=== PATIENT | female | born 1945 | race Caucasian/White ===

== ENCOUNTER → 2017-09-05 10:52 | Outpatient (CLI) | payer MEDICARE, SELFPAY | PROVIDERS: Family Provider Family Medicine Geriatric Medicine; PCP Family Medicine Geriatric Medicine; Visit Provider Family Medicine Geriatric Medicine | DX: R68.83 Chills (without fever) (principal) | CPT/HCPCS: 87633 ==

== ENCOUNTER → 2017-12-01 16:05 | Outpatient (CLI) | payer MEDICARE, SELFPAY ==
--- NOTE | 2017-12-01 16:05 | DT_ITS ---
This patient was seen during an EMR downtime November 28, 2017 - December 05, 2017. This patient may have a combination of paper and electronic documentation or all paper documentation. All documentation is viewable within the e-chart portion of [facility] for each patient visit.
[2017-12-06 05:18] LABS: ALB/GLOB Ratio 1.1 RATIO (0.9-2.4); AST(SGOT) 74 U/L (15-37); Alanine Aminotransfer ALT/SGPT 95 U/L (13-56); Albumin, Serum 4.1 g/dL (3.2-5.0); Alkaline Phosphatase 88 U/L (45-117); Anion Gap 9 (5-15); BUN 15 mg/dL (7-18); BUN/Creat Ratio 14.9 RATIO (10-20); Calcium,Total 9.6 mg/dL (8.5-10.1); Chloride 107 mmol/L (98-107); Creatinine, Serum 1.01 mg/dL (0.55-1.02); EST Glomerular Filtration Rate 57 mL/min (>60); Est Glom Filt Rate - Afr Amer 69 mL/min (>60); Globulin 3.7 g/dL (2.2-4.2); Glucose 122 mg/dL (74-106); Potassium 3.8 mmol/L (3.5-5.1); Protein, Total 7.8 g/dL (6.4-8.2); Sodium Level 141 mmol/L (136-145); Thyroid Stim Hormone (TSH) 1.46 uIU/mL (0.358-3.74)
[2017-12-06 06:02] LABS: Hematocrit 39.7 % (37-47); Hemoglobin 13.3 g/dl (12.0-15.0); Red Blood Count 3.93 M/mm3 (4.2-5.4); White Blood Count 6.4 K/mm3 (4.4-11.0)
[2017-12-06 06:03] LABS: Absolute Neutrophil Count 4.4 X10^3/uL (2.0-7.7); Basophil# 0.02 X10^3/uL; Basophil% 0.3 % (0-1); Eosinophil# 0.07 X10^3/uL; Eosinophils% 1.1 % (0-5); Lymphocyte % 23.3 % (19-41); Mean Corp Hgb Conc 33.5 g/gl (32-36); Mean Corpuscular Hgb 33.8 pg (27.0-32.0); Mean Platelet Vol. 10.5 fl (6.2-12.0); Monocyte# 0.39 X10^3/uL; Monocyte% 6.1 % (0-10); Neutrophil # 4.44 X10^3/uL (2.7-7.7); POSITIVE COUNT NO; POSITIVE DIFFERENTIAL NO; POSITIVE MORPHOLOGY NO; Platelet Count 194 K/mm3 (150-450); RBC Distribution Width CV 13.3 % (11.6-14.6); RBC Distribution Width SD 49.6 fl (35.1-43.9)
[2017-12-06 09:44] LABS: Vitamin D,25 Hydroxy 30.9 ng/mL (29.95-100.01)
== END ==
PROVIDERS: Family Provider Family Medicine Geriatric Medicine; PCP Family Medicine Geriatric Medicine; Visit Provider Family Medicine Geriatric Medicine
DX: E55.9 Vitamin D deficiency, unspecified (principal); I10 Essential (primary) hypertension
CPT/HCPCS: 36415; 80053; 82306; 84443; 85025

== ENCOUNTER → 2018-01-31 14:08 | Outpatient (CLI) | payer MEDICARE, SELFPAY ==
[2018-01-31 14:13] LABS: Mucous, Urine 0 SEEN /hpf (<or=2+); Red Blood Cells-Urine 0 SEEN /hpf (0-5)
[2018-01-31 14:49] LABS: Color, Urine Yellow (Yellow); Glucose, Dipstick Normal (Normal); Ketone-Dipstick Negative (Negative); Leukocyte Esterase-Dipstick 100 /ul (Negative); Nitrite-Dipstick Negative (Negative); Occult Blood-Urine Negative /ul (Negative); Protein-Dipstick 30 mg/dl (Negative); Specific Gravity, Urine 1.015 (1.002-1.030); Urine Bilirubin Dipstick Negative (Negative); Urine Clarity Sl. Cloudy (Clear); Urine Urobilinogen Normal (Normal)
[2018-01-31 14:57] LABS: Bacteria 1+ /hpf (None Seen); Squamous Epithelial Cells - UA 5-10 SEEN /hpf (5-10); White Blood Cells 10-25 SEEN /hpf (0-5)
== END ==
PROVIDERS: Family Provider Family Medicine Geriatric Medicine; PCP Family Medicine Geriatric Medicine; Visit Provider Surgery
DX: R10.32 Left lower quadrant pain (principal)
CPT/HCPCS: 81001; 87086; 87088

== ENCOUNTER 2018-02-07 08:16 | Day surgery (SDC) | payer MEDICARE, SELFPAY ==
[2018-02-07] VITALS (9 sets, daily range): BP systolic 108–143; BP diastolic 73–82; PULSE 72–87; RESP 16; TEMP 36–36.6; O2SAT 95–99; BMI 33.0
--- NOTE | 2018-02-07 09:30 | EGD_PTH ---
PATIENT: KATIE OZUNA LOC: EN U#:[id number] AGE/SX: 72/F ROOM: RE02/07/[address]: Dr. Randal Jefrfies MD : 1945 BED: DIS: 02/07/2018 SPEC #: [id number] RECD: 02/07/18 12:49 STATUS: CYNTHIA JOSUÉ #: [id number] JASON: 02/07/18 09:[address]: Randal Jeffries DEPT: SURGICAL PATHOLOGY RECD BY: Ethan Mcclure ENTERED: 02/07/18 13:59 SP TYPE: EGD BIOPSY OT DR: Dr. Alessio Chang MD Tissues: A - Duodenum, NOS B - Esophageal mucous membrane C - Cecum, NOS Procedures: Surgery Specimen Level IV HEADER OPERATION: Colonoscopy, EGD PRE-OP DIAGNOSIS: RLQ pain TISSUE SUBMITTED: A ? Duodenal polyp, B ? Distal esophagus biopsy, C ? Cecal biopsy MICROSCOPIC DIAGNOSIS A. Duodenal polyp, biopsy: Focal gastric metaplasia. B. Distal esophagus, biopsy: Fragments of benign squamous mucosa. C. Cecum, biopsy: Colonic mucosa with no significant pathologic change. See comment. AM:chris 02/08/18 COMMENT C. Several benign appearing lymphoid aggregates are present. MICROSCOPIC DESCRIPTION Slides are reviewed. GROSS DESCRIPTION A - Received in fixative is one container labeled with the patient's name and designated duodenal polyp. The specimen consists of two irregular fragments of light cuellar soft tissue that in aggregate measure 0.5 x 0.4 x 0.2 cm. The specimen is totally submitted in one cassette. B - Received in fixative is one container labeled with the patient's name and designated distal esophagus biopsy. The specimen consists of two irregular fragments of light cuellar soft tissue that in aggregate measure 0.8 x 0.4 x 0.1 cm. The specimen is totally submitted in one cassette. C - Received in fixative is one container labeled with the patient's name and designated cecal biopsy. The specimen consists of one irregular fragment of light cuellar soft tissue that measures 0.3 x 0.3 x 0.1 cm. The specimen is totally submitted in one cassette. / ALEJANDRO:chris 02/07/18 TC:5 CPT: 24113 x3
--- NOTE | 2018-02-07 10:38 | PCM.OPRPT ---
Problem List (1) Abdominal pain Status: Acute Qualifiers: Abdominal location: right lower quadrant (2) Adenomatous duodenal polyp Status: Resolved Report of Operation Date of Procedure: 02/07/18 Pre-Operative Diagnosis: Right lower quadrant abdominal pain. History of duodenal polyp Post-Operative Diagnosis: Recurrent duodenal polyp within the duodenal bulb. Angiodysplasia of the cecum and ascending colon. Sigmoid diverticulosis Surgery/Procedure Performed:: Esophagogastroduodenoscopy with saline lift and hot snare duodenal polypectomy with hemostatic clip placement. Colonoscopy with cecal cold forcep biopsy Description of Surgical Findings:: Timeout informed consent was obtained. 72-year-old female was taken to the endoscopy suite. Her oropharynx anesthetized with Topex. Because of her comorbidities she underwent monitored anesthesia care. She was placed in left lateral decubitus position. Flexible gastroscope was inserted into the esophageal inlet. Proximal mid distal esophagus not remarkable she does have a small hiatal hernia there were no gross findings of esophagitis. The scope was advanced in the stomach advanced through to the antrum minimal antral erythema noted. Upon entering the duodenum right within the developed one polyp at the curvature of the first and second portions on the inner curvature there was a 1.5 cm diameter sessile polypoid mass. This would be consistent with the patient's previous history of duodenal adenomatous polyps. Scope was advanced into the second and into the third portions of the duodenum this did not appear to be remarkable the ampulla Vater was identified this was not remarkable. The scope was withdrawn back to the duodenal bulb 7 cc of saline was used as saline to elevate that part of the duodenum at the adenomatous change. A hot snare was used to resect the very superficial portion. I then placed a solid hemostatic clip underneath the area. I did attempt to place 2 additional hemostatic clips but they did not appear to be as effective as the initial one. The area was irrigated hemostasis was intact. The tissue appeared to be friable possibly in part from the saline lift. Excess fluid and air was aspirated free the scope was drawn the stomach scope was retroflexed the EG junction the hiatal hernia noted the cardia was unremarkable greater and lesser curvatures were inspected this was not remarkable. Antral biopsy was obtained. The scope was drawn to the distal esophagus and distal esophageal biopsy was obtained. This was all done with cold forceps. She tolerated that procedure well. She was kept in left loud skin position. Digital rectal exam performed lax anal tone. Moderate hemorrhoidal changes. No mass lesions. LeSky [employer]ell colonoscope was inserted in the rectum advanced to a slightly tortuous sigmoid colon. Scope was then advanced through the descending colon transverse colon and by placing the patient supine with some transabdominal pressure the scope was advanced to the cecum. Bowel prep was good. There were some bubbles that that was treated with surfactant. Within the cecum and the proximal ascending colon there were 2 numerous to count vascular angiodysplasia. Photographs were obtained. I did not feel that this area could be treated effectively intraluminally. I did take a biopsy of the area. Appeared benign. There did not appear to be active bleeding although certainly it appeared as if it could bleed. Because of the extent of the cecum ascending colon involved did not feel that endoluminal treatment would be effective. The scope was carefully withdrawn through remainder of the colon. Sigmoid diverticulosis identified no evidence of acute inflammation. Excess fluid and air was aspirated free the procedure was completed she seemed to tolerate well. She was taken to recovery area for an extended period of observation. CBC will be checked. Impression Suspected recurrent duodenal polyp with pathology pending. Treated with saline lift hot snare and hemostatic clip. Minimal findings to suggest gastritis. No gross findings of esophagitis. Hiatal hernia noted. Biopsy results pending Angiodysplasia of the cecum and ascending colon. No profuse active bleeding at this time. Biopsy results pending Sigmoid diverticulosis. No findings seem to correlate with the patient's 2-3 history of chronic right lower quadrant abdominal pain. The patient will be observed in the recovery area. She will be notified of pathology results as they become available. The patient has had a previous ventral hernia repair remotely with mesh in place. On CT scan this does not appear to be etiologic to her pain either. If she is not demonstrating anemia that I am not likely to propose surgical treatment of her ascending colon at this time. Cc: Dr. Chang Upper scope was started at 0956 it was completed at 1020. The lower scope was started at 1023. Cecum was reached at 1027. The procedure was completed at 1033. Randal Jeffries M.D., F.A.C.S. Type of Anesthesia:: MAC Anesthesiologist: Segundo Velez
[2018-02-07 11:37] LABS: Absolute Lymphocyte Count 0.88 X10^3/ul (0.83-4.51); Absolute Neutrophil Count 3.5 X10^3/uL (2.0-7.7); Basophil# 0.01 X10^3/uL; Basophil% 0.2 % (0-1); Eosinophil# 0.06 X10^3/uL; Eosinophils% 1.3 % (0-5); Hematocrit 37.3 % (37-47); Hemoglobin 12.2 g/dl (12.0-15.0); Lymphocyte # 0.88 X10^3/ul (4.0); Lymphocyte % 18.7 % (19-41); Mean Corp Hgb Conc 32.7 g/gl (32-36); Mean Corpuscular Hgb 32.9 pg (27.0-32.0); Mean Corpuscular Volume 100.5 fL (81-99); Mean Platelet Vol. 10.1 fl (6.2-12.0); Monocyte# 0.27 X10^3/uL; Monocyte% 5.7 % (0-10); Neutrophil # 3.48 X10^3/uL (2.7-7.7); Neutrophil % 74.1 % (47-70); Platelet Count 139 K/mm3 (150-450); RBC Distribution Width SD 47.4 fl (35.1-43.9); Red Blood Count 3.71 M/mm3 (4.2-5.4); White Blood Count 4.7 K/mm3 (4.4-11.0)
[2018-02-07 11:38] LABS: POSITIVE COUNT NO; POSITIVE DIFFERENTIAL NO; POSITIVE MORPHOLOGY NO
== END 2018-02-07 18:12 | disposition home or self-care (01) ==
LOC: EN 08:18 → AC 08:18
PROVIDERS: Family Provider Family Medicine Geriatric Medicine; PCP Family Medicine Geriatric Medicine; Visit Provider Surgery
PROC: 0DJD8ZZ Inspection of Lower Intestinal Tract, Via Natural or Artificial Opening Endoscopic (ICD-10-PCS; CPT 45378; principal; 2018-02-07 09:25)
DX: D13.2 Benign neoplasm of duodenum (principal); K55.20 Angiodysplasia of colon without hemorrhage; K57.30 Diverticulosis of large intestine without perforation or abscess without bleeding; K44.9 Diaphragmatic hernia without obstruction or gangrene; K58.0 Irritable bowel syndrome with diarrhea; I10 Essential (primary) hypertension; E78.00 Pure hypercholesterolemia, unspecified; M54.9 Dorsalgia, unspecified; G89.29 Other chronic pain; K21.9 Gastro-esophageal reflux disease without esophagitis; F32.9 Major depressive disorder, single episode, unspecified; F41.9 Anxiety disorder, unspecified; Z78.0 Asymptomatic menopausal state; Z79.82 Long term (current) use of aspirin; Z79.899 Other long term (current) drug therapy; Z85.828 Personal history of other malignant neoplasm of skin; Z87.19 Personal history of other diseases of the digestive system; Z90.49 Acquired absence of other specified parts of digestive tract
CPT/HCPCS: 43251; 45380; 85025; 88305; J7120; A4216; J2405

== ENCOUNTER → 2018-05-26 10:30 | Outpatient (CLI) | payer MEDICARE, SELFPAY ==
[2018-05-26 12:23] LABS: Absolute Lymphocyte Count 1.36 X10^3/ul (0.83-4.51); Absolute Neutrophil Count 3.6 X10^3/uL (2.0-7.7); Basophil# 0.02 X10^3/uL; Basophil% 0.4 % (0-1); Eosinophils% 1.8 % (0-5); Hematocrit 38.1 % (37-47); Hemoglobin 12.6 g/dl (12.0-15.0); Lymphocyte # 1.36 X10^3/ul (4.0); Lymphocyte % 25.1 % (19-41); Mean Corp Hgb Conc 33.1 g/gl (32-36); Mean Corpuscular Hgb 33.7 pg (27.0-32.0); Mean Corpuscular Volume 101.9 fL (81-99); Mean Platelet Vol. 11.2 fl (6.2-12.0); Monocyte# 0.29 X10^3/uL; Monocyte% 5.4 % (0-10); Neutrophil # 3.63 X10^3/uL (2.7-7.7); Neutrophil % 67.1 % (47-70); Platelet Count 158 K/mm3 (150-450); RBC Distribution Width CV 12.5 % (11.6-14.6); RBC Distribution Width SD 45.5 fl (35.1-43.9); Red Blood Count 3.74 M/mm3 (4.2-5.4); White Blood Count 5.4 K/mm3 (4.4-11.0)
[2018-05-26 12:28] LABS: POSITIVE COUNT NO; POSITIVE DIFFERENTIAL NO; POSITIVE MORPHOLOGY NO
[2018-05-26 12:30] LABS: ALB/GLOB Ratio 1.1 RATIO (0.9-2.4); AST(SGOT) 129 U/L (15-37); Alanine Aminotransfer ALT/SGPT 164 U/L (13-56); Albumin, Serum 4.1 g/dL (3.2-5.0); Alkaline Phosphatase 97 U/L (45-117); Anion Gap 11 (5-15); BUN 16 mg/dL (7-18); BUN/Creat Ratio 13.3 RATIO (10-20); Calcium,Total 9.5 mg/dL (8.5-10.1); Chloride 108 mmol/L (98-107); EST Glomerular Filtration Rate 47 mL/min (>60); Est Glom Filt Rate - Afr Amer 57 mL/min (>60); Globulin 3.6 g/dL (2.2-4.2); Glucose 202 mg/dL (74-106); Potassium 3.6 mmol/L (3.5-5.1); Protein, Total 7.7 g/dL (6.4-8.2); Sodium Level 142 mmol/L (136-145); Thyroid Stim Hormone (TSH) 1.58 uIU/mL (0.358-3.74); Vitamin D,25 Hydroxy 50.7 ng/mL (29.95-100.01)
--- OUTSIDE RECORDS SUMMARY | 2018-07-21 06:37 | XMS RPT_ITS ---
:1945 Author Organization [facility] Care Team Providers Name Role Phone Bernardo, Alessio Chi Attending Unavailable Bernardo, Alessio Chi Primary Care Unavailable Bernardo, Alessio Chi Attending Unavailable Bernardo, Alessio Chi Primary Care Unavailable CebulYessenia Attending Unavailable Bernardo, Alessio Chi Referring Unavailable Bernardo, Alessio Chi Primary Care Unavailable Cebul Yessenia Attending Unavailable Bernardo, Alessio Chi Primary Care Unavailable Cebul Yessenia Attending Unavailable Cebul, Yessenia Referring Unavailable Bernardo, Alessio Chi Primary Care Unavailable Cebul Yessenia Attending Unavailable Cebul, Yessenia Referring Unavailable Bernardo, Alessio Chi Primary Care Unavailable Giannabul Yessenia Consulting Unavailable Bernardo, Alessio Chi Attending Unavailable Bernardo, Alessio Chi Primary Care Unavailable PROBLEMS PROBLEMS DATE TYPE CONDITION / CODE ATTENDING STATUS SOURCE 01/31/2018 Unknown R10.32 - Left Yessenia Jeffries Active [place] lower [facility] Community pain / Hospital R10.32(ICD-10) Repository 12/22/2017 Unknown E55.9 - Vitamin D Bernardo, Alessio Chi Active [place] deficiency, Community unspecified / Hospital E55.9(ICD-10) Repository PROCEDURES PROCEDURES No Procedure Records FoundRESULTS RESULTS CBC W/DIFF, AUTOMATED Collected: 05/26/2018 Status: F Source: YOUNG 10:32 AM [facility] REPOSITORY TYPE CODE TESTS RESULT OUT OF RANGE REFERENCE UNITS LAB L100.1000 4.4-11.0 K/mm3 Normal WBC 5.4 LAB L100.1200 4.2-5.4 M/mm3 Low RBC 3.74 LAB L100.1300 12.0-15.0 g/dl Normal HGB 12.6 LAB L100.1400 37-47 % Normal HCT 38.1 LAB L100.1500 81-99 fL High MCV 101.9 LAB L100.1600 27.0-32.0 pg High MCH 33.7 LAB L100.1700 32-36 g/gl Normal MCHC 33.1 LAB L100.1810 11.6-14.6 % Normal RDW CV 12.5 LAB L100.1820 35.1-43.9 fl High RDW SD 45.5 LAB L100.1900 150-450 K/mm3 Normal PLT 158 LAB L100.2000 6.2-12.0 fl Normal MPV 11.2 LAB L100.2100 47-70 % Normal NEUT% 67.1 LAB L100.2200 19-41 % Normal LY% 25.1 LAB L100.2300 0-10 % Normal MONO% 5.4 LAB L100.2400 0-5 % Normal EO% 1.8 LAB L100.2500 0-1 % Normal BASO% 0.4 LAB L100.2550 0.0-0.9 % Normal IM GRAN % 0.200 Result Comment: IG% - Immature Granulocytes (promyelocytes, myelocytes and metamyelocytes) > 1% indicates that a LEFT SHIFT is Present. LAB L100.2620 2.0-7.7 X10 3/uL Normal Absolute Neut 3.6 LAB L100.2720 0.83-4.51 X10 3/ul Normal Absolute Lymph 1.36 Performed By: #### L100.0100 #### [facility] [address], [address] COMPREHENSIVE METABOLIC Collected: 05/26/2018 Status: F Source: [place] 10:32 AM [facility] REPOSITORY TYPE CODE TESTS RESULT OUT OF RANGE REFERENCE UNITS LAB L501.0100 74-106 mg/dL High GLU 202 Result Comment: Glucose result greater than or equal to 200 mg/dL suggests DIABETES MELLITUS per A.D.A. criteria. Please note revised GLUCOSE reference range effective 2017. LAB L501.1000 7-18 mg/dL Normal BUN 16 LAB L501.1100 0.55-1.02 mg/dL High CREAT,SERUM 1.20 Result Comment: The validity of the calculated GFR AND GFRAA in patients over 70 years has not been determined. Clinical correlation is essential. LAB L501.1110 >60 mL/min Low EST GFR 47 Result Comment: Non- GFR Calc LAB L501.1115 >60 mL/min Low EST GFR - AA 57 Result Comment: GFR Calc LAB L501.1300 10-20 RATIO Normal BUN/CRE 13.3 LAB L501.1500 6.4-8.2 g/dL T Normal PROT 7.7 LAB L501.1800 3.2-5.0 g/dL Normal ALB 4.1 LAB L501.1950 2.2-4.2 g/dL Normal GLOB 3.6 LAB L501.2000 0.9-2.4 RATIO Normal A/G 1.1 LAB L501.2200 8.5-10.1 mg/dL CA Normal 9.5 LAB L501.4100 15-37 U/L High AST 129 LAB L501.4305 45-117 U/L Normal ALK P 97 LAB L501.4405 13-56 U/L High ALT 164 LAB L501.4600 0.20-1.00 mg/dL High T BILI 1.20 LAB L501.5300 136-145 mmol/L NA Normal 142 LAB L501.5600 3.5-5.1 mmol/L K Normal 3.6 LAB L501.5900 98-107 mmol/L High CL 108 LAB L501.6100 21.0-32.0 mmol/L Normal CO2 23.0 LAB L501.6200 5-15 Normal GAP 11 Performed By: #### L500.4050, L501.9520 #### [facility] [address] [place], [address] THYROID STIM HORMONE Collected: 05/26/2018 Status: F Source: YOUNG (TSH) 10:32 AM [facility] REPOSITORY TYPE CODE TESTS RESULT OUT OF RANGE REFERENCE UNITS LAB L501.9520 0.358-3.74 uIU/mL Normal TSH 1.58 Performed By: #### L500.4050, L501.9520 #### [facility] [address] [place], [address] VITAMIN D,25 HYDROXY Collected: 05/26/2018 Status: F Source: YOUNG 10:32 AM [facility] REPOSITORY TYPE CODE TESTS RESULT OUT OF RANGE REFERENCE UNITS LAB L506.1000 29.95-100.01 ng/mL Normal Vitamin D 50.7 25-OH Result Comment: Vitamin D 25(OH) Status Range Deficiency <20 ng/mL (50nmol/L) Insuffciency 20 - 30 ng/mL (50 - 75 nmol/L) Sufficiency 30 - 100 ng/mL (75 - 250 nmol/L) Toxicity >100 ng/mL (>250 nmol/L) Performed By: #### L506.1000 #### [facility] [address] [place], [address] CBC W/DIFF, AUTOMATED Collected: 02/07/2018 Status: F Source: YOUNG 11:12 AM [facility] REPOSITORY TYPE CODE TESTS RESULT OUT OF RANGE REFERENCE UNITS LAB L100.1000 4.4-11.0 K/mm3 Normal WBC 4.7 LAB L100.1200 4.2-5.4 M/mm3 Low RBC 3.71 LAB L100.1300 12.0-15.0 g/dl Normal HGB 12.2 LAB L100.1400 37-47 % Normal HCT 37.3 LAB L100.1500 81-99 fL High MCV 100.5 LAB L100.1600 27.0-32.0 pg High MCH 32.9 LAB L100.1700 32-36 g/gl Normal MCHC 32.7 LAB L100.1810 11.6-14.6 % Normal RDW CV 13.0 LAB L100.1820 35.1-43.9 fl High RDW SD 47.4 LAB L100.1900 150-450 K/mm3 Low PLT 139 LAB L100.2000 6.2-12.0 fl Normal MPV 10.1 LAB L100.2100 47-70 % High NEUT% 74.1 LAB L100.2200 19-41 % Low LY% 18.7 LAB L100.2300 0-10 % Normal MONO% 5.7 LAB L100.2400 0-5 % Normal EO% 1.3 LAB L100.2500 0-1 % Normal BASO% 0.2 LAB L100.2550 0.0-0.9 % Normal IM GRAN % 0.000 Result Comment: IG% - Immature Granulocytes (promyelocytes, myelocytes and metamyelocytes) > 1% indicates that a LEFT SHIFT is Present. LAB L100.2620 2.0-7.7 X10 3/uL Normal Absolute Neut 3.5 LAB L100.2720 0.83-4.51 X10 3/ul Normal Absolute Lymph 0.88 Performed By: #### L100.0100 #### [facility] [address] [facility] [place], [address] OPERATIVE REPORT Observed: 02/07/2018 Status: F Source: [place] 10:47 AM [facility] REPOSITORY [facility] Medical Records Department [address] [place] [address] Operative Report 02/07/18 1038 MR#: [id number] Acct: [id number] Name: KATIE OZUNA Rep #: [id number] : 1945 72 From: Yessenia Jeffries MD PCP: Bernardo ROBERSON,Alessio Lantigua [place] [facility] Location[facility] Problem List (1) Abdominal pain Status: Acute Qualifiers: Abdominal location: right lower quadrant (2) Adenomatous duodenal polyp Status: Resolved Report of Operation Date of Procedure: 02/07/18 Pre-Operative Diagnosis: Right lower quadrant abdominal pain. History of duodenal polyp Post-Operative Diagnosis: Recurrent duodenal polyp within the duodenal bulb. Angiodysplasia of the cecum and ascending colon. Sigmoid diverticulosis Surgery/Procedure Performed:: Esophagogastroduodenoscopy with saline lift and hot snare duodenal polypectomy with hemostatic clip placement. Colonoscopy with cecal cold forcep biopsy Description of Surgical Findings:: Timeout informed consent was obtained. 72-year-old female was taken to the endoscopy suite. Her oropharynx anesthetized with Topex. Because of her comorbidities she underwent monitored anesthesia care. She was placed in left lateral decubitus position. Flexible gastroscope was inserted into the esophageal inlet. Proximal mid distal esophagus not remarkable she does have a small hiatal hernia there were no gross findings of esophagitis. The scope was advanced in the stomach advanced through to the antrum minimal antral erythema noted. Upon entering the duodenum right within the developed one polyp at the curvature of the first and second portions on the inner curvature there was a 1.5 cm diameter sessile polypoid mass. This would be consistent with the patient's previous history of duodenal adenomatous polyps. Scope was advanced into the second and into the third portions of the duodenum this did not appear to be remarkable the ampulla Vater was identified this was not remarkable. The scope was withdrawn back to the duodenal bulb 7 cc of saline was used as saline to elevate that part of the duodenum at the adenomatous change. A hot snare was used to resect the very superficial portion. I then placed a solid hemostatic clip underneath the area. I did attempt to place 2 additional hemostatic clips but they did not appear to be as effective as the initial one. The area was irrigated hemostasis was intact. The tissue appeared to be friable possibly in part from the saline lift. Excess fluid and air was aspirated free the scope was drawn the stomach scope was retroflexed the EG junction the hiatal hernia noted the cardia was unremarkable greater and lesser curvatures were inspected this was not remarkable. Antral biopsy was obtained. The scope was drawn to the distal esophagus and distal esophageal biopsy was obtained. This was all done with cold forceps. She tolerated that procedure well. She was kept in left loud skin position. Digital rectal exam performed lax anal tone. Moderate hemorrhoidal changes. No mass lesions. uBankell colonoscope was inserted in the rectum advanced to a slightly tortuous sigmoid colon. Scope was then advanced through the descending colon transverse colon and by placing the patient supine with some transabdominal pressure the scope was advanced to the cecum. Bowel prep was good. There were some bubbles that that was treated with surfactant. Within the cecum and the proximal ascending colon there were 2 numerous to count vascular angiodysplasia. Photographs were obtained. I did not feel that this area could be treated effectively intraluminally. I did take a biopsy of the area. Appeared benign. There did not appear to be active bleeding although certainly it appeared as if it could bleed. Because of the extent of the cecum ascending colon involved did not feel that endoluminal treatment would be effective. The scope was carefully withdrawn through remainder of the colon. Sigmoid diverticulosis identified no evidence of acute inflammation. Excess fluid and air was aspirated free the procedure was completed she seemed to tolerate well. She was taken to recovery area for an extended period of observation. CBC will be checked. Impression Suspected recurrent duodenal polyp with pathology pending. Treated with saline lift hot snare and hemostatic clip. Minimal findings to suggest gastritis. No gross findings of esophagitis. Hiatal hernia noted. Biopsy results pending Angiodysplasia of the cecum and ascending colon. No profuse active bleeding at this time. Biopsy results pending Sigmoid diverticulosis. No findings seem to correlate with the patient's 2-3 history of chronic right lower quadrant abdominal pain. The patient will be observed in the recovery area. She will be notified of pathology results as they become available. The patient has had a previous ventral hernia repair remotely with mesh in place. On CT scan this does not appear to be etiologic to her pain either. If she is not demonstrating anemia that I am not likely to propose surgical treatment of her ascending colon at this time. Cc: Dr. Chang Upper scope was started at 0956 it was completed at 1020. The lower scope was started at 1023. Cecum was reached at 1027. The procedure was completed at 1033. Yessenia Jeffries M.D., F.A.C.S. Type of Anesthesia:: MAC Anesthesiologist: Segundo Velez 02/07/18 1047 <Electronically signed by Yessenia Jeffries MD> Date Yessenia Jeffries MD CC: Yessenia Jeffries MD; Alessio Chang MD Signed EGD ([facility]) Observed: 02/07/2018 Status: F Source: YOUNG 9:30 AM [facility] REPOSITORY Patient: KATIE OZUNA : 1945 (72/F) Acct Num: [id number] Phys: Mervin ROBERSON,Yessenia Unit Num: [id number] Loc: EN Specimen: [id number] Received: 02/07/18 - 1249 Spec Type: EGD BIOPSY TISSUES TISSUES: A. Duodenum, NOS B. Esophageal mucous membrane C. Cecum, NOS COMMENT C. Several benign appearing lymphoid aggregates are present. GROSS DESCRIPTION A - Received in fixative is one container labeled with the patient's name and designated duodenal polyp. The specimen consists of two irregular fragments of light cuellar soft tissue that in aggregate measure 0.5 x 0.4 x 0.2 cm. The specimen is totally submitted in one cassette. B - Received in fixative is one container labeled with the patient's name and designated distal esophagus biopsy. The specimen consists of two irregular fragments of light cuellar soft tissue that in aggregate measure 0.8 x 0.4 x 0.1 cm. The specimen is totally submitted in one cassette. C - Received in fixative is one container labeled with the patient's name and designated cecal biopsy. The specimen consists of one irregular fragment of light cuellar soft tissue that measures 0.3 x 0.3 x 0.1 cm. The specimen is totally submitted in one cassette. / SJ:chris 02/07/18 TC:5 CPT: 17306 x3 HEADER OPERATION: Colonoscopy, EGD PRE-OP DIAGNOSIS: RLQ pain TISSUE SUBMITTED: A Duodenal polyp, B Distal esophagus biopsy, C Cecal biopsy MICROSCOPIC DESCRIPTION Slides are reviewed. MICROSCOPIC DIAGNOSIS A. Duodenal polyp, biopsy: Focal gastric metaplasia. B. Distal esophagus, biopsy: Fragments of benign squamous mucosa. C. Cecum, biopsy: Colonic mucosa with no significant pathologic change. See comment. AM:chris 02/08/[address] [facility] 02/08/18 <signature on file> Performed By: #### PEGD #### [facility] [address] [place], [place], [address] SURGERY VISIT REPORT Observed: 02/01/2018 Status: F Source: YOUNG 7:10 AM [facility] REPOSITORY [facility] [address] [place] [address] OFFICE VISIT Date of Service: 01/31/18 MR#: [id number] Acct: [id number] Name: KATIE OZUNA Rep #: [id number] : 1945 Provider: Yessenia Jeffries MD Age/Sex: 72/F Location: [facility] Status: Signed Intake Vital Signs01/31/18 Height 5 ft 2 in 01/31/18 Weight: 185 lb 7 oz 01/31/18 Body Mass Index (BMI) 33.9 01/31/18 Blood Pressure 122/77 Intake Visit Reasons: R Upper Quad Pain HX of Hernia w/Mesh in that area Chief Complaint: RUQ pain 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 Hopper 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 Required: No Is patient in pain?: Yes Pain scale (1-10): 5 Allergies acetaminophen [From Vicodin] Allergy (Verified 01/31/18 13:19) Hives hydrocodone [From Vicodin] Allergy (Verified 01/31/18 13:19) Hives Sulfa (Sulfonamide Antibiotics) Allergy (Verified 01/31/18 13:19) Hives Medications Aspirin [Aspirin, Baby] 81 mg PO DAILY@0800 02/08/16 [History Confirmed 01/31/18] Biotin [Hernandez Biotin] 5,000 mcg PO DAILY 02/08/16 [History Confirmed 01/31/18] Citalopram [Celexa] 20 mg PO DAILY 02/08/16 [History Confirmed 01/31/18] Eluxadoline [Viberzi] 100 mg PO QHS 02/08/16 [History Confirmed 01/31/18] Lorazepam [Ativan] 1 mg PO QHS 02/08/16 [History Confirmed 01/31/18] Losartan/Hydrochlorothiazide [Losartan-Hctz 50-12.5 mg Tab] 1 ea PO DAILY 02/08/16 [History Confirmed 01/31/18] Methylcellulose [Fiber Therapy] 2 tab PO DAILY 02/08/16 [History Confirmed 01/31/18] Pravastatin [Pravachol] 40 mg PO DAILY 02/08/16 [History Confirmed 01/31/18] Vitamin E 200 unit PO DAILY 02/08/16 [History Confirmed 01/31/18] potassium chloride 20 mEq oral packet 20 meq PO QDAY 01/31/18 [History Confirmed 01/31/18] trazodone 100 mg tablet 100 mg PO QDAY 01/31/18 [History Confirmed 01/31/18] Is last menstrual period known: No Post menopausal: Yes Patient : No PFSH Medical History Abdominal pain (Acute) Anxiety (Acute) Chronic back pain (Acute) Depression (Acute) Diverticulitis (Acute) History of incisional hernia repair (Acute) Skin cancer (Acute) HTN (hypertension) (Chronic) Surgical History History of cholecystectomy (Acute) History of colectomy (Acute) History of colonoscopy (Acute) History of removal of ovarian cyst (Acute) Status post surgical removal of malignant neoplasm of skin (Acute) Family History Father Heart disease Mother Colon cancer Sister Breast cancer Social History Smoking Status: Never smoker HPI HPI HPI: KATIE OZUNA, is a 72 F who presents to the office today for surgical consultation regarding right lower quadrant pain. The patient is referred by Dr. Chang for assistance in evaluation of right lower quadrant abdominal pain and a written copy of my surgical consult and recommendations will be returned to him. It is of note that the patient had ruptured sigmoid diverticulitis in the year 1999. Dr. Tha Barrow performed a resection and primary anastomosis.. It appears that 2000 she had a laparoscopic ventral incisional herniorrhaphy as well. She has had no difficulties with that hernia repair ever since. Over the past 1-2 years she has developed this constant chronic right lower quadrant abdominal pain. No fever or chills or sweats or nausea or vomiting or bright red blood per rectum or melena. She is already had a previous remote appendectomy in childhood and she has had a previous cholecystectomy. As of December 11, 2017 her white blood cell count was 6.4 and hemoglobin 13.3 hematocrit 39.7 and platelet count 194,000 with a normal differential. Her AST is 74 and a.l. T is 95 alkaline phosphatase is 88 and total bilirubin is 1.3. BUN and creatinine are normal. A previous CT scan performed September 28, 2016 demonstrates no acute abdominal pathology. Postsurgical changes with the mesh supporting the abdominal wall. Hepatomegaly and splenomegaly seemingly stable to previous studies. September 09, 2015 a abdominal ultrasound demonstrated a common bile duct measuring 2.7 mm and evidence of post cholecystectomy. The right kidney had a peripelvic mass measuring 2 x 2.1 x 1.8 cm which then was not seen on CT. It is of note that a previous ultrasound performed June 19, 2013 demonstrated fatty infiltration of the liver at that time performed an upper endoscopy February 26, 2014. That exam was normal at that time. That exam was performed because of a previous history of a adenomatous polyp of the duodenum. August 16, 2013 an upper endoscopy had demonstrated a single 4 mm sessile polyp in the distal second part of the duodenum and it was resected with cold forceps. There is a 15 mm sessile polyp in the second portion of the duodenum opposite the main papilla and it was resected with saline lift and hot snare technique. 2 hemostatic clips were placed at that time. That polyp was tubular adenoma with low-grade dysplasia. The same for the other polyp as well. The patient does not recall having had any additional follow-up upper endoscopy since 2013. It is of note that the patient has a chronic anxiety problem. 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 She has already been sent to see a chiropractor and thoughts that she might have radiating back pain. She herself has not detected recurrence of her incisional hernia. She does not really state that she has groin pain or groin hernia. She does claim that just the other day she had horrific pain when she was attempting to defecate. That pain lingered even after moving her bowels. She did not notice bright red blood per rectum or melena ROS General General: Yes weight change and fatigue; no appetite, colon cancer, breast cancer or weakness HEENT HEENT: No difficulty swallowing, eye injury, eye surgery, swollen glands or hoarseness Endo Endocrine: No thyroid disease, diabetes mellitus, thyroid cancer, Hair loss, heat intolerance or cold intolerance Musc Musculoskeletal: Yes back problems; no arthritis, rheumatoid arthritis, gout or joint pain Cardio Cardiovascular: Yes high blood pressure; no murmur, pacemaker, heart disease, atrial fibrillation, heart attack, heart stent, palpitations, shortness of breat with exertion or chest pain Psych Psychiatric: Yes depression and anxiety; no hearing voices Resp Respiratory: No shortness of breath, No sleep apnea, No cough, No COPD, No asthma, No emphysema, No wheezing Gastro Gastrointestinal: Yes abdominal pain, No nausea or vomiting, Yes diarrhea, No constipation, No blood in stool, No acid reflux, No hemorrhoids, No ulcers, No gallbladder problem, No black,tarry stools Additional Details: IBSD Pablo Hematologic: No blood thinners, No blood disorders, No bleeding, No anemia, No blood clots Neuro Neurologic: No weakness Exam Const General: cooperative, healthy appearing, no acute distress Nutritional Appearance: obese Orientation: alert, awake, oriented x3 HENMT Head: normal to inspection Eyes General: appearance normal, both eyes and all related structures Neck Neck: normal visual inspection Chest Chest palpation AND inspection: normal inspection of the chest Resp Effort AND Inspection: normal respiratory effort Auscultation: clear to auscultation bilaterally Cardio Rate: regular rate Rhythm: regular rhythm Heart Sounds: no murmurs GI Palpation: soft, no hepatosplenomegaly Auscultation: normal bowel sounds Other: Difficult to examine as the patient demonstrates tenderness actually throughout her entire abdomen Superficially tender to palpation in the left mid abdomen and lower quadrant. Tender to even light palpation in the right lower quadrant. The patient was examined supine and upright. No clinical findings to correlate with groin hernia femoral hernia or incisional hernia Not pulsatile Musc Cervical Spine: normal cervical lordosis Skin General: no rashes or lesions noted Neuro Cranial Nerves: CN's II-XI intact bilaterally Extrem General: no clubbing, cyanosis or edema Psych Mood: anxious mood Assessment AND Plan Problems 1. Right lower quadrant abdominal pain R10.31 Plan For 1-2 years the patient has had this persistent right lower quadrant abdominal pain. Recently it was made worse with movement of her bowels. She has had a personal history of a adenoma of the duodenum. She does have a chronic anxiety issue. She claims that she has had a long-term history of IBS with diarrhea I have personally reviewed her most recent CT scan of 2017. The abdominal wall mesh repair appears to be nicely in place. I do not detect any bowel involvement without mass. There is no findings that would suggest small bowel obstruction. After such a prolonged period of time I would have a low suspicion that the mesh is etiologic to her discomfort. Clinically and on CT have not demonstrating recurrent ventral hernia or evidence of groin or inguinal hernia. I am offering her a esophagogastroduodenoscopy with possible biopsy with anticipated very careful inspection of the duodenum for potential for recurrent polyps. Because of the pain with defecation I am recommending a colonoscopy with possible biopsy or polypectomy is indicated. She has had an opportunity to ask and have questions answered. I am recommending that this be performed with monitored anesthesia care to facilitate this patient's comfort. If an etiology to the patient's abdominal pain is determined that we will be able to assist. If there are no immediate findings upon endoscopy and I am not likely to detect a surgical etiology to her pain. I very much appreciate the kind opportunity of assisting with her surgical care Cc: Dr. Bernardo Jeffries M.D., F.A.C.S. Orders Orders: Medications Discontinued: Coding Level of Care Code Comprehensive,moderate Diagnoses Right lower quadrant abdominal pain R10.31 Abdominal location: right lower quadrant Time Spent (min) 55 02/01/18 0710 <Electronically signed by Yessenia Jeffries MD> Date Yessenia Jeffries MD Cosigner Signature: Date (if applicable) CC: Alessio Chang MD URINALYSIS, COMPLETE Collected: 01/31/2018 Status: F Source: [place]NG 2:12 PM [facility] REPOSITORY Order Comment: How was Urine Obtained? ELECTRONEURODIAGNOSTIC TECHNOLOGIST TO SPECIFY TYPE CODE TESTS RESULT OUT OF RANGE REFERENCE UNITS LAB L400.3000 Yellow COLOR Normal Yellow LAB L400.3050 Clear Normal CLARITY Sl. Cloudy LAB L400.3200 Normal mg/dl Normal GLUCOSE, UR Normal LAB L400.3300 Negative mg/dL Normal BILIRUBIN URINE Negative LAB L400.3400 Negative mg/dl Normal KETONE UR Negative LAB L400.3465 1.002-1.030 Normal SP.GR. DIPSTX 1.015 LAB L400.3550 5.0 - 8.0 pH UR Normal 6.0 LAB L400.3600 Negative mg/dl High PROT 30 DIPSTX LAB L400.3700 Normal mg/dl Normal UROBILI Normal LAB L400.3750 Negative Normal NITRITE UR Negative LAB L400.3780 Negative /ul Normal OCCULT BLOOD-UR Negative LAB L400.3800 Negative /ul High LEUK ESTERASE 100 LAB L400.4050 0-5 /hpf WBC Normal 10-25 SEEN LAB L400.4100 0-5 /hpf 0 Normal RBC-UA SEEN LAB L400.4150 5-10 /hpf SQUAM Normal EPI 5-10 SEEN LAB L400.4300 None Seen /hpf 1+ Normal BACTERIA LAB L400.4350 <or=2+ /hpf 0 Normal MUCUS, URINE SEEN Performed By: #### L400.0001 #### [facility] [address] [facility] [place], [address] Observed: 01/31/2018 Status: F Source: ROCKMART CULTURE, URINE 2:12 PM [facility] REPOSITORY Urine Culture ORGANISM 1: Mixed Gram Positive Organisms [place] Count 11,000-25,000 MIX CULTURE Mixed contaminants. Submit a new specimen if indicated. Performed By: #### M100.0650 #### [facility] [address] [place], [address] DOWNTIME REPORT Observed: 12/15/2017 Status: F Source: ROCKMART 1:28 PM [facility] REPOSITORY [facility] Medical Records Department [address] [place] [address] Downtime Report MR#: [id number] Acct: [id number] Name: KATIE OZUNA Rep #: [id number] : 1945 72 From: Lencho Lundy PCP: Bernardo ROBERSON,A[facility] Status: REG CLI This patient was seen during an EMR downtime November 28, 2017 - December 05, 2017. This patient may have a combination of paper and electronic documentation or all paper documentation. All documentation is viewable within the e-chart portion of [facility] for each patient visit. COMPREHENSIVE METABOLIC Collected: 12/01/2017 Status: F Source: YOUNG PROFIL 4:05 PM [facility] REPOSITORY Order Comment: RESULT(S) PREVIOUSLY REPORTED ON MANUAL REQUISITION DURING DOWNTIME. TYPE CODE TESTS RESULT OUT OF RANGE REFERENCE UNITS LAB L501.0100 74-106 mg/dL High GLU 122 Result Comment: Fasting Glucose result from 100 to 125 mg/dL suggests IMPAIRED HOMEOSTASIS per A.D.A. criteria. Please note revised GLUCOSE reference range effective 2017. LAB L501.1000 7-18 mg/dL Normal BUN 15 LAB L501.1100 0.55-1.02 mg/dL Normal CREAT,SERUM 1.01 Result Comment: The validity of the calculated GFR AND GFRAA in patients over 70 years has not been determined. Clinical correlation is essential. LAB L501.1110 >60 mL/min Low EST GFR 57 LAB L501.1115 >60 mL/min Normal EST GFR - AA 69 LAB L501.1300 10-20 RATIO Normal BUN/CRE 14.9 LAB L501.1500 6.4-8.2 g/dL Normal T PROT 7.8 LAB L501.1800 3.2-5.0 g/dL Normal ALB 4.1 LAB L501.1950 2.2-4.2 g/dL Normal GLOB 3.7 LAB L501.2000 0.9-2.4 RATIO Normal A/G 1.1 LAB L501.2200 8.5-10.1 mg/dL Normal CA 9.6 LAB L501.4100 15-37 U/L High AST 74 LAB L501.4305 45-117 U/L Normal ALK P 88 LAB L501.4405 13-56 U/L High ALT 95 LAB L501.4600 0.20-1.00 mg/dL High T BILI 1.30 LAB L501.5300 136-145 mmol/L Normal NA 141 LAB L501.5600 3.5-5.1 mmol/L Normal K 3.8 LAB L501.5900 98-107 mmol/L Normal CL 107 LAB L501.6100 21.0-32.0 mmol/L Normal CO2 25.0 LAB L501.6200 5-15 Normal GAP 9 Performed By: #### L500.4050, L501.9520 #### [facility] [address] [facility] [place], [place], [address] THYROID STIM HORMONE Collected: 12/01/2017 Status: F Source: YOUNG (TSH) 4:05 PM [facility] REPOSITORY Order Comment: RESULT(S) PREVIOUSLY REPORTED ON MANUAL REQUISITION DURING DOWNTIME. TYPE CODE TESTS RESULT OUT OF RANGE REFERENCE UNITS LAB L501.9520 0.358-3.74 uIU/mL Normal TSH 1.46 Performed By: #### L500.4050, L501.9520 #### [facility] [address] [place], [place], [address] CBC W/DIFF, AUTOMATED Collected: 12/01/2017 Status: F Source: YOUNG 4:05 PM [facility] REPOSITORY Order Comment: RESULT(S) PREVIOUSLY REPORTED ON MANUAL REQUISITION DURING DOWNTIME. TYPE CODE TESTS RESULT OUT OF RANGE REFERENCE UNITS LAB L100.1000 4.4-11.0 K/mm3 Normal WBC 6.4 LAB L100.1200 4.2-5.4 M/mm3 Low RBC 3.93 LAB L100.1300 12.0-15.0 g/dl Normal HGB 13.3 LAB L100.1400 37-47 % Normal HCT 39.7 LAB L100.1500 81-99 fL High MCV 101.0 LAB L100.1600 27.0-32.0 pg High MCH 33.8 LAB L100.1700 32-36 g/gl Normal MCHC 33.5 LAB L100.1810 11.6-14.6 % Normal RDW CV 13.3 LAB L100.1820 35.1-43.9 fl High RDW SD 49.6 LAB L100.1900 150-450 K/mm3 Normal PLT 194 LAB L100.2000 6.2-12.0 fl Normal MPV 10.5 LAB L100.2100 47-70 % Normal NEUT% 69.0 LAB L100.2200 19-41 % Normal LY% 23.3 LAB L100.2300 0-10 % Normal MONO% 6.1 LAB L100.2400 0-5 % Normal EO% 1.1 LAB L100.2500 0-1 % Normal BASO% 0.3 LAB L100.2550 0.0-0.9 % Normal IM GRAN % 0.200 Result Comment: IG% - Immature Granulocytes (promyelocytes, myelocytes and metamyelocytes) > 1% indicates that a LEFT SHIFT is Present. LAB L100.2620 2.0-7.7 X10 3/uL Normal Absolute Neut 4.4 LAB L100.2720 0.83-4.51 X10 3/ul Normal Absolute Lymph 1.50 Performed By: #### L100.0100 #### [facility] [address] [place], [place], [address] VITAMIN D,25 HYDROXY Collected: 12/01/2017 Status: F Source: YOUNG 4:05 PM [facility] REPOSITORY Order Comment: RESULT(S) PREVIOUSLY REPORTED ON MANUAL REQUISITION DURING DOWNTIME. TYPE CODE TESTS RESULT OUT OF RANGE REFERENCE UNITS LAB L506.1000 29.95-100.01 ng/mL Normal Vitamin D 30.9 25-OH Result Comment: Vitamin D 25(OH) Status Range Deficiency <20 ng/mL (50nmol/L) Insuffciency 20 - 30 ng/mL (50 - 75 nmol/L) Sufficiency 30 - 100 ng/mL (75 - 250 nmol/L) Toxicity >100 ng/mL (>250 nmol/L) Performed By: #### L506.1000 #### [facility] [address] [facility] [place], [address] Observed: 09/05/2017 Status: F Source: ROCKMART RESPIRATORY PANEL 11:04 AM [facility] MOLECULAR REPOSITORY RP PANEL ADENOVIRUS Not Detected HUMAN METAPHNEUMO Not Detected INFLUENZA A Not Detected INFLUENZA A (SUBTYPE H1) Not Detected INFLUENZA A (SUBTYPE H3) Not Detected INFLUENZA B Not Detected PARAINFLUENZA 1 Not Detected PARAINFLUENZA 2 Not Detected PARAINFLUENZA 3 Not Detected PARAINFLUENZA 4 Not Detected RHINOVIRUS Not Detected RSV A Not Detected RSV B Not Detected NAAT METHOD Testing was performed using nucleic acid amplification Performed By: #### M100.638 #### [facility] [address] [facility] [place], [place], [address] ALLERGIES ALLERGIES DATE TYPE / CODE NAME / CODE REACTION SEVERITY SOURCE 02/07/2018 Drug Sulfa Hives Unknown [facility] Allergy/4160 (Sulfonamide Hospital 66756(SNOMED Antibiotics)/ Repository CT) [id number](RX NORM) 02/07/2018 Drug hydrocodone/F Hives Unknown [facility] Allergy/4160 [id number](RXN Hospital 89647(SNOMED ORM) Repository CT) 02/07/2018 Drug acetaminophen Hives Unknown [facility] Allergy/4160 /[id number](R Hospital 44093(SNOMED XNORM) Repository CT) ENCOUNTERS ENCOUNTERS ADMIT/DISCHARGE ACCOUNT ADMITTING ENCOUNTER LOCATION SOURCE NUMBER CLASS 05/26/2018 [id number] Ambulatory [address] ing:POLAB3 Repository 02/07/2018/ [id number] Ambulatory [place] [address] [facility] ing:ENRoom: Repository AC16 02/07/2018 [id number] Ambulatory BMSBuilding:B [place] 8 [place].[facility] Repository 01/31/2018 [id number] Ambulatory [place] 4 [facility] ing:PAVLAB Repository 01/31/2018/ [id number] Ambulatory BMSBuilding:B [place] 8 5 [place].[facility] Repository 12/01/2017 [id number] Ambulatory [place] 4 [facility] ing:POLAB3 Repository 09/05/2017 [id number] Ambulatory [place] 1 [facility] ing:LAB Repository PAYERS PAYERS ENCOUNTER GUARANTOR PAYER SUBSCRIBER SOURCE 05/26/2018 KATIE L Primary KATIE L [place] [id number] CR Insurance:[facility]: [place] [id number] [address]Tel: [facility] Number: () [id number] Date: [place], [place] [address]LZ: 05/26/2018 Secondary NOT GIVENUNK [place] Insurance:SELF PAY [facility] Number: Effective Repository Date:2018-05-26 02/07/2018 KATIE L Primary KATIE L [place] [id number] CR Insurance:[facility]: [place] [id number], [place] [address]Tro: MEDICAREPolicy Repository Number: () [id number] Date: [place], [place] [address]QA: 02/07/2018 Secondary NOT GIVENUNK [place] Insurance:SELF PAY [facility] Number: Effective Repository Date:2018-02-01 02/07/2018 KATIE L Primary KATIE L [place] [id number] CR Insurance:[facility]: Community [id number] [address]Vwr: MEDICAREPolicy Repository Number: () [id number] Date: [facility], [place] [address]QW: 02/07/2018 Secondary NOT GIVENUNK [place] Insurance:SELF PAY [facility] Number: Effective Repository Date:2018-02-07 01/31/2018 KATIE L Primary KATIE L [place] [id number] CR Insurance:[place] [facility]: Community [address] [place] [address]: MEDICAREPolicy Repository Number: () [id number] Date: [place], [place] [address]OL: 01/31/2018 Secondary NOT GIVENUNK [place] Insurance:SELF PAY [facility] Number: Effective Repository Date:2018-01-31 01/31/2018 YESSENIA E Primary KATIE L [place] [id number] CR Insurance:[place] SHICKSHINNYDOB: [address] [address]Udx: MEDICAREPolicy Repository Number: () [id number] Date: [place], [place] [address]EL: 01/31/2018 Secondary NOT GIVENUNK [place] Insurance:SELF PAY [facility] Number: Effective Repository Date:2018-01-31 12/01/2017 YESSENIA E Primary KATIE L [place] [id number] CR Insurance:[facility]: [place] [id number]: MEDICAREPolicy Repository Number: () [id number] Date: [facility], [place] [address]ZF: 12/01/2017 Secondary NOT GIVENUNK [place] Insurance:SELF PAY [facility]: Effective Repository Date:2017-12-01 09/05/2017 YESSENIA HERRERACY [id number] [id number] Insurance:[place]OMETOWAlonso NOLANB: Community [address] [id number], [place] [address]Zaz: MEDICAREPolicy Repository Number: (PU) [id number] [facility] [place] [address]IG: 09/05/2017 Secondary NOT GIVENUNK [place] Insurance:SELF PAY [facility] Number: Effective Repository Date:2017-09-05
== END ==
PROVIDERS: Family Provider Family Medicine Geriatric Medicine; PCP Family Medicine Geriatric Medicine; Visit Provider Family Medicine Geriatric Medicine
DX: I10 Essential (primary) hypertension (principal); E55.9 Vitamin D deficiency, unspecified
CPT/HCPCS: 36415; 80053; 82306; 84443; 85025

== ENCOUNTER → 2018-07-05 15:39 | Outpatient (CLI) | payer MEDICARE, SELFPAY ==
[2018-07-05 17:56] LABS: AST(SGOT) 96 U/L (15-37); Alanine Aminotransfer ALT/SGPT 120 U/L (13-56); Albumin, Serum 4.4 g/dL (3.2-5.0); Alkaline Phosphatase 99 U/L (45-117); GGTP 203 U/L (5-55); Globulin 3.5 g/dL (2.2-4.2); Protein, Total 7.9 g/dL (6.4-8.2)
[2018-07-05 18:07] LABS: Hemoglobin A1c 6.3 % (4.2-6.3)
[2018-07-05 20:08] LABS: Erythrocyte Sedimentation Rate 25 mm/hr (0-30)
[2018-07-08 19:51] LABS: ANTINUCLEAR ANTIBODIES DIRECT Positive (Negative); Anti-Mitochondrial AB <20.0 Units (0.0-20.0); Anti-Smooth Muscle ABS 23 Units (0-19)
== END ==
PROVIDERS: Family Provider Family Medicine Geriatric Medicine; PCP Family Medicine Geriatric Medicine; Referring Provider Internal Medicine Gastroenterology; Visit Provider Internal Medicine Gastroenterology
DX: K75.9 Inflammatory liver disease, unspecified (principal); K76.0 Fatty (change of) liver, not elsewhere classified
CPT/HCPCS: 36415; 80076; 82977; 83036; 83516; 85652; 86038

== ENCOUNTER → 2018-07-10 07:39 | Outpatient (CLI) | payer MEDICARE, SELFPAY ==
[2018-02-07 08:37] VITALS: BMI 33.0
--- NOTE | 2018-07-10 07:42 | US_ITS ---
HISTORY: HEPATITISHX OF CHOLECYSTECTOMY EXAM/TECHNIQUE: US Abdomen Limited (quadrant): Right upper quadrant. COMPARISON: CT abdomen pelvis 09/28/16. FINDINGS: # of images incl. paperwork: 89 Increased hepatic echotexture compatible with steatosis. Normal hepatic size. Portal vein patent with hepatopedal flow. No focal hepatic lesions are evident. Status post cholecystectomy. Common bile duct 8 mm diameter. Pancreas unremarkable. Right kidney 10.2 x 5.0 x 5.3 cm with normal cortical thickness. 3 right renal cysts are noted, largest 2.4 cm in diameter. 8 mm shadowing calcification appears to layer within 1 of the renal cysts, less likely within a calyx. US/Abdomen Limited IMPRESSION: No acute findings. Status post cholecystectomy. 8 mm right renal calcification most likely an incidental calcification within a cyst. Less likely a nonobstructing stone. Hepatic steatosis. at 2337 Reported and signed by: Umang Valenzuela MD Electronically Signed: Umang Valenzuela, at 23:36 EST Tel , Service support ,
== END ==
PROVIDERS: Family Provider Family Medicine Geriatric Medicine; PCP Family Medicine Geriatric Medicine; Referring Provider Internal Medicine Gastroenterology; Visit Provider Internal Medicine Gastroenterology
DX: K75.9 Inflammatory liver disease, unspecified (principal)
CPT/HCPCS: 76705

== ENCOUNTER → 2018-07-12 09:46 | Outpatient (CLI) | payer MEDICARE, SELFPAY ==
[2018-07-13 15:15] LABS: Alpha-1-Globulins 0.3 g/dL (0.0-0.4); Alpha-2-Globulins 0.7 g/dL (0.4-1.0); Gamma Globulin 0.9 g/dL (0.4-1.8); Immunoglobulin A 150 mg/dL (64-422); Immunoglobulin G 814 mg/dL (700-1600); Immunoglobulin M 80 mg/dL (26-217); PROEL- TOTAL PROTEIN 7.1 g/dL (6.0-8.5)
--- OUTSIDE RECORDS SUMMARY | 2018-09-16 01:59 | XMS RPT_ITS ---
:1945 Author Organization OHIP Support Name Relationship Address Phone R Unavailable Unavailable Unavailable OZUNA, DON Unavailable [address] + [place] [address] R Unavailable Unavailable Unavailable OZUNA, LORETO Unavailable [address] + [place] [address] R Unavailable Unavailable Unavailable OZUNA, LORETO Unavailable [address] + [place] [address] R Unavailable Unavailable Unavailable OZUNA, DON Unavailable [address] + [place] [address] R Unavailable Unavailable Unavailable OZUNA, DON Unavailable [address] + [place] [address] R Unavailable Unavailable Unavailable OZUNA, DON Unavailable [address] + [place] [address] R Unavailable Unavailable Unavailable OZUNA, DON Unavailable [address] + [place] [address] R Unavailable Unavailable Unavailable OZUNA, DON Unavailable [address] + [place] [address] R Unavailable Unavailable Unavailable OZUNA, DON Unavailable [address] + [place] [address] R Unavailable Unavailable Unavailable OZUNA, DON Unavailable [address] + [place] [address] R Unavailable Unavailable Unavailable OZUNA, DON Unavailable [address] + [place] [address] Care Team Providers Name Role Phone Adams Trent Attending Unavailable Adams Trent Referring Unavailable Bernardo, Alessio Chi Primary Care Unavailable Adams Trent Attending Unavailable Adams Trent Referring Unavailable Bernardo, Alessio Chi Primary Care Unavailable Adams Trent Attending Unavailable Adams Trent Referring Unavailable Bernardo, Alessio Chi Primary Care Unavailable Bernardo, Alessio Chi Attending Unavailable Bernardo, Alessio Chi Primary Care Unavailable Cebul, Yessenia Attending Unavailable Cebul, Yessenia Referring Unavailable Bernardo, Alessio Chi Primary Care Unavailable Cebul, Yessenia Attending Unavailable Bernardo, Alessio Chi Primary Care Unavailable Cebul, Yessenia Attending Unavailable Bernardo, Alessio Chi Referring Unavailable Bernardo, Alessio Chi Primary Care Unavailable Bernardo, Alessio Chi Attending Unavailable Bernardo, Alessio Chi Referring Unavailable Bernardo, Alessio Chi Primary Care Unavailable Bernardo, Alessio Chi Attending Unavailable Bernardo, Alessio Chi Primary Care Unavailable Bernardo, Alessio Chi Attending Unavailable Bernardo, Alessio Chi Primary Care Unavailable Cebul, Yessenia Attending Unavailable Cebul, Yessenia Referring Unavailable Bernardo, Alessio Chi Primary Care Unavailable Cebul, Yessenia Consulting Unavailable PROBLEMS PROBLEMS DATE TYPE CONDITION / CODE ATTENDING STATUS SOURCE 07/14/2018 Unknown 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 - Adams Trent Active [place] 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, Hospital unspecified / Repository K75.9(ICD-10) 01/31/2018 Unknown R10.32 - Left Cebul, Yessenia Active [place] lower quadrant Community pain / Hospital R10.32(ICD-10) Repository 12/22/2017 Unknown E55.9 - Vitamin D Bernardo, Alessio Chi Active [place] deficiency, Community unspecified / Hospital E55.9(ICD-10) Repository PROCEDURES PROCEDURES No Procedure Records FoundRESULTS RESULTS SCREENING MAMM (CAD), Observed: 07/20/2018 Status: F Source: BRADSHAW BIL 1:21 PM [facility] REPOSITORY [facility] Imaging Services [address] [place] [address] SCREENING MAMM (CAD), BILAT MR#: [id number] Acct: [id number] Name: KATIE OZUNA Rep #: [id number] : 1945 F 73 From: Júnior Parker MD PCP: Alessio Chang MD, Chi Status: REG [facility] Study: SCREENING MAMM (CAD), BILAT Date of Exam: 07/20/18 Exam# [id number] Ordering Dr: Alessio Chang MD MAMMOGRAPHY - BILATERAL SCREENING REASON FOR EXAM: Female, 73 years old. Routine annual screening examination. PERTINENT HISTORY: Sister with breast cancer. TECHNIQUE: Digital bilateral breast aleksandra (3D mammographic acquisition) in the CC and MLO projections. 2-D mediolateral oblique (MLO) and craniocaudad (CC) views of both breasts were obtained. CAD: Full Field Digital Mammography with Computer Added Detection was performed. COMPARISON: Comparison is made with prior study dated June 15, 2016 and June 13, 2015. FINDINGS: Breast Composition: There are scattered areas of fibroglandular density. There are no dominant masses or suspicious calcifications. There is a 6 mm x 6 mm well-defined nodular density in the inferior central portion of the left breast. This most likely represents a small cyst. Correlation with ultrasound is recommended. No other significant abnormalities are identified. BI/SCREENING MAMM (CAD), BILAT IMPRESSION: New 6 mm x 6 mm well-defined nodule in the inferior central aspect of the left breast as described. Correlation with ultrasound is recommended. ASSESSMENT CATEGORY: BIRADS Category 0: Incomplete. Need additional imaging evaluation. A letter regarding these results will be sent to the patient by the facility within 30 days. Approximately 10% of breast cancers are not detected by mammography. A normal mammogram should not delay biopsy of a clinically suspicious abnormality. [id number] Electronically Signed: Júnior Parker MD at 15:56 EST , Service support , CC: Alessio Chang MD Urban Planning Teacher: Signed INO + PROTEIN ELECT, Collected: 07/12/2018 Status: F Source: YOUNG SERUM 9:53 AM [facility] REPOSITORY Order Comment: Is Patient Fasting? N Comments: SAHIL ANALYZER PANEL [id number] AND [id number] TYPE CODE TESTS RESULT OUT OF RANGE REFERENCE UNITS LAB L3100.3500 6.0-8.5 g/dL Normal PROTEIN,TOTAL 7.1 LAB L3200.5557 838-8972 mg/dL Normal IMMUNO G 814 LAB L3200.1400 64-422 mg/dL Normal IMMUNO A 150 LAB L3200.1500 26-217 mg/dL Normal IMMUNOGL M 80 LAB L3200.1510 2.9-4.4 g/dL Normal ALBUMIN 4.0 LAB L3200.1520 0.0-0.4 g/dL Normal NTYGG-0-TNQK 0.3 LAB L3200.1530 0.4-1.0 g/dL Normal GXBTH-5-YPGV 0.7 LAB L3200.1540 0.7-1.3 g/dL Normal BETA GLOBULIN 1.2 LAB L3200.1550 0.4-1.8 g/dL Normal GAMMA GLOBULIN 0.9 LAB L3200.1560 Normal M-SPIKE Result Comment: Not Observed LAB L3200.1570 2.2-3.9 g/dL Normal GLOBULIN, TOTAL 3.1 LAB L3200.1580 0.7-1.7 A/G Normal RATIO 1.3 LAB L3200.1590 . INO Normal RESULT,S Comment Result Comment: No monoclonality detected. LAB L3200.1594 . Normal NOTE: Comment Result Comment: Protein electrophoresis scan will follow via computer, mail, or advice clerk delivery. Performed at: [id number] [id number] Hospital Receptionist: Adams Ram PhD, Phone: [phone] Performed By: #### L3100.3425 #### [facility] (refer to report for specific site) refer to report for address and phone number MISCELLANEOUS LAB Collected: 07/12/2018 Status: F Source: YOUNG PROCEDURE 9:53 AM [facility] REPOSITORY Order Comment: Comments: SAHIL ANALYZER PANEL [id number] AND [id number] Test(s) Ordered: SAHIL ANALYZER PANEL [id number] AND [id number] TYPE CODE TESTS RESULT OUT OF RANGE REFERENCE UNITS LAB L801.1541 Normal [facility] [place] LAB TEST Result Comment: TEST RESULT UNITS REF INTERVAL SAHIL+SAMMY+C3+C4+RA Qn+DNA/DS+... Complement C3, Serum 196 High mg/dL 82 - 167 Complement C4, Serum 33 mg/dL 14 - 44 Serology/Immunology Antinuclear Antibodies, IFA Positive Abnormal Negative <1:80 Borderline 1:80 Positive >1:80 Speckled Pattern 1:320 High Dense Fine Speckled pattern is noted. This pattern suggests the presence of DFS70 antibody which has a low prevalence in systemic autoimmune rheumatic diseases. Note A positive SAHIL result may occur in healthy individuals (low titer) or be associated with a variety of diseases. See interpretation chart which is not all inclusive: Pattern Antigen Detected Suggested Disease Association Homogeneous DNA(ds,ss), SLE - High titers Nucleosomes, Histones Drug-induced SLE Speckled Sm, COMIC BOOK ARTIST, SCL-70, SLE,MCTD,PSS (diffuse form), SS-A/SS-B Sjogrens Nucleolar SCL-70, PM-1/SCL High titers Scleroderma, PM/DM Centromere Centromere PSS (limited form) w/Crest syndrome variable Nuclear Dot Sp100,[id number] Primary Biliary Cirrhosis Nuclear GP210, Primary Biliary Cirrhosis Membrane karlie A,B,C RA Latex Turbid. <10.0 IU/mL 0.0 - 13.9 Thyroid Peroxidase (TPO) Ab 24 IU/mL 0 - 34 Actin (Smooth Muscle) Antibody 19 Units 0 - 19 Negative 0 - 19 Weak positive 20 - 30 Moderate to strong positive >30 Actin Antibodies are found in 52-85% of patients with autoimmune hepatitis or chronic active hepatitis and in 22% of patients with primary biliary cirrhosis. Mitochondrial (M2) Antibody <20.0 Units 0.0 - 20.0 Negative 0.0 - 20.0 Equivocal 20.1 - 24.9 Positive >24.9 Mitochondrial (M2) Antibodies are found in 90-96% of patients with primary biliary cirrhosis. Anti-striation Abs Negative Neg:<1:40 Anti-sarcolemma Negative Neg:<1:20 Anti-intermyofibrillar Negative Neg:<1:20 Antiparietal Cell Antibody 2.9 Units 0.0 - 20.0 Negative 0.0 - 20.0 Equivocal 20.1 - 24.9 Positive >24.9 Parietal Cell Antibodies are found in 90% of patients with pernicious anemia and 30% of first degree relatives with pernicious anemia. Anti-DNA (DS) Ab Qn 7 IU/mL 0 - 9 Negative <5 Equivocal 5 - 9 Positive >9 COMIC BOOK ARTIST Antibodies 1.2 High AI 0.0 - 0.9 Estrella Antibodies <0.2 AI 0.0 - 0.9 Sjogren's Anti-SS-A <0.2 AI 0.0 - 0.9 Sjogren's Anti-SS-B <0.2 AI 0.0 - 0.9 Antiscleroderma-70 Antibodies <0.2 AI 0.0 - 0.9 Reticulin IgA Antibodies Reticulin IgA Ab Negative titer Neg:<1:2.5 IgA class reticulin antibodies are specific for celiac disease and occur in 60% of patients with active disease. Results for this test are for research purposes only by the assay's supervisor electron tube processing. The performance characteristics of this product have not been established. Results should not be used as a diagnostic procedure without confirmation of the diagnosis by another medically established diagnostic product or procedure. TESTING PERFORMED AT [facility]. ORIGINAL REPORT ON FILE IN LAB CONTAINS ADDITIONAL TEST SITE INFORMATION. Performed By: #### L801.1541 #### [facility] [address] [place], [address] ABDOMEN LIMITED Observed: 07/10/2018 Status: F Source: BRADSHAW 7:42 AM [facility] REPOSITORY [facility] Imaging Services [address] [place] [address] Abdomen Limited MR#: [id number] Acct: [id number] Name: KATIE OZUNA Rep #: [id number] : 1945 F 73 From: Umang Valenzuela MD PCP: Bernardo ROBERSON,Alessio Chi Status: REG CLI Study: Abdomen Limited Date of Exam: 07/10/18 Exam# [id number] Ordering Dr: Adams Trent MD HISTORY: HEPATITISHX OF CHOLECYSTECTOMY EXAM/TECHNIQUE: US Abdomen Limited (quadrant): Right upper quadrant. COMPARISON: CT abdomen pelvis 09/28/16. FINDINGS: # of images incl. paperwork: 89 Increased hepatic echotexture compatible with steatosis. Normal hepatic size. Portal vein patent with hepatopedal flow. No focal hepatic lesions are evident. Status post cholecystectomy. Common bile duct 8 mm diameter. Pancreas unremarkable. Right kidney 10.2 x 5.0 x 5.3 cm with normal cortical thickness. 3 right renal cysts are noted, largest 2.4 cm in diameter. 8 mm shadowing calcification appears to layer within 1 of the renal cysts, less likely within a calyx. US/Abdomen Limited IMPRESSION: No acute findings. Status post cholecystectomy. 8 mm right renal calcification most likely an incidental calcification within a cyst. Less likely a nonobstructing stone. Hepatic steatosis. at 2337 Reported and signed by: Umang Valenzuela MD Electronically Signed: Umang Valenzuela, at 23:36 EST Tel , Service support , CC: Alessio Chang MD; Adams Trent Urban Planning Teacher: Signed LIVER PROFILE Collected: 07/05/2018 Status: F Source: YOUNG 3:53 PM [facility] REPOSITORY TYPE CODE TESTS RESULT OUT OF RANGE REFERENCE UNITS LAB L501.1500 6.4-8.2 g/dL Normal T PROT 7.9 LAB L501.1800 3.2-5.0 g/dL Normal ALB 4.4 LAB L501.1950 2.2-4.2 g/dL Normal GLOB 3.5 LAB L501.4100 15-37 U/L High AST 96 LAB L501.4305 45-117 U/L Normal ALK P 99 LAB L501.4405 13-56 U/L High ALT 120 LAB L501.4600 0.20-1.00 mg/dL High T BILI 1.20 LAB L501.4700 0.00-0.30 mg/dL Normal D BILI 0.30 Performed By: #### L500.3400, L501.5100 #### [facility] [address] [facility] [place], [place], [address] GGTP Collected: 07/05/2018 Status: F Source: YOUNG 3:53 PM [facility] REPOSITORY TYPE CODE TESTS RESULT OUT OF RANGE REFERENCE UNITS LAB L501.5100 5-55 U/L High GGTP 203 Performed By: #### L500.3400, L501.5100 #### [facility] [address] [place], [address] HEMOGLOBIN A1C Collected: 07/05/2018 Status: F Source: YOUNG 3:53 PM [facility] REPOSITORY TYPE CODE TESTS RESULT OUT OF RANGE REFERENCE UNITS LAB L501.9985 4.2-6.3 % Normal HGB A1C 6.3 Performed By: #### L501.9985 #### [facility] [address] [place], [address] ERYTHROCYTE SED RATE Collected: 07/05/2018 Status: F Source: YOUNG 3:53 PM [facility] REPOSITORY TYPE CODE TESTS RESULT OUT OF RANGE REFERENCE UNITS LAB L102.0000 0-30 mm/hr Normal SED RATE 25 Performed By: #### L101.9900 #### [facility] [address] [place], [address] ANTI-SMOOTH MUSCLE ABS Collected: 07/05/2018 Status: F Source: YOUNG 3:53 PM [facility] REPOSITORY TYPE CODE TESTS RESULT OUT OF REFERENCE UNITS RANGE LAB L803.2200 0-19 Units High ANTISMOOTH 6643 23 Result Comment: Negative 0 - 19 Weak positive 20 - 30 Moderate to strong positive >30 Actin Antibodies are found in 52-85% of patients with autoimmune hepatitis or chronic active hepatitis and in 22% of patients with primary biliary cirrhosis. Performed at: [facility] [address] [id number] Hospital Receptionist: Adams Ram PhD, Phone: [phone] Performed By: #### L803.2200 #### [facility] (refer to report for specific site) refer to report for address and phone number ANTI-MITOCHONDRIAL AB Collected: Status: F Source: YOUNG 07/05/2018 3:53 PM [facility] REPOSITORY TYPE CODE TESTS RESULT OUT OF RANGE REFERENCE UNITS LAB L800.1280 0.0-20.0 Units Normal MITOCHN AB <20.0 Result Comment: Negative 0.0 - 20.0 Equivocal 20.1 - 24.9 Positive >24.9 Mitochondrial (M2) Antibodies are found in 90-96% of patients with primary biliary cirrhosis. Performed By: #### L800.1280, L3100.5475 #### [facility] (refer to report for specific site) refer to report for address and phone number ANTINUCLEAR ANTIBODIES Collected: 07/05/2018 Status: F Source: YOUNG DIRECT 3:53 PM [facility] REPOSITORY TYPE CODE TESTS RESULT OUT OF REFERENCE UNITS RANGE LAB L3100.5475 Negative High Positive SAHIL-DIRECT Result Comment: Performed at: [facility] [address] [id number] Hospital Receptionist: Adams Ram PhD, Phone: [phone] Performed By: #### L528.5026, X3289.1242 #### [facility] (refer to report for specific site) refer to report for address and phone number CBC W/DIFF, AUTOMATED Collected: 05/26/2018 Status: F Source: YOUNG 10:32 AM [facility] REPOSITORY TYPE CODE TESTS RESULT OUT OF [...] Lymph 1.36 Performed By: #### L100.0100 #### [place] [facility] [place], [address] COMPREHENSIVE METABOLIC Collected: 05/26/2018 Status: F Source: YOUNG BLOUNT 10:32 AM [facility] REPOSITORY TYPE CODE TESTS RESULT OUT OF [...] 11 Performed By: #### L500.4050, L501.9520 #### [facility] [address] [place], [address] THYROID STIM HORMONE Collected: 05/26/2018 Status: F Source: YOUNG (TSH) 10:32 AM [facility] REPOSITORY TYPE CODE TESTS RESULT OUT OF RANGE REFERENCE UNITS LAB L501.9520 0.358-3.74 uIU/mL Normal TSH 1.58 Performed By: #### L500.4050, L501.9520 #### [facility] [address] [place], [address] VITAMIN D,25 HYDROXY Collected: 05/26/2018 Status: F Source: YOUNG 10:32 AM [facility] REPOSITORY TYPE CODE TESTS RESULT OUT OF RANGE REFERENCE UNITS LAB L506.1000 29.95-100.01 ng/mL Normal Vitamin D 50.7 25-OH Result Comment: Vitamin D 25(OH) Status Range Deficiency <20 ng/mL (50nmol/L) Insuffciency 20 - 30 ng/mL (50 - 75 nmol/L) Sufficiency 30 - 100 ng/mL (75 - 250 nmol/L) Toxicity >100 ng/mL (>250 nmol/L) Performed By: #### L506.1000 #### [facility] [address] [facility] [place], [address] CBC W/DIFF, AUTOMATED Collected: 02/07/2018 Status: F Source: YOUNG 11:12 AM [facility] REPOSITORY TYPE CODE TESTS RESULT OUT OF [...] Lymph 0.88 Performed By: #### L100.0100 #### [facility] [address] [place], [address] OPERATIVE REPORT Observed: 02/07/2018 Status: F Source: BRADSHAW 10:47 AM [facility] REPOSITORY [facility] Medical Records Department [address] [place] [address] Operative Report 02/07/18 1038 MR#: [id number] Acct: [id number] Name: KATIE OZUNA Rep #: [id number] : 1945 72 From: Yessenia Jeffries MD PCP: Bernardo ROBERSON,Alessio Chi Status: REG SD Y Location: [place] [address]- Problem List (1) Abdominal pain Status: Acute [...] tone. Moderate hemorrhoidal changes. No mass lesions. [employer] colonoscope was inserted in the rectum advanced [...] Jeffries MD; Alessio Chang MD Signed EGD ([facility]) Observed: 02/07/2018 Status: F Source: YOUNG 9:30 AM [facility] REPOSITORY Patient: KATIE OZUNA : 1945 (72/F) Acct Num: [id number] Phys: Mervin ROBERSON,Yessenia Unit Num: [id number] Loc: EN Specimen: [id number] Received: 02/07/18 - 1249 Spec Type: EGD [...] one cassette. / SJ:chris 02/07/18 TC:5 CPT: 28543 x3 HEADER OPERATION: Colonoscopy, EGD PRE-OP DIAGNOSIS: RLQ pain TISSUE SUBMITTED: A Duodenal polyp, B Distal esophagus biopsy, C Cecal biopsy MICROSCOPIC DESCRIPTION Slides are reviewed. MICROSCOPIC DIAGNOSIS A. Duodenal polyp, biopsy: Focal gastric metaplasia. B. Distal esophagus, biopsy: Fragments of benign squamous mucosa. C. Cecum, biopsy: Colonic mucosa with no significant pathologic change. See comment. AM:chris 02/08/18 Signed Manuel Ho 02/08/18 <signature on file> Performed By: #### PEGD #### [facility] [address] [place], [address] SURGERY VISIT REPORT Observed: 02/01/2018 Status: F Source: YOUNG 7:10 AM [facility] [address] [place] [address] OFFICE VISIT Date of Service: 01/31/18 MR#: [id number] Acct: [id number] Name: KATIE OZUNA Rep #: [id number] : 1945 Provider: Yessenia Jeffries MD Age/Sex: 72/F Location: [facility] Status: Signed Intake Vital Signs01/31/18 Height 5 ft 2 in 01/31/18 Weight: 185 lb 7 oz 01/31/18 Body Mass Index (BMI) 33.9 01/31/18 Blood Pressure 122/77 Intake Visit Reasons: R Upper Quad Pain HX of Hernia w/Mesh in that area Chief Complaint: RUQ pain Instrumentation Instructor Required: No Is patient in pain?: Yes [...] 200 unit PO DAILY 02/08/16 [History Confirmed 08/07/18] potassium chloride 20 mEq oral packet 20 [...] 01/31/2018 Status: F Source: YOUNG 2:12 PM [facility] REPOSITORY Order Comment: How was Urine Obtained? CRIMINAL ATTORNEY TO SPECIFY TYPE CODE TESTS RESULT OUT [...] URINE SEEN Performed By: #### L400.0001 #### [facility] [address] [place], [address] Observed: 01/31/2018 Status: F Source: BRADSHAW CULTURE, URINE 2:12 PM [facility] REPOSITORY Urine Culture ORGANISM 1: Mixed Gram Positive Organisms Claude Count 11,000-25,000 MIX CULTURE Mixed contaminants. Submit a new specimen if indicated. Performed By: #### M100.0650 #### [facility] [address] [place], [address] DOWNTIME REPORT Observed: 12/15/2017 Status: F Source: BRADSHAW 1:28 PM [facility] REPOSITORY [facility] Medical Records Department [address] [place] [address] Downtime Report MR#: [id number] Acct: [id number] Name: KATIE OZUNA Rep #: [id number] : 1945 72 From: Lencho Lundy PCP: Bernardo ROEBRSON,[facility] Status: REG CLI This patient was seen during an EMR downtime November 28, 2017 - December 05, 2017. This patient may have a combination of paper and electronic documentation or all paper documentation. All documentation is viewable within the e-chart portion of [facility] for each patient visit. COMPREHENSIVE METABOLIC Collected: 12/01/2017 Status: F Source: BRAD[place]W PROFIL 4:05 PM [facility] REPOSITORY Order Comment: RESULT(S) PREVIOUSLY REPORTED ON [...] 9 Performed By: #### L500.4050, L501.9520 #### [facility] [address] [place], [address] THYROID STIM HORMONE Collected: 12/01/2017 Status: F Source: YOUNG (TSH) 4:05 PM [facility] REPOSITORY Order Comment: RESULT(S) PREVIOUSLY REPORTED ON MANUAL REQUISITION DURING DOWNTIME. TYPE CODE TESTS RESULT OUT OF RANGE REFERENCE UNITS LAB L501.9520 0.358-3.74 uIU/mL Normal TSH 1.46 Performed By: #### L500.4050, L501.9520 #### [facility] [address] [place], [address] CBC W/DIFF, AUTOMATED Collected: 12/01/2017 Status: F Source: YOUNG 4:05 PM [facility] REPOSITORY Order Comment: RESULT(S) PREVIOUSLY REPORTED ON [...] Lymph 1.50 Performed By: #### L100.0100 #### [facility] [address] [place], [address] VITAMIN D,25 HYDROXY Collected: 12/01/2017 Status: F Source: YOUNG 4:05 PM [facility] REPOSITORY Order Comment: RESULT(S) PREVIOUSLY REPORTED ON [...] (>250 nmol/L) Performed By: #### L506.1000 #### [facility] [address] [place], [address] Observed: 09/05/2017 Status: F Source: YOUNG RESPIRATORY PANEL 11:04 AM [facility] MOLECULAR REPOSITORY RP PANEL ADENOVIRUS Not Detected [...] acid amplification Performed By: #### M100.638 #### [facility] [address] [place], [address] ALLERGIES ALLERGIES DATE TYPE / CODE NAME / CODE REACTION SEVERITY SOURCE 02/07/2018 Drug Sulfa Hives Unknown [facility] Allergy/4160 (Sulfonamide Hospital 21142(SNOMED Antibiotics)/ Repository CT) [id number](RX NORM) 02/07/2018 Drug hydrocodone/F Hives Unknown [facility] Allergy/4160 [id number](RXN Hospital 88606(SNOMED ORM) Repository CT) 02/07/2018 Drug acetaminophen Hives Unknown [facility] Allergy/4160 /[id number](R Hospital 66544(SNOMED XNORM) Repository CT) ENCOUNTERS ENCOUNTERS ADMIT/DISCHARGE ACCOUNT ADMITTING ENCOUNTER LOCATION SOURCE NUMBER CLASS 07/20/2018 [id number] [place] [facility] ing:OPBI Repository 07/12/2018 [id number] [place] 4 [facility] ing:MTLAB Repository 07/10/2018 [id number] [place] 3 [facility] ing:US Repository 07/05/2018 [id number] [place] 0 [facility] ing:MTLAB Repository 05/26/2018 [id number] [place] 4 [facility] ing:POLAB3 Repository 02/07/2018/ [id number] [place] 8 8 [facility] ing:ENRoom: Repository AC16 02/07/2018 [id number] Ambulatory BMSBuilding:B [place] 8 [facility] Repository 01/31/2018 [id number] Amb[place] 4 [facility] ing:PAVLAB Repository 01/31/2018/ [id number] Ambulatory BMSBuilding:B [place] 8 5 [facility] Repository 12/01/2017 [id number] Amb[place] 4 [facility] ing:POLAB3 Repository 09/05/2017 [id number] Amb[place] 1 [facility] ing:LAB Repository PAYERS PAYERS ENCOUNTER GUARANTOR PAYER SUBSCRIBER SOURCE 07/20/2018 KATIE L Primary KATIE L [place] [id number] CR Insurance:FORMERLY [facility]: [address] [id number], [place] [address]Klh: MEDICAREPolicy Repository Number: (DS) [id number] Date: [facility] YAMILA BRIONES [id number]: 07/20/2018 Secondary NOT GIVENUNK [place] Insurance:SELF PAY [facility] Number: Effective Repository Date:2018-05-26 07/12/2018 KATIE L Primary KATIE L [place] [id number] CR [facility] [address] , [place] [address]Hiz: MEDICAREPolicy Repository Number: () [id number] Date: [place], [place] [id number]: 07/12/2018 Secondary NOT GIVENUNK [place] Insurance:SELF PAY [facility] Number: Effective Repository Date:2018-07-12 07/10/2018 KATIE L Primary KATIE L [place] [id number] CR Insurance:[facility]: [address] [address]Scm: MEDICAREPolicy Repository Number: () [id number] Date: [place], [place] [id number]: 07/10/2018 Secondary NOT GIVENUNK [place] Insurance:SELF PAY [facility] Number: Effective Repository Date:2018-07-05 07/05/2018 KATIE L Primary KATIE L [place] [id number] CR Insurance:[place] ROWLANDDOB: [address] [address]Ela: MEDICAREPolicy Repository Number: () [id number] Date: [place], [place] [id number]: 07/05/2018 Secondary NOT GIVENUNK [place] Insurance:SELF PAY [facility] Number: Effective Repository Date:2018-07-05 05/26/2018 KATIE L Primary KATIE L [place] [id number] CR Insurance:[facility]: [address] [address]Uru: MEDICAREPolicy Repository Number: () [id number] Date: [place], [place] [address]CF: 05/26/2018 Secondary NOT GIVENUNK [place] Insurance:SELF PAY [facility] Number: Effective Repository Date:2018-05-26 02/07/2018 KATIE L Primary KATIE L [place] [id number] CR Insurance:[place] [facility]: Community [address] [place], [place] [id number], [place] [address]Csc: MEDICAREPolicy Repository Number: () [id number] Date: [place], [place] [address]RI: 02/07/2018 Secondary NOT GIVENUNK [place] Insurance:SELF PAY [facility] Number: Effective Repository Date:2018-02-01 02/07/2018 KATIE L Primary KATIE L [place] [id number] CR [facility]: [place] [id number], [place] [address]Reb: MEDICAREPolicy Repository Number: () [id number] Date: [place], [place] [address]LU: 02/07/2018 Secondary NOT GIVENUNK [place] Insurance:SELF PAY [facility] Number: Effective Repository Date:2018-02-07 01/31/2018 KATIE L Primary KATIE L [place] [id number] CR Insurance:[facility]: [address] , [place] [address]Nim: MEDICAREPolicy Repository Number: () [id number] Date: [place], [place] [address]XX: 01/31/2018 Secondary NOT GIVENUNK [place] Insurance:SELF PAY [facility] Number: Effective Repository Date:2018-01-31 01/31/2018 YESSENIA E Primary KATIE L [place] [id number] CR Insurance:[facility]ITAL[facility]: [address], [place] [address]Fgq: MEDICAREPolicy Repository Number: () [id number] Date[facility] [place] [address]SN: 01/31/2018 Secondary NOT GIVENUNK [place] Insurance:SELF PAY [facility] Number: Effective Repository Date:2018-01-31 12/01/2017 YESSENIA E Primary KATIE [id number] CR Insurance:[place] ROXBORODOB: Community [address] [place], [place] [address], [place] [address]Rqm: MEDICAREPolicy Repository Number: () [id number] Date: [facility], [place] [address]IO: 12/01/2017 Secondary NOT GIVENUNK [place] Insurance:SELF PAY [facility] Number: Effective Repository Date:2017-12-01 09/05/2017 YESSENIA E Primary KATIE [place] [id number] CR Insurance[facility]: [address], [place] [address]Wrc: MEDICAREPolicy Repository Number: () [id number] Date: [facility], [place] [address]ZN: 09/05/2017 Secondary NOT GIVENUNK [place] Insurance:SELF PAY [facility] Number: Effective Repository Date:2017-09-05
== END ==
PROVIDERS: Family Provider Family Medicine Geriatric Medicine; PCP Family Medicine Geriatric Medicine; Referring Provider Internal Medicine Gastroenterology; Visit Provider Internal Medicine Gastroenterology
DX: K75.9 Inflammatory liver disease, unspecified (principal); R76.0 Raised antibody titer
CPT/HCPCS: 36415; 82784; 84165; 86334

== ENCOUNTER → 2018-07-20 13:18 | Outpatient (CLI) | payer MEDICARE, SELFPAY ==
[2018-02-07 08:37] VITALS: BMI 33.0
--- NOTE | 2018-07-20 13:20 | BI_ITS ---
MAMMOGRAPHY - BILATERAL SCREENING REASON FOR EXAM: Female, 73 years old. Routine annual screening examination. PERTINENT HISTORY: Sister with breast cancer. TECHNIQUE: Digital bilateral breast aleksandra (3D mammographic acquisition) in the CC and MLO projections. 2-D mediolateral oblique (MLO) and craniocaudad (CC) views of both breasts were obtained. CAD: Full Field Digital Mammography with Computer Added Detection was performed. COMPARISON: Comparison is made with prior study dated June 15, 2016 and June 13, 2015. FINDINGS: Breast Composition: There are scattered areas of fibroglandular density. There are no dominant masses or suspicious calcifications. There is a 6 mm x 6 mm well-defined nodular density in the inferior central portion of the left breast. This most likely represents a small cyst. Correlation with ultrasound is recommended. No other significant abnormalities are identified. BI/SCREENING MAMM (CAD), BILAT IMPRESSION: New 6 mm x 6 mm well-defined nodule in the inferior central aspect of the left breast as described. Correlation with ultrasound is recommended. ASSESSMENT CATEGORY: BIRADS Category 0: Incomplete. Need additional imaging evaluation. A letter regarding these results will be sent to the patient by the facility within 30 days. Approximately 10% of breast cancers are not detected by mammography. A normal mammogram should not delay biopsy of a clinically suspicious abnormality. [id number] Electronically Signed: Júnior Parker MD at 15:56 EST , Service support ,
== END ==
PROVIDERS: Family Provider Family Medicine Geriatric Medicine; PCP Family Medicine Geriatric Medicine; Referring Provider Family Medicine Geriatric Medicine; Visit Provider Family Medicine Geriatric Medicine
DX: Z12.31 Encounter for screening mammogram for malignant neoplasm of breast (principal)
CPT/HCPCS: 77063; 77067

== ENCOUNTER → 2018-07-25 09:29 | Outpatient (CLI) | payer MEDICARE, SELFPAY ==
--- NOTE | 2018-07-25 09:31 | US_ITS ---
STUDY: ULTRASOUND BREAST - LEFT REASON FOR EXAM: Female, 73 years old. Abnormal screening mammogram. TECHNIQUE: Axial and longitudinal images of the LEFT breast were performed with a high resolution ultrasound transducer. COMPARISON: Comparison is made with prior mammogram dated July 20, 2018. FINDINGS: LEFT Breast: The mammographic abnormality corresponds to a 6 mm x 5 mm x 5 mm cyst at the 6:00 position of the breast at 3 cm from the nipple. US/Breast Limited Unilateral IMPRESSION: The mammographic abnormality corresponds to a 6 mm x 5 mm x 5 mm cyst at the 6:00 position of the breast at 3 cm from nipple. ASSESSMENT CATEGORY: BIRADS Category 2: Benign. A letter regarding these results will be sent to the patient by the facility within 30 days. Electronically Signed: Júnior Parker MD at 9:30 EST , Service support ,
== END ==
PROVIDERS: Family Provider Family Medicine Geriatric Medicine; PCP Family Medicine Geriatric Medicine; Referring Provider Family Medicine Geriatric Medicine; Visit Provider Family Medicine Geriatric Medicine
DX: R92.8 Other abnormal and inconclusive findings on diagnostic imaging of breast (principal)
CPT/HCPCS: 76642

== ENCOUNTER → 2018-09-22 14:01 | Outpatient (CLI) | payer MEDICARE, SELFPAY ==
[2018-02-07 08:37] VITALS: BMI 33.0
[2018-09-22 15:09] LABS: EXAGEN MAILED SPECIMEN
[2018-09-22 15:31] LABS: Color, Urine Yellow (Yellow); Glucose, Dipstick Normal (Normal); Ketone-Dipstick Negative (Negative); Leukocyte Esterase-Dipstick 25 /ul (Negative); Nitrite-Dipstick Negative (Negative); Occult Blood-Urine Negative /ul (Negative); Protein-Dipstick Negative (Negative); Specific Gravity, Urine 1.005 (1.002-1.030); Urine Bilirubin Dipstick Negative (Negative); Urine Clarity Clear (Clear); Urine Urobilinogen Normal (Normal)
[2018-09-22 15:42] LABS: Protein:Creat Ratio 145 mg/g CRE (0-200)
[2018-09-22 15:48] LABS: Absolute Lymphocyte Count 1.62 X10^3/ul (0.83-4.51); Absolute Neutrophil Count 3.9 X10^3/uL (2.0-7.7); Basophil# 0.02 X10^3/uL; Basophil% 0.3 % (0-1); Eosinophil# 0.15 X10^3/uL; Eosinophils% 2.5 % (0-5); Hematocrit 39.9 % (37-47); Hemoglobin 13.2 g/dl (12.0-15.0); Lymphocyte # 1.62 X10^3/ul (4.0); Lymphocyte % 27.2 % (19-41); Mean Corp Hgb Conc 33.1 g/gl (32-36); Mean Corpuscular Hgb 33.2 pg (27.0-32.0); Mean Corpuscular Volume 100.5 fL (81-99); Mean Platelet Vol. 10.5 fl (6.2-12.0); Monocyte# 0.27 X10^3/uL; Monocyte% 4.5 % (0-10); Neutrophil # 3.88 X10^3/uL (2.7-7.7); Neutrophil % 65.3 % (47-70); POSITIVE COUNT NO; POSITIVE DIFFERENTIAL NO; POSITIVE MORPHOLOGY NO; Platelet Count 154 K/mm3 (150-450); RBC Distribution Width CV 12.5 % (11.6-14.6); Red Blood Count 3.97 M/mm3 (4.2-5.4)
[2018-09-22 16:08] LABS: ALB/GLOB Ratio 1.3 RATIO (0.9-2.4); AST(SGOT) 104 U/L (15-37); Alanine Aminotransfer ALT/SGPT 136 U/L (13-56); Albumin, Serum 4.5 g/dL (3.2-5.0); Alkaline Phosphatase 89 U/L (45-117); Anion Gap 4 (5-15); BUN 15 mg/dL (7-18); BUN/Creat Ratio 14.9 RATIO (10-20); Chloride 106 mmol/L (98-107); Creatinine, Serum 1.01 mg/dL (0.55-1.02); EST Glomerular Filtration Rate 57 mL/min (>60); Est Glom Filt Rate - Afr Amer 69 mL/min (>60); Globulin 3.4 g/dL (2.2-4.2); Glucose 94 mg/dL (74-106); Potassium 3.8 mmol/L (3.5-5.1); Protein, Total 7.9 g/dL (6.4-8.2); Sodium Level 139 mmol/L (136-145)
== END ==
PROVIDERS: Family Provider Family Medicine Geriatric Medicine; PCP Family Medicine Geriatric Medicine; Referring Provider Internal Medicine Rheumatology; Visit Provider Internal Medicine Rheumatology
DX: M06.4 Inflammatory polyarthropathy (principal); K21.9 Gastro-esophageal reflux disease without esophagitis; K76.0 Fatty (change of) liver, not elsewhere classified; M15.9 Polyosteoarthritis, unspecified; F41.1 Generalized anxiety disorder
CPT/HCPCS: 36415; 80053; 81002; 82570; 84156; 85025

== ENCOUNTER → 2018-10-23 10:19 | Outpatient (CLI) | payer MEDICARE, SELFPAY ==
[2018-02-07 08:37] VITALS: BMI 33.0
[2018-10-23 12:31] LABS: International Normalized Ratio 1.1; Prothrombin Time (Protime)PT. 14.3 SECONDS (11.7-14.9)
[2018-10-25 09:07] LABS: Thrombin Time 19.6 sec (0.0-23.0)
== END ==
PROVIDERS: Family Provider Family Medicine Geriatric Medicine; PCP Family Medicine Geriatric Medicine; Referring Provider Internal Medicine Rheumatology; Visit Provider Internal Medicine Rheumatology
DX: M06.4 Inflammatory polyarthropathy (principal); M15.9 Polyosteoarthritis, unspecified; K76.0 Fatty (change of) liver, not elsewhere classified; Q66.7 Congenital pes cavus; I10 Essential (primary) hypertension; E78.5 Hyperlipidemia, unspecified; K58.0 Irritable bowel syndrome with diarrhea; K57.90 Diverticulosis of intestine, part unspecified, without perforation or abscess without bleeding; K21.9 Gastro-esophageal reflux disease without esophagitis
CPT/HCPCS: 36415; 85598; 85610; 85670; 85730

== ENCOUNTER → 2018-11-24 10:05 | Outpatient (CLI) | payer MEDICARE, SELFPAY ==
[2018-11-24 13:20] LABS: Absolute Lymphocyte Count 1.38 X10^3/ul (0.83-4.51); Absolute Neutrophil Count 2.6 X10^3/uL (2.0-7.7); Basophil# 0.02 X10^3/uL; Basophil% 0.5 % (0-1); Eosinophil# 0.12 X10^3/uL; Eosinophils% 2.8 % (0-5); Hematocrit 36.9 % (37-47); Hemoglobin 12.4 g/dl (12.0-15.0); Lymphocyte # 1.38 X10^3/ul (4.0); Lymphocyte % 31.8 % (19-41); Mean Corp Hgb Conc 33.6 g/gl (32-36); Mean Corpuscular Hgb 33.2 pg (27.0-32.0); Mean Corpuscular Volume 98.7 fL (81-99); Monocyte# 0.23 X10^3/uL; Monocyte% 5.3 % (0-10); Neutrophil # 2.58 X10^3/uL (2.7-7.7); Neutrophil % 59.4 % (47-70); Platelet Count 135 K/mm3 (150-450); RBC Distribution Width CV 12.5 % (11.6-14.6); RBC Distribution Width SD 45.2 fl (35.1-43.9); Red Blood Count 3.74 M/mm3 (4.2-5.4); White Blood Count 4.3 K/mm3 (4.4-11.0)
[2018-11-24 13:26] LABS: POSITIVE COUNT NO; POSITIVE DIFFERENTIAL NO; POSITIVE MORPHOLOGY NO
[2018-11-24 14:01] LABS: ALB/GLOB Ratio 1.1 RATIO (0.9-2.4); AST(SGOT) 52 U/L (15-37); Alanine Aminotransfer ALT/SGPT 84 U/L (13-56); Albumin, Serum 3.9 g/dL (3.2-5.0); Alkaline Phosphatase 91 U/L (45-117); Anion Gap 11 (5-15); BUN 17 mg/dL (7-18); BUN/Creat Ratio 14.9 RATIO (10-20); Calcium,Total 9.4 mg/dL (8.5-10.1); Chloride 106 mmol/L (98-107); Creatinine, Serum 1.14 mg/dL (0.55-1.02); EST Glomerular Filtration Rate 50 mL/min (>60); Est Glom Filt Rate - Afr Amer 60 mL/min (>60); Globulin 3.5 g/dL (2.2-4.2); Glucose 210 mg/dL (74-106); Potassium 3.9 mmol/L (3.5-5.1); Protein, Total 7.4 g/dL (6.4-8.2); Sodium Level 140 mmol/L (136-145); Thyroid Stim Hormone (TSH) 1.76 uIU/mL (0.358-3.74)
[2018-11-24 14:17] LABS: Vitamin D,25 Hydroxy 32.3 ng/mL (29.95-100.01)
== END ==
PROVIDERS: Family Provider Family Medicine Geriatric Medicine; PCP Family Medicine Geriatric Medicine; Visit Provider Family Medicine Geriatric Medicine
DX: I10 Essential (primary) hypertension (principal); E55.9 Vitamin D deficiency, unspecified
CPT/HCPCS: 36415; 80053; 82306; 84443; 85025

== ENCOUNTER → 2019-02-06 16:35 | Outpatient (CLI) | payer MEDICARE, SELFPAY ==
[2018-02-07 08:37] VITALS: BMI 33.0
[2019-02-06 17:15] LABS: Absolute Lymphocyte Count 1.52 X10^3/uL (0.83-4.51); Absolute Neutrophil Count 3.2 X10^3/uL (2.0-7.7); Basophil# 0.02 X10^3/uL; Basophil% 0.4 % (0-1); Eosinophil# 0.12 X10^3/uL; Eosinophils% 2.3 % (0-5); Hematocrit 37.8 % (37-47); Hemoglobin 13.3 g/dL (12.0-15.0); Lymphocyte # 1.52 X10^3/ul (4.0); Lymphocyte % 29.2 % (19-41); Mean Corp Hgb Conc 35.2 g/dL (32-36); Mean Corpuscular Hgb 35.3 pg (27.0-32.0); Mean Corpuscular Volume 100.3 fL (81-99); Mean Platelet Vol. 10.4 fl (6.2-12.0); Monocyte# 0.37 X10^3/uL; Monocyte% 7.1 % (0-10); NRBC Flagged by Analyzer 0 % (0-5); Neutrophil # 3.17 X10^3/uL (2.7-7.7); Neutrophil % 60.8 % (47-70); Platelet Count 150 K/mm3 (150-450); RBC Distribution Width CV 11.8 % (11.6-14.6); RBC Distribution Width SD 43.4 fl (35.1-43.9); Red Blood Count 3.77 M/mm3 (4.2-5.4); White Blood Count 5.2 K/mm3 (4.4-11.0)
[2019-02-06 17:28] LABS: ALB/GLOB Ratio 1.3 RATIO (0.9-2.4); AST(SGOT) 84 U/L (15-37); Alanine Aminotransfer ALT/SGPT 125 U/L (13-56); Albumin, Serum 4.4 g/dL (3.2-5.0); Alkaline Phosphatase 97 U/L (45-117); Anion Gap 6 (5-15); BUN 16 mg/dL (7-18); BUN/Creat Ratio 14.7 RATIO (10-20); Calcium,Total 10.4 mg/dL (8.5-10.1); Chloride 106 mmol/L (98-107); Creatinine, Serum 1.09 mg/dL (0.55-1.02); EST Glomerular Filtration Rate 52 mL/min (>60); Est Glom Filt Rate - Afr Amer 63 mL/min (>60); Globulin 3.4 g/dL (2.2-4.2); Glucose 89 mg/dL (74-106); Potassium 3.9 mmol/L (3.5-5.1); Protein, Total 7.8 g/dL (6.4-8.2); Sodium Level 139 mmol/L (136-145)
== END ==
PROVIDERS: Family Provider Family Medicine Geriatric Medicine; PCP Family Medicine Geriatric Medicine; Visit Provider Family Medicine Geriatric Medicine
DX: R10.9 Unspecified abdominal pain (principal)
CPT/HCPCS: 36415; 80053; 85025

== ENCOUNTER → 2019-02-06 16:55 | Outpatient (CLI) | payer MEDICARE, SELFPAY ==
--- NOTE | 2019-02-06 17:04 | CT_ITS ---
STUDY: CT ABDOMEN AND PELVIS WITH CONTRAST REASON FOR EXAM: Female, 73 years old. Right lower quadrant pain RADIATION DOSAGE (If Supplied By Facility): DLP = ( 917.54 ) mGycm TECHNIQUE: Transaxial images were obtained from the dome of the diaphragm to the symphysis pubis without oral contrast. 100ML ml of Isovue 300 contrast was administered. Sagittal and coronal images were reconstructed. Individualized dose optimization techniques were used for this CT. COMPARISON: CT abdomen and pelvis September 28, 2016 FINDINGS: The visualized lung bases are clear. The visualized portions of the heart and pericardium are within normal limits. The gallbladder has been removed. The liver is within normal limits. There are no suspicious hepatic lesions. The spleen is normal in size. The pancreas is within normal limits. The adrenal glands are within normal limits. There are no obstructing renal stones. There is no hydronephrosis. Bilateral renal cysts are present, the largest on the right measuring 2.6 cm. Normal visualized stomach. There is no bowel obstruction or inflammation. Colonic diverticulosis is present. The appendix is not visualized, but there are no findings to suggest acute appendicitis. The aorta is normal in caliber. There is no abdominal or pelvic free air, free fluid, fluid collection or lymphadenopathy. There are no destructive osseous lesions. Mesh hernia repair is present. CT/Abdomen/Pelvis WITH Contrast IMPRESSION: No acute abdominal or pelvic pathology. Colonic diverticulosis without evidence of inflammation. Bilateral renal cysts. Status post cholecystectomy. Electronically Signed: Solo Rodriguez, at 20:11 EDT Tel , Service support ,
== END ==
PROVIDERS: Family Provider Family Medicine Geriatric Medicine; PCP Family Medicine Geriatric Medicine; Referring Provider Family Medicine Geriatric Medicine; Visit Provider Family Medicine Geriatric Medicine
DX: R10.9 Unspecified abdominal pain (principal)
CPT/HCPCS: 36415; 74177; 80053; 85025; Q9967

== ENCOUNTER → 2019-03-27 17:14 | Outpatient (CLI) | payer MEDICARE, SELFPAY ==
[2018-02-07 08:37] VITALS: BMI 33.0
--- NOTE | 2019-03-27 17:20 | RAD_ITS ---
STUDY: X-RAY - ABDOMEN/PELVIS REASON FOR EXAM: Female, 73 years old. Fecal impaction, left lower quadrant pain TECHNIQUE: 3 views COMPARISON: None. FINDINGS: Normal visualized lung bases. There is an unremarkable bowel gas pattern. There is no demonstrated free abdominal air. The visualized liver, spleen and kidneys are grossly normal in size and morphology. Prior hernia surgery of the abdominal wall. Degenerative changes and levoscoliosis of the lower vertebral column. RAD/Abd Inc Decub and/or Erect IMPRESSION: No significant fecal retention or sign of bowel obstruction. Electronically Signed: Dean Mccauley DO at 19:36 EDT Tel [phone], Service support ,
--- NOTE | 2019-03-27 17:20 | RAD_ITS ---
STUDY: X-RAY - LUMBAR SPINE REASON FOR EXAM: Female, 73 years old. Radiculopathy TECHNIQUE: 3 view(s) of the lumbar spine were obtained. COMPARISON: None FINDINGS: Straightening of the lumbar lordosis. There is a mild levoscoliosis. There is a normal alignment of the vertebrae. Normal vertebral bodies. Mild spurring at the endplates. Normal disc space heights. The soft tissue structures are unremarkable. RAD/Lumbar Spine 2 or 3 Views IMPRESSION: Mild degenerative changes and scoliosis of the lumbar spine. Electronically Signed: Dean Mccauley DO at 19:38 EDT Tel [phone], Service support ,
== END ==
PROVIDERS: Family Provider Family Medicine Geriatric Medicine; PCP Family Medicine Geriatric Medicine; Referring Provider Family Medicine Geriatric Medicine; Visit Provider Family Medicine Geriatric Medicine
DX: M54.16 Radiculopathy, lumbar region (principal); K56.41 Fecal impaction
CPT/HCPCS: 72100; 74019

== ENCOUNTER → 2019-04-27 12:06 | Outpatient (CLI) | payer MEDICARE, SELFPAY ==
[2018-02-07 08:37] VITALS: BMI 33.0
[2019-04-27 14:12] LABS: International Normalized Ratio 1.1; Prothrombin Time (Protime)PT. 14.3 SECONDS (11.7-14.9)
[2019-04-29 20:07] LABS: Dilute Russell Viper Venom 35.6 sec (0.0-47.0); Hexagonal Phase Phospholipid 0 sec (0-11); PTT-LA 48.2 sec (0.0-51.9); Thrombin Time 16.1 sec (0.0-23.0); dPT Confirm Ratio 0.87 Ratio (0.00-1.40)
[2019-04-30 12:47] LABS: Interpretation Comment: (.)
[2019-04-30 12:48] LABS: Thrombin Time 16.9 sec (0.0-23.0)
== END ==
PROVIDERS: Family Provider Family Medicine Geriatric Medicine; PCP Family Medicine Geriatric Medicine; Referring Provider Internal Medicine Rheumatology; Visit Provider Internal Medicine Rheumatology
DX: M06.4 Inflammatory polyarthropathy (principal); M15.9 Polyosteoarthritis, unspecified; K21.9 Gastro-esophageal reflux disease without esophagitis; F41.1 Generalized anxiety disorder; F32.89 Other specified depressive episodes; K58.0 Irritable bowel syndrome with diarrhea; I10 Essential (primary) hypertension; E78.5 Hyperlipidemia, unspecified; K57.90 Diverticulosis of intestine, part unspecified, without perforation or abscess without bleeding; K76.0 Fatty (change of) liver, not elsewhere classified; Q66.70 Congenital pes cavus, unspecified foot
CPT/HCPCS: 36415; 85598; 85610; 85670; 85730

== ENCOUNTER → 2019-05-30 11:15 | Outpatient (CLI) | payer MEDICARE, SELFPAY ==
[2019-05-15 11:22] VITALS: BMI 32.0
[2019-05-30 12:30] LABS: Absolute Lymphocyte Count 1.54 X10^3/uL (0.83-4.51); Absolute Neutrophil Count 2.7 X10^3/uL (2.0-7.7); Basophil# 0.03 X10^3/uL; Basophil% 0.6 % (0-1); Eosinophil# 0.08 X10^3/uL; Eosinophils% 1.7 % (0-5); Hematocrit 37.6 % (37-47); Hemoglobin 12.7 g/dL (12.0-15.0); Lymphocyte # 1.54 X10^3/ul (4.0); Lymphocyte % 33.3 % (19-41); Mean Corp Hgb Conc 33.8 g/dL (32-36); Mean Corpuscular Hgb 34.3 pg (27.0-32.0); Mean Corpuscular Volume 101.6 fL (81-99); Mean Platelet Vol. 10.9 fl (6.2-12.0); Monocyte# 0.29 X10^3/uL; Monocyte% 6.3 % (0-10); NRBC Flagged by Analyzer 0 % (0-5); Neutrophil # 2.67 X10^3/uL (2.7-7.7); Neutrophil % 57.9 % (47-70); Platelet Count 126 K/mm3 (150-450); RBC Distribution Width CV 12.4 % (11.6-14.6); RBC Distribution Width SD 46.6 fl (35.1-43.9); White Blood Count 4.6 K/mm3 (4.4-11.0)
[2019-05-30 12:57] LABS: ALB/GLOB Ratio 1.6 RATIO (0.9-2.4); AST(SGOT) 31 U/L (15-37); Alanine Aminotransfer ALT/SGPT 45 U/L (13-56); Albumin, Serum 4.4 g/dL (3.2-5.0); Alkaline Phosphatase 83 U/L (45-117); Anion Gap 7 (5-15); BUN 20 mg/dL (7-18); BUN/Creat Ratio 17.5 RATIO (10-20); Calcium,Total 9.6 mg/dL (8.5-10.1); Chloride 110 mmol/L (98-107); Creatinine, Serum 1.14 mg/dL (0.55-1.02); EST Glomerular Filtration Rate 50 mL/min (>60); Est Glom Filt Rate - Afr Amer 60 mL/min (>60); Globulin 2.7 g/dL (2.2-4.2); Glucose 123 mg/dL (74-106); Potassium 3.9 mmol/L (3.5-5.1); Protein, Total 7.1 g/dL (6.4-8.2); Sodium Level 142 mmol/L (136-145); Thyroid Stim Hormone (TSH) 1.56 uIU/mL (0.358-3.74)
[2019-05-30 13:08] LABS: Vitamin D,25 Hydroxy 43.8 ng/mL (29.95-100.01)
== END ==
PROVIDERS: Family Provider Family Medicine Geriatric Medicine; PCP Family Medicine Geriatric Medicine; Visit Provider Family Medicine Geriatric Medicine
DX: I10 Essential (primary) hypertension (principal); E55.9 Vitamin D deficiency, unspecified
CPT/HCPCS: 36415; 80053; 82306; 84443; 85025

== ENCOUNTER → 2019-11-28 10:39 | Outpatient (CLI) | payer BC, SELFPAY ==
[2019-11-26 11:21] VITALS: BMI 32.0
[2019-11-28 11:42] LABS: Absolute Lymphocyte Count 1.42 X10^3/uL (0.83-4.51); Absolute Neutrophil Count 2.5 X10^3/uL (2.0-7.7); Basophil# 0.02 X10^3/uL; Basophil% 0.5 % (0-1); Eosinophil# 0.12 X10^3/uL; Eosinophils% 2.8 % (0-5); Hematocrit 36.5 % (37-47); Hemoglobin 12.7 g/dL (12.0-15.0); Lymphocyte # 1.42 X10^3/ul (4.0); Lymphocyte % 33.6 % (19-41); Mean Corp Hgb Conc 34.8 g/dL (32-36); Mean Corpuscular Hgb 35.6 pg (27.0-32.0); Mean Corpuscular Volume 102.2 fL (81-99); Mean Platelet Vol. 10.6 fl (6.2-12.0); Monocyte% 4.7 % (0-10); NRBC Flagged by Analyzer 0 % (0-5); Neutrophil # 2.45 X10^3/uL (2.7-7.7); Neutrophil % 58.2 % (47-70); Platelet Count 144 K/mm3 (150-450); RBC Distribution Width CV 12.2 % (11.6-14.6); RBC Distribution Width SD 45.4 fl (35.1-43.9); Red Blood Count 3.57 M/mm3 (4.2-5.4); White Blood Count 4.2 K/mm3 (4.4-11.0)
[2019-11-28 12:06] LABS: ALB/GLOB Ratio 1.1 RATIO (0.9-2.4); AST(SGOT) 70 U/L (15-37); Alanine Aminotransfer ALT/SGPT 112 U/L (13-56); Albumin, Serum 4.1 g/dL (3.2-5.0); Alkaline Phosphatase 84 U/L (45-117); Anion Gap 12 (5-15); BUN 16 mg/dL (7-18); BUN/Creat Ratio 13.2 RATIO (10-20); Calcium,Total 9.6 mg/dL (8.5-10.1); Chloride 104 mmol/L (98-107); Creatinine, Serum 1.21 mg/dL (0.55-1.02); EST Glomerular Filtration Rate 46 mL/min (>60); Est Glom Filt Rate - Afr Amer 56 mL/min (>60); Globulin 3.6 g/dL (2.2-4.2); Glucose 181 mg/dL (74-106); Protein, Total 7.7 g/dL (6.4-8.2); Sodium Level 140 mmol/L (136-145); Thyroid Stim Hormone (TSH) 1.53 uIU/mL (0.358-3.74)
[2019-11-28 12:46] LABS: Vitamin D,25 Hydroxy 37.8 ng/mL
== END ==
PROVIDERS: PCP Family Medicine Geriatric Medicine; Visit Provider Family Medicine Geriatric Medicine
DX: I10 Essential (primary) hypertension (principal); E55.9 Vitamin D deficiency, unspecified
CPT/HCPCS: 36415; 80053; 82306; 84443; 85025

== ENCOUNTER → 2019-12-12 08:15 | Outpatient (CLI) | payer MEDICARE, SELFPAY ==
[2019-11-26 11:21] VITALS: BMI 32.0
[2019-12-10 09:46] VITALS: BMI 32.0
--- NOTE | 2019-12-12 08:31 | CT_ITS ---
STUDY: CT BRAIN WITHOUT CONTRAST REASON FOR EXAM: Female, 74 years old. HEADACHE IN BACK OF HEAD RADIATION DOSAGE (If Supplied By Facility): CTDIvol = ( 60.81 ) mGy, DLP = ( 1067.08 ) mGycm TECHNIQUE: Transaxial CT imaging of the brain was performed without administration of intravenous contrast material. Individualized dose optimization techniques were used for this CT. COMPARISON: Comparison is made with prior examination dated August 03, 2016. FINDINGS: Normal soft tissue structures. Normal calvarium. There is mild cerebral atrophy with widening of the extra-axial spaces and ventricular dilatation. There are areas of decreased attenuation within the white matter tracts of the supratentorial brain, consistent with microvascular disease changes. There are small punctate calcifications of the basal ganglia which are seen in the aging brain as a normal variant. Normal brainstem. Normal cerebellum. There is no intracranial hemorrhage. There are no findings of an acute ischemic infarction. Normal visualized paranasal sinuses. CT/Brain/Head without Contrast IMPRESSION: Chronic involutional changes of the brain. Electronically Signed: Júnior Parker, at 9:13 EDT , Service support ,
== END ==
PROVIDERS: PCP Family Medicine Geriatric Medicine; Referring Provider Family Medicine Geriatric Medicine; Visit Provider Family Medicine Geriatric Medicine
DX: R51 Headache (principal); K76.0 Fatty (change of) liver, not elsewhere classified
CPT/HCPCS: 70450

== ENCOUNTER → 2019-12-13 12:52 | Outpatient (CLI) | payer MEDICARE, SELFPAY ==
[2019-12-10 09:46] VITALS: BMI 32.0
== END ==
PROVIDERS: PCP Family Medicine Geriatric Medicine; Visit Provider Family Medicine Geriatric Medicine
DX: N39.0 Urinary tract infection, site not specified (principal)
CPT/HCPCS: 87086; 87088

== ENCOUNTER → 2019-12-24 10:17 | Outpatient (CLI) | payer BC, SELFPAY ==
[2019-12-24 09:53] VITALS: BMI 32.0
[2019-12-24 12:06] LABS: Absolute Lymphocyte Count 1.48 X10^3/uL (0.83-4.51); Basophil# 0.03 X10^3/uL; Basophil% 0.6 % (0-1); Eosinophil# 0.12 X10^3/uL; Eosinophils% 2.4 % (0-5); Hematocrit 38.4 % (37-47); Hemoglobin 12.7 g/dL (12.0-15.0); Lymphocyte # 1.48 X10^3/ul (4.0); Lymphocyte % 29.5 % (19-41); Mean Corp Hgb Conc 33.1 g/dL (32-36); Mean Corpuscular Hgb 34.1 pg (27.0-32.0); Mean Corpuscular Volume 103.2 fL (81-99); Mean Platelet Vol. 11.1 fl (6.2-12.0); Monocyte# 0.35 X10^3/uL; NRBC Flagged by Analyzer 0 % (0-5); Neutrophil # 3.01 X10^3/uL (2.7-7.7); Neutrophil % 60.1 % (47-70); Platelet Count 149 K/mm3 (150-450); RBC Distribution Width CV 11.9 % (11.6-14.6); RBC Distribution Width SD 45.4 fl (35.1-43.9); Red Blood Count 3.72 M/mm3 (4.2-5.4)
[2019-12-24 12:08] LABS: Color, Urine Yellow (Yellow); Glucose, Dipstick Normal (Normal); Ketone-Dipstick Negative (Negative); Leukocyte Esterase-Dipstick 100 /ul (Negative); Nitrite-Dipstick Negative (Negative); Occult Blood-Urine Negative /ul (Negative); Protein-Dipstick 15 mg/dl (Negative); Urine Bilirubin Dipstick Negative (Negative); Urine Clarity Sl. Cloudy (Clear); Urine Urobilinogen Normal (Normal); Urine pH 6.5 (5.0 - 8.0)
[2019-12-24 12:15] LABS: International Normalized Ratio 1.1; Prothrombin Time (Protime)PT. 13.8 SECONDS (11.7-14.9)
[2019-12-24 12:16] LABS: Partial Thromboplast Time 36.9 Seconds (24.1-36.2)
[2019-12-24 12:25] LABS: ALB/GLOB Ratio 1.2 RATIO (0.9-2.4); AST(SGOT) 70 U/L (15-37); Alanine Aminotransfer ALT/SGPT 104 U/L (13-56); Albumin, Serum 4.1 g/dL (3.2-5.0); Alkaline Phosphatase 82 U/L (45-117); Anion Gap 6 (5-15); BUN 14 mg/dL (7-18); BUN/Creat Ratio 13.7 RATIO (10-20); Chloride 105 mmol/L (98-107); Creatinine, Serum 1.02 mg/dL (0.55-1.02); EST Glomerular Filtration Rate 56 mL/min (>60); Est Glom Filt Rate - Afr Amer 68 mL/min (>60); Globulin 3.5 g/dL (2.2-4.2); Glucose 125 mg/dL (74-106); Potassium 3.9 mmol/L (3.5-5.1); Protein, Total 7.6 g/dL (6.4-8.2); Sodium Level 138 mmol/L (136-145)
[2019-12-24 12:26] LABS: Protein, Urine (Random) 19.9 mg/dL (<11.9); Protein:Creat Ratio 166 mg/g CRE (0-200)
[2019-12-26 16:08] LABS: Dilute Prothrombin Time (dPT) 39.3 sec (0.0-55.0); Dilute Russell Viper Venom 45.4 sec (0.0-47.0); Hexagonal Phase Phospholipid 0 sec (0-11); PTT-LA 51.2 sec (0.0-51.9); Thrombin Time 17.9 sec (0.0-23.0); dPT Confirm Ratio 1.01 Ratio (0.00-1.40)
[2019-12-29 17:47] LABS: Interpretation Comment: (.)
== END ==
PROVIDERS: PCP Family Medicine Geriatric Medicine; Referring Provider Internal Medicine Rheumatology; Visit Provider Internal Medicine Rheumatology
DX: M06.4 Inflammatory polyarthropathy (principal); M15.9 Polyosteoarthritis, unspecified
CPT/HCPCS: 36415; 80053; 81002; 82570; 84156; 85025; 85598; 85610; 85730

== ENCOUNTER → 2020-06-02 10:36 | Outpatient (CLI) | payer MEDICARE, SELFPAY ==
[2020-06-02 11:32] LABS: Absolute Lymphocyte Count 1.73 X10^3/uL (0.83-4.51); Basophil# 0.03 X10^3/uL; Basophil% 0.6 % (0-1); Eosinophil# 0.14 X10^3/uL; Eosinophils% 2.7 % (0-5); Hematocrit 38.2 % (37-47); Lymphocyte # 1.73 X10^3/ul (4.0); Lymphocyte % 33.3 % (19-41); Mean Corpuscular Hgb 34.2 pg (27.0-32.0); Mean Corpuscular Volume 100.5 fL (81-99); Mean Platelet Vol. 10.8 fl (6.2-12.0); Monocyte% 5.8 % (0-10); NRBC Flagged by Analyzer 0 % (0-5); Neutrophil # 2.98 X10^3/uL (2.7-7.7); Neutrophil % 57.2 % (47-70); Platelet Count 164 K/mm3 (150-450); RBC Distribution Width SD 43.8 fl (35.1-43.9); White Blood Count 5.2 K/mm3 (4.4-11.0)
[2020-06-02 11:53] LABS: ALB/GLOB Ratio 1.2 RATIO (0.9-2.4); AST(SGOT) 54 U/L (15-37); Alanine Aminotransfer ALT/SGPT 88 U/L (13-56); Albumin, Serum 4.1 g/dL (3.2-5.0); Alkaline Phosphatase 91 U/L (45-117); Anion Gap 8 (5-15); BUN 17 mg/dL (7-18); BUN/Creat Ratio 15.2 RATIO (10-20); Calcium,Total 10.1 mg/dL (8.5-10.1); Chloride 107 mmol/L (98-107); Creatinine, Serum 1.12 mg/dL (0.55-1.02); EST Glomerular Filtration Rate 50 mL/min (>60); Est Glom Filt Rate - Afr Amer 61 mL/min (>60); Globulin 3.4 g/dL (2.2-4.2); Glucose 159 mg/dL (74-106); Potassium 3.6 mmol/L (3.5-5.1); Protein, Total 7.5 g/dL (6.4-8.2); Sodium Level 141 mmol/L (136-145); Thyroid Stim Hormone (TSH) 2.34 uIU/mL (0.358-3.74)
[2020-06-02 12:00] LABS: Vitamin D,25 Hydroxy 42.6 ng/mL
== END ==
PROVIDERS: PCP Family Medicine Geriatric Medicine; Visit Provider Family Medicine Geriatric Medicine
DX: I10 Essential (primary) hypertension (principal); E55.9 Vitamin D deficiency, unspecified
CPT/HCPCS: 36415; 80053; 82306; 84443; 85025

== ENCOUNTER → 2020-08-25 09:41 | Outpatient (CLI) | payer MEDICARE, SELFPAY ==
[2020-08-25 12:15] LABS: Color, Urine Yellow (Yellow); Glucose, Dipstick Normal (Normal); Ketone-Dipstick Negative (Negative); Leukocyte Esterase-Dipstick 500 /ul (Negative); Nitrite-Dipstick Negative (Negative); Occult Blood-Urine 10 /ul (Negative); Protein-Dipstick 30 mg/dl (Negative); Urine Bilirubin Dipstick Negative (Negative); Urine Clarity Cloudy (Clear); Urine Urobilinogen Normal (Normal)
[2020-08-25 12:19] LABS: Absolute Lymphocyte Count 1.61 X10^3/uL (0.83-4.51); Absolute Neutrophil Count 2.8 X10^3/uL (2.0-7.7); Basophil# 0.02 X10^3/uL; Basophil% 0.4 % (0-1); Eosinophil# 0.16 X10^3/uL; Eosinophils% 3.3 % (0-5); Hematocrit 38.5 % (37-47); Lymphocyte # 1.61 X10^3/ul (4.0); Lymphocyte % 33.3 % (19-41); Mean Corp Hgb Conc 33.8 g/dL (32-36); Mean Corpuscular Volume 100.8 fL (81-99); Mean Platelet Vol. 10.6 fl (6.2-12.0); Monocyte# 0.27 X10^3/uL; Monocyte% 5.6 % (0-10); NRBC Flagged by Analyzer 0 % (0-5); Neutrophil # 2.77 X10^3/uL (2.7-7.7); Neutrophil % 57.2 % (47-70); Platelet Count 147 K/mm3 (150-450); RBC Distribution Width SD 44.3 fl (35.1-43.9); Red Blood Count 3.82 M/mm3 (4.2-5.4); White Blood Count 4.8 K/mm3 (4.4-11.0)
[2020-08-25 12:31] LABS: Protein, Urine (Random) 28.3 mg/dL (<11.9); Protein:Creat Ratio 160 mg/g CRE (0-200)
[2020-08-25 12:42] LABS: ALB/GLOB Ratio 1.2 RATIO (0.9-2.4); AST(SGOT) 71 U/L (15-37); Alanine Aminotransfer ALT/SGPT 103 U/L (13-56); Albumin, Serum 4.1 g/dL (3.2-5.0); Alkaline Phosphatase 89 U/L (45-117); Anion Gap 11 (5-15); BUN 13 mg/dL (7-18); BUN/Creat Ratio 11.3 RATIO (10-20); Calcium,Total 9.6 mg/dL (8.5-10.1); Chloride 103 mmol/L (98-107); Creatinine, Serum 1.15 mg/dL (0.55-1.02); EST Glomerular Filtration Rate 49 mL/min (>60); Est Glom Filt Rate - Afr Amer 59 mL/min (>60); Globulin 3.3 g/dL (2.2-4.2); Glucose 196 mg/dL (74-106); Potassium 3.6 mmol/L (3.5-5.1); Protein, Total 7.4 g/dL (6.4-8.2); Sodium Level 139 mmol/L (136-145)
== END ==
PROVIDERS: PCP Family Medicine Geriatric Medicine; Referring Provider Internal Medicine Rheumatology; Visit Provider Internal Medicine Rheumatology
DX: M06.4 Inflammatory polyarthropathy (principal); M15.9 Polyosteoarthritis, unspecified; K76.0 Fatty (change of) liver, not elsewhere classified; Q66.70 Congenital pes cavus, unspecified foot; K21.9 Gastro-esophageal reflux disease without esophagitis; F41.1 Generalized anxiety disorder
CPT/HCPCS: 36415; 80053; 81002; 82570; 84156; 85025

== ENCOUNTER → 2020-10-14 10:34 | Outpatient (CLI) | payer MEDICARE, SELFPAY ==
[2020-10-14 10:45] LABS: Absolute Lymphocyte Count 1.72 X10^3/uL (0.83-4.51); Absolute Neutrophil Count 6.5 X10^3/uL (2.0-7.7); Basophil# 0.03 X10^3/uL; Basophil% 0.3 % (0-1); Eosinophil# 0.12 X10^3/uL; Eosinophils% 1.3 % (0-5); Hematocrit 38.6 % (37-47); Hemoglobin 13.1 g/dL (12.0-15.0); Lymphocyte # 1.72 X10^3/ul (0.83-4.51); Lymphocyte % 19.2 % (19-41); Mean Corp Hgb Conc 33.9 g/dL (32-36); Mean Corpuscular Hgb 33.3 pg (27.0-32.0); Mean Corpuscular Volume 98.2 fL (81-99); Mean Platelet Vol. 10.3 fl (6.2-12.0); Monocyte# 0.58 X10^3/uL; Monocyte% 6.5 % (0-10); NRBC Flagged by Analyzer 0 % (0-5); Neutrophil # 6.49 X10^3/uL (2.7-7.7); Neutrophil % 72.5 % (47-70); Platelet Count 162 K/mm3 (150-450); RBC Distribution Width CV 11.9 % (11.6-14.6); RBC Distribution Width SD 43.3 fl (35.1-43.9); Red Blood Count 3.93 M/mm3 (4.2-5.4)
[2020-10-14 11:07] LABS: ALB/GLOB Ratio 1.2 RATIO (0.9-2.4); AST(SGOT) 20 U/L (15-37); Alanine Aminotransfer ALT/SGPT 38 U/L (13-56); Albumin, Serum 4.1 g/dL (3.2-5.0); Alkaline Phosphatase 86 U/L (45-117); Anion Gap 7 (5-15); BUN 16 mg/dL (7-18); Calcium,Total 9.8 mg/dL (8.5-10.1); Chloride 105 mmol/L (98-107); Creatinine, Serum 1.07 mg/dL (0.55-1.02); EST Glomerular Filtration Rate 53 mL/min (>60); Est Glom Filt Rate - Afr Amer 64 mL/min (>60); Globulin 3.5 g/dL (2.2-4.2); Glucose 129 mg/dL (74-106); Potassium 3.6 mmol/L (3.5-5.1); Protein, Total 7.6 g/dL (6.4-8.2); Sodium Level 140 mmol/L (136-145)
== END ==
PROVIDERS: PCP Family Medicine Geriatric Medicine; Visit Provider Family Medicine Geriatric Medicine
DX: R10.9 Unspecified abdominal pain (principal)
CPT/HCPCS: 36415; 80053; 85025

== ENCOUNTER → 2020-10-14 12:05 | Outpatient (CLI) | payer MEDICARE, SELFPAY ==
--- NOTE | 2020-10-14 12:07 | CT_ITS ---
STUDY: CT ABDOMEN AND PELVIS WITH CONTRAST REASON FOR EXAM: Female, 75 years old. ABD PAIN RADIATION DOSAGE (If Supplied By Facility): CTDIvol = ( 15.98 ) mGy, DLP = ( 681.09 ) mGycm TECHNIQUE: Transaxial images were obtained from the dome of the diaphragm to the symphysis pubis without oral contrast. Oral and amp; IV GASTROGRAFIN and amp; 100ML ISOVUE 300 was administered. Sagittal and coronal images were reconstructed. Individualized dose optimization techniques were used for this CT. COMPARISON: None. FINDINGS: Lung bases clear. Unremarkable liver, pancreas, and adrenals. The spleen top normal in size, measuring 13.6 cm in the greatest dimension. Bilateral renal cysts noted measuring up to 2.4 cm. Gallbladder not seen and likely removed. No CT evidence of acute appendicitis. Bowel loops nonobstructed. Distal colonic diverticulosis noted. There is circumferential wall thickening of proximal sigmoid colon with surrounding fat stranding, compatible with acute diverticulitis. No free air or peridiverticular abscess. No free fluid. Vascular calcification with no abdominal aortic aneurysm. Status post ventral abdominal wall hernia repair. Urinary bladder incompletely distended. No adnexal mass. No adenopathy. Multilevel thoracolumbar spondylosis. Mild levoscoliosis of the lumbar spine. 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 CT/Abdomen/Pelvis WITH Contrast IMPRESSION: Acute diverticulitis involving proximal sigmoid colon. No free air or peridiverticular abscess. Electronically Signed: Pravin Good MD at 17:31 EDT Tel , Service support ,
== END ==
PROVIDERS: PCP Family Medicine Geriatric Medicine; Visit Provider Family Medicine Geriatric Medicine
DX: R10.9 Unspecified abdominal pain (principal)
CPT/HCPCS: 36415; 74177; 80053; 85025; Q9967

== ENCOUNTER → 2020-11-13 10:24 | Outpatient (CLI) | payer MEDICARE, SELFPAY ==
[2020-10-30 11:06] VITALS: BMI 32.0
[2020-11-13 12:12] LABS: Absolute Neutrophil Count 2.4 X10^3/uL (2.0-7.7); Basophil# 0.03 X10^3/uL; Basophil% 0.7 % (0-1); Eosinophil# 0.13 X10^3/uL; Eosinophils% 2.8 % (0-5); Hematocrit 39.6 % (37-47); Hemoglobin 13.2 g/dL (12.0-15.0); Lymphocyte % 37.1 % (19-41); Mean Corp Hgb Conc 33.3 g/dL (32-36); Mean Corpuscular Hgb 33.6 pg (27.0-32.0); Mean Corpuscular Volume 100.8 fL (81-99); Mean Platelet Vol. 10.5 fl (6.2-12.0); Monocyte% 6.6 % (0-10); NRBC Flagged by Analyzer 0 % (0-5); Neutrophil # 2.41 X10^3/uL (2.7-7.7); Neutrophil % 52.6 % (47-70); Platelet Count 157 K/mm3 (150-450); Red Blood Count 3.93 M/mm3 (4.2-5.4); White Blood Count 4.6 K/mm3 (4.4-11.0)
[2020-11-13 12:27] LABS: ALB/GLOB Ratio 1.3 RATIO (0.9-2.4); AST(SGOT) 25 U/L (15-37); Alanine Aminotransfer ALT/SGPT 36 U/L (13-56); Albumin, Serum 4.2 g/dL (3.2-5.0); Alkaline Phosphatase 83 U/L (45-117); Anion Gap 8 (5-15); BUN 15 mg/dL (7-18); BUN/Creat Ratio 12.8 RATIO (10-20); Calcium,Total 9.9 mg/dL (8.5-10.1); Chloride 107 mmol/L (98-107); Creatinine, Serum 1.17 mg/dL (0.55-1.02); EST Glomerular Filtration Rate 48 mL/min (>60); Est Glom Filt Rate - Afr Amer 58 mL/min (>60); Globulin 3.3 g/dL (2.2-4.2); Glucose 141 mg/dL (74-106); Potassium 3.9 mmol/L (3.5-5.1); Protein, Total 7.5 g/dL (6.4-8.2); Sodium Level 142 mmol/L (136-145)
== END ==
PROVIDERS: PCP Family Medicine Geriatric Medicine; Referring Provider Internal Medicine Rheumatology; Visit Provider Internal Medicine Rheumatology
DX: M06.4 Inflammatory polyarthropathy (principal); M15.9 Polyosteoarthritis, unspecified; K76.0 Fatty (change of) liver, not elsewhere classified; Q66.70 Congenital pes cavus, unspecified foot; K58.0 Irritable bowel syndrome with diarrhea; K57.90 Diverticulosis of intestine, part unspecified, without perforation or abscess without bleeding; I10 Essential (primary) hypertension; E78.5 Hyperlipidemia, unspecified; K21.9 Gastro-esophageal reflux disease without esophagitis; F41.1 Generalized anxiety disorder; F32.89 Other specified depressive episodes
CPT/HCPCS: 36415; 80053; 85025

== ENCOUNTER → 2020-11-25 11:28 | Outpatient (CLI) | payer MEDICARE, SELFPAY ==
[2020-11-13 11:30] VITALS: BMI 32.0
--- NOTE | 2020-11-25 12:04 | RAD_ITS ---
STUDY: X-RAY - ABDOMEN/PELVIS REASON FOR EXAM: Female, 75 years old. Diarrheaa TECHNIQUE: Two AP supine views of the abdomen and pelvis. COMPARISON: 10/14/20. FINDINGS: Normal visualized lung bases. Hernia repair hardware is noted. There is an unremarkable bowel gas pattern. There is no demonstrated free abdominal air. The visualized liver, spleen and kidneys are grossly normal in size and morphology. Normal soft tissue structures. There are diffuse degenerative changes of the visualized lumbar spine. RAD/Abdomen Single View IMPRESSION: Normal x-ray examination of the abdomen and pelvis. Electronically Signed: Jason Potts MD at 21:53 EDT Tel , Service support ,
== END ==
PROVIDERS: PCP Family Medicine Geriatric Medicine; Referring Provider Family Medicine Geriatric Medicine; Visit Provider Family Medicine Geriatric Medicine
DX: R19.7 Diarrhea, unspecified (principal); N39.0 Urinary tract infection, site not specified
CPT/HCPCS: 74018; 87077; 87086; 87088; 87186

== ENCOUNTER → 2020-12-10 10:39 | Outpatient (CLI) | payer MEDICARE, SELFPAY ==
[2020-11-13 11:30] VITALS: BMI 32.0
[2020-12-10 12:08] LABS: Absolute Lymphocyte Count 1.45 X10^3/uL (0.83-4.51); Absolute Neutrophil Count 2.4 X10^3/uL (2.0-7.7); Basophil# 0.02 X10^3/uL; Basophil% 0.5 % (0-1); Eosinophil# 0.12 X10^3/uL; Eosinophils% 2.8 % (0-5); Hemoglobin 12.4 g/dL (12.0-15.0); Lymphocyte # 1.45 X10^3/ul (0.83-4.51); Lymphocyte % 33.3 % (19-41); Mean Corp Hgb Conc 33.5 g/dL (32-36); Mean Corpuscular Hgb 33.2 pg (27.0-32.0); Mean Corpuscular Volume 99.2 fL (81-99); Mean Platelet Vol. 10.6 fl (6.2-12.0); Monocyte# 0.34 X10^3/uL; Monocyte% 7.8 % (0-10); NRBC Flagged by Analyzer 0 % (0-5); Neutrophil # 2.43 X10^3/uL (2.7-7.7); Neutrophil % 55.6 % (47-70); Platelet Count 145 K/mm3 (150-450); RBC Distribution Width CV 11.9 % (11.6-14.6); RBC Distribution Width SD 43.4 fl (35.1-43.9); Red Blood Count 3.73 M/mm3 (4.2-5.4); White Blood Count 4.4 K/mm3 (4.4-11.0)
[2020-12-10 12:31] LABS: Vitamin D,25 Hydroxy 45.7 ng/mL
[2020-12-10 12:35] LABS: ALB/GLOB Ratio 1.3 RATIO (0.9-2.4); AST(SGOT) 24 U/L (15-37); Alanine Aminotransfer ALT/SGPT 33 U/L (13-56); Albumin, Serum 4.1 g/dL (3.2-5.0); Alkaline Phosphatase 78 U/L (45-117); Anion Gap 6 (5-15); BUN 20 mg/dL (7-18); BUN/Creat Ratio 17.7 RATIO (10-20); Calcium,Total 9.5 mg/dL (8.5-10.1); Chloride 108 mmol/L (98-107); Creatinine, Serum 1.13 mg/dL (0.55-1.02); EST Glomerular Filtration Rate 50 mL/min (>60); Est Glom Filt Rate - Afr Amer 60 mL/min (>60); Globulin 3.2 g/dL (2.2-4.2); Glucose 98 mg/dL (74-106); Potassium 3.9 mmol/L (3.5-5.1); Protein, Total 7.3 g/dL (6.4-8.2); Sodium Level 141 mmol/L (136-145); Thyroid Stim Hormone (TSH) 1.24 uIU/mL (0.358-3.74)
== END ==
PROVIDERS: PCP Family Medicine Geriatric Medicine; Visit Provider Family Medicine Geriatric Medicine
DX: I10 Essential (primary) hypertension (principal); E55.9 Vitamin D deficiency, unspecified
CPT/HCPCS: 36415; 80053; 82306; 84443; 85025

== ENCOUNTER 2021-01-20 18:11 | Emergency (ER) | payer MEDICARE, SELFPAY ==
[2020-11-13 11:30] VITALS: BMI 32.0
[2021-01-20 18:12] VITALS: BP 125/73; PULSE 70; RESP 20; TEMP 36.4; O2SAT 98; BMI 32.0
[2021-01-20 18:25] VITALS: BP 147/76; PULSE 62; RESP 16; O2SAT 98
--- NOTE | 2021-01-20 18:57 | EX.ED.DYSGE1 ---
HPI History of Present Illness Chief Complaint: Nausea/Vomiting/Diarrhea Informant: patient Narrative Narrative: 75-year-old female presents the emergency room with vomiting and diarrhea. Patient states that she began to vomit yesterday morning and has been vomiting since that time. She also notes diarrhea yesterday and this morning but that has subsequently resolved. She denies any fever. No bloating or abdominal distention. She states that she gets dizzy when she stands up. No new medications. No known bad food or water exposures. She describes the diarrhea as yellow. No blood. Patient also complains that she cannot hear out of her left ear. She denies any barotrauma. She believes it is clogged with cerumen. [facility] Medical History (Updated 01/20/21 @ 18:[address] Phillip Enrique, ) Anxiety Chronic back pain Depression Diverticulitis HTN (hypertension) IBS (irritable bowel syndrome) Skin cancer Home Medications biotin 5,000 mcg PO DAILY 02/08/16 [History Last Taken Unknown] vitamin E 200 unit PO DAILY 02/08/16 [History Last Taken Unknown] trazodone 100 mg tablet 100 mg PO QHS 01/31/18 [History Last Taken Unknown] cholecalciferol (vitamin D3) 2,000 unit PO DAILY 02/06/18 [History Last Taken Unknown] vwtsxfcekhnh-Ww-rtvn-minerals 1 ea PO DAILY 02/06/18 [History Last Taken Unknown] baclofen 10 mg tablet 10 mg PO QHS 05/15/19 [History Last Taken Unknown] potassium chloride 20 mEq tablet,extended release(part/cryst) 20 meq PO DAILY 05/15/19 [History Last Taken Unknown] Handicap Placard #1 ea 09/17/20 [Rx Last Taken Unknown] aspirin 325 mg tablet 325 mg PO DAILY 09/17/20 [History Last Taken Unknown] citalopram 20 mg tablet 20 mg PO DAILY 09/17/20 [History Last Taken Unknown] hydroxychloroquine 200 mg tablet 200 mg PO BID tablet 09/17/20 [History Last Taken Unknown] lorazepam 0.5 mg tablet 0.5 mg PO DAILY tablet 09/17/20 [History Last Taken Unknown] losartan 100 mg-hydrochlorothiazide 12.5 mg tablet 1 tablet PO DAILY 09/17/20 [History Last Taken Unknown] ondansetron 4 mg PO Q6H PRN PRN #15 tab 01/20/21 [Rx Last Taken Unknown] Allergy/AdvReac Type Severity Reaction Status Date / Time acetaminophen [From Vicodin] Allergy Hives Verified 01/20/21 18:11 hydrocodone [From Vicodin] Allergy Hives Verified 01/20/21 18:11 Sulfa (Sulfonamide Allergy Hives Verified 01/20/21 18:11 Antibiotics) Family History Father Heart disease Mother Colon cancer Sister Breast cancer Surgical History History of cholecystectomy History of colectomy History of colonoscopy History of incisional hernia repair History of removal of ovarian cyst Status post surgical removal of malignant neoplasm of skin Social History Smoking Status: Never smoker alcohol intake: never substance use type: does not use what type of physical activity do you participate in: none ROS ROS ED Constitutional Constitutional ED: Denies chills or weight loss Eyes Eyes: Denies change in vision or diplopia ENT ENT ED: Denies ear pain, rhinorrhea or sore throat Cardiovascular Cardiovascular: Denies chest pain, orthopnea, palpitations or racing heartbeat Respiratory/Chest Respiratory/Chest: Denies cough, dyspnea or orthopnea Gastrointestinal Gastrointestinal: Reports diarrhea, nausea and vomiting; Denies abdominal pain Genitourinary Genitourinary ED: Denies dysuria, hematuria or urinary frequency Musculoskeletal Musculoskeletal: Denies arthralgias or myalgias Integumentary Denies abscess or rash Neurologic Neurologic: Denies headache(s) or weakness Psychiatric Psychiatric: Denies anxiety, depression, suicidal ideation or suicidal thoughts Endocrine Endocrinology: Denies polydipsia, polyphagia or polyuria Allergic/Immunologic Allergic/Immunologic ED: Denies mouth swelling, tongue swelling or urticaria EXAM Physical Exam Const Vital Signs: 01/20/21 18:12 01/20/21 18:25 01/20/21 19:56 Temperature 97.6 F L 98.3 F Temperature Source Temporal Temporal Pulse Rate 70 62 71 Respiratory Rate 20 H 16 18 Blood Pressure 125/73 H 147/76 H 129/68 H Blood Pressure Mean 90 99 88 Pulse Ox 98 98 92 Oxygen Delivery Method Room Air Room Air Room Air 01/20/21 20:16 Temperature 97.7 F L Temperature Source Temporal Pulse Rate 59 L Respiratory Rate 16 Blood Pressure 138/61 H Blood Pressure Mean 86 Pulse Ox 97 Oxygen Delivery Method Room Air Positive well nourished and well developed General Appearance ED: well developed HEENT Reports normocephalic, head/scalp atraumatic and moist mucous membranes Eyes PERRL and EOMs intact bilaterally Eyes Narrative: Tympanic membranes appear intact. There is no erythema. There is no loss of landmarks. Neck no lymphadenopathy, supple and no JVD Resp normal respiratory effort and clear to auscultation bilaterally Cardio regular rate, regular rhythm and no murmurs GI normal to inspection, nondistended, normoactive bowel sounds and non-tender Palpation: soft Back/Spine no CVA tenderness and normal ROM Extremity normal to inspection General Extremety ED: Negative for edema General Extremity: Negative for edema Neuro oriented x3 and CN's II-XII intact bilaterally Sensorium / Orientation: alert Motor Exam: strength 5/5 throughout Psych mental status grossly normal Mood & Affect: anxious and tearful; Negative for depressed Skin no rashes or lesions noted and no wounds MDM MDM MDM Narrative Medical decision making narrative: Patient received Zofran and IV fluids. Basic labs were checked. These were essentially negative. Creatinine 1.23 with a BUN of 16. Repeat examination the patient has not thrown up anymore. No diarrhea. Her vital signs are stable. Patient received a second liter of IV fluids. After which she tells me she feels worse. She states that she has a headache her nausea has back and she cannot take not being able to hear out of her left ear. She states that she feels water dripping in her ear. Do not see any tympanic membrane rupture. The eardrum does not have a loss of landmarks. There is no erythema. I recommend ENT follow-up for her ear symptoms. Lab Data Attestation: I reviewed the patient's lab results. Labs: Laboratory Results - last 24 hr 01/20/21 01/20/21 18:29 18:29 WBC 5.2 RBC 4.20 Hgb 13.9 Hct 41.0 MCV 97.6 MCH 33.1 H MCHC 33.9 RDW Std Deviation 41.6 RDW Coeff of Purvi 11.7 Plt Count 155 MPV 10.4 Immature Gran % (Auto) 0.600 Neut % (Auto) 68.4 Lymph % (Auto) 24.9 [place] % (Auto) 4.6 Eos % (Auto) 1.1 Baso % (Auto) 0.4 Absolute Neuts (auto) 3.6 Absolute Lymphs (auto) 1.30 Nucleated RBC % 0 Sodium 139 Potassium 4.1 Chloride 105 Carbon Dioxide 23.0 Anion Gap 11 BUN 16 Creatinine 1.23 H Estim Creat Clear Calc 31.26 Est GFR (MDRD) Af Amer 55 L Est GFR (MDRD) Non-Af 45 L BUN/Creatinine Ratio 13.0 Glucose 119 H Calcium 10.3 H Total Bilirubin 1.80 H AST 34 ALT 35 Alkaline Phosphatase 80 Total Protein 8.2 Albumin 4.5 Globulin 3.7 Albumin/Globulin Ratio 1.2 Lipase 118 Discharge Plan Triage Chief Complaint: Nausea/Vomiting/Diarrhea ED Provider: Phillip Enrique Dx/Rx/DC Orders Clinical Impression: Gastroenteritis Instructions: ED Gastroenteritis, Viral (Adult) Prescriptions: New ondansetron [ondansetron] 4 MG tablet 4 mg PO Q6H PRN PRN (Reason: Nausea) Qty: 15 RF: 0 No Action trazodone 100 mg tablet 100 mg PO QHS RF: 0 baclofen 10 mg tablet 10 mg PO QHS RF: 0 potassium chloride [Klor-Con M20] 20 mEq tablet,ER particles/crystals 20 meq PO DAILY RF: 0 lorazepam 0.5 mg tablet 0.5 mg PO DAILY RF: 0 losartan-hydrochlorothiazide 100-12.5 mg tablet 1 tablet PO DAILY RF: 0 aspirin 325 mg tablet 325 mg PO DAILY RF: 0 hydroxychloroquine 200 mg tablet 200 mg PO BID RF: 0 (DME) Handicap Placard See Rx Instructions .Route .MEDSUPPLY Qty: 1 RF: 0 vitamin E 200 UNIT capsule 200 unit PO DAILY RF: 0 biotin 10,000 MCG capsule 5,000 mcg PO DAILY RF: 0 citalopram 20 mg tablet 20 mg PO DAILY RF: 0 lsvtpeufnlaz-Ii-ngpt-minerals 1 EACH tablet 1 ea PO DAILY RF: 0 cholecalciferol (vitamin D3) 2,000 UNIT capsule 2,000 unit PO DAILY RF: 0 Primary Care Provider: Alessio Chang Chi Referrals: Alessio Chang Chi, MD [Primary Care Provider] - 3-5 Days if not improving Disposition Disposition: Home, Self Care
[2021-01-20 19:04] LABS: Absolute Neutrophil Count 3.6 X10^3/uL (2.0-7.7); Basophil# 0.02 X10^3/uL; Basophil% 0.4 % (0-1); Eosinophil# 0.06 X10^3/uL; Eosinophils% 1.1 % (0-5); Hemoglobin 13.9 g/dL (12.0-15.0); Lymphocyte % 24.9 % (19-41); Mean Corp Hgb Conc 33.9 g/dL (32-36); Mean Corpuscular Hgb 33.1 pg (27.0-32.0); Mean Corpuscular Volume 97.6 fL (81-99); Mean Platelet Vol. 10.4 fl (6.2-12.0); Monocyte# 0.24 X10^3/uL; Monocyte% 4.6 % (0-10); NRBC Flagged by Analyzer 0 % (0-5); Neutrophil # 3.57 X10^3/uL (2.7-7.7); Neutrophil % 68.4 % (47-70); Platelet Count 155 K/mm3 (150-450); RBC Distribution Width CV 11.7 % (11.6-14.6); RBC Distribution Width SD 41.6 fl (35.1-43.9); White Blood Count 5.2 K/mm3 (4.4-11.0)
[2021-01-20] MEDS: 0.9% Normal Saline 1,000 ML 1000 ML IV (19:11)
[2021-01-20] MEDS: Ondansetron 4 MG/2 ML Vial IV ×2 (19:11→22:33)
[2021-01-20 19:15] LABS: ALB/GLOB Ratio 1.2 RATIO (0.9-2.4); AST(SGOT) 34 U/L (15-37); Alanine Aminotransfer ALT/SGPT 35 U/L (13-56); Albumin, Serum 4.5 g/dL (3.2-5.0); Alkaline Phosphatase 80 U/L (45-117); Anion Gap 11 (5-15); BUN 16 mg/dL (7-18); Calcium,Total 10.3 mg/dL (8.5-10.1); Chloride 105 mmol/L (98-107); Creatinine, Serum 1.23 mg/dL (0.55-1.02); EST Glomerular Filtration Rate 45 mL/min (>60); Est Glom Filt Rate - Afr Amer 55 mL/min (>60); Estimated Creatinine Clearance 31.26 ml/min; Globulin 3.7 g/dL (2.2-4.2); Glucose 119 mg/dL (74-106); Lipase 118 U/L (73-393); Potassium 4.1 mmol/L (3.5-5.1); Protein, Total 8.2 g/dL (6.4-8.2); Sodium Level 139 mmol/L (136-145)
[2021-01-20 19:56] VITALS: BP 129/68; PULSE 71; RESP 18; TEMP 36.8; O2SAT 92
[2021-01-20 20:16] VITALS: BP 138/61; PULSE 59; RESP 16; TEMP 36.5; O2SAT 97
[2021-01-20] MEDS: 0.9% Normal Saline 1,000 ML 999 ML IV (20:23)
[2021-01-20] MEDS: Ketorolac 30 MG/ML Syringe IV (22:34)
[2021-01-20 23:44] VITALS: RESP 18
== END 2021-01-20 23:44 | disposition home or self-care (01) ==
PROVIDERS: Emergency Provider Emergency Medicine; PCP Family Medicine Geriatric Medicine
DX: K52.9 Noninfective gastroenteritis and colitis, unspecified (principal); H91.92 Unspecified hearing loss, left ear; I10 Essential (primary) hypertension; M54.9 Dorsalgia, unspecified; G89.29 Other chronic pain; F32.9 Major depressive disorder, single episode, unspecified; F41.9 Anxiety disorder, unspecified; Z79.82 Long term (current) use of aspirin; Z79.899 Other long term (current) drug therapy
CPT/HCPCS: 80053; 83690; 85025; 96361; 96374; 96375; 96376; 99283; J7030; J2405

== ENCOUNTER → 2021-01-23 07:58 | Outpatient (CLI) | payer MEDICARE, SELFPAY ==
[2021-01-20 18:12] VITALS: BMI 32.0
--- NOTE | 2021-01-23 08:09 | MRI_ITS ---
STUDY: MRI BRAIN WITH AND WITHOUT CONTRAST (ATTENTION INTERNAL AUDITORY CANALS - I.A.C.''s) REASON FOR EXAM: Female, 75 years old. DIZZINESS, SUDDEN LT HEARING LOSS TECHNIQUE: Standardized multiplanar fat and water weighted pulse sequences were obtained. IV dotarem 16ml was administered for the contrast portion of the examination. COMPARISON: 01/17/2013 FINDINGS: Normal bilateral temporal bones. Normal bilateral internal auditory canals. There is no demonstrated intracanalicular or cisternal vestibular schwannoma (acoustic neuroma). There is no enhancement of the bilateral VIIth or VIIIth cranial nerves. Normal bilateral cochlea, vestibules and semicircular canals. There is mild cerebral atrophy with widening of the extra-axial spaces and ventricular dilatation. Normal white matter tracts of the supratentorial brain. There is no evidence for recent intracranial ischemia or other cause of cytotoxic edema on diffusion weighted imaging (DWI). Normal bilateral basal ganglia. Normal thalami. Normal flow voids within the major intracranial circulation suggesting patency by spin echo criteria. Normal venous enhancement. There is no enhancing intra-axial or extra-axial abnormality. There is no extra-axial fluid accumulation. Normal sella turcica, pituitary gland, infundibular stalk, optic chiasm and hypothalamus. Normal tectal plate and pineal gland. Normal midbrain, rahat and medulla. Normal cerebellum. Normal basal cisterns. No demonstrated orbital abnormality, within the constraints of a routine brain study. Normal visualized paranasal sinuses. Normal calvarium and skull base. Normal visualized soft tissue structures. Normal visualized upper cervical spine. MRI/Brain W/WO Contrast IMPRESSION: Normal unenhanced and enhanced MRI of the bilateral internal auditory canals (I.A.C''s). Electronically Signed: Julio Koroma MD at 17:37 EDT Tel , Service support ,
== END ==
PROVIDERS: PCP Family Medicine Geriatric Medicine; Visit Provider Otolaryngology Otolaryngology/Facial Plastic Surgery
DX: R42 Dizziness and giddiness (principal); H91.22 Sudden idiopathic hearing loss, left ear
CPT/HCPCS: 70553; A9575

== ENCOUNTER → 2021-02-11 10:23 | Outpatient (CLI) | payer MEDICARE, SELFPAY ==
--- NOTE | 2021-02-11 10:26 | VDLE_ITS ---
Reason For Study: [place]DE[place] RIGHT LEFT CFV is compressible, spontaneous, phasic, GSV is normal. competent and demonstrates normal CFV is compressible, spontaneous, phasic, augmentation. competent, and demonstrates normal Procedure augmentation. This is a venous duplex using B-mode, color FV is compressible, spontaneous, phasic, flow and spectral Doppler. competent and demonstrates normal Exam performed in department. augmentation. The exam was diagnostic. POP V is compressible, spontaneous, phasic, A preliminary report was called and/or faxed competent and demonstrates normal to Dr. Chang's office @ 11 am. augmentation. T/P Trunk is compressible. PTV is compressible. LT PerV is compressible. VL/Venous Duplex US, Unilateral Interpretation Summary Deep veins of the left lower extremity are patent and compressible segmentally. There is no evidence of left lower extremity deep vein thrombosis. Valvular competence appears intac t within the proximal deep venous system on the left . The left great saphenous vein appears patent a nd compressible segmentally. Ordering Physician: Alessio Chang Referring Physician: Alessio Chang Chi Performed By: Nela Altman, LOYDA, RVT
--- NOTE | 2021-02-11 10:55 | RAD_ITS ---
STUDY: X-RAY - RIGHT KNEE REASON FOR EXAM: Right knee pain, swelling, no specific injury. TECHNIQUE: 4 view(s) of the knee. COMPARISON: None. FINDINGS: There is osteopenia. Normal visualized distal femur. Normal visualized proximal tibia and fibula. Normal proximal tibiofibular articulation. There is moderate joint space narrowing of the medial femorotibial compartment. Normal lateral femorotibial compartment. There is mild to moderate joint space narrowing of the patellofemoral articulation. There is very mild vascular calcification. RAD/Knee 4 or More Views IMPRESSION: Arthrosis of the medial femorotibial and patellofemoral compartments. Electronically Signed: Bj Marshall MD at 13:40 EDT Tel , Service support ,
== END ==
PROVIDERS: PCP Family Medicine Geriatric Medicine; Referring Provider Family Medicine Geriatric Medicine; Visit Provider Family Medicine Geriatric Medicine
DX: R60.0 Localized edema (principal); M25.561 Pain in right knee
CPT/HCPCS: 73564; 93971

== ENCOUNTER 2021-03-26 10:30 | Outpatient (RCR) | payer MEDICARE, SELFPAY ==
--- NOTE | 2021-03-12 12:52 | HP.PTEVAL ---
Patient's Visit Information KATIE OZUNA is a 75 year old F referred to Physical Therapy by Dr. Manuel Lewis MD with a diagnosis of dizzyness. Date of Evaluation: 03/12/21 Physical Therapist: Louie Cornejo, AISLINN, OCS, CSCS - Visit Plan Frequency: 1x/Week Duration: 4-6 Weeks Plan: weekly x 4-6 to progress adaptation exercises and monitor need for further vestibular ex/activity. Educated patient on possible benefits of therapy on her LBP and benefits of regular ex program for overall health and management of LBP. She will see Dr. Chang for this and get script if she wishes to work on these. - Subjective Has back pain and will see Bernardo after today. Is here because she lost hearing 01/18/21 without hearing in L ear. Thought it was clogged but she went out and then threw up for two solid days due to dizzyness. Went to ER adn got anti nausea meds and sent to ear doctor who treated with posiitional which helped dizzyness and then sent for MRI, was also put on prednisone. Is not getting hearing back. Has hearing aids now. Still cannot walk a straight line due to back and leg pain. Balance feels worse than before lost her hearing. Has fallen 2x. Uses [facility] now in R UE. Gets dizzy if mves head too quick. has to be careful with driving. Gets weird feelign if moves head too fast. Harder to get around now with balance and has to be careful of head movements with running sweeper and household tasks. Owns 8 acres and walks dog but now has to limit this and be careful. Basic ADLs are getting done I. Lives alone and has steps with railing and gets up and down OK, again has to be careful with back pain. No regular exercises. Hobbies include reading and quilting whcih she can still do. Only gets dizzy if moves head too fast. Fell due to dizzyness. - Pain LBP Pain Intensity (Out of 10): 9 Pain Intensity Range: 0, 9 - Objective Walks with [facility] I back to PT al room Mod I, (i changed the base of the cane for the R handed walk). Trasnfers I bed and chair. Obviously some pain from her back with trasnitions whcih she will see Dr. Chang for this afternonon and see chirpractic regularly. Cervical AROM WFL and painfree today. Balance appears good although her confidence is not great. Romberg eo and ec 30 seconds easily. - B hallpike shun. - roll test. Oculomotor: no nystagmus with gaze or head shake but dizzy with head shake. - skew eye deviation. - ocular tilt. normal convergence. Prusit and sacaades are normal and asymptomatic. VOR horiz is dizzy immediately and wants to stop. 30 seconds 6/10 for 15 seconds horizaontal and 30 seconds vertical 2/10 for 10 seconds. + L head thrust slightly. - Balance/Special Test Scores Functional Gait Assessment Score: 24 % Disability: 20.0000 Dizziness Score: 48 - Goals Goal 1:: Abolish all dizzyness with head movements Goal Time Frame: 4-6 Weeks Goal 2:: Pt feel 95% back to normal mobility and activity Goal Time Frame: 4-6 Weeks Goal 3:: <10 on DHI to limit problems with activity Goal Time Frame: 4-6 Weeks Goal 4:: FGA to limit fall risk Goal Time Frame: 4-6 Weeks - Rehabilitation Potential Physical Therapy Diagnosis: Dizzyness likely vestibular hypofunction Rehabilitation Potential: Good - Anticipated Interventions Patient/Client Instruction: Educate patient on: Condition, Plan of Care, Risk Factors For the Purpose of:: To increase tolerance to activity/condition/position, To improve gait and locomotor functions, To improve safety with gait Therapeutic Exercise to Include: Balance training Comment: adaptation adn habituation ex For the Purpose of:: To improve muscle performance and motor function, To increase tolerance to activity/condition/position, To improve gait and locomotor functions, To improve safety Thank you for the opportunity to evaluate your patient. For Medicare and Medicare HMO plans, please review the plan of care and approve it. It will need to be FAXED BACK to us at [phone] for Medicare purposes. For Medicare only, by signing this I certify the plan of care. Please let me know if there are questions or concerns regarding this plan of care. Physician Signature: Date:
--- NOTE | 2021-03-26 11:03 | HP.PTDCSUM ---
It has been my pleasure to treat KATIE OZUNA referred by Dr. Manuel Lewis MD, with the diagnosis of dizzyness for a total of 3 visit(s). Discharge Date: 03/26/21 Please see the following information for a summary of their discharge status. Subjective: Dizzyness is doing great. Doing HEP and ex not making her dizzy anymore. Not much else is causing dizzyness. One time with quilting felt slight dizzy but it was transient. Balance is better. No falls. Walking dogs. Activities pretty normal as far as dizzyness is concerned. Avoids poor steps to [employer] garden but that is because steps are no good. LBP Pain Intensity (Out of 10): 0 % Improvement: 95 Objective/Function: FGA is +2. Head nods and turns adn VOr without any symptoms. Walking with head movements is easy. Overall doing very well and not having problems with dizzyness anymore. Presents with script for knee pain from Dr. Chang and will have an MRI for back next week but doing well with dizzyness. Goal 1:: Abolish all dizzyness with head movements Goal Progress: Goal Met Goal 2:: Pt feel 95% back to normal mobility and activity Goal Progress: Goal Met Goal 3:: <10 on DHI to limit problems with activity Goal Progress: Goal Met Goal 4:: FGA to limit fall risk Goal Progress: Goal Met Plan: d/c If there are questions or concerns regarding this patient's physical therapy, please feel free to call me at [phone]. Thank you for the referral of this patient. Sincerely, Louie Cornejo, DPT, OCS, CSCS Balance/Gait/Functional tests - Balance/Special Test Scores Functional Gait Assessment Score: 26 % Disability: 13.3400 Dizziness Score: 0
== END 2021-03-26 13:19 | disposition home or self-care (01) ==
LOC: PT 10:30
PROVIDERS: PCP Family Medicine Geriatric Medicine; Referring Provider Otolaryngology Otolaryngology/Facial Plastic Surgery; Visit Provider Otolaryngology Otolaryngology/Facial Plastic Surgery
DX: R42 Dizziness and giddiness (principal)
CPT/HCPCS: 97110; 97161; 97164; 97530

== ENCOUNTER → 2021-04-01 10:10 | Outpatient (CLI) | payer MEDICARE, SELFPAY ==
--- NOTE | 2021-04-01 10:45 | MRI_ITS ---
EXAM: MR Lumbar Spine Without Intravenous Contrast CLINICAL INDICATION: 75 years old, Female; LBP, RT leg TECHNIQUE: Multiplanar and multisequence MR images of the lumbar spine without intravenous contrast. This report was created using [employer] report [employer] technology. COMPARISON: None. FINDINGS: Vertebrae: Degenerative facet arthropathy mid and lower lumbar spine. Vertebral body heights are preserved. Normal alignment. No spondylolisthesis. There is preservation of the normal lumbar lordosis. Spinal cord: Unremarkable. Normal position and signal intensity of the conus medullaris. Soft tissues: Broad-based disc bulge along with ligamentum flavum and facet hypertrophy causes a mild spinal canal stenosis and severe left neural foraminal stenosis. DISCS/SPINAL CANAL/NEURAL FORAMINA: L1-L2: Degenerative disc bulge at L1-L2 causing ventral effacement of the thecal sac but no spinal canal stenosis. L2-L3: Broad-based disc bulge at L2-L3 along with ligamentum flavum and facet hypertrophy results in a moderate spinal canal stenosis. Severe right neural foraminal stenosis at L2-L3 due to disc bulge and bony hypertrophy. L3-L4: Broad-based disc bulge at L3-L4 along with ligamentum flavum and facet hypertrophy results in a moderate spinal canal stenosis. Severe bilateral neural foraminal stenoses at L3-L4 due to disc bulge and bony hypertrophy. L4-L5: Unremarkable. Normal disc height and morphology. Normal spinal canal, lateral recesses and neuroforamina. L5-S1: Unremarkable. Normal disc height and morphology. Normal spinal canal, lateral recesses and neuroforamina. MRI/Spine Lumbar (Routine) IMPRESSION: 1. Broad-based disc bulge at L2-L3 along with ligamentum flavum and facet hypertrophy results in a moderate spinal canal stenosis. 2. Broad-based disc bulge at L3-L4 along with ligamentum flavum and facet hypertrophy results in a moderate spinal canal stenosis. 3. Broad-based disc bulge along with ligamentum flavum and facet hypertrophy causes a mild spinal canal stenosis and severe left neural foraminal stenosis. 4. Severe bilateral neural foraminal stenoses at L3-L4 due to disc bulge and bony hypertrophy. 5. Severe right neural foraminal stenosis at L2-L3 due to disc bulge and bony hypertrophy. ASSESSMENT: ABNORMAL report - There are abnormal findings in this report which may be related or unrelated to the reason for the exam. Electronically Signed: Roshan Rice MD at 5:33 EDT Tel , Service support ,
== END ==
PROVIDERS: PCP Family Medicine Geriatric Medicine; Referring Provider Family Medicine Geriatric Medicine; Visit Provider Family Medicine Geriatric Medicine
DX: M54.50 Low back pain, unspecified (principal)
CPT/HCPCS: 72148

== ENCOUNTER → 2021-04-13 | Outpatient (CLI) | payer MEDICARE, SELFPAY | END | disposition home or self-care (01) | LOC: LABSPEC 16:39 | PROVIDERS: PCP Family Medicine Geriatric Medicine; Visit Provider Family Medicine Geriatric Medicine | DX: N39.0 Urinary tract infection, site not specified (principal) | CPT/HCPCS: 87086; 87088; 87186 ==

== ENCOUNTER 2021-04-30 10:00 | Outpatient (RCR) | payer MEDICARE, SELFPAY ==
--- NOTE | 2021-03-26 11:56 | HP.PTEVAL_ITS ---
Patient's Visit Information KATIE OZUNA is a 75 year old F referred to Physical Therapy by Dr. Alessio Chang MD with a diagnosis of OA R knee pain. Date of Evaluation: 03/26/21 Physical Therapist: HAILEE MacielT, OCS, CSCS - Visit Plan Frequency: 1x/Week Duration: 4-6 Weeks Plan: weekly x 4 for progression of HEP for knee OA management. Given stretches today, next session monitor tolerance and progress to NWB strength then WB strength as tolerated. Consider pool or modalities (STM and TENS) if pain worsens. - Subjective R knee pain started with fall on knee when she was dizzy, That has been treated and is gone but knee pain returns. Is on plaquenil for OA given by Dr. Clark. R knee now hurts anterior. pain is intermittent and constant when weight bearing, not present non weight bearing. Is sleepin gOK as far as knee g oes. R knee hurts more on steps. Had x ray when she feel and has OA. Pain is up to 8/10 with walking alot if on it too much. Cleaning house is worse. Lingers in sitting if she gets it tooo bad. Not employed. Enjoys playing with dogs which makes her worse and has to stop early. Dressing is slow and painful with socks but can do it. Had prednisone initially and was injected by Dr. Chang a month ago which helped but it is worsening. No giving out and no numbness. - Pain R anterior knee Pain Intensity (Out of 10): 9 Pain Intensity Range: 0, 8 - Objective R knee hurts with walking but walks I on firm flat surface with good balance(26 FGA noted today on chart for dizzyness). Trasnfers I with UE. Steps reciprocal with one rail up and down with L only and two rails. AROM B knees 0-130 without pain today. Tightness in B quads and HS and gastroc moderately with -40 90/90 test B. reflexes 2/3 patella and achilles. Sensation WNL to gross light touch. Strength 4-/5 LE ion knees without asymmetries and no pain today. Hips abd and ext 4- and flexion 4, no pain. Ankle strength 4- B without pain. - varus and valgus. - ant drawer. - bounce home. slight + R patellar grind. - Balance/Special Test Scores Lower Extremity Functional Score: 41 - Goals Goal 1:: Pt I in mnagemnt of condition with home stretches and strength Goal Time Frame: 2-4 Weeks Goal 2:: Pt feel R knee pain back to 75% better adn 1/10 at worst. Goal Time Frame: 2-4 Weeks Goal 3:: Don and doff socks and shoes without noticing R knee. Goal Time Frame: 2-4 Weeks Goal 4:: Play with dogs without limitations due to R knee. - Rehabilitation Potential Physical Therapy Diagnosis: OA R knee pain limiting function Rehabilitation Potential: Fair - Anticipated Interventions Patient/Client Instruction: Educate patient on: Condition, Plan of Care For the Purpose of:: To decrease pain, To improve muscle performance and motor function, To increase tolerance to activity/condition/position, To improve ability of physical actions for home/community/work/leisure Therapeutic Exercise to Include: Strength training, Flexibilty training, Active ROM Comment: activity modification For the Purpose of:: To decrease pain, To improve muscle performance and motor function, To increase tolerance to activity/condition/position, To improve ability of physical actions for home/community/work/leisure Thank you for the opportunity to evaluate your patient. For Medicare and Medicare HMO plans, please review the plan of care and approve it. It will need to be FAXED BACK to us at [phone] for Medicare purposes. For Medicare only, by signing this I certify the plan of care. Please let me know if there are questions or concerns regarding this plan of care. Physician Signature: Date:
--- NOTE | 2021-04-30 10:33 | HP.PTREVAL_ITS ---
Dr. Alessio Chang MD, It has been my pleasure to treat KATIE OZUNA over the last 5 visits for OA R knee pain. Please see the progress note below for an update on the physical therapy plan of care! Subjective: Saw doctor and got injection in back. It has helped as sharp pain in leg is gone. Still has a little pain in knee and calf achy 2/10 much of beau e. To doctor in two weeks. Still doing HEP and doing OK. Objective/Function: AROM Lumbar without pain today. Walking very well and moving easily today. Plan Plan: pt to ex at home adn f/u in two weeks for d/c if still doing well(decrease ex frequncy if needed or give squats, TB if desired. Appropriate for 2 week f/u to progress and d/c see new goal. Fair prognosis. Balance/Gait/Functional tests - Balance/Special Test Scores Lower Extremity Functional Score: 59 Goals Goal 1:: Pt I in mnagemnt of condition with home stretches and strength Goal Time Frame: 2-4 Weeks Goal Progress: Goal Met Goal 2:: Pt feel R knee pain back to 75% better adn 1/10 at worst. Goal Time Frame: 2-4 Weeks Goal Progress: Goal Met Goal 3:: Don and doff socks and shoes without noticing R knee. Goal Time Frame: 2-4 Weeks Goal Progress: Goal Met Goal 4:: Play with dogs without limitations due to R knee. Goal Progress: Progressing Goal 5:: Maintain 0-2/10 pain without in clinic PT and just HEP for 2 weeks Goal Time Frame: 2 Weeks Goal Progress: NEW GOAL Anticipated Interventions Patient/Client Instruction: Educate patient on: Condition, Plan of Care For the Purpose of:: To decrease pain, To improve muscle performance and motor function, To increase tolerance to activity/condition/position, To improve ability of physical actions for home/community/work/leisure Therapeutic Exercise to Include: Strength training, Flexibilty training, Active ROM Comment: activity modification For the Purpose of:: To decrease pain, To improve muscle performance and motor function, To increase tolerance to activity/condition/position, To improve ability of physical actions for home/community/work/leisure Please do not hesitate to contact me at [phone] by phone or Fax: if you have questions or concerns regarding this new plan of care! Sincerely, Louie Cornejo, DPT, OCS, CSCS
--- NOTE | 2021-07-10 10:04 | HP.PT.NRP ---
KATIE OZUNA was seen in my office for initial evaluation on 03/26/21. The following Plan of Care was established for this patient: Initial Frequency: 1x/Week Initial Duration: 4-6 Weeks Patient/Client Instruction: Educate patient on: Condition, Plan of Care For the Purpose of:: To decrease pain, To improve muscle performance and motor function, To increase tolerance to activity/condition/position, To improve ability of physical actions for home/community/work/leisure Therapeutic Exercise to Include: Strength training, Flexibilty training, Active ROM For the Purpose of:: To decrease pain, To improve muscle performance and motor function, To increase tolerance to activity/condition/position, To improve ability of physical actions for home/community/work/leisure This patient was last seen in our office 04/30/21. Pertinent comments regarding their Physical therapy will appear below: Pt seen 5 visits of POC and was 90% better(with injection) She was to f/u two weeks after last appointment to ensure progress but did not attend that visit. iw ill disocntinue at this time due to nonattendance. At this point I will be discontinuing this patient from physical therapy. I would be happy to see this patient again in the future if found appropriate by the physician. Thank you! Louie Cornejo, DPT, OCS, CSCS Balance/Gait/Functional tests - Balance/Special Test Scores Lower Extremity Functional Score: 59
== END 2021-04-30 19:00 | disposition home or self-care (01) ==
LOC: PT 10:00
PROVIDERS: PCP Family Medicine Geriatric Medicine; Referring Provider Family Medicine Geriatric Medicine; Visit Provider Family Medicine Geriatric Medicine
DX: M25.561 Pain in right knee (principal)
CPT/HCPCS: 97110; 97161

== ENCOUNTER → 2021-05-19 10:07 | Outpatient (CLI) | payer MEDICARE, SELFPAY ==
[2021-05-19 12:22] LABS: Absolute Lymphocyte Count 1.95 X10^3/uL (0.83-4.51); Absolute Neutrophil Count 2.6 X10^3/uL (2.0-7.7); Basophil# 0.03 X10^3/uL; Basophil% 0.6 % (0-1); Eosinophil# 0.06 X10^3/uL; Eosinophils% 1.2 % (0-5); Hematocrit 41.7 % (37-47); Lymphocyte # 1.95 X10^3/ul (0.83-4.51); Lymphocyte % 38.5 % (19-41); Mean Corp Hgb Conc 33.6 g/dL (32-36); Mean Corpuscular Hgb 33.3 pg (27.0-32.0); Mean Platelet Vol. 10.2 fl (6.2-12.0); Monocyte# 0.41 X10^3/uL; Monocyte% 8.1 % (0-10); NRBC Flagged by Analyzer 0 % (0-5); Neutrophil # 2.59 X10^3/uL (2.7-7.7); Neutrophil % 51.2 % (47-70); Platelet Count 177 K/mm3 (150-450); RBC Distribution Width CV 12.3 % (11.6-14.6); RBC Distribution Width SD 44.6 fl (35.1-43.9); Red Blood Count 4.21 M/mm3 (4.2-5.4); White Blood Count 5.1 K/mm3 (4.4-11.0)
[2021-05-19 12:46] LABS: ALB/GLOB Ratio 1.2 RATIO (0.9-2.4); AST(SGOT) 20 U/L (15-37); Alanine Aminotransfer ALT/SGPT 30 U/L (13-56); Albumin, Serum 4.2 g/dL (3.2-5.0); Alkaline Phosphatase 82 U/L (45-117); Anion Gap 8 (5-15); BUN 15 mg/dL (7-18); BUN/Creat Ratio 14.4 RATIO (10-20); Calcium,Total 10.3 mg/dL (8.5-10.1); Chloride 106 mmol/L (98-107); Creatinine, Serum 1.04 mg/dL (0.55-1.02); EST Glomerular Filtration Rate 55 mL/min (>60); Est Glom Filt Rate - Afr Amer 66 mL/min (>60); Globulin 3.5 g/dL (2.2-4.2); Glucose 92 mg/dL (74-106); Potassium 3.7 mmol/L (3.5-5.1); Protein, Total 7.7 g/dL (6.4-8.2); Sodium Level 141 mmol/L (136-145)
== END ==
PROVIDERS: PCP Family Medicine Geriatric Medicine; Referring Provider Internal Medicine Rheumatology; Visit Provider Internal Medicine Rheumatology
DX: M06.4 Inflammatory polyarthropathy (principal); M15.9 Polyosteoarthritis, unspecified; K76.0 Fatty (change of) liver, not elsewhere classified; I10 Essential (primary) hypertension; E78.5 Hyperlipidemia, unspecified; Q66.70 Congenital pes cavus, unspecified foot; K57.90 Diverticulosis of intestine, part unspecified, without perforation or abscess without bleeding; K58.0 Irritable bowel syndrome with diarrhea; K21.9 Gastro-esophageal reflux disease without esophagitis; F41.1 Generalized anxiety disorder; F32.89 Other specified depressive episodes
CPT/HCPCS: 36415; 80053; 85025

== ENCOUNTER → 2021-06-03 10:40 | Outpatient (CLI) | payer MEDICARE, SELFPAY ==
[2021-06-03 12:36] LABS: Absolute Lymphocyte Count 1.37 X10^3/uL (0.83-4.51); Absolute Neutrophil Count 3.4 X10^3/uL (2.0-7.7); Basophil# 0.01 X10^3/uL; Basophil% 0.2 % (0-1); Eosinophil# 0.07 X10^3/uL; Eosinophils% 1.3 % (0-5); Hematocrit 38.6 % (37-47); Lymphocyte # 1.37 X10^3/ul (0.83-4.51); Lymphocyte % 26.4 % (19-41); Mean Corp Hgb Conc 33.7 g/dL (32-36); Mean Corpuscular Hgb 33.7 pg (27.0-32.0); Mean Platelet Vol. 10.8 fl (6.2-12.0); Monocyte% 5.8 % (0-10); NRBC Flagged by Analyzer 0 % (0-5); Neutrophil # 3.41 X10^3/uL (2.7-7.7); Neutrophil % 65.7 % (47-70); Platelet Count 164 K/mm3 (150-450); RBC Distribution Width CV 11.9 % (11.6-14.6); RBC Distribution Width SD 43.1 fl (35.1-43.9); Red Blood Count 3.86 M/mm3 (4.2-5.4); White Blood Count 5.2 K/mm3 (4.4-11.0)
[2021-06-03 12:50] LABS: Vitamin D,25 Hydroxy 42.6 ng/mL
[2021-06-03 13:07] LABS: ALB/GLOB Ratio 1.2 RATIO (0.9-2.4); AST(SGOT) 19 U/L (15-37); Alanine Aminotransfer ALT/SGPT 30 U/L (13-56); Albumin, Serum 3.8 g/dL (3.2-5.0); Alkaline Phosphatase 75 U/L (45-117); Anion Gap 8 (5-15); BUN 14 mg/dL (7-18); BUN/Creat Ratio 13.1 RATIO (10-20); Calcium,Total 9.2 mg/dL (8.5-10.1); Chloride 106 mmol/L (98-107); Creatinine, Serum 1.07 mg/dL (0.55-1.02); EST Glomerular Filtration Rate 53 mL/min (>60); Est Glom Filt Rate - Afr Amer 64 mL/min (>60); Globulin 3.3 g/dL (2.2-4.2); Glucose 141 mg/dL (74-106); Protein, Total 7.1 g/dL (6.4-8.2); Sodium Level 141 mmol/L (136-145); Thyroid Stim Hormone (TSH) 1.03 uIU/mL (0.358-3.74)
== END ==
PROVIDERS: PCP Family Medicine Geriatric Medicine; Visit Provider Family Medicine Geriatric Medicine
DX: I10 Essential (primary) hypertension (principal); E55.9 Vitamin D deficiency, unspecified
CPT/HCPCS: 36415; 80053; 82306; 84443; 85025

== ENCOUNTER 2021-09-14 15:25 | Outpatient (CLI) | payer MEDICARE, SELFPAY ==
[2021-09-14 16:43] LABS: Absolute Lymphocyte Count 2.71 X10^3/uL (0.83-4.51); Absolute Neutrophil Count 5.6 X10^3/uL (2.0-7.7); Basophil# 0.04 X10^3/uL; Basophil% 0.4 % (0-1); Eosinophil# 0.06 X10^3/uL; Eosinophils% 0.7 % (0-5); Hematocrit 42.3 % (37-47); Hemoglobin 14.8 g/dL (12.0-15.0); Lymphocyte # 2.71 X10^3/ul (0.83-4.51); Lymphocyte % 29.7 % (19-41); Mean Corpuscular Hgb 34.3 pg (27.0-32.0); Mean Corpuscular Volume 97.9 fL (81-99); Mean Platelet Vol. 9.9 fl (6.2-12.0); Monocyte# 0.66 X10^3/uL; Monocyte% 7.2 % (0-10); NRBC Flagged by Analyzer 0 % (0-5); Neutrophil # 5.61 X10^3/uL (2.7-7.7); Neutrophil % 61.7 % (47-70); Platelet Count 208 K/mm3 (150-450); RBC Distribution Width CV 12.8 % (11.6-14.6); Red Blood Count 4.32 M/mm3 (4.2-5.4); White Blood Count 9.1 K/mm3 (4.4-11.0)
[2021-09-14 17:00] LABS: ALB/GLOB Ratio 1.3 RATIO (0.9-2.4); AST(SGOT) 21 U/L (15-37); Alanine Aminotransfer ALT/SGPT 33 U/L (13-56); Albumin, Serum 4.4 g/dL (3.2-5.0); Alkaline Phosphatase 79 U/L (45-117); Anion Gap 6 (5-15); BUN 20 mg/dL (7-18); BUN/Creat Ratio 17.5 RATIO (10-20); Chloride 106 mmol/L (98-107); Creatinine, Serum 1.14 mg/dL (0.55-1.02); EST Glomerular Filtration Rate 49 mL/min (>60); Est Glom Filt Rate - Afr Amer 60 mL/min (>60); Globulin 3.4 g/dL (2.2-4.2); Glucose 81 mg/dL (74-106); Potassium 3.6 mmol/L (3.5-5.1); Protein, Total 7.8 g/dL (6.4-8.2); Sodium Level 139 mmol/L (136-145)
== END 2021-09-14 23:59 | disposition home or self-care (01) ==
LOC: POLAB3 15:26
PROVIDERS: PCP Family Medicine Geriatric Medicine; Visit Provider Family Medicine Geriatric Medicine
DX: R10.9 Unspecified abdominal pain (principal)
CPT/HCPCS: 36415; 80053; 85025

== ENCOUNTER 2021-09-14 17:24 | Outpatient (CLI) | payer MEDICARE, SELFPAY ==
--- NOTE | 2021-09-14 18:05 | CT_ITS ---
STUDY: CT ABDOMEN AND PELVIS WITH CONTRAST REASON FOR EXAM: Female, 76 years old. ABD PAIN RADIATION DOSAGE (If Supplied By Facility): CTDIvol = ( 14.24 ) mGy, DLP = ( 980.88 ) mGycm TECHNIQUE: Transaxial images were obtained from the dome of the diaphragm to the symphysis pubis without oral contrast. Oral and amp; IV Gastrografin and amp; 100mL Isovue-300 was administered. Sagittal and coronal images were reconstructed. Individualized dose optimization techniques were used for this CT. COMPARISON: None. FINDINGS: The visualized lung bases are unremarkable. The visualized portions of the heart are within normal limits. Normal liver. Normal gallbladder and extrahepatic biliary system. Normal spleen. Normal pancreas. Normal bilateral adrenal glands. Normal right kidney. Normal left kidney. Normal visualized stomach. Normal small intestine. . The appendix is visualized and appears normal. Normal abdominal aorta. Normal inferior vena cava. Normal retroperitoneum. Normal urinary bladder. There are postsurgical changes of a abdominal wall hernia repair. Normal osseous structures. CT/Abdomen/Pelvis WITH Contrast IMPRESSION: Postsurgical change of a abdominal wall hernia repair Electronically Signed: Rolando Lawson MD at 6:50 EDT ,
--- NOTE | 2021-09-14 18:22 | RAD_ITS ---
EXAM: XR LEFT HUMERUS, 2 OR MORE VIEWS CLINICAL INDICATION: PAIN IN LT ARM PAIN IN LEFT ARM FROM SHOULDER DOWN INTO LEFT HAND, MOSTLY LEFT ELBOW AND LEFT HAND. PATIENT FELL. TECHNIQUE: Frontal and lateral views of the left humerus. This report was created using [employer] report generation technology. COMPARISON: None. FINDINGS: BONES/JOINTS: Unremarkable. No acute fracture. No subluxation. Normal alignment. Preservation of the joint space. No sclerotic or destructive changes observed. SOFT TISSUES: Unremarkable. No soft tissue swelling or gas. No radiopaque foreign body. RAD/Humerus min 2 Views IMPRESSION: Negative left humerus x-rays. Electronically Signed: Percy Troy MD at 19:16 EDT Reading Location ID and State: [facility] / [place] , Service support ,
--- NOTE | 2021-09-14 18:22 | RAD_ITS ---
STUDY: XR Hand 2 Views REASON FOR EXAM: Female, 76 years old. PAIN PAIN IN LEFT ARM FROM SHOULDER DOWN INTO LEFT HAND, MOSTLY LEFT ELBOW AND LEFT HAND. PATIENT FELL. TECHNIQUE: XR Hand 2 Views LEFT COMPARISON: None. FINDINGS: Normal radiocarpal articulation. Normal distal radioulnar joint. Normal visualized carpal bones. Normal carpal articulations Normal carpometacarpal articulation of the thumb. Normal second through fifth carpometacarpal joints. Normal metacarpi. There is degenerative arthrosis of the metacarpophalangeal (MCP) joints. There is degenerative arthrosis of the interphalangeal joint of the thumb with articular joint space narrowing. Normal proximal and distal phalanges of the thumb. Normal metacarpophalangeal joints of the second through fifth fingers. There is diffuse articular joint space narrowing of the distal interphalangeal joints of the second through fifth fingers, but without erosive changes or periarticular soft tissue swelling. Normal phalanges of the second through fifth fingers. The soft tissue structures are unremarkable. RAD/Hand 2 Views IMPRESSION: Degenerative joint disease of the hand and wrist, as described above. Electronically Signed: Percy Troy MD at 19:15 EDT ,
--- NOTE | 2021-09-14 18:22 | RAD_ITS ---
STUDY: XR Shoulder Min 2 Views REASON FOR EXAM: Female, 76 years old. PAIN PAIN IN LEFT ARM FROM SHOULDER DOWN INTO LEFT HAND, MOSTLY LEFT ELBOW AND LEFT HAND. PATIENT FELL. TECHNIQUE: XR Shoulder Min 2 Views LEFT COMPARISON: None. FINDINGS: Normal glenohumeral articulation. Normal acromioclavicular joint. Normal acromion. Normal humeral head and visualized proximal humerus. The soft tissue structures are unremarkable. Normal visualized pulmonary apex. RAD/Shoulder min 2 Views IMPRESSION: There are no acute findings of the shoulder. Electronically Signed: Percy Troy MD at 19:16 EDT ,
--- NOTE | 2021-09-14 18:22 | RAD_ITS ---
STUDY: X-RAY XR Forearm 2 Views REASON FOR EXAM: Female, 76 years old. PAIN TECHNIQUE: XR Forearm 2 Views COMPARISON: None. FINDINGS: Soft tissue irregularity overlying the dorsum of the forearm. This may suggest soft tissue injury. Normal visualized radius. Normal visualized ulna. RAD/Forearm 2 Views IMPRESSION: Soft tissue irregularity overlying the dorsum of the forearm. This may suggest soft tissue injury. Electronically Signed: Percy Troy MD at 19:11 EDT ,
--- NOTE | 2021-09-14 18:22 | RAD_ITS ---
STUDY: XR Wrist 2 Views left REASON FOR EXAM: Female, 76 years old. PAIN IN LEFT ARM FROM SHOULDER DOWN INTO LEFT HAND, MOSTLY LEFT ELBOW AND LEFT HAND. TECHNIQUE: XR Wrist 2 Views left COMPARISON: None FINDINGS: There are no acute findings of the visualized distal radius and ulna. There are no acute findings of the radiocarpal articulation. Normal distal radioulnar articulation. Normal carpal bones. Normal carpal articulations. There is degenerative arthrosis of the carpometacarpal articulation of the thumb. Normal second through fifth carpometacarpal articulations. There are no acute findings of the visualized metacarpal bones. The soft tissue structures are unremarkable. RAD/Wrist 2 Views IMPRESSION: There is degenerative arthrosis of the carpometacarpal articulation of the thumb. Electronically Signed: Percy Troy MD at 19:18 EDT ,
== END 2021-09-14 23:59 | disposition home or self-care (01) ==
LOC: CT 17:26
PROVIDERS: PCP Family Medicine Geriatric Medicine; Referring Provider Family Medicine Geriatric Medicine; Visit Provider Family Medicine Geriatric Medicine
DX: M79.602 Pain in left arm (principal); R10.9 Unspecified abdominal pain
CPT/HCPCS: 36415; 73030; 73060; 73090; 73100; 73120; 74177; 80053; 85025

== ENCOUNTER 2021-09-15 13:01 | Outpatient (CLI) | payer MEDICARE, SELFPAY | END 2021-09-15 23:59 | disposition home or self-care (01) | LOC: LABSPEC 13:02 | PROVIDERS: PCP Family Medicine Geriatric Medicine; Visit Provider Family Medicine Geriatric Medicine | DX: R19.7 Diarrhea, unspecified (principal) | CPT/HCPCS: 82274; 83630; 87177; 87209; 87493; 87506 ==

== ENCOUNTER 2021-09-18 13:58 | Outpatient (CLI) | payer MEDICARE, SELFPAY ==
--- NOTE | 2021-09-18 14:24 | MRI_ITS ---
EXAM: MR LEFT UPPER EXTREMITY WITHOUT INTRAVENOUS CONTRAST, WRIST CLINICAL INDICATION: LEFT wrist pain s/p fall TECHNIQUE: Multiplanar and multisequence MR images of the left wrist without intravenous contrast. This report was created using [employer] report generation technology. COMPARISON: 09/14/2021 plain film FINDINGS: LIGAMENTS: SCAPHOLUNATE: Unremarkable. Intact. LUNOTRIQUETRAL: Unremarkable. Intact. TENDONS: FLEXOR COMPARTMENTS: Unremarkable. Intact. No tenosynovitis. EXTENSOR COMPARTMENTS: Unremarkable. Intact. No tenosynovitis. NERVES: MEDIAN: Unremarkable. Median nerve is normal in size and signal intensity. ULNAR: Unremarkable. Ulnar nerve is normal in size and signal intensity. MUSCLES: Unremarkable. FLUID: Unremarkable. No joint effusion. CARTILAGE: Unremarkable. The articular cartilage is preserved. TRIANGULAR FIBROCARTILAGE COMPLEX: Unremarkable. Intact without communicating defect. BONES/JOINTS: There is a hairline non displaced fracture of the volar plate base of the 1st metacarpal bone. There is intrasubstance tear of the tendon of the flexor hallucis longus tendon. Hairline fracture non displaced of the volar plate base of the 1st metacarpal bone is best seen on SE 7 IM: 5. Se 3 IM: 9. No abnormal bone marrow signal. No joint effusion or synovitis. OTHER SOFT TISSUES: Unremarkable. No ganglion. MRI/Upper Ext Joint Only(Routine) IMPRESSION: There is a hairline non displaced fracture of the volar plate base of the 1st metacarpal bone. There is intrasubstance tear of the tendon of the flexor hallucis longus tendon. Electronically Signed: Percy Troy MD at 15:46 EDT ,
== END 2021-09-18 23:59 | disposition home or self-care (01) ==
PROVIDERS: PCP Family Medicine Geriatric Medicine; Referring Provider Family Medicine Geriatric Medicine; Visit Provider Family Medicine Geriatric Medicine
DX: M25.532 Pain in left wrist (principal)
CPT/HCPCS: 73221

== ENCOUNTER 2021-10-01 14:01 | Outpatient (CLI) | payer MEDICARE, SELFPAY ==
--- NOTE | 2021-10-01 14:05 | RAD_ITS ---
STUDY: X-RAY - UNILATERAL RIBS ( RIGHT ) WITH CHEST REASON FOR EXAM: Female, 76 years old. RIB PAIN TECHNIQUE - RIBS: 4 view(s) of the ribs. TECHNIQUE - CHEST: PA COMPARISON: None. FINDINGS - RIBS: There are healing fractures of the right anterolateral seventh and possibly eighth ribs.. FINDINGS - CHEST: Elevated right hemidiaphragm however the lungs are clear. There is no demonstrated pleural abnormality. Normal size heart. Normal mediastinum and ila. Normal visualized pulmonary arteries. Normal visualized aortic arch and descending thoracic aorta. Dorsal spine demonstrates mild scoliosis and degenerative change. Normal visualized ribs, clavicles, and shoulders. There is no demonstrated abnormality of the visualized soft tissue structures of the upper abdomen. RAD/Ribs Uni Min 3V w/PA Chest IMPRESSION: RIBS: Healing fractures of the right seventh and possibly eighth ribs.. CHEST: No acute cardiopulmonary pathology. Electronically Signed: Solo Hernández MD at 17:16 EDT ,
== END 2021-10-01 23:59 | disposition home or self-care (01) ==
LOC: RAD 14:03
PROVIDERS: PCP Family Medicine Geriatric Medicine; Referring Provider Family Medicine Geriatric Medicine; Visit Provider Family Medicine Geriatric Medicine
DX: R07.81 Pleurodynia (principal)
CPT/HCPCS: 71101

== ENCOUNTER → 2021-11-19 | Outpatient (CLI) | payer MEDICARE, SELFPAY ==
[2021-11-19 12:09] LABS: Absolute Lymphocyte Count 1.64 X10^3/uL (0.83-4.51); Absolute Neutrophil Count 3.6 X10^3/uL (2.0-7.7); Basophil# 0.03 X10^3/uL; Basophil% 0.5 % (0-1); Eosinophil# 0.04 X10^3/uL; Eosinophils% 0.7 % (0-5); Hemoglobin 13.8 g/dL (12.0-15.0); Lymphocyte # 1.64 X10^3/ul (0.83-4.51); Lymphocyte % 28.4 % (19-41); Mean Corp Hgb Conc 34.5 g/dL (32-36); Mean Corpuscular Volume 98.5 fL (81-99); Mean Platelet Vol. 9.9 fl (6.2-12.0); Monocyte# 0.49 X10^3/uL; Monocyte% 8.5 % (0-10); NRBC Flagged by Analyzer 0 % (0-5); Neutrophil # 3.55 X10^3/uL (2.7-7.7); Neutrophil % 61.6 % (47-70); Platelet Count 182 K/mm3 (150-450); RBC Distribution Width CV 12.9 % (11.6-14.6); RBC Distribution Width SD 46.4 fl (35.1-43.9); Red Blood Count 4.06 M/mm3 (4.2-5.4); White Blood Count 5.8 K/mm3 (4.4-11.0)
[2021-11-19 12:37] LABS: ALB/GLOB Ratio 1.2 RATIO (0.9-2.4); AST(SGOT) 20 U/L (15-37); Alanine Aminotransfer ALT/SGPT 37 U/L (13-56); Alkaline Phosphatase 77 U/L (45-117); Anion Gap 7 (5-15); BUN 21 mg/dL (7-18); BUN/Creat Ratio 19.4 RATIO (10-20); Calcium,Total 9.9 mg/dL (8.5-10.1); Chloride 103 mmol/L (98-107); Creatinine, Serum 1.08 mg/dL (0.55-1.02); EST Glomerular Filtration Rate 52 mL/min (>60); Est Glom Filt Rate - Afr Amer 63 mL/min (>60); Globulin 3.2 g/dL (2.2-4.2); Glucose 108 mg/dL (74-106); Potassium 3.7 mmol/L (3.5-5.1); Protein, Total 7.2 g/dL (6.4-8.2); Sodium Level 138 mmol/L (136-145)
== END | disposition home or self-care (01) ==
PROVIDERS: PCP Family Medicine Geriatric Medicine; Visit Provider Internal Medicine Rheumatology
DX: M06.4 Inflammatory polyarthropathy (principal); M15.9 Polyosteoarthritis, unspecified; K76.0 Fatty (change of) liver, not elsewhere classified; Q66.70 Congenital pes cavus, unspecified foot; K21.9 Gastro-esophageal reflux disease without esophagitis; F41.1 Generalized anxiety disorder; F32.89 Other specified depressive episodes; K58.0 Irritable bowel syndrome with diarrhea; I10 Essential (primary) hypertension; E78.5 Hyperlipidemia, unspecified; K57.90 Diverticulosis of intestine, part unspecified, without perforation or abscess without bleeding; M48.061 Spinal stenosis, lumbar region without neurogenic claudication
CPT/HCPCS: 36415; 80053; 85025

== ENCOUNTER → 2021-11-24 | Outpatient (CLI) | payer MEDICARE, SELFPAY ==
--- NOTE | 2021-11-24 11:29 | RAD_ITS ---
STUDY: X-RAY - RIGHT KNEE REASON FOR EXAM: Female, 76 years old. Pain. Evaluate for arthrosis. TECHNIQUE: 4 view(s) of the knee. COMPARISON: 02/11/2021. FINDINGS: Stable osteopenia. Normal visualized distal femur. Normal visualized proximal tibia and fibula. Normal proximal tibiofibular articulation. Stable mild medial compartmental arthrosis with small osteophytes. Normal lateral femorotibial compartment. Mild arthrosis of the patellofemoral compartment unchanged. The soft tissue structures are unremarkable. RAD/Knee 4 or More Views IMPRESSION: Osteopenia with stable medial and patellofemoral compartmental arthrosis. No acute abnormality, chondrocalcinosis, erosive changes or periostitis. Electronically Signed: Darwin Vasquez MD at 13:37 EDT ,
== END | disposition home or self-care (01) ==
LOC: MTRAD 11:25
PROVIDERS: PCP Family Medicine Geriatric Medicine; Referring Provider Internal Medicine Rheumatology; Visit Provider Internal Medicine Rheumatology
DX: M06.4 Inflammatory polyarthropathy (principal)
CPT/HCPCS: 73564

== ENCOUNTER → 2021-12-02 | Outpatient (CLI) | payer MEDICARE, SELFPAY ==
[2021-12-02 12:03] LABS: Absolute Lymphocyte Count 2.08 X10^3/uL (0.83-4.51); Absolute Neutrophil Count 5.9 X10^3/uL (2.0-7.7); Basophil# 0.02 X10^3/uL; Basophil% 0.2 % (0-1); Eosinophil# 0.09 X10^3/uL; Hematocrit 43.1 % (37-47); Hemoglobin 14.5 g/dL (12.0-15.0); Lymphocyte # 2.08 X10^3/ul (0.83-4.51); Lymphocyte % 23.9 % (19-41); Mean Corp Hgb Conc 33.6 g/dL (32-36); Mean Corpuscular Hgb 33.9 pg (27.0-32.0); Mean Corpuscular Volume 100.7 fL (81-99); Monocyte# 0.54 X10^3/uL; Monocyte% 6.2 % (0-10); NRBC Flagged by Analyzer 0 % (0-5); Platelet Count 199 K/mm3 (150-450); RBC Distribution Width CV 12.9 % (11.6-14.6); RBC Distribution Width SD 47.9 fl (35.1-43.9); Red Blood Count 4.28 M/mm3 (4.2-5.4); White Blood Count 8.7 K/mm3 (4.4-11.0)
[2021-12-02 12:21] LABS: Vitamin D,25 Hydroxy 45.5 ng/mL
[2021-12-02 12:32] LABS: ALB/GLOB Ratio 1.2 RATIO (0.9-2.4); AST(SGOT) 21 U/L (15-37); Alanine Aminotransfer ALT/SGPT 49 U/L (13-56); Albumin, Serum 3.9 g/dL (3.2-5.0); Alkaline Phosphatase 79 U/L (45-117); Anion Gap 6 (5-15); BUN 20 mg/dL (7-18); BUN/Creat Ratio 17.7 RATIO (10-20); Calcium,Total 9.6 mg/dL (8.5-10.1); Chloride 105 mmol/L (98-107); Creatinine, Serum 1.13 mg/dL (0.55-1.02); EST Glomerular Filtration Rate 50 mL/min (>60); Est Glom Filt Rate - Afr Amer 60 mL/min (>60); Globulin 3.2 g/dL (2.2-4.2); Glucose 121 mg/dL (74-106); Potassium 3.7 mmol/L (3.5-5.1); Protein, Total 7.1 g/dL (6.4-8.2); Sodium Level 140 mmol/L (136-145); Thyroid Stim Hormone (TSH) 1.14 uIU/mL (0.358-3.74)
== END | disposition home or self-care (01) ==
LOC: POLAB3 09:16
PROVIDERS: PCP Family Medicine Geriatric Medicine; Visit Provider Family Medicine Geriatric Medicine
DX: I10 Essential (primary) hypertension (principal); E55.9 Vitamin D deficiency, unspecified
CPT/HCPCS: 36415; 80053; 82306; 84443; 85025

== ENCOUNTER → 2021-12-14 | Outpatient (CLI) | payer MEDICARE, SELFPAY ==
[2021-12-14 11:24] LABS: Amphetamine Urine VISTA NEGATIVE (<1000 ng/mL); Barbiturate Urine VISTA NEGATIVE (< 200 ng/mL); Benzodiazepine Urine VISTA NEGATIVE (< 200 ng/mL); Cocaine Urine VISTA NEGATIVE (< 300 ng/mL); Ecstacy Urine VISTA POSITIVE (< 500 ng/mL); Methadone Urine VISTA NEGATIVE (< 300 ng/mL); PCP Urine VISTA NEGATIVE (< 25 ng/mL); THC Urine VISTA NEGATIVE (< 50 ng/mL); Vista UDS pH Range 5
== END | disposition home or self-care (01) ==
PROVIDERS: PCP Family Medicine Geriatric Medicine; Referring Provider Anesthesiology Pain Medicine; Visit Provider Anesthesiology Pain Medicine
DX: F11.20 Opioid dependence, uncomplicated (principal)
CPT/HCPCS: 80307

== ENCOUNTER → 2022-02-03 | Outpatient (CLI) | payer MEDICARE, SELFPAY ==
[2022-02-03 10:42] LABS: Albumin, Serum 3.9 g/dL (3.2-5.0); BUN 19 mg/dL (7-18); BUN/Creat Ratio 17.3 RATIO (10-20); Calcium,Total 9.5 mg/dL (8.5-10.1); Chloride 106 mmol/L (98-107); EST Glomerular Filtration Rate 51 mL/min (>60); Est Glom Filt Rate - Afr Amer 62 mL/min (>60); Glucose 129 mg/dL (74-106); Phosphorus 2.8 mg/dL (2.5-4.9); Potassium 3.9 mmol/L (3.5-5.1); Sodium Level 140 mmol/L (136-145)
== END | disposition home or self-care (01) ==
LOC: LAB 09:32
PROVIDERS: PCP Family Medicine Geriatric Medicine; Visit Provider Internal Medicine Nephrology
DX: N18.31 Chronic kidney disease, stage 3a (principal)
CPT/HCPCS: 36415; 80069

== ENCOUNTER → 2022-05-19 | Outpatient (CLI) | payer MEDICARE, SELFPAY ==
[2022-05-19 12:10] LABS: Absolute Lymphocyte Count 1.68 X10^3/uL (0.83-4.51); Absolute Neutrophil Count 3.6 X10^3/uL (2.0-7.7); Basophil# 0.03 X10^3/uL; Basophil% 0.5 % (0-1); Eosinophils% 1.7 % (0-5); Hematocrit 39.8 % (37-47); Hemoglobin 13.8 g/dL (12.0-15.0); Lymphocyte # 1.68 X10^3/ul (0.83-4.51); Lymphocyte % 28.2 % (19-41); Mean Corp Hgb Conc 34.7 g/dL (32-36); Mean Corpuscular Hgb 34.6 pg (27.0-32.0); Mean Corpuscular Volume 99.7 fL (81-99); Mean Platelet Vol. 10.5 fl (6.2-12.0); Monocyte# 0.49 X10^3/uL; Monocyte% 8.2 % (0-10); NRBC Flagged by Analyzer 0 % (0-5); Neutrophil # 3.63 X10^3/uL (2.7-7.7); Neutrophil % 61.1 % (47-70); Platelet Count 175 K/mm3 (150-450); RBC Distribution Width CV 12.4 % (11.6-14.6); RBC Distribution Width SD 45.8 fl (35.1-43.9); Red Blood Count 3.99 M/mm3 (4.2-5.4)
[2022-05-19 12:33] LABS: ALB/GLOB Ratio 1.4 RATIO (0.9-2.4); AST(SGOT) 28 U/L (15-37); Alanine Aminotransfer ALT/SGPT 41 U/L (13-56); Albumin, Serum 4.1 g/dL (3.2-5.0); Alkaline Phosphatase 73 U/L (45-117); Anion Gap 6 (5-15); BUN 17 mg/dL (7-18); Calcium,Total 10.3 mg/dL (8.5-10.1); Chloride 107 mmol/L (98-107); EST Glomerular Filtration Rate 57 mL/min (>60); Est Glom Filt Rate - Afr Amer 69 mL/min (>60); Glucose 134 mg/dL (74-106); Potassium 3.5 mmol/L (3.5-5.1); Protein, Total 7.1 g/dL (6.4-8.2); Sodium Level 142 mmol/L (136-145)
== END | disposition home or self-care (01) ==
LOC: LAB 11:19
PROVIDERS: PCP Family Medicine Geriatric Medicine; Referring Provider Internal Medicine Rheumatology; Visit Provider Internal Medicine Rheumatology
DX: M06.4 Inflammatory polyarthropathy (principal); M17.11 Unilateral primary osteoarthritis, right knee; M19.041 Primary osteoarthritis, right hand; K76.0 Fatty (change of) liver, not elsewhere classified; I10 Essential (primary) hypertension; E78.5 Hyperlipidemia, unspecified; K57.90 Diverticulosis of intestine, part unspecified, without perforation or abscess without bleeding
CPT/HCPCS: 36415; 80053; 85025

== ENCOUNTER → 2022-06-09 | Outpatient (CLI) | payer MEDICARE, SELFPAY ==
[2022-06-09 13:07] LABS: Absolute Lymphocyte Count 1.78 X10^3/uL (0.83-4.51); Absolute Neutrophil Count 2.6 X10^3/uL (2.0-7.7); Basophil# 0.02 X10^3/uL; Basophil% 0.4 % (0-1); Eosinophil# 0.13 X10^3/uL; Eosinophils% 2.7 % (0-5); Hematocrit 39.9 % (37-47); Hemoglobin 13.3 g/dL (12.0-15.0); Lymphocyte # 1.78 X10^3/ul (0.83-4.51); Lymphocyte % 36.3 % (19-41); Mean Corp Hgb Conc 33.3 g/dL (32-36); Mean Corpuscular Hgb 33.3 pg (27.0-32.0); Mean Platelet Vol. 10.6 fl (6.2-12.0); Monocyte# 0.32 X10^3/uL; Monocyte% 6.5 % (0-10); NRBC Flagged by Analyzer 0 % (0-5); Neutrophil # 2.63 X10^3/uL (2.7-7.7); Neutrophil % 53.7 % (47-70); Platelet Count 168 K/mm3 (150-450); RBC Distribution Width CV 12.1 % (11.6-14.6); RBC Distribution Width SD 44.4 fl (35.1-43.9); Red Blood Count 3.99 M/mm3 (4.2-5.4); White Blood Count 4.9 K/mm3 (4.4-11.0)
[2022-06-09 13:21] LABS: Vitamin D,25 Hydroxy 34.1 ng/mL
[2022-06-09 13:40] LABS: ALB/GLOB Ratio 1.3 RATIO (0.9-2.4); AST(SGOT) 32 U/L (15-37); Alanine Aminotransfer ALT/SGPT 40 U/L (13-56); Albumin, Serum 4.1 g/dL (3.2-5.0); Alkaline Phosphatase 67 U/L (45-117); Anion Gap 10 (5-15); BUN 13 mg/dL (7-18); BUN/Creat Ratio 12.3 RATIO (10-20); Chloride 108 mmol/L (98-107); Creatinine, Serum 1.06 mg/dL (0.55-1.02); EST Glomerular Filtration Rate 53 mL/min (>60); Est Glom Filt Rate - Afr Amer 65 mL/min (>60); Globulin 3.2 g/dL (2.2-4.2); Glucose 137 mg/dL (74-106); Protein, Total 7.3 g/dL (6.4-8.2); Sodium Level 142 mmol/L (136-145); Thyroid Stim Hormone (TSH) 1.65 uIU/mL (0.358-3.74)
== END | disposition home or self-care (01) ==
LOC: POLAB3 09:51
PROVIDERS: PCP Family Medicine Geriatric Medicine; Visit Provider Family Medicine Geriatric Medicine
DX: E55.9 Vitamin D deficiency, unspecified (principal); I10 Essential (primary) hypertension
CPT/HCPCS: 36415; 80053; 82306; 84443; 85025

== ENCOUNTER → 2022-06-14 | Outpatient (CLI) | payer MEDICARE, SELFPAY ==
[2022-06-14 11:33] LABS: Pathologist Comment May follow
[2022-06-14 12:12] LABS: Synovial Fld Mononuclear WBC # 0.149 10^3/ul; Synovial Fld Mononuclear WBC % 86.6 %; Synovial Fld Polynuclear WBC # 0.023 10^3/uL; Synovial Fld Polynuclear WBC % 13.4 %
[2022-06-14 12:17] LABS: AUTO B FLUID DILUENT BKGD CT WBC <0.1 RBC <0.01 (W<.1,R<.01)
[2022-06-14 12:18] LABS: Appearance /Synovial Fluid Sl Cl (CLEAR); Color / Synovial Fluid Yellow (Pale Yellow); Source / Synovial Fluid RIGHT KNEE; Source- Body Fluid SYNOVIAL
[2022-06-14 12:38] LABS: CRYSTALS, BODY FLUID NO CRYSTALS SEEN
[2022-06-14 13:23] LABS: Lymph 64 %; Monocyte /Synovial Fluid 22 %; Neutrophil 14 % (0-25); RBC /Synovial Fluid 106 /mm3 (0)
[2022-06-14 13:24] LABS: Body Fluid QC Type(s) BF1Q,BF2Q
[2022-06-15 13:35] LABS: Pathologist Review Reviewed
== END | disposition home or self-care (01) ==
LOC: LABSPEC 09:59
PROVIDERS: PCP Family Medicine Geriatric Medicine; Visit Provider Internal Medicine Rheumatology
DX: M06.4 Inflammatory polyarthropathy (principal); Z79.899 Other long term (current) drug therapy
CPT/HCPCS: 87070; 87075; 87077; 87186; 87205; 89050; 89051; 89060

== ENCOUNTER 2022-07-29 16:44 | Outpatient (CLI) | payer MEDICARE, SELFPAY ==
[2022-07-29 17:15] LABS: Hematocrit 39.7 % (37-47); Hemoglobin 13.4 g/dL (12.0-15.0); Mean Corp Hgb Conc 33.8 g/dL (32-36); Mean Corpuscular Hgb 33.3 pg (27.0-32.0); Mean Corpuscular Volume 98.8 fL (81-99); Platelet Count 163 K/mm3 (150-450); RBC Distribution Width CV 12.2 % (11.6-14.6); RBC Distribution Width SD 44.2 fl (35.1-43.9); Red Blood Count 4.02 M/mm3 (4.2-5.4); White Blood Count 4.5 K/mm3 (4.4-11.0)
[2022-07-29 17:24] LABS: International Normalized Ratio 1.1; Prothrombin Time (Protime)PT. 13.6 SECONDS (11.7-14.9)
[2022-07-29 18:06] LABS: Anion Gap 8 (5-15); BUN 14 mg/dL (7-18); BUN/Creat Ratio 13.1 RATIO (10-20); Calcium,Total 10.4 mg/dL (8.5-10.1); Chloride 106 mmol/L (98-107); Creatinine, Serum 1.07 mg/dL (0.55-1.02); EST Glomerular Filtration Rate 53 mL/min (>60); Est Glom Filt Rate - Afr Amer 64 mL/min (>60); Glucose 95 mg/dL (74-106); Potassium 4.1 mmol/L (3.5-5.1); Sodium Level 141 mmol/L (136-145)
== END 2022-07-29 23:59 | disposition home or self-care (01) ==
LOC: POLAB3 16:46
PROVIDERS: PCP Family Medicine Geriatric Medicine; Visit Provider Family Medicine Geriatric Medicine
DX: Z01.818 Encounter for other preprocedural examination (principal); M48.061 Spinal stenosis, lumbar region without neurogenic claudication
CPT/HCPCS: 36415; 80048; 85027; 85610

== ENCOUNTER 2022-08-26 17:13 | Inpatient (IN) | payer MEDICARE, SELFPAY ==
[2022-08-26 17:15] VITALS: BP 151/70; PULSE 83; RESP 19; TEMP 36.9; O2SAT 95
[2022-08-26] MEDS: oxyCODONE 5 MG Tablet PO (18:37)
[2022-08-26 19:35] VITALS: BP 146/59; PULSE 95; RESP 18; TEMP 37.3; O2SAT 95
[2022-08-26] MEDS: traZODone 50 MG Tablet PO (21:15)
[2022-08-26] MEDS: Baclofen 10 MG Tablet PO (21:15)
[2022-08-26] MEDS: Acetaminophen 500 MG Tablet 1000 MG PO (21:16)
[2022-08-26] MEDS: Hydroxychloroquine 200 MG Tablet PO (21:16)
[2022-08-27] MEDS: oxyCODONE 5 MG Tablet PO ×4 (00:38→20:26)
--- NOTE | 2022-08-27 03:55 | NURSING ---
REVIEWED AND AGREE WITH Noe CAMPA'S, DOCUMENTATION AND ASSESSMENT CHARTING.
[2022-08-27 04:14] VITALS: BP 149/67; PULSE 80; RESP 16; TEMP 37.2
[2022-08-27 05:15] VITALS: BMI 31.8
[2022-08-27] MEDS: Acetaminophen 500 MG Tablet 1000 MG PO ×4 (05:16→22:47)
[2022-08-27 05:45] LABS: Absolute Lymphocyte Count 1.88 X10^3/uL (0.83-4.51); Absolute Neutrophil Count 2.7 X10^3/uL (2.0-7.7); Basophil# 0.01 X10^3/uL; Basophil% 0.2 % (0-1); Eosinophils% 1.9 % (0-5); Hematocrit 24.8 % (37-47); Hemoglobin 8.1 g/dL (12.0-15.0); Lymphocyte # 1.88 X10^3/ul (0.83-4.51); Lymphocyte % 36.6 % (19-41); Mean Corp Hgb Conc 32.7 g/dL (32-36); Mean Corpuscular Hgb 32.9 pg (27.0-32.0); Mean Corpuscular Volume 100.8 fL (81-99); Monocyte# 0.46 X10^3/uL; NRBC Flagged by Analyzer 0 % (0-5); Neutrophil # 2.67 X10^3/uL (2.7-7.7); Neutrophil % 52.1 % (47-70); Platelet Count 137 K/mm3 (150-450); RBC Distribution Width CV 12.7 % (11.6-14.6); RBC Distribution Width SD 45.7 fl (35.1-43.9); Red Blood Count 2.46 M/mm3 (4.2-5.4); White Blood Count 5.1 K/mm3 (4.4-11.0)
[2022-08-27 06:12] LABS: AST(SGOT) 40 U/L (15-37); Alanine Aminotransfer ALT/SGPT 29 U/L (13-56); Albumin, Serum 2.8 g/dL (3.2-5.0); Alkaline Phosphatase 58 U/L (45-117); Anion Gap 8 (5-15); BUN 18 mg/dL (7-18); BUN/Creat Ratio 20.2 RATIO (10-20); Chloride 104 mmol/L (98-107); Creatinine, Serum 0.89 mg/dL (0.55-1.02); EST Glomerular Filtration Rate 65 mL/min (>60); Est Glom Filt Rate - Afr Amer 79 mL/min (>60); Estimated Creatinine Clearance 43.79 ml/min; Globulin 2.9 g/dL (2.2-4.2); Glucose 94 mg/dL (74-106); Magnesium 1.8 mg/dL (1.6-2.6); Phosphorus 2.6 mg/dL (2.5-4.9); Potassium 3.3 mmol/L (3.5-5.1); Protein, Total 5.7 g/dL (6.4-8.2); Sodium Level 139 mmol/L (136-145)
[2022-08-27] MEDS: Citalopram 20 MG Tablet PO (07:53)
[2022-08-27] MEDS: Cholecalciferol (VIT D3) 25 MCG TABLET (1,000 UNITS) 50 MCG PO (07:53)
[2022-08-27] MEDS: Baclofen 10 MG Tablet PO ×3 (07:53→22:47)
[2022-08-27] MEDS: Vitamin E 400 UNITS Capsule PO (07:53)
[2022-08-27] MEDS: Multivitamins,Therapeutic Tablet 1 TABLET PO (07:53)
[2022-08-27] MEDS: Potassium Chloride Oral Tablet 20 MEQ PO (07:54)
[2022-08-27] MEDS: Losartan Potassium 25 MG Tablet 12.5 MG PO (07:55)
[2022-08-27] MEDS: Hydroxychloroquine 200 MG Tablet PO ×3 (07:55→22:49)
[2022-08-27] MEDS: Latanoprost 0.005% 1 Bottle 1 DRP EACH EYE (08:05)
[2022-08-27 08:55] VITALS: BP 149/67; PULSE 80; RESP 16; TEMP 37.2; O2SAT 96
--- NOTE | 2022-08-27 11:28 | PCM.HP.STD ---
[facility] - General General Date of Admission: 08/26/22 Date of Service: 08/27/22 Chief Complaint: Debility due to Lumbar laminectomy and fusion for lumbar spinal stenosis. [facility] Narrative ZARIA OZUNA, is a 77 YO F with a PMH of chronic pain S. due to back pain (follows with Dr. Adamson), obesity, Anxiety/depression, Chronic benzodiazepine use (being weaned off by her PCP), probably inflammatory arthropathy (follows with Dr. Clark), hyperlipidemia, irritable bowel syndrome, glaucoma, cirrhosis (REID?), GERD, diverticulosis, lumbar canal stenosis with neurogenic claudication and opioid dependence who underwent L2, L# and L4 laminectomies, medial facetectomies and BL foraminotomies with L2-L4 pedicle screw fixation and posterior lateral fusion on 08/23/[address] Gonzalez. Post operatively she was seen by PT/OT and a recommendation for acute inpt rehab was made. Zaria was transferred to [facility] acute inpt rehab on 08/26/2022 for 3 hours of therapy daily to restore function/independence at or near her prior level. Zaria lives alone in a two-story house and her bedroom is on the second floor. She was independent prior to surgery but ambulation was limited due to lumbar canal stenosis. [facility] Medical History (Updated 08/30/22 @ 10:[address] Mare Ashley DO) Acute insomnia Anxiety Chronic back pain Depression Diverticulosis HTN (hypertension) IBS (irritable bowel syndrome) Inflammatory polyarthritis Presbycusis Segmental and somatic dysfunction of cervical region Segmental and somatic dysfunction of lumbar region Segmental and somatic dysfunction of pelvic region Skin cancer Home Medications biotin 10,000 mcg capsule 5,000 mcg PO DAILY 02/08/16 [History Last Taken Unknown] vitamin E 200 unit capsule 400 unit PO DAILY Supplement 02/08/16 [History Last Taken Unknown] trazodone 100 mg tablet 50 mg PO QHS Sleep 01/31/18 [History Last Taken Unknown] cholecalciferol (vitamin D3) 50 mcg (2,000 unit) capsule 2,000 unit PO DAILY Supplement 02/06/18 [History Last Taken Unknown] rwqindrlkehj-Gd-ohyx-minerals 1 ea PO DAILY 02/06/18 [History Last Taken Unknown] baclofen 10 mg tablet 10 mg PO BID Muscle spasms 05/15/19 [History Last Taken Unknown] potassium chloride 20 mEq tablet,extended release(part/cryst) (Klor-Con M) 20 meq PO DAILY Supplement 05/15/19 [History Last Taken Unknown] aspirin 325 mg tablet 325 mg PO DAILY 09/17/20 [History Last Taken Unknown] citalopram 20 mg tablet 20 mg PO DAILY Mood 09/17/20 [History Last Taken Unknown] hydroxychloroquine 200 mg tablet 200 mg PO BID Gout 09/17/20 [History Last Taken Unknown] lorazepam 0.5 mg tablet 0.5 mg PO DAILY 09/17/20 [History Last Taken Unknown] losartan 100 mg-hydrochlorothiazide 12.5 mg tablet 1 tablet PO DAILY 09/17/20 [History Last Taken Unknown] tramadol 50 mg tablet 50 mg PO PRN pain 07/10/21 [History Last Taken Unknown] Handicap Placard #1 ea 07/14/21 [Rx Last Taken Unknown] prednisone 10 mg tablet 10 mg PO DAILY 06/29/22 [History Last Taken Unknown] latanoprost 0.005 % eye drops 1 drp EACH EYE DAILY Eye drops 08/26/22 [History Last Taken Unknown] loperamide 2 mg capsule 2 mg PO Q4H PRN Diarrhea 08/26/22 [History Last Taken Unknown] losartan 25 mg tablet 12.5 mg PO DAILY BP 08/26/22 [History Last Taken Unknown] multivitamin 1 tab PO DAILY supplement 08/26/22 [History Last Taken Unknown] oxycodone 10 mg tablet 5 - 10 mg PO Q6H PRN Pain 4-10 08/26/22 [History Last Taken Unknown] Allergy/AdvReac Type Severity Reaction Status Date / Time acetaminophen [From Vicodin] Allergy Hives Verified 08/26/22 17:49 hydrocodone [From Vicodin] Allergy Hives Verified 06/29/22 16:45 Sulfa (Sulfonamide Allergy Hives Verified 06/29/22 16:45 Antibiotics) Family History Father Heart disease Mother Colon cancer Sister Breast cancer Surgical History (Updated 08/30/22 @ 10:[address] Mare Ashley DO) History of cholecystectomy History of colectomy History of colonoscopy History of incisional hernia repair History of removal of ovarian cyst Status post surgical removal of malignant neoplasm of skin Social History (Updated 08/30/22 @ 10:[address] Mare Ashley, DO) household members: none housing: house Smoking Status: Never smoker alcohol intake: never substance use type: does not use what type of physical activity do you participate in: none ROS Constitutional Constitutional: Reports weakness; Denies anorexia, change in weight, chills, fatigue, fever(s) or night sweats Eyes Eyes: Denies blurry vision, change in vision, eye pain or loss of vision ENT HEENT: Reports abnormal hearing; Denies dysphagia, headache(s), hearing loss, nasal congestion or sore throat Cardiovascular Cardiovascular: Denies chest pain, dyspnea on exertion, edema, lightheadedness, orthopnea, palpitations, paroxysmal nocturnal dyspnea or syncope Respiratory/Chest Respiratory/Chest: Denies cough, dyspnea, shortness of breath at rest, shortness of breath with exertion or wheezing Gastrointestinal Gastrointestinal: Reports diarrhea; Denies abdominal pain, constipation, dyspepsia, hematemesis, hematochezia, nausea or vomiting Genitourinary Genitourinary: Denies dysuria, hematuria, nocturia, urinary frequency, urinary hesitancy, urinary incontinence or urinary urgency Musculoskeletal Musculoskeletal: Reports back pain, difficulty walking, extremity pain, radiating pain into limb and other Details: She is c/o pain in both anterior thighs and also in the BL groin. ; Denies joint pain, joint swelling or neck pain Neurologic Neurologic: Denies confusion, disequilibrium, dizziness, focal weakness, headache(s), paresthesias, seizures or tremor(s) Psychiatric Psychiatric: Reports anxiety and depression; Denies homicidal ideation or suicidal ideation Endocrine Endocrinology: Denies change in body appearance, polydipsia or polyuria Hematologic/Lymphatic Hematologic/Lymphatic: Denies easy bleeding, easy bruising or lymphadenopathy Allergic/Immunologic Allergic/Immunologic: Denies rhinitis, eczemia or asthma Vital Signs Vital Signs Vital Signs: 08/26/22 17:15 08/26/22 19:35 08/26/22 21:15 Temperature 98.4 F 99.2 F H Temperature Source Temporal Temporal Pulse Rate 83 95 Pulse Strength Respiratory Rate 19 H 18 Respiratory Effort Normal Non-Labored Blood Pressure 151/70 H 146/59 H Blood Pressure Mean 97 88 Blood Pressure Source Monitor Monitor Blood Pressure Position Semi-Fowlers Semi-Fowlers Blood Pressure Location Right Arm Right Arm Pulse Ox 95 95 Oxygen Delivery Method Room Air Room Air 08/27/22 04:14 08/27/22 08:55 08/27/22 10:00 Temperature 98.9 F 98.9 F Temperature Source Temporal Temporal Pulse Rate 80 80 Pulse Strength Normal (2+) Respiratory Rate 16 16 Respiratory Effort Blood Pressure 149/67 H 149/67 H Blood Pressure Mean 94 94 Blood Pressure Source Monitor Blood Pressure Position Sitting Blood Pressure Location Right Arm Pulse Ox 96 Oxygen Delivery Method Room Air Room Air Weight Weight: 180 lb 1.883 oz Body Mass Index (BMI) 31.8 Physical Exam Const alert and well nourished Constitutional Narrative: She is very anxious and c/o uncontrolled pain in the low back and in BL anterior thighs. She is also c/o pain in the Left calf and tells me that it is circumferential and not dermatomal. She is tremulous and close to having a panic attack. She has been taking Lorazepam for 10-15 years but has been weaned down to O.25 mg daily recently. She wants to be off this. General Appearance: cooperative, well developed and anxious HEENT normocephalic, head/scalp atraumatic, hearing grossly normal bilaterally and moist oral mucous membranes Eyes PERRL, EOMs intact bilaterally, conjunctivae normal, no scleral icterus and normal visual jimenez by confrontation Neck supple Neck Narrative: Thick neck. Denies a hx of snoring and has never been diagnosed with sleep apnea. Chest Chest: symmetrical chest wall rise Resp normal respiratory effort, normal air movement, no use of accessory muscles and clear to auscultation bilaterally Resp Narrative: some what diminished....may be due to body habitus Effort and Inspection: able to speak in complete sentences Cardio regular rate, regular rhythm, S1 normal heart sound, S2 normal heart sound, no murmurs, no rub and no gallops GI normal to inspection, nondistended, normoactive bowel sounds, soft to palpation, non-tender and no masses GI Narrative: No guarding with palpation Auscultation: normoactive bowel sounds Narrative: Denies any problem urinating and the PVR's are normal. Extremity no calf tenderness and no pedal edema Skin General Skin Exam: no breakdown Rashes: no rashes Neuro oriented x3, CN's II-XII intact bilaterally and moves all extremities Neuro Narrative: Having pain in the anterior thighs BL that is radicular. Memory is poor today but, I think this is due to extreme anxiety and she is perseverating on back and anterior thigh pain. Speech: speech normal Psych cooperative, speech normal, denies hallucinations, denies homicidal ideation and denies suicidal ideation Appearance: grossly normal, appropriate and well kempt Attitude: other extremely anxious Activity / Motor Behavior: appropriate eye contact; Negative for psychomotor agitation, psychomotor slowing or disorganized Speech: normal speech Mood & Affect: anxious Attention / Concentration: attention grossly intact Results Lab / Micro Data Result Diagrams: 08/27/22 05:35 08/27/22 05:35 Labs: Laboratory Results - last 24 hr 08/27/22 05:35: WBC 5.1, RBC 2.46 L, Hgb 8.1 L, Hct 24.8 L, MCV 100.8 H, MCH 32.9 H, MCHC 32.7, RDW Std Deviation 45.7 H, RDW Coeff of Purvi 12.7, Plt Count 137 L, MPV 10.0, Immature Gran % (Auto) 0.200, Neut % (Auto) 52.1, Lymph % (Auto) 36.6, [place] % (Auto) 9.0, Eos % (Auto) 1.9, Baso % (Auto) 0.2, Absolute Neuts (auto) 2.7, Absolute Lymphs (auto) 1.88, Nucleated RBC % 0 08/27/22 05:35: Sodium 139, Potassium 3.3 L, Chloride 104, Carbon Dioxide 27.0, Anion Gap 8, BUN 18, Creatinine 0.89, Estim Creat Clear Calc 43.79, Est GFR (MDRD) Af Amer 79, Est GFR (MDRD) Non-Af 65, BUN/Creatinine Ratio 20.2 H, Glucose 94, Calcium 9.0, Phosphorus 2.6, Magnesium 1.8, Total Bilirubin 1.10 H, AST 40 H, ALT 29, Alkaline Phosphatase 58, Total Protein 5.7 L, Albumin 2.8 L, Globulin 2.9, Albumin/Globulin Ratio 1.0 Assessment & Plan Assessment/Plan (1) Physical debility: (2) Spinal stenosis of lumbar region with radiculopathy: (3) S/P lumbar laminectomy: (4) S/P lumbar fusion: (5) Acute blood loss anemia: (6) Thrombocytopenia: (7) Hypokalemia: (8) Radicular pain of both lower extremities: (9) Fracture of metacarpal base, first, left hand, closed: (10) Anxiety: (11) Depression: (12) HTN (hypertension): (13) IBS (irritable bowel syndrome): (14) Inflammatory polyarthritis: (15) Presbycusis: (16) Diverticulosis: PLAN: Plan PLAN PT for gait stability OT for ADL's Analgesics as needed - Oxycodone is making her nauseated and the medication/pain relief is not lasting 6 hours. Change to Tramadol which she has had good luck with in the past. She is very anxious and is on the verge of a panic attack because she wants the Oxy every 4 hours.......she was sent to us with orders for every 6 hours. Bowel protocol Fall precautions Assess for Anxiety/Depression GI prophylaxis - will start Protonix if the nausea persists after she is transitioned to Tramadol. DVT prophylaxis with Lovenox 40 mg subcu daily Follow up with Dr. Mary Ellen Adamson and Dr. Chang following DC from [facility] AM lab including CMP, CBC, Mag and Phos - all personally reviewed. HGB is only 8.2.......it was normal prior to surgery. Recheck in a few days. Start Gabapentin 100 mg TID Charges/Coding Visit Charges Inpatient E&M: 37121 Init Hosp L3
[2022-08-27] MEDS: oxyCODONE 5 MG Tablet 10 MG PO (12:09)
[2022-08-27] MEDS: Gabapentin 100 MG Capsule PO ×3 (12:09→22:43)
--- NOTE | 2022-08-27 12:22 | REHABEVAL_ITS ---
Admission Information Primary Diagnosis:: Debility secondary to recent lumbar laminectomy and fusion due to lumbar canal stenosis. Status Changes from Prescreening?: No changes Identified Actual Problem List:: Skin Intergrity, Pain, ALteration in Cmfrt, Depression, Bowel, Constipation, Alteration in Sleep, Mobility Impaired, Self Care Deficit and Alteration-Leisure Activ. Potential Problem List:: DVT, Bleeding, Infection, UTI, Aspiration, Falls, Skin Integrity and Depression Risk of Complications DVT: LMWH and LILLY Hose Bleeding: Monitor Lab Values, Nursing to Teach Precautions for anti-coagulation therapy., Wound, if applicable, to be assessed every shift. and Stroke patients assessed for lethargy or change in status. Infection: Clinical Staff to Monitor for S/S of infection: and S/S of infection include fever, redness, warmth, etc. Urinary Tract Infection: Monitor for frequency, burning, discomfort, or incontinence. and Nursing will obtain urine sample for urinalysis and C&S when ordered. Aspiration: Clinical staff will monitor for coughing, drooling, congestion., Speech will evaluate swallowing and dsyphasia. and Nursing will monitor patient swallowing during meals. Falls: Patient will be evaluated for Fall Precautions and Patient will be placed on Fall Precautions as indicated per protocol. Skin Breakdown: Nursing will assess skin daily using assessment tool. and Nursing will place on Skin Breakdown Precautions as indicated. Pain: Clinical staff will assess patient's pain level per protocol., Medications will be given, if needed, and the pain level reassessed. and Other methods: Massage, distraction, decrease stimulus, etc. used PRN. Plan of Care Patient requires physician specializing in physical medicine and rehab oversight to provide close medical supervision of rehab issues including: Pain Management, Sleep Problems, Bowel and Bladder, Medical and co-morbidity Management, DVT prophylaxis, Rehabilitation Leadership and Coordination of treatment team Patient needs Physical Therapy: For a minimum of 1 hour and At least 5 out of 7 days Patient needs Physical Therapy to improve:: Mobility, Strengthening, Transfers, Stretching, ROM, Endurance, Stairs, Gait and Balance Patient needs Occupational Therapy: For a minimum of 1 hour and At least 5 out of 7 days Patient needs Occupational Therapy to improve ADL's incl.: Eating, Grooming, Bathing, Dressing, Toileting, Toilet transfers, Community Reintegration, Higher functioning activities, Household tasks, Adaptive Equipment, Splinting and Other activities as determined Patient requires 24/7 Rehabilitation Nursing for: Pain Issues, Identifying and preventing risk factors, Monitoring and reporting current medical conditions, Assisting with ambulation, transfer, and all ADL's, Teaching patients about disease process and medications, Family teaching, Providing safe environment, Bowel and Bladder Issues, Skin integrity and Medication Management Patient needs Traffic Safety Administrator/ Case Management for: Discharge Planning, Arranging Home Equipment or Services and Family Interventions Patient needs Dietary and Nutrition Services for: Adequate Nutrition, Nutritional Supplements and Nutritional Education Goals Patient will remain: free from falls and or injury at time of discharge. Patient will perform bed mobility at: MOD I level of assist. Patient will complete transfers from bed to chair at: MOD I level of assist. Patient will ambulate: 100 feet, with LRD and - (250) Patient will complete upper body dressing at: MOD I level of assist. Patient will complete lower body dressing at: MOD I level of assist. (With AE as needed) Patient will complete toileting at: MOD I level of assist. Patient will perform bathing at: MOD I level of assist. Patient will complete grooming at: MOD I level of assist. Patient will complete home management skills at: MOD I level of assist. Patient will achieve: - (1 curb step and 12 steps with 1 HR at SBA) Patient will have pain level of: of 3 or less Patient's skin will: remain intact Patient will receive: adequate nutrition. Discharge Planning Pt Prognosis for Sig. Practical Improv. w/in Reasonable Time: Good Estimated Length of stay (days): 21 Anticipated D/C Destination: Home with Home Health Was Preadmission Assessment Accurate?: Yes
[2022-08-27] MEDS: Potassium Chloride Oral Tablet 20 MEQ 40 MEQ PO (15:23)
--- NOTE | 2022-08-27 15:44 | NURSING ---
Per RONEN Jimenez for Dr. Gonzalez, patient can start lovenox tomorrow.
[2022-08-27 19:16] VITALS: BP 136/66; PULSE 82; RESP 17; TEMP 36.6; O2SAT 96
[2022-08-27] MEDS: Senna/Docusate Sodium 1 Tablet 2 TABLET PO (22:08)
[2022-08-27] MEDS: traZODone 50 MG Tablet PO ×2 (22:08→22:49)
--- NOTE | 2022-08-27 23:58 | NURSING ---
Pt given scheduled 2200 medications (Tylenol 1,000 mg; Baclofen 10 mg; Hydroxychloroquine 200 mg; Senna 2 tab; Trazodone 50 mg; and Gabapentin 100 mg). Pt chews medications stating she has never been able to swallow a pill whole, and has always chewed them. After administration of meds, pt asked if this nurse could give her a life saver from the bag sitting on her table. As this nurse was opening the life saver, pt stated she felt ill, and began to emesis. Pt given emesis bag, cool wash cloth, lasha deedee and jessica crackers. RN notified, RN called and talked to Louie in pharmacy, Per Louie Ok to readministered medications d/t emesis within minutes of administration. Pt states she believed the red Senna made her ill, stating they tasted awful and she felt ill after taking 2 purple pills. Pt regiven evening medication with lasha deedee and apple sauce, declined to retake Senna. Pt stated she felt fine after administration. Call light within reach, clean emesis bag within reach. Will continue to monitor.
[2022-08-28] MEDS: oxyCODONE 5 MG Tablet PO ×5 (01:07→19:57)
--- NOTE | 2022-08-28 02:49 | NURSING ---
22:15- This RN was notified by LOKESH re: pt having emesis within minutes of taking/chewing hs meds. This pt has high anxiety and began perseverating on vomiting her evening pills which would include much needed pain relievers. This RN attempted to reassure pt that we will look for a remedy that may alleviate the panic that could be heard in pt's voice. This RN called Pharmacy and spoke with Louie about the episode and Louie suggested administering an unscheduled dose, which he sent up replacements for. I notified the pt of the conversation with pharmacy. Pt ate crackers before admin of replacement meds but refused stool softener which pt seemed convinced that they were the catalyst of her nausea. Upon reassessment, pt appeared relaxed in bed and stated she felt OK. Pt is resting quietly in bed at this time.
--- NOTE | 2022-08-28 02:59 | NURSING ---
Reviewed and agree with Noe CAMPA, documentation and assessment charting.
[2022-08-28] MEDS: Acetaminophen 500 MG Tablet 1000 MG PO ×3 (06:29→21:10)
[2022-08-28] MEDS: Enoxaparin 40 MG/0.4 ML Syringe SC (06:30)
[2022-08-28] MEDS: Gabapentin 100 MG Capsule PO ×3 (06:30→21:10)
[2022-08-28 08:04] VITALS: BP 115/67; PULSE 100; RESP 20; TEMP 36.9; O2SAT 98
[2022-08-28] MEDS: Cholecalciferol (VIT D3) 25 MCG TABLET (1,000 UNITS) 50 MCG PO (08:17)
[2022-08-28] MEDS: Baclofen 10 MG Tablet PO ×2 (08:17→21:09)
[2022-08-28] MEDS: Citalopram 20 MG Tablet PO (08:18)
[2022-08-28] MEDS: Losartan Potassium 25 MG Tablet 12.5 MG PO (08:18)
[2022-08-28] MEDS: Multivitamins,Therapeutic Tablet 1 TABLET PO (08:18)
[2022-08-28] MEDS: Hydroxychloroquine 200 MG Tablet PO ×2 (08:19→21:09)
[2022-08-28] MEDS: Latanoprost 0.005% 1 Bottle 1 DRP EACH EYE (08:20)
[2022-08-28] MEDS: Vitamin E 400 UNITS Capsule PO (08:20)
[2022-08-28] MEDS: Potassium Chloride Oral Tablet 20 MEQ PO (08:24)
[2022-08-28] MEDS: Bisacodyl 10 MG Suppository RC (09:00)
[2022-08-28 20:00] VITALS: BP 125/55; PULSE 75; RESP 16; TEMP 36.8; O2SAT 98
[2022-08-28] MEDS: traZODone 50 MG Tablet PO (21:09)
[2022-08-28 21:10] VITALS: O2SAT 98
[2022-08-29] MEDS: oxyCODONE 5 MG Tablet PO ×6 (01:29→22:38)
[2022-08-29] MEDS: Acetaminophen 500 MG Tablet 1000 MG PO ×3 (05:39→21:28)
[2022-08-29] MEDS: Gabapentin 100 MG Capsule PO ×3 (05:39→21:28)
[2022-08-29] MEDS: Enoxaparin 40 MG/0.4 ML Syringe SC (05:40)
[2022-08-29 07:23] VITALS: BP 127/63; PULSE 78; RESP 16; TEMP 36.6; O2SAT 98
[2022-08-29] MEDS: Multivitamins,Therapeutic Tablet 1 TABLET PO (09:04)
[2022-08-29] MEDS: Losartan Potassium 25 MG Tablet 12.5 MG PO (09:04)
[2022-08-29] MEDS: Hydroxychloroquine 200 MG Tablet PO ×2 (09:05→21:28)
[2022-08-29] MEDS: Baclofen 10 MG Tablet PO ×2 (09:05→21:28)
[2022-08-29] MEDS: Vitamin E 400 UNITS Capsule PO (09:05)
[2022-08-29] MEDS: Cholecalciferol (VIT D3) 25 MCG TABLET (1,000 UNITS) 50 MCG PO (09:06)
[2022-08-29] MEDS: Latanoprost 0.005% 1 Bottle 1 DRP EACH EYE (09:06)
[2022-08-29] MEDS: Citalopram 20 MG Tablet PO (09:07)
[2022-08-29] MEDS: Potassium Chloride Oral Tablet 20 MEQ PO (09:08)
[2022-08-29 20:00] VITALS: BP 132/49; PULSE 66; RESP 15; TEMP 36.9; O2SAT 97
[2022-08-29] MEDS: traZODone 50 MG Tablet PO (21:28)
[2022-08-30] MEDS: oxyCODONE 5 MG Tablet PO ×5 (03:08→21:14)
[2022-08-30] MEDS: Acetaminophen 500 MG Tablet 1000 MG PO ×3 (05:05→21:15)
[2022-08-30] MEDS: Gabapentin 100 MG Capsule PO (05:05)
[2022-08-30] MEDS: Enoxaparin 40 MG/0.4 ML Syringe SC (05:05)
--- NOTE | 2022-08-30 06:45 | NURSING ---
Pt called out this am, c/o increased pain in her thighs, a different pain. States she feels heavy and her legs feel weak. Note left for Dr. Ashley to assess.
[2022-08-30 07:51] VITALS: BP 148/65; PULSE 71; RESP 16; TEMP 36.9; O2SAT 96
[2022-08-30] MEDS: Cholecalciferol (VIT D3) 25 MCG TABLET (1,000 UNITS) 50 MCG PO (07:51)
[2022-08-30] MEDS: Baclofen 10 MG Tablet PO ×2 (07:52→21:15)
[2022-08-30] MEDS: Potassium Chloride Oral Tablet 20 MEQ PO (07:52)
[2022-08-30] MEDS: Citalopram 20 MG Tablet PO (07:52)
[2022-08-30] MEDS: Losartan Potassium 25 MG Tablet 12.5 MG PO (07:52)
[2022-08-30] MEDS: Vitamin E 400 UNITS Capsule PO (07:52)
[2022-08-30] MEDS: Hydroxychloroquine 200 MG Tablet PO ×2 (07:52→21:15)
[2022-08-30] MEDS: Multivitamins,Therapeutic Tablet 1 TABLET PO (07:52)
[2022-08-30] MEDS: Latanoprost 0.005% 1 Bottle 1 DRP EACH EYE (07:53)
--- NOTE | 2022-08-30 10:52 | PN_ITS ---
Subjective Subjective Zaria was seen on team rounds today. Her son Sheldon participated by phone. Afebrile VSS Maintaining appropriate oxygen saturation on RA Oral intake is good Having regular BM's Discussed with nursing - Wanting her pain medication every 4 hours and sometimes asking for it early. Reviewed the PT/OT notes Medication list reviewed. She took 6 dose of Oxycodone 10 mg yesterday. The order is for 5-10. She is also on Baclofen 10 mg BID and Tylenol 1,000 mg Q 8H. She tells me that she is having pain in the BL groin and the BL anterior thighs. She is also c/o pain behind the R knee - like she had prior to the surgery. Denies SOB, CP, palpitations, dysuria, calf pain, lightheadedness. She is no longer c/o nausea with the Oxycodone and wants to keep it. She did not c/o pain in her back today. Anxiety is affecting her pain tolerance. Objective Data Objective Data Vital Signs: Vital Signs Temp Pulse Resp BP Pulse Ox O2 Del Method 98.4 F 71 16 148/65 H 96 Room Air 08/30/22 07:51 08/30/22 07:51 08/30/22 07:51 08/30/22 07:51 08/30/22 07:51 08/30/22 07:51 Oxygen Delivery Method Room Air Weight: 180 lb 1.883 oz Body Mass Index (BMI) 31.8 Intake & Output: Intake and Output for Last 24 Hours 08/28/22 08/29/22 08/30/22 23:59 23:59 23:59 Intake Total 1465 / 1465 880 / 880 760 / 760 Output Total 700 / 700 200 / 200 Balance 765 / 765 880 / 880 560 / 560 Lab / Micro Data Result Diagrams: 08/30/22 11:10 08/30/22 11:10 Physical Exam Const alert General Appearance: cooperative and anxious Resp normal respiratory effort, normal air movement and clear to auscultation bilaterally Effort and Inspection: able to speak in complete sentences Cardio regular rate, regular rhythm, no murmurs and no gallops GI normal to inspection, nondistended, normoactive bowel sounds, soft to palpation and non-tender GI Narrative: No guarding with palpation Extremity no calf tenderness and no pedal edema Skin General Skin Exam: no breakdown Rashes: no rashes Assessment & Plan Assessment/Plan (1) Physical debility: (2) Spinal stenosis of lumbar region with radiculopathy: (3) S/P lumbar laminectomy: (4) S/P lumbar fusion: (5) Acute blood loss anemia: (6) Thrombocytopenia: (7) Hypokalemia: (8) Radicular pain of both lower extremities: (9) Fracture of metacarpal base, first, left hand, closed: (10) Anxiety: (11) Depression: (12) HTN (hypertension): (13) IBS (irritable bowel syndrome): (14) Inflammatory polyarthritis: (15) Presbycusis: (16) Diverticulosis: PLAN: Plan 1. Continue therapy 2. Increase the Gabapentin to 200 mg TID. 3. Beginning tomorrow will decrease oxycodone to 5 mg every 4 hours as needed. Anxiety greatly influences her perception of pain. She is moving quite well for having had an extensive surgery recently. The localized pain related to the surgery has improved and her pain now is mostly radicular pain, likely still r elated to swelling. Charges/Coding Visit Charges Inpatient E&M: 83923 Subs Hosp L2
[2022-08-30 11:24] LABS: Hematocrit 27.8 % (37-47); Hemoglobin 9.2 g/dL (12.0-15.0)
[2022-08-30 11:47] LABS: Anion Gap 6 (5-15); BUN 17 mg/dL (7-18); BUN/Creat Ratio 16.7 RATIO (10-20); Calcium,Total 9.6 mg/dL (8.5-10.1); Chloride 107 mmol/L (98-107); Creatinine, Serum 1.02 mg/dL (0.55-1.02); EST Glomerular Filtration Rate 56 mL/min (>60); Est Glom Filt Rate - Afr Amer 68 mL/min (>60); Estimated Creatinine Clearance 38.21 ml/min; Glucose 73 mg/dL (74-106); Sodium Level 140 mmol/L (136-145)
--- NOTE | 2022-08-30 12:46 | CASEMGMT ---
Social Work IDT met with patient and son via conference call for Team meeting. Discussed patient's progress in PT/OT/SN. Educated to [facility] insurance with NRD 3/ and continued stay is not guaranteed with each review. Pt's goal is to return home alone. Son is supportive but works full-time. Pt does have a two story, but pt can have bed moved to the first floor and has a full bath on the first floor. SW to coordinate DME and therapy needs at [place]. Discussed difference between pain and anxiety. Spoke with pt about reframing mindset, diverging thoughts for other topics, and evaluating the difference in pain from prior to surgery and current. Pt acknowledged she is a 'high' anxiety person and takes medication consistently. SW educated to speaking with PCP if medication needs adjusted if it is no longer benefiting the pt. Offered supportive visits as needed. Pt expressed. Will ReTeam weekly. SW to continue to follow. Ijeoma Carmona, [employer]URE [employer] WORKER
[2022-08-30] MEDS: Gabapentin 100 MG Capsule 200 MG PO ×2 (14:02→21:16)
[2022-08-30 19:28] VITALS: BP 137/56; PULSE 78; RESP 16; TEMP 36.6; O2SAT 98
[2022-08-30] MEDS: traZODone 50 MG Tablet PO (21:16)
[2022-08-31] MEDS: oxyCODONE 5 MG Tablet PO ×4 (01:48→18:03)
--- NOTE | 2022-08-31 02:15 | NURSING ---
Reviewed and agree with Noe CAMPA, documentation and assessment charting.
[2022-08-31] MEDS: Gabapentin 100 MG Capsule 200 MG PO ×2 (05:09→14:06)
[2022-08-31] MEDS: Enoxaparin 40 MG/0.4 ML Syringe SC (05:09)
[2022-08-31] MEDS: Acetaminophen 500 MG Tablet 1000 MG PO ×3 (05:09→21:12)
--- NOTE | 2022-08-31 06:32 | NURSING ---
Pulse ox detached @ 06:30 per pt request.
[2022-08-31 07:02] VITALS: BP 148/78; PULSE 75; RESP 16; TEMP 36.2; O2SAT 98
[2022-08-31] MEDS: Potassium Chloride Oral Tablet 20 MEQ PO (07:51)
[2022-08-31] MEDS: Cholecalciferol (VIT D3) 25 MCG TABLET (1,000 UNITS) 50 MCG PO (07:51)
[2022-08-31] MEDS: Losartan Potassium 25 MG Tablet 12.5 MG PO (07:52)
[2022-08-31] MEDS: Vitamin E 400 UNITS Capsule PO (07:52)
[2022-08-31] MEDS: Multivitamins,Therapeutic Tablet 1 TABLET PO (07:52)
[2022-08-31] MEDS: Citalopram 20 MG Tablet PO (07:52)
[2022-08-31] MEDS: Baclofen 10 MG Tablet PO ×2 (07:52→21:13)
[2022-08-31] MEDS: Latanoprost 0.005% 1 Bottle 1 DRP EACH EYE (07:52)
[2022-08-31] MEDS: Hydroxychloroquine 200 MG Tablet PO ×2 (07:55→21:09)
--- NOTE | 2022-08-31 10:20 | PCM.PROGNOTE ---
Subjective Subjective Afebrile VSS -systolic blood pressure increases with anxiety and today she is anxious about decreasing the Oxy dose to 5 mg Maintaining appropriate oxygen saturation on RA Oral fluid intake is poor. Had a bowel movement on 08/30/2022. Discussed with nursing - Nurses say slept off and on and the pt states this is normal for her. Reviewed the PT/OT/ST notes Medication list reviewed. She took 5 doses of oxycodone for 10 mg yesterday. Gabapentin was increased to 200 mg p.o. every 8 hours. Remains anxious. Perseverating on the decrease in the Oxy to 5 mg Q 4H PRN Hemoglobin was up to 9.2 from 8.1 on 08/27/2022. Zaria denies lightheadedness, vertigo, CP, SOB at rest, SOB with exertion, cough, nausea, vomiting, abd pain, diarrhea, constipation, dysuria, calf pain and ankle swelling. she is no longer c/o back pain. The radicular pain in the legs is better with the Gabapentin. She is c/o pain in the R calf and behind the R knee. Feels different than the pain she had prior to surgery. Alert, oriented x3, appears in no acute distress, appropriate. Lungs-clear to auscultation throughout Heart-regular rate and rhythm, no gallop Abdomen-soft, nontender, normal bowel sounds, no guarding with palpation The right calf is non-swollen and there is no erythema. There is no increased warmth to touch. When I dorsiflex her foot she complained of pain in the calf. Objective Data Objective Data Vital Signs: Vital Signs Temp Pulse Resp BP Pulse Ox O2 Del Method 97.2 F L 75 16 148/78 H 98 Room Air 08/31/22 07:02 08/31/22 07:02 08/31/22 07:02 08/31/22 07:02 08/31/22 07:02 08/31/22 07:02 Oxygen Delivery Method Room Air Weight: 180 lb 1.883 oz Body Mass Index (BMI) 31.8 Intake & Output: Intake and Output for Last 24 Hours 08/29/22 08/30/22 08/31/22 23:59 23:59 23:59 Intake Total 880 / 880 910 / 910 110 / 110 Output Total 200 / 200 Balance 880 / 880 710 / 710 110 / 110 Lab / Micro Data Result Diagrams: 09/02/22 10:45 08/30/22 11:10 Labs: Laboratory Results - last 24 hr 08/30/22 11:10: Hgb 9.2 L, Hct 27.8 L 08/30/22 11:10: Sodium 140, Potassium 4.0, Chloride 107, Carbon Dioxide 27.0, Anion Gap 6, BUN 17, Creatinine 1.02, Estim Creat Clear Calc 38.21, Est GFR (MDRD) Af Amer 68, Est GFR (MDRD) Non-Af 56 L, BUN/Creatinine Ratio 16.7, Glucose 73 L, Calcium 9.6 Assessment & Plan Assessment/Plan (1) Physical debility: (2) S/P lumbar laminectomy: (3) S/P lumbar fusion: (4) Pain of right calf: (5) Radicular pain of both lower extremities: (6) Inflammatory polyarthritis: PLAN: Plan 1. Continue therapy 2. Obtain venous ultrasound of the right lower extremity 3. If the venous ultrasound is negative for clot will increase the gabapentin at at bedtime to 300 mg. Charges/Coding Visit Charges Inpatient E&M: 41090 Subs Hosp L2
--- NOTE | 2022-08-31 11:25 | VDLE_ITS ---
Reason For Study: pain RIGHT GSV is normal. CFV is compressible, spontaneous, phasic, competent and demonstrates normal augmentation. FV is compressible, spontaneous, phasic, competent and demonstrates normal augmentation. POP V is compressible, spontaneous, phasic, competent and demonstrates normal augmentation. T/P Trunk is compressible. PTV is compressible. RT PerV is compressible. Procedure This is a venous duplex using B-mode, color flow and spectral Doppler. Exam performed portable in patient room. The exam was abbreviated due to the COVID 19 protocol. The exam was diagnostic. A preliminary report was called and/or faxed to the pt's RN. VL/Venous Duplex US, Unilateral Interpretation Summary There is no evidence of right lower extremity deep vein thrombosis. Right great saphenous vein appears patent and compressible segmentally. Abbreviated COVID-19 protocol util ized Ordering Physician: Mare Ashley Performed By: Levi Perry RVT
[2022-08-31 19:22] VITALS: BP 141/59; PULSE 79; RESP 16; TEMP 37.1; O2SAT 97
[2022-08-31] MEDS: Gabapentin 300 MG Capsule PO (21:09)
[2022-08-31] MEDS: traZODone 50 MG Tablet PO (21:12)
[2022-08-31 22:00] VITALS: PULSE 79; RESP 16; O2SAT 97
[2022-09-01] MEDS: oxyCODONE 5 MG Tablet PO ×5 (01:10→20:09)
[2022-09-01] MEDS: Gabapentin 100 MG Capsule 200 MG PO ×2 (05:00→14:13)
[2022-09-01] MEDS: Enoxaparin 40 MG/0.4 ML Syringe SC (05:00)
[2022-09-01] MEDS: Acetaminophen 500 MG Tablet 1000 MG PO ×3 (05:01→21:15)
[2022-09-01 06:00] VITALS: BMI 30.9
[2022-09-01 07:25] VITALS: BP 111/75; PULSE 76; RESP 16; TEMP 35.3; O2SAT 97
[2022-09-01] MEDS: Multivitamins,Therapeutic Tablet 1 TABLET PO (08:33)
[2022-09-01] MEDS: Potassium Chloride Oral Tablet 20 MEQ PO (08:33)
[2022-09-01] MEDS: Cholecalciferol (VIT D3) 25 MCG TABLET (1,000 UNITS) 50 MCG PO (08:33)
[2022-09-01] MEDS: Losartan Potassium 25 MG Tablet 12.5 MG PO (08:33)
[2022-09-01] MEDS: Baclofen 10 MG Tablet PO ×2 (08:33→21:16)
[2022-09-01] MEDS: Citalopram 20 MG Tablet PO (08:33)
[2022-09-01] MEDS: Latanoprost 0.005% 1 Bottle 1 DRP EACH EYE (08:33)
[2022-09-01] MEDS: Hydroxychloroquine 200 MG Tablet PO ×2 (08:33→21:16)
[2022-09-01] MEDS: Vitamin E 400 UNITS Capsule PO (08:34)
[2022-09-01 19:18] VITALS: BP 128/70; PULSE 80; RESP 16; TEMP 36.7; O2SAT 97
[2022-09-01] MEDS: Gabapentin 300 MG Capsule PO (21:15)
[2022-09-01] MEDS: traZODone 50 MG Tablet PO (21:16)
[2022-09-01 22:00] VITALS: PULSE 80; RESP 16; O2SAT 96
[2022-09-02] MEDS: oxyCODONE 5 MG Tablet PO ×5 (01:47→19:32)
[2022-09-02] MEDS: Gabapentin 100 MG Capsule 200 MG PO ×2 (05:28→13:59)
[2022-09-02] MEDS: Enoxaparin 40 MG/0.4 ML Syringe SC (05:28)
[2022-09-02] MEDS: Acetaminophen 500 MG Tablet 1000 MG PO ×3 (05:29→20:51)
[2022-09-02 07:00] VITALS: BP 140/56; PULSE 73; RESP 18; TEMP 36.2; O2SAT 94
[2022-09-02] MEDS: Citalopram 20 MG Tablet PO (08:05)
[2022-09-02] MEDS: Hydroxychloroquine 200 MG Tablet PO ×2 (08:05→20:54)
[2022-09-02] MEDS: Vitamin E 400 UNITS Capsule PO (08:05)
[2022-09-02] MEDS: Baclofen 10 MG Tablet PO ×2 (08:06→20:54)
[2022-09-02] MEDS: Losartan Potassium 25 MG Tablet 12.5 MG PO (08:06)
[2022-09-02] MEDS: Cholecalciferol (VIT D3) 25 MCG TABLET (1,000 UNITS) 50 MCG PO (08:06)
[2022-09-02] MEDS: Multivitamins,Therapeutic Tablet 1 TABLET PO (08:06)
[2022-09-02] MEDS: Potassium Chloride Oral Tablet 20 MEQ PO (08:06)
[2022-09-02] MEDS: Latanoprost 0.005% 1 Bottle 1 DRP EACH EYE (08:07)
--- NOTE | 2022-09-02 09:42 | PCM.PROGNOTE ---
Subjective Subjective Afebrile VSS Maintaining appropriate oxygen saturation on RA Oral intake is good. She is eating 75 to 100% of her meals. Discussed with nursing - no problems that need addressed. Slept well last night. Reviewed the PT/OT notes Medication list reviewed. She is c/o pain in both knees. she had a steroid injection into the R knee by Dr. Clark in May. The pain is worse after therapy. Not longer c/o back pain. She denies chest pain, shortness of breath, cough, sore throat, nausea/vomiting/abdominal pain, dysuria and lightheadedness. Objective Data Objective Data Vital Signs: Vital Signs Temp Pulse Resp BP Pulse Ox O2 Del Method 97.1 F L 73 18 140/56 H 94 Room Air 09/02/22 07:00 09/02/22 07:00 09/02/22 07:00 09/02/22 07:00 09/02/22 07:00 09/02/22 07:00 Oxygen Delivery Method Room Air Weight: 174 lb 6.17 oz Body Mass Index (BMI) 30.9 Intake & Output: Intake and Output for Last 24 Hours 08/31/22 09/01/22 09/02/22 23:59 23:59 23:59 Intake Total 310 / 310 380 / 380 120 / 120 Balance 310 / 310 380 / 380 120 / 120 Lab / Micro Data Result Diagrams: 09/02/22 10:45 08/30/22 11:10 Physical Exam Const alert, oriented x3 and no apparent distress Constitutional Narrative: She is very anxious and c/o uncontrolled pain in the low back and in BL anterior thighs. She is also c/o pain in the Left calf and tells me that it is circumferential and not dermatomal. She is tremulous and close to having a panic attack. She has been taking Lorazepam for 10-15 years but has been weaned down to O.25 mg daily recently. She wants to be off this. General Appearance: cooperative HEENT normocephalic, head/scalp atraumatic, hearing grossly normal bilaterally and moist oral mucous membranes Eyes PERRL, EOMs intact bilaterally, conjunctivae normal, no scleral icterus and normal visual jimenez by confrontation Neck supple Neck Narrative: Thick neck. Denies a hx of snoring and has never been diagnosed with sleep apnea. Chest Chest: symmetrical chest wall rise Resp clear to auscultation bilaterally Resp Narrative: some what diminished....may be due to body habitus Effort and Inspection: able to speak in complete sentences Cardio regular rate, regular rhythm, no murmurs and no gallops GI normal to inspection, nondistended, normoactive bowel sounds, soft to palpation and non-tender GI Narrative: No guarding with palpation Auscultation: normoactive bowel sounds Narrative: Denies any problem urinating and the PVR's are normal. Extremity no calf tenderness Extremity Narrative: Neither knee is red or warm to touch. No joint affusion detected. Review of the most recent XRAY of the R knee shows narrowing of the medial compartment with some osteophytes and arthrosis of the patellofemoral component. Some mild crepitance with flexion. Skin General Skin Exam: no breakdown Rashes: no rashes Wound Narrative: Incision is intact with no purulent DC. Neuro oriented x3, CN's II-XII intact bilaterally and moves all extremities Neuro Narrative: Having pain in the anterior thighs BL that is radicular. Memory is poor today but, I think this is due to extreme anxiety and she is perseverating on back and anterior thigh pain. Speech: speech normal Psych cooperative, speech normal, denies hallucinations, denies homicidal ideation and denies suicidal ideation Appearance: grossly normal, appropriate and well kempt Attitude: other extremely anxious Activity / Motor Behavior: appropriate eye contact; Negative for psychomotor agitation, psychomotor slowing or disorganized Speech: normal speech Mood & Affect: anxious Attention / Concentration: attention grossly intact Assessment & Plan Assessment/Plan (1) Physical debility: (2) Spinal stenosis of lumbar region with radiculopathy: (3) S/P lumbar laminectomy: (4) S/P lumbar fusion: (5) Acute blood loss anemia: (6) Thrombocytopenia: (7) Inflammatory polyarthritis: (8) Knee pain, bilateral: PLAN: Appears to be secondary to OA on the XRAYS PLAN: Plan 1. Continue therapy 2. Arthritis compounding cream 3 times daily to both knees -she is not on a nonsteroidal anti-inflammatory drug. Creat clearance is only 32-43 so not a good candidate for a systemic NSAID. I suspect the arthritis in the knees is exacerbated by the 3 hours of therapy daily. Activity was very restricted prior to the surgery due to the spinal canal stenosis. Will try icing the knees after therapy to help with inflammation. 3. Recheck HH in the AM 4. Doing well in therapy - I suspect the majority of her pain now is due to OA. I reviewed the x-rays of the right knee done at [facility]. She has medial femorotibial arthrosis and patellofemoral arthrosis. It is mild to moderate on XRAYs done in January 2021 and October 2021....... the disease was stable at the last x-ray. The last BMD study was in 2017 and she had moderate osteopenia in femoral neck BL. She is only on Calcium and Vitamin D. She is overdue for a follow up BMD. 5. She has an appt with the surgeon next week on the . Plan DC on the so that she will be able to make that appt. Therapists feel she will be safe to go on that date. Charges/Coding Visit Charges Inpatient E&M: 72666 Subs Hosp L2
[2022-09-02 10:58] LABS: Hematocrit 27.9 % (37-47)
[2022-09-02] MEDS: Arthritis Pain Compound 60 CLICK TUBE TOPICAL ×2 (14:02→20:58)
--- NOTE | 2022-09-02 16:30 | CASEMGMT ---
Social Work Pt requesting to be discharged on 09/07. SW spoke with IDT and they feel pt will be ready for discharge at this time. SW met with pt who confirms she would like to discharge 09/07, go straight to Xray for requested xrays for physician's appointment on 09/08, and then home. Pt states her daughter is coming in from out of town and will be staying with her through Tuesday. Therapy is recommending home health PT/OT/SN. Pt is agreeable. Pt was provided a list of [facility] providers including quality and resource use data and consistent withthe patient's preferred geographic region mdical needs and insurance network. Pt preferred provider is [facility]. Pt will need a FWW and half bed rail and [place] would like [place] [facility] SW updated LAURE Sullivan regarding xrays and requested this be arranged. MEY will continue to follow for discharge planning. TANIYA Rhodes
[2022-09-02 17:44] LABS: Thyroid Stim Hormone (TSH) 0.93 uIU/mL (0.358-3.74)
[2022-09-02 18:35] LABS: Vitamin B12 1111 pg/mL (211-911)
[2022-09-02 19:40] VITALS: BP 155/57; PULSE 79; RESP 18; TEMP 36.8; O2SAT 100
[2022-09-02 19:45] VITALS: O2SAT 100
[2022-09-02] MEDS: Gabapentin 300 MG Capsule PO (20:51)
[2022-09-02] MEDS: traZODone 50 MG Tablet PO (20:54)
[2022-09-03] MEDS: oxyCODONE 5 MG Tablet PO ×6 (00:40→22:07)
[2022-09-03] MEDS: Gabapentin 100 MG Capsule 200 MG PO ×2 (05:36→13:01)
[2022-09-03] MEDS: Acetaminophen 500 MG Tablet 1000 MG PO ×3 (05:36→20:32)
[2022-09-03] MEDS: Enoxaparin 40 MG/0.4 ML Syringe SC (05:37)
[2022-09-03] MEDS: Arthritis Pain Compound 60 CLICK TUBE TOPICAL ×3 (05:37→20:32)
[2022-09-03 08:11] VITALS: BP 149/55; PULSE 73; RESP 16; TEMP 37.3; O2SAT 99
[2022-09-03] MEDS: Multivitamins,Therapeutic Tablet 1 TABLET PO (08:58)
[2022-09-03] MEDS: Potassium Chloride Oral Tablet 20 MEQ PO (08:58)
[2022-09-03] MEDS: Citalopram 20 MG Tablet PO (08:58)
[2022-09-03] MEDS: Vitamin E 400 UNITS Capsule PO (08:58)
[2022-09-03] MEDS: Hydroxychloroquine 200 MG Tablet PO ×2 (08:59→20:31)
[2022-09-03] MEDS: Losartan Potassium 25 MG Tablet 12.5 MG PO ×2 (08:59→12:52)
[2022-09-03] MEDS: Cholecalciferol (VIT D3) 25 MCG TABLET (1,000 UNITS) 50 MCG PO (08:59)
[2022-09-03] MEDS: Baclofen 10 MG Tablet PO ×2 (09:01→20:32)
[2022-09-03] MEDS: Latanoprost 0.005% 1 Bottle 1 DRP EACH EYE (09:10)
--- NOTE | 2022-09-03 09:12 | CASEMGMT ---
Social Work SW made referral to Ange at [facility] who states they are able to accept pt with start of care on 09/09/22. Pt will need to see Dr. Chang, PCP prior to home health starting. MEY met with pt and RN and updated. Pt agreeable to [facility] and Renita RN to make appt with Dr. Chang. Referral made to [facility] for FWW and half bedrail. Plan: Discharge home 09/07/22 with [facility] PT/OT/SN. Dgt to be with pt and assist for the rest of the week. Stephenie MONAHAN
--- NOTE | 2022-09-03 10:55 | PCM.PN.BLA ---
Progress Note Afebrile VSS-systolic blood pressures nearly always high. Heart rate is within normal limits. Maintaining appropriate oxygen saturation on RA Oral intake is good Discussed with nursing - no problems that need addressed. Sleeping well at night. Reviewed the PT/OT notes - Making good progress. Medication list reviewed. TSH, B12 and folate are all within normal limits Zaria tells me that the arthritis cream has helped with the knee pain but, she is telling me that the radicular pain during the day is bad. she does not have radicular pain at night and is sleeping well. She requests I increase the Gabapentin to 300 mg TID. It does not make her drowsy and she is doing well in therapy. She is still taking Oxy IR 5mg 5 X's a day. She does not seem to be able to tolerate much pain. Anxiety is much better since the pain is better controlled. Impressions 1. Severe lumbar canal stenosis with radiculopathy. Status post lumbar laminectomy and fusion. Continue therapy. 2. Radicular pain in the right leg-increase gabapentin to 300 mg 3 times daily. I am hopeful that increasing the gabapentin to control the radicular pain will decrease her need for Oxy IR. On Tuesday will decrease the Oxy IR to every 6 hours. 3. Anemia secondary to acute blood loss. Hemoglobin is not increasing and the TSH, B12 and folate are within normal limits. We will check a Hemoccult stool and recheck an H&H and a BMP on Tuesday. 4. Hypertension-not adequately controlled. We will increase Cozaar to 25 mg daily and give an extra 12.5 mg today since she already had 12.5 mg this morning. Impressions 1. Lumbar canal stenosis-status post laminectomy and fusion. Continue therapy. Projected discharge date is 09/07/2022 so that she may attend an appointment with the orthopedic surgeon. 2. Acute blood loss anemia-stable. Will recheck an H&H on Tuesday. 3. History of inflammatory polyarthritis with increased pain in her right knee more likely than not secondary to increased activity with physical therapy. Continue the compounded arthritis cream. Visit Charges Inpatient E&M: 29540 Subs Hosp L2
[2022-09-03 12:45] VITALS: BP 126/75; PULSE 69
--- NOTE | 2022-09-03 13:36 | NURSING ---
Message left with Dr Chang's appointment staff on a machine message that patient needs an appointment with her PCP Dr. Chang the day she leaves. Will await call back. The office is closed at this time per message.
--- NOTE | 2022-09-03 20:30 | NURSING ---
HS meds given at this time per patient request. Patient screaming and yelling with what she describes as nerve pain to BLE's and this is not a new finding. Repositioning, ice, and ambulation did not help. Patient rated pain an 8 on 1-10 scale.
[2022-09-03] MEDS: traZODone 50 MG Tablet PO (20:31)
[2022-09-03] MEDS: Gabapentin 300 MG Capsule PO (20:32)
[2022-09-03 21:00] VITALS: BP 146/54; PULSE 80; RESP 18; TEMP 36.9; O2SAT 97
[2022-09-04] MEDS: oxyCODONE 5 MG Tablet PO ×5 (02:29→19:33)
[2022-09-04] MEDS: Arthritis Pain Compound 60 CLICK TUBE TOPICAL ×3 (05:45→21:01)
[2022-09-04] MEDS: Acetaminophen 500 MG Tablet 1000 MG PO ×3 (05:46→20:55)
[2022-09-04] MEDS: Enoxaparin 40 MG/0.4 ML Syringe SC (05:47)
[2022-09-04] MEDS: Gabapentin 300 MG Capsule PO ×3 (05:57→20:54)
[2022-09-04 08:09] VITALS: BP 142/55; PULSE 75; RESP 16; TEMP 36.6; O2SAT 98
[2022-09-04] MEDS: Potassium Chloride Oral Tablet 20 MEQ PO (08:19)
[2022-09-04] MEDS: Multivitamins,Therapeutic Tablet 1 TABLET PO (08:19)
[2022-09-04] MEDS: Citalopram 20 MG Tablet PO (08:19)
[2022-09-04] MEDS: Baclofen 10 MG Tablet PO ×2 (08:21→20:55)
[2022-09-04] MEDS: Hydroxychloroquine 200 MG Tablet PO ×2 (08:21→20:55)
[2022-09-04] MEDS: Cholecalciferol (VIT D3) 25 MCG TABLET (1,000 UNITS) 50 MCG PO (08:21)
[2022-09-04] MEDS: Losartan Potassium 25 MG Tablet PO (08:21)
[2022-09-04] MEDS: Vitamin E 400 UNITS Capsule PO (08:22)
[2022-09-04] MEDS: Latanoprost 0.005% 1 Bottle 1 DRP EACH EYE (08:22)
[2022-09-04 11:33] VITALS: BP 129/63; PULSE 81; RESP 20; TEMP 36.6; O2SAT 99
--- NOTE | 2022-09-04 11:36 | NURSING ---
1135; Pt called nurse into room. States she is dizzy. VSS. Skin warm and dry. Pt denies any other symptoms other than dizziness. Encouraged pt to take deep cleansing breaths in through nose and out through mouth. Pt did have oxycodone approx 30 min. ago. States it never affected me like this. Pt states she is cold. Covered with blankets. Pt calming. Resting with eyes closed. Will continue to monitor.
[2022-09-04 14:11] VITALS: BP 146/46; PULSE 82; RESP 18; TEMP 36.3; O2SAT 98
--- NOTE | 2022-09-04 14:12 | NURSING ---
pt took a nap and had a visitor and feels much better this afternoon. vss. no further complaints of dizziness.
[2022-09-04 19:46] VITALS: BP 156/66; PULSE 73; RESP 18; TEMP 36.8; O2SAT 97
[2022-09-04] MEDS: traZODone 50 MG Tablet PO (20:55)
[2022-09-04 21:00] VITALS: O2SAT 97
[2022-09-05] MEDS: oxyCODONE 5 MG Tablet PO ×5 (01:34→19:14)
[2022-09-05] MEDS: Acetaminophen 500 MG Tablet 1000 MG PO ×3 (05:33→21:35)
[2022-09-05] MEDS: Gabapentin 300 MG Capsule PO ×3 (05:33→21:34)
[2022-09-05] MEDS: Enoxaparin 40 MG/0.4 ML Syringe SC (05:33)
[2022-09-05] MEDS: Arthritis Pain Compound 60 CLICK TUBE TOPICAL ×3 (05:33→21:36)
[2022-09-05 08:08] VITALS: BP 143/73; PULSE 78; RESP 18; TEMP 36.5; O2SAT 99
[2022-09-05] MEDS: Vitamin E 400 UNITS Capsule PO (08:28)
[2022-09-05] MEDS: Baclofen 10 MG Tablet PO ×2 (08:28→21:35)
[2022-09-05] MEDS: Multivitamins,Therapeutic Tablet 1 TABLET PO (08:28)
[2022-09-05] MEDS: Losartan Potassium 25 MG Tablet PO (08:28)
[2022-09-05] MEDS: Hydroxychloroquine 200 MG Tablet PO ×2 (08:29→21:36)
[2022-09-05] MEDS: Potassium Chloride Oral Tablet 20 MEQ PO (08:29)
[2022-09-05] MEDS: Citalopram 20 MG Tablet PO (08:30)
[2022-09-05] MEDS: Cholecalciferol (VIT D3) 25 MCG TABLET (1,000 UNITS) 50 MCG PO (08:31)
[2022-09-05] MEDS: Latanoprost 0.005% 1 Bottle 1 DRP EACH EYE (08:33)
[2022-09-05 20:20] VITALS: BP 137/59; PULSE 74; RESP 19; TEMP 36.8; O2SAT 99
[2022-09-05] MEDS: traZODone 50 MG Tablet PO (21:36)
[2022-09-06] MEDS: oxyCODONE 5 MG Tablet PO ×5 (00:15→20:42)
[2022-09-06] MEDS: Enoxaparin 40 MG/0.4 ML Syringe SC (05:48)
[2022-09-06] MEDS: Gabapentin 300 MG Capsule PO ×3 (05:48→20:48)
[2022-09-06] MEDS: Acetaminophen 500 MG Tablet 1000 MG PO ×3 (05:49→21:02)
[2022-09-06] MEDS: Arthritis Pain Compound 60 CLICK TUBE TOPICAL ×3 (05:49→20:46)
[2022-09-06 05:56] LABS: Hematocrit 33.1 % (37-47); Hemoglobin 10.6 g/dL (12.0-15.0)
[2022-09-06 06:58] LABS: Anion Gap 8 (5-15); BUN 20 mg/dL (7-18); Calcium,Total 10.3 mg/dL (8.5-10.1); Chloride 107 mmol/L (98-107); Creatinine, Serum 0.91 mg/dL (0.55-1.02); EST Glomerular Filtration Rate 64 mL/min (>60); Est Glom Filt Rate - Afr Amer 77 mL/min (>60); Estimated Creatinine Clearance 42.83 ml/min; Glucose 96 mg/dL (74-106); Sodium Level 141 mmol/L (136-145)
[2022-09-06 07:39] VITALS: BP 153/69; PULSE 77; RESP 20; TEMP 36.2; O2SAT 96
[2022-09-06] MEDS: Cholecalciferol (VIT D3) 25 MCG TABLET (1,000 UNITS) 50 MCG PO (08:26)
[2022-09-06] MEDS: Senna/Docusate Sodium 1 Tablet 2 TABLET PO (08:26)
[2022-09-06] MEDS: Vitamin E 400 UNITS Capsule PO (08:26)
[2022-09-06] MEDS: Potassium Chloride Oral Tablet 20 MEQ PO (08:26)
[2022-09-06] MEDS: Latanoprost 0.005% 1 Bottle 1 DRP EACH EYE (08:27)
[2022-09-06] MEDS: Baclofen 10 MG Tablet PO ×2 (08:27→20:48)
[2022-09-06] MEDS: Multivitamins,Therapeutic Tablet 1 TABLET PO (08:27)
[2022-09-06] MEDS: Hydroxychloroquine 200 MG Tablet PO ×2 (08:27→20:49)
[2022-09-06] MEDS: Losartan Potassium 25 MG Tablet PO (08:27)
[2022-09-06] MEDS: Citalopram 20 MG Tablet PO (08:27)
[2022-09-06 10:56] LABS: Albumin, Serum 3.7 g/dL (3.2-5.0)
--- NOTE | 2022-09-06 14:18 | CASEMGMT ---
Social Work Team meeting held today with pt present and son on conference call. Discussed PT/OT/SN and pt progress with all disciplines. Discharge home is planned for tomorrow 09/07. Pt family to transport. Pt to leave [facility], get xrays and then go to appointment with PCP Dr. Ervin. Pt will then return home. Pt family will be staying with her for a short time. Services have been arranged for [facility] PT/OT/SN with start date on 09/09. FWW and hospital bed ordered from [facility]. FWW to be delivered to room and [facility] to call pt to set up time to deliver bed. No further needs. Dischage Date: 09/07/22 Discharge Disposition: Home with [facility] PT/OT/SN, FWW and hospital bed TANIYA Rhodes
--- NOTE | 2022-09-06 16:07 | PN_ITS ---
Subjective Subjective Zaria was seen on team rounds today. Her son Sheldon participated by phone. Afebrile VSS Maintaining appropriate oxygen saturation on RA Oral intake is good Discussed with nursing - no problems that need addressed. She is up and down at night. She watches the clock and calls for her OXY just prior to it being 4 ho urs. She was converted to Q6H PRN Oxycodone today and she asked for the OXY several times prior to the 6 hours being up. She gets very anxious about when she can have the Oxycodone. She has in the past been dependent on Lorazepam for 10-15 years and has been weaned off Ativan by Dr. 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 She has seen Dr. Adamson in the past for pain management. Reviewed the PT/OT - doing very well in therapy. Pt listed her pain as a 7 when she was doing PT however, I saw her when she was with PT and she was pleasant, ambulating in the reyes with no grimacing and no limping, talking with staff and smiling at the time she said she was having 7/10 pain. Medication list reviewed. She took Oxycodone 5 times yesterday and has been taking it 5 times a day since admission...sometimes 6 times a day. Since admission Gabapentin has been added for radicular pain and it has helped but, she is asking for higher doses.....currently she is taking 300 mg TID and at the age of 77 she is at increased risk for falls so I do not want to increase the Gabapentin kelly when she appears comfortable with no grimacing, restlessness or limping when she says she is in severe pain. She is walking at a good pace with the FWW. She ambulated 430 feet with a front wheeled walker today and also walked 20 feet x 3 and 45 feet x 2. She had no loss of balance. She has completed the tug test 1019.11 seconds with a front wheeled walker today. She was able to ascend/descend 8 standard steps with 2 handrails in the stairwell today at light contact-guard assist. She is MOD I since yesterday. Zaria is c/o not sleeping well and pain in both legs. She is currently taking baclofen 10 mg twice daily, gabapentin 300 mg 3 times daily, acetaminophen 1 g p.o. every 8 hours and oxycodone 5 mg 5 X's a day for pain. Objective Data Objective Data Vital Signs: Vital Signs Temp Pulse Resp BP Pulse Ox O2 Del Method 97.2 F L 77 20 H 153/69 H 96 Room Air 09/06/22 07:39 09/06/22 07:39 09/06/22 07:39 09/06/22 07:39 09/06/22 07:39 09/06/22 07:39 Oxygen Delivery Method Room Air Weight: 174 lb 6.17 oz Body Mass Index (BMI) 30.9 Intake & Output: Intake and Output for Last 24 Hours 09/04/22 09/05/22 09/06/22 22:59 23:59 23:59 Intake Total Balance Lab / Micro Data Result Diagrams: 09/06/22 05:47 09/06/22 05:47 Labs: Laboratory Results - last 24 hr 09/06/22 05:47: Hgb 10.6 L, Hct 33.1 L 09/06/22 05:47: Sodium 141, Potassium 4.0, Chloride 107, Carbon Dioxide 26.0, Anion Gap 8, BUN 20 H, Creatinine 0.91, Estim Creat Clear Calc 42.83, Est GFR (MDRD) Af Amer 77, Est GFR (MDRD) Non-Af 64, BUN/Creatinine Ratio 22.0 H, Glucose 96, Calcium 10.3 H 09/06/22 05:47: Albumin 3.7 Micro: Microbiology 09/03/22 18:05 Stool Stool Occult Blood (GINA) - Final Physical Exam Const alert, oriented x3 and no apparent distress Constitutional Narrative: Smiling, slammed her walker down in therapy because I increased the dosing interval for the oxycodone to 6 hours rather than 4 hours. General Appearance: cooperative Resp clear to auscultation bilaterally Cardio regular rate, regular rhythm and no gallops GI normal to inspection, nondistended, normoactive bowel sounds, soft to palpation and non-tender Extremity Extremity Narrative: lateral calf tenderness on the R per pt. Venous US was negative. General Extremity: Negative for edema Skin General Skin Exam: no breakdown Rashes: no rashes Wound Narrative: The incision is clean, dry and intact with no feliz-incisional erythema, no purulent discharge no increased warmth to touch and no swelling. It is healing very nicely. Psych Psych Narrative: She is often anxious. She is not on a benzo any longer. She has trouble sleeping at night I think not because of pain but, due to anxiety. When we keep her busy in therapy she appears comfortable and is smiling and interacting with the therapists and nursing. Assessment & Plan Assessment/Plan (1) Physical debility: (2) Spinal stenosis of lumbar region with radiculopathy: (3) S/P lumbar laminectomy: (4) S/P lumbar fusion: (5) Radicular pain of both lower extremities: PLAN: Anterior thighs primarily. (6) Inflammatory polyarthritis: (7) Thrombocytopenia: PLAN: More likely than not related to Lovenox. would recheck a CBC 7-10 days following DC from rehab since Lovenox was discontinued at DC. (8) Acute blood loss anemia: PLAN: HGB is improving at the time of DC and was 10.6 on 09/06/22, up from 8.1 at admission to rehab. (9) Anxiety: PLAN: Continue Citalopram and I recommended she consider psychotherapy. (10) Chronic insomnia: PLAN: Slept well prior to DC with increase in the Trazodone to 100 mg. EKG on 100 mg shows a normal QT interval. PLAN: Plan 1. Plan discharge tomorrow to home 2. She has an appointment with Dr. Chang tomorrow afternoon. 3. Dr. Adamson has been consulted for chronic pain management. 4. I advised Zaria to consider psychotherapy to learn how to control her anxiety without addictive medications that increase her risk for loss of balance, falls and confusion. 5. Check an EKG in the morning because the trazodone has been increased to 100 mg at bedtime and she is also on Plaquenil and citalopram, both of which prolong QT interval. 6. Increase the dose of the Trazodone to 100 mg at HS. Charges/Coding Visit Charges Inpatient E&M: 26684 Subs Hosp L2
--- NOTE | 2022-09-06 16:42 | DCINST_ITS ---
Discharge Instructions Diet Discharge Diet: - (low salt and low fat. Drink at least 7029-9032 cc's of fluid daily (40-50 ounces)) Activity Discharge Activity: May Not Drive, May Shower and Use Walker Weight Bearing Status: Full weight bearing Keep extremity elevated above heart level: Legs Additional Activity Instructions:: Elevate legs when seated in a chair. Dressing / Incision Call your doctor if your incision/area has: Continuous Slow Oozing, Increased Pain/ Swelling, Increased Redness and Foul Smelling Discharge Call your doctor if you observe: Fever of 101 or Higher, Inability to urinate, Inability to have a bowel movement, Shortness of breath, Swelling in the ankles, Chest pain, Calf discomfort (Calf pain that is different than what you have been having. ) and Uncontrolled pain Change Dressing in: do not change dressing (OK to leave open to air but can cover with a dry dressing if you desire) Cleanse incision/area with: Soap & Water Follow Up Care Please Follow Up With: Alessio Chang Chi, MD When: 09/07/22. You will also need to follow up with Dr. Gonzalez and with Dr. Adamson for pain management. Test Results: Test results from this visit will be discussed in further detail at your follow- up appointment, if applicable. Pending Tests Upon Discharge: none Discharge Plan Admission Admit Date/Time: 08/26/22 17:13 Primary Reason for Your Visit: S/P laminectomy/fusion for lumbar stenosis Attending Provider: Mare Ashley Primary Care Provider: Alessio Chang Chi Consulting Providers: Kelly Adamson Instructions Patient Instructions: Anxiety Disorders Tx, Chronic Pain Therapies Mind Body, ED Anxiety Reaction, ED Back Care Tips, ED Chronic Pain Additional Instructions / Restrictions: 1. You are doing very well at discharge from rehab. You are ambulating at a good pace and you have done a flight of steps in the stairwell. You will do well at home. 2. It is clear to me that you are a very anxious person......the fact that you were taking Lorazepam for many years tells me that you have been anxious for many years. Anxiety affects pain perception. It causes problems with sleep and keeps you flustered a lot of the time. You have never had any psychotherapy. Citalopram treat both anxiety and depression. Using medication + psychotherapy works better than using either modality alone. Try it.....if you don't like it after a few visits you can stop going or find a different therapist.......you will have better quality of life if you can learn to control your anxiety. 3. The goal of pain management is to make the pain tolerable......not to co mpletely relieve it. You were dependent on Lorazepam for a long time and it has been hard for you to wean this medication down and then off. I do not want to see you become dependent on Oxycodone.........when you start watching the clock so you can get the Oxy right at 4 or 6 hours this can be a sign of dependence. You do not have to take the medication every 4 or 6 hours unless you are having pain. Tingling is uncomfortable but, is it really pain? You want to wean yourself off the OXY over the next 2-4 weeks. The further you get away from surgery the less pain you should have. Narcotics like Oxy do not help with nerve pain. I am continuing the Gabapentin and have increased your dose at DC to 400 mg 3 times a day. You should not operate a car when you are taking OXY or Gabapentin. Both of these drugs are known to increase falls in older adults so you do not want to be taking these medications unless you absolutely need them. 4. Exercise is very important in your recovery. Do the exercises given to you by the therapists daily. Do not sit for prolonged periods of time (> 1 hour) without getting up and taking a walk around the house. IF you don't move you will get stiff and the pain will be worse. Stay limber and move. 5. You have not been sleeping well since you have been in rehab and this is in part due to anxiety over missing a dose of pain medication and also to being generally an anxious person. I have increased the Dose of Trazodone at night to 100 mg at bedtime. The EKG we got on the day of discharge is normal. 6. It has been a pleasure meeting you Zaria. If you have any questions after leaving rehab please do not hesitate to call me at: OFFICE: [phone] CELL: [phone] Discharge Orders/Prescriptions Prescriptions: New acetaminophen 500 mg Tablet 1,000 mg PO Q8 Qty: 0 0RF trazodone 100 mg Tablet 100 mg PO QHS Qty: 30 0RF losartan 50 mg tablet 50 mg PO DAILY Qty: 30 0RF gabapentin 400 mg capsule 400 mg PO TID Qty: 90 0RF oxycodone-acetaminophen [Endocet] 5-325 mg tablet 1 tab PO Q6H PRN (Reason: pain) 7 Days Qty: 28 0RF Continued aspirin 325 mg tablet 325 mg PO DAILY hydroxychloroquine 200 mg tablet 200 mg PO BID Label Comments: TAKE 1 TABLET(S) ORAL TWO TIMES A DAY vitamin E 200 UNIT capsule 400 unit PO DAILY biotin 10,000 MCG capsule 5,000 mcg PO DAILY citalopram 20 mg tablet 20 mg PO DAILY fmavkqkyjydn-Ia-lfun-minerals 1 EACH tablet 1 ea PO DAILY cholecalciferol (vitamin D3) 2,000 UNIT capsule 2,000 unit PO DAILY latanoprost 0.005 % Drops 1 drp EACH EYE DAILY loperamide 2 mg Capsule 2 mg PO Q4H PRN (Reason: Diarrhea) Rx Instructions: administer after each loose stool until symptoms controlled; do not exceed 8 mg per 24 hrs potassium chloride 20 mEq tablet,ER particles/crystals 20 meq PO DAILY Qty: 30 0RF baclofen 10 mg tablet 10 mg PO BID Qty: 45 0RF Rx Instructions: Take BID x 2 week and then decrease to 10 mg at bedtime only Changed prednisone 10 mg tablet 10 mg PO DAILY PRN (Reason: Exacerbations of polyarthritis) Qty: 1 0RF Discontinued trazodone 100 mg tablet 50 mg PO QHS lorazepam 0.5 mg tablet 0.5 mg PO DAILY Label Comments: TAKE 1 TABLET BY MOUTH ONCE A DAY NEEDED losartan-hydrochlorothiazide 100-12.5 mg tablet 1 tablet PO DAILY tramadol 50 mg tablet 50 mg PO PRN (Reason: pain) losartan 25 mg Tablet 12.5 mg PO DAILY No Action multivitamin [Multi-Daily] Tablet 1 tab PO DAILY oxycodone 10 mg Tablet 5 - 10 mg PO Q6H PRN (Reason: Pain 4-10) Rx Instructions: 5mg for Pain 4-7 or 10mg for pain 8-10 (DME) Handicap Placard See Rx Instructions .Route .MEDSUPPLY Qty: 1 0RF Rx Instructions: Handicap Placard. May use as needed. Valid for 12 months. Referrals / Follow Up: dr Gonzalez [Other] - 09/08/22 11:45 am () Kelly Adamson MD [Med Staff - Active Staff] - 09/14/22 1:15 pm Alessio Chang Chi, MD [Primary Care Provider] - 09/07/22 2:20 pm Disposition Disposition (needs filled in before D/C Order can be placed): Home Health Service
[2022-09-06 18:59] VITALS: BP 138/61; PULSE 83; RESP 16; TEMP 36.9; O2SAT 98
[2022-09-06] MEDS: traZODone 100 MG Tablet PO (20:47)
[2022-09-06 22:00] VITALS: PULSE 83; RESP 16; O2SAT 98
[2022-09-07] MEDS: oxyCODONE 5 MG Tablet PO ×2 (03:31→10:15)
[2022-09-07] MEDS: Gabapentin 300 MG Capsule PO ×2 (05:18→13:01)
[2022-09-07] MEDS: Enoxaparin 40 MG/0.4 ML Syringe SC (05:18)
[2022-09-07] MEDS: Arthritis Pain Compound 60 CLICK TUBE TOPICAL (05:18)
[2022-09-07] MEDS: Acetaminophen 500 MG Tablet 1000 MG PO ×2 (05:18→13:01)
[2022-09-07 07:14] VITALS: BP 164/81; PULSE 79; RESP 18; TEMP 36.5; O2SAT 97
[2022-09-07] MEDS: Losartan Potassium 25 MG Tablet PO (08:03)
[2022-09-07] MEDS: Vitamin E 400 UNITS Capsule PO (08:03)
[2022-09-07] MEDS: Cholecalciferol (VIT D3) 25 MCG TABLET (1,000 UNITS) 50 MCG PO (08:03)
[2022-09-07] MEDS: Hydroxychloroquine 200 MG Tablet PO (08:03)
[2022-09-07] MEDS: Latanoprost 0.005% 1 Bottle 1 DRP EACH EYE (08:03)
[2022-09-07] MEDS: Potassium Chloride Oral Tablet 20 MEQ PO (08:04)
[2022-09-07] MEDS: Baclofen 10 MG Tablet PO (08:04)
[2022-09-07] MEDS: Citalopram 20 MG Tablet PO (08:04)
[2022-09-07] MEDS: Multivitamins,Therapeutic Tablet 1 TABLET PO (08:04)
--- NOTE | 2022-09-07 09:52 | EKG12_ITS ---
Test Reason : CHECK Blood Pressure : / mmHG Vent. Rate : 081 BPM Atrial Rate : 081 BPM P-R Int : 154 ms QRS Dur : 080 ms QT Int : 384 ms P-R-T Axes : 090 -13 026 degrees QTc Int : 446 ms Normal sinus rhythm Poor R wave progression Nonspecific T wave abnormality Confirmed by JOAQUIN ROBERSON, MELANI ([id number]), editorial assistant LALO SCHAFER ([id number]) on 09/08/2022 9:56:12 AM Referred By: CHEYANNE Confirmed By:MELANI NUÑEZ MD
--- NOTE | 2022-09-07 10:38 | DS.PCM_ITS ---
Providers Date of Admission: 08/26/22 Date of Discharge: 09/07/22 Primary Care Physician: Dr. Alessio Chang MD Consultations 09/06/22 11:33 Consult: Pain Management Routine Consulting Provider: Kelly Adamson Reason for Consult: acute on chronic pain due to lumbar laminectomy and fusion. EMERGENT Consult: No MD Notified: Yes Date Notified: 09/06/22 Time Notified: 11:34 Method of Notification: Answering Service Reason For Visit: LAMINECTOMY Diagnosis Discharge Diagnosis (1) Physical debility: Status: Acute Code(s): R53.81 - Other malaise (2) Spinal stenosis of lumbar region with radiculopathy: Status: Acute Code(s): M48.061 - Spinal stenosis, lumbar region without neurogenic claudication; M54.16 - Radiculopathy, lumbar region (3) S/P lumbar laminectomy: Status: Acute Code(s): Z98.890 - Other specified postprocedural states (4) S/P lumbar fusion: Status: Acute Code(s): Z98.1 - Arthrodesis status (5) Radicular pain of both lower extremities: Status: Acute Code(s): M54.10 - Radiculopathy, site unspecified Plan: Anterior thighs primarily. (6) Pain of right calf: Status: Acute Code(s): M79.661 - Pain in right lower leg Plan: Venous US was ngative for DVT. This pain is radicular and she had it prior to the surgery. (7) Inflammatory polyarthritis: Status: Chronic Code(s): M06.4 - Inflammatory polyarthropathy (8) Thrombocytopenia: Status: Acute Code(s): D69.6 - Thrombocytopenia, unspecified Plan: More likely than not related to Lovenox. would recheck a CBC 7-10 days following DC from rehab since Lovenox was discontinued at DC. (9) Acute blood loss anemia: Status: Acute Code(s): D62 - Acute posthemorrhagic anemia Plan: HGB is improving at the time of DC and was 10.6 on 09/06/22, up from 8.1 at admission to rehab. (10) Anxiety: Status: Acute Code(s): F41.9 - Anxiety disorder, unspecified Plan: Continue Citalopram and I recommended she consider psychotherapy. (11) Benzodiazepine dependence: Status: Acute Code(s): F13.20 - Sedative, hypnotic or anxiolytic dependence, uncomplicated Plan: She is now off Lorazepam. (12) Chronic insomnia: Status: Chronic Code(s): F51.04 - Psychophysiologic insomnia Plan: Slept well prior to DC with increase in the Trazodone to 100 mg. EKG on 100 mg shows a normal QT interval. Plan 1. DC home with [facility]. 2. Has follow up with Dr. Chang in the office today. 3. Was not seen by Dr. Adamson prior to DC so she will need to follow up with him in the office post DC for chronic pain management. 4. Has follow up scheduled with Dr. Gonzalez on 09/08/22. 5. Check a CBC in 1 week off Lovenox to see if the the mild thrombocytopenia has resolved. Medications at Discharge Home Medications biotin 10,000 mcg capsule 5,000 mcg PO DAILY 02/08/16 vitamin E 200 unit capsule 400 unit PO DAILY Supplement 02/08/16 cholecalciferol (vitamin D3) 50 mcg (2,000 unit) capsule 2,000 unit PO DAILY Supplement 02/06/18 hqfbqhvsydlu-Uw-zqyj-minerals 1 ea PO DAILY 02/06/18 aspirin 325 mg tablet 325 mg PO DAILY 09/17/20 citalopram 20 mg tablet 20 mg PO DAILY Mood 09/17/20 hydroxychloroquine 200 mg tablet 200 mg PO BID Gout 09/17/20 Handicap Placard #1 ea 07/14/21 latanoprost 0.005 % eye drops 1 drp EACH EYE DAILY Eye drops 08/26/22 loperamide 2 mg capsule 2 mg PO Q4H PRN Diarrhea 08/26/22 multivitamin 1 tab PO DAILY supplement 08/26/22 oxycodone 10 mg tablet 5 - 10 mg PO Q6H PRN Pain 4-10 08/26/22 acetaminophen 500 mg tablet 1,000 mg PO Q8 #0 tabs 09/06/22 baclofen 10 mg tablet 10 mg PO BID Muscle spasms #45 tabs 09/06/22 losartan 50 mg tablet 50 mg PO DAILY #30 tabs 09/06/22 potassium chloride 20 mEq tablet,extended release(part/cryst) 20 meq PO DAILY Supplement #30 tabs 09/06/22 prednisone 10 mg tablet 10 mg PO DAILY PRN Exacerbations of polyarthritis #1 TAB 09/06/22 trazodone 100 mg tablet 100 mg PO QHS #30 tabs 09/06/22 gabapentin 400 mg capsule 400 mg PO TID #90 caps 09/07/22 oxycodone-acetaminophen 5 mg-325 mg tablet (Endocet) 1 tab PO Q6H PRN pain 7 days #28 tabs 09/07/22 Hospital Course Operations None Procedures None Summary of Care Provided Minutes Spent on Discharge: 45 Hospital Course: ZARIA OZUNA, is a 77 YO F with a PMH of chronic pain S. due to back pain (follows with Dr. Adamson), obesity, Anxiety/depression, Chronic benzodiazepine use ( weaned off by her PCP), inflammatory arthropathy (follows with Dr. Clark), hyperlipidemia, irritable bowel syndrome, glaucoma, cirrhosis (REID?), GERD, diverticulosis, lumbar canal stenosis with neurogenic claudication and opioid dependence who underwent L2, L3 and L4 laminectomies, medial facetectomies and BL foraminotomies with L2-L4 pedicle screw fixation and posterior lateral fusion on 08/23/[address] Gonzalez for lumbar canal stenosis with radiculopathy.? Post operatively she was seen by PT/OT and a recommendation for acute inpt rehab was made.? Zaria was transferred to [facility] acute inpt rehab on 08/26/2022 for 3 hours of therapy daily to restore function/independence at or near her prior level.? Zaria lives alone in a two-story house and her bedroom is on the second floor.? She was independent prior to surgery but ambulation was limited due to lumbar canal stenosis.? Zaria had a few minor complications while in rehab. She c/o R lateral calf pain and a Venous sound was obtained and was negative for DVT. The pain existed prior to the surgery and I suspect it is radicular. She also complained of pain in both anterior thighs. She was started on gabapentin which was gradually increased to 400 mg 3 times daily at discharge. She is tolerating this medication without drowsiness, confusion or disequilibrium. Platelets were mildly decreased at 137,000 after starting on Lovenox and I suspect it is due to the Lovenox. Would recheck a CBC in 1 week to 10 days postdischarge to see if thrombocytopenia has resolved with discontinuation of Lovenox. Zaria is chronically dehydrated with an increased BUN/creatinine ratio due to poor oral i ntake. At admission she was taking losartan/hydrochlorothiazide and the hydrochlorothiazide was discontinued. The dose of losartan was increased to 50 mg to better control her hypertension. Zaria suffers from chronic anxiety and in fact was taking lorazepam for many years in the past. She has been weaned off over the past year by her primary care physician, Dr. Chang. Hemoglobin was low at 8.1 when she presented to the rehab unit but at discharge it is up to 10.6. I suspect that Zaria has the potential of becoming dependent on Oxycodone. She agonizes over when the next dose is due and is calling for her medication right when it can next be given. She is more than 2 weeks post op now and the pain should be decreasing. I think her uncontrolled anxiety is affecting her perception of pain. We discussed getting some psychotherapy with Zaria so the she can learn how to control her anxiety without addictive medications. Zaria actually did quite well in therapy. Prior to discharge she was independent with eating and grooming. She is modified independent with upper body dressing, lower body dressing, bathing, toileting and toilet transfer. She is supervision/set up for tub/shower transfer. She has ambulated 430 feet with a front wheel walker at mod I on various surfaces. She is able to ascend/descend 8 standard steps with 2 handrails at light contact-guard assist. Zaria was discharged home on 09/07/22 and will have [facility] for PT/OT/SN. Pt was sent to [facility] to obtain films requested by Dr. Gonzalez and then she will go to Dr. Chang's office for a follow up appt. She will also follow up with Dr. Adamson on 09/14/22 for chronic pain management. Physical Exam Const alert, oriented x3, no apparent distress and well nourished General Appearance: cooperative and anxious HEENT normocephalic HEENT Narrative: chronically mildly dehydrated with an increased BUN/CREAT ration even after the HCTZ was discontinued. Mouth: dry mucous membranes Eyes PERRL, EOMs intact bilaterally, conjunctivae normal, no scleral icterus and normal visual jimenez by confrontation Neck supple Chest Chest: symmetrical chest wall rise Resp normal respiratory effort, normal air movement, no use of accessory muscles and clear to auscultation bilaterally Resp Narrative: some what diminished....may be due to body habitus Effort and Inspection: able to speak in complete sentences Cardio regular rate, regular rhythm, no murmurs, no rub and no gallops Cardio Narrative: No ectopy GI normal to inspection, nondistended, normoactive bowel sounds, soft to palpation, non-tender and no masses GI Narrative: No guarding with palpation Narrative: Denies any problem urinating and the PVR's were normal durin her admission to rehab. Extremity no calf tenderness and no pedal edema Skin General Skin Exam: no breakdown Rashes: no rashes Wound Narrative: The incision is clean, dry and intact with no feliz-incisional erythema, no purulent discharge no increased warmth to touch and no swelling. It is healing very nicely. Neuro oriented x3, CN's II-XII intact bilaterally and moves all extremities Speech: speech normal Psych cooperative, speech normal, denies hallucinations, denies homicidal ideation and denies suicidal ideation Psych Narrative: She is often anxious. She is not on a benzo any longer. She has trouble sleeping at night I think not because of pain but, due to anxiety. When we keep her busy in therapy she appears comfortable and is smiling and interacting with the therapists and nursing. Appearance: grossly normal, appropriate and well kempt Attitude: other extremely anxious Activity / Motor Behavior: appropriate eye contact; Negative for psychomotor agitation, psychomotor slowing or disorganized Speech: normal speech Mood & Affect: anxious Attention / Concentration: attention grossly intact Weight / BMI Weight Weight: 174 lb 6.17 oz Body Mass Index (BMI) 30.9 ABG / Lab / Microbiology Data Result Diagrams: 09/06/22 05:47 09/06/22 05:47 Laboratory: Laboratory Results - last 24 hr 09/06/22 05:47: Albumin 3.7 Microbiology: Microbiology 09/03/22 18:05 Stool Stool Occult Blood (GINA) - Final D/C Instructions Discharge Diet: - (low salt and low fat. Drink at least 3110-7417 cc's of fluid daily (40-50 ounces)) Weight Bearing Status: Full weight bearing Keep extremity elevated above heart level: Legs Additional Activity Instructions: Elevate legs when seated in a chair. Call your doctor if your incision/area has: Continuous Slow Oozing, Increased Pain/ Swelling, Increased Redness and Foul Smelling Discharge Call your doctor if you observe: Fever of 101 or Higher, Inability to urinate, Inability to have a bowel movement, Shortness of breath, Swelling in the ankles, Chest pain, Calf discomfort (Calf pain that is different than what you have been having. ) and Uncontrolled pain Cleanse incision/area with: Soap & Water Pending Tests Upon Discharge: none Please Follow Up With: Alessio Chang Chi, MD When: 09/07/22. You will also need to follow up with Dr. Gonzalez and with Dr. Adamson for pain management. Meaningful Use Info Meaningful Use Diagnoses (Choose all that apply): None applicable Discharge Plan Admission Admit Date/Time: 08/26/22 17:13 Primary Reason for Your Visit: S/P laminectomy/fusion for lumbar stenosis Attending Provider: Mare Ashley Primary Care Provider: Alessio Chang Chi Consulting Providers: Kelly Adamson Instructions Patient Instructions: Anxiety Disorders Tx, Chronic Pain Therapies Mind Body, ED Anxiety Reaction, ED Back Care Tips, ED Chronic Pain Additional Instructions / Restrictions: 1. You are doing very well at discharge from rehab. You are ambulating at a good pace and you have done a flight of steps in the stairwell. You will do well at home. 2. It is clear to me that you are a very anxious person......the fact that you were taking Lorazepam for many years tells me that you have been anxious for many years. Anxiety affects pain perception. It causes problems with sleep and keeps you flustered a lot of the time. You have never had any psychotherapy. Citalopram treat both anxiety and depression. Using medication + psychotherapy works better than using either modality alone. Try it.....if you don't like it after a few visits you can stop going or find a different therapist.......you will have better quality of life if you can learn to control your anxiety. 3. The goal of pain management is to make the pain tolerable......not to completely relieve it. You were dependent on Lorazepam for a long time and it has been hard for you to wean this medication down and then off. I do not want to see you become dependent on Oxycodone.........when you start watching the clock so you can get the Oxy right at 4 or 6 hours this can be a sign of dependence. You do not have to take the medication every 4 or 6 hours unless you are having pain. Tingling is uncomfortable but, is it really pain? You want to wean yourself off the OXY over the next 2-4 weeks. The further you get away from surgery the less pain you should have. Narcotics like Oxy do not help with nerve pain. I am continuing the Gabapentin and have increased your dose at DC to 400 mg 3 times a day. You should not operate a car when you are taking OXY or Gabapentin. Both of these drugs are known to increase falls in older adults so you do not want to be taking these medications unless you absolutely need them. 4. Exercise is very important in your recovery. Do the exercises given to you by the therapists daily. Do not sit for prolonged periods of time (> 1 hour) without getting up and taking a walk around the house. IF you don't move you will get stiff and the pain will be worse. Stay limber and move. 5. You have not been sleeping well since you have been in rehab and this is in part due to anxiety over missing a dose of pain medication and also to being generally an anxious person. I have increased the Dose of Trazodone at night to 100 mg at bedtime. The EKG we got on the day of discharge is normal. 6. It has been a pleasure meeting you Zaria. If you have any questions after leaving rehab please do not hesitate to call me at: OFFICE: [phone] CELL: [phone] Discharge Orders/Prescriptions Prescriptions: New acetaminophen 500 mg Tablet 1,000 mg PO Q8 Qty: 0 0RF trazodone 100 mg Tablet 100 mg PO QHS Qty: 30 0RF losartan 50 mg tablet 50 mg PO DAILY Qty: 30 0RF gabapentin 400 mg capsule 400 mg PO TID Qty: 90 0RF oxycodone-acetaminophen [Endocet] 5-325 mg tablet 1 tab PO Q6H PRN (Reason: pain) 7 Days Qty: 28 0RF Continued aspirin 325 mg tablet 325 mg PO DAILY hydroxychloroquine 200 mg tablet 200 mg PO BID Label Comments: TAKE 1 TABLET(S) ORAL TWO TIMES A DAY vitamin E 200 UNIT capsule 400 unit PO DAILY biotin 10,000 MCG capsule 5,000 mcg PO DAILY citalopram 20 mg tablet 20 mg PO DAILY afqnjehvjwmk-Qd-akle-minerals 1 EACH tablet 1 ea PO DAILY cholecalciferol (vitamin D3) 2,000 UNIT capsule 2,000 unit PO DAILY latanoprost 0.005 % Drops 1 drp EACH EYE DAILY loperamide 2 mg Capsule 2 mg PO Q4H PRN (Reason: Diarrhea) Rx Instructions: administer after each loose stool until symptoms controlled; do not exceed 8 mg per 24 hrs potassium chloride 20 mEq tablet,ER particles/crystals 20 meq PO DAILY Qty: 30 0RF baclofen 10 mg tablet 10 mg PO BID Qty: 45 0RF Rx Instructions: Take BID x 2 week and then decrease to 10 mg at bedtime only Changed prednisone 10 mg tablet 10 mg PO DAILY PRN (Reason: Exacerbations of polyarthritis) Qty: 1 0RF Discontinued trazodone 100 mg tablet 50 mg PO QHS lorazepam 0.5 mg tablet 0.5 mg PO DAILY Label Comments: TAKE 1 TABLET BY MOUTH ONCE A DAY NEEDED losartan-hydrochlorothiazide 100-12.5 mg tablet 1 tablet PO DAILY tramadol 50 mg tablet 50 mg PO PRN (Reason: pain) losartan 25 mg Tablet 12.5 mg PO DAILY No Action multivitamin [Multi-Daily] Tablet 1 tab PO DAILY oxycodone 10 mg Tablet 5 - 10 mg PO Q6H PRN (Reason: Pain 4-10) Rx Instructions: 5mg for Pain 4-7 or 10mg for pain 8-10 (DME) Handicap Placard See Rx Instructions .Route .MEDSUPPLY Qty: 1 0RF Rx Instructions: Handicap Placard. May use as needed. Valid for 12 months. Referrals / Follow Up: dr Gonzalez [Other] - 09/08/22 11:45 am () Kelly Adamson MD [Med Staff - Active Staff] - 09/14/22 1:15 pm Alessio Chang Chi, MD [Primary Care Provider] - 09/07/22 2:20 pm Disposition Disposition (needs filled in before D/C Order can be placed): Home Health Service Charges/Coding Visit Charges Inpatient E&M: 51386 Disch Hosp >30min
[2022-09-07 13:58] VITALS: BP 148/76; PULSE 79; RESP 18; TEMP 36.5; O2SAT 97
--- NOTE | 2022-09-07 14:00 | NURSING ---
discharged home with daughter. discharged instructions, medications and appointments reviewed with pt. denies questions or concerns
== END 2022-09-07 14:02 | disposition home health service (06) | DRG 560 ==
PROVIDERS: Admitting Provider Internal Medicine; PCP Family Medicine Geriatric Medicine; Visit Provider Internal Medicine
DX: Z47.89 Encounter for other orthopedic aftercare (principal); D62 Acute posthemorrhagic anemia; F11.20 Opioid dependence, uncomplicated; K74.60 Unspecified cirrhosis of liver; D69.6 Thrombocytopenia, unspecified; M06.4 Inflammatory polyarthropathy; M48.061 Spinal stenosis, lumbar region without neurogenic claudication; K21.9 Gastro-esophageal reflux disease without esophagitis; M54.16 Radiculopathy, lumbar region; I10 Essential (primary) hypertension; E87.6 Hypokalemia; K58.9 Irritable bowel syndrome, unspecified; E78.5 Hyperlipidemia, unspecified; F41.9 Anxiety disorder, unspecified; K75.81 Nonalcoholic steatohepatitis (NASH); F32.A Depression, unspecified; Z98.1 Arthrodesis status; Z79.891 Long term (current) use of opiate analgesic; Z79.899 Other long term (current) drug therapy; Z79.52 Long term (current) use of systemic steroids; M99.03 Segmental and somatic dysfunction of lumbar region; M99.01 Segmental and somatic dysfunction of cervical region; M99.05 Segmental and somatic dysfunction of pelvic region; Z79.82 Long term (current) use of aspirin; G47.00 Insomnia, unspecified
CPT/HCPCS: 36415; 80048; 80053; 82040; 82274; 82607; 82746; 83735; 84100; 84443; 85014; 85018; 85025; 93005; 93971; 97110; 97116; 97162; 97166; 97530; 97535; 97802

== ENCOUNTER → 2022-09-07 | Outpatient (CLI) | payer MEDICARE, SELFPAY ==
--- NOTE | 2022-09-07 13:30 | RAD_ITS ---
STUDY: X-RAY - LUMBAR SPINE REASON FOR EXAM: Female, 77 years old. LUMBAR FUSION TECHNIQUE: XR Spine Lumbar 2 or 3 Views COMPARISON: 07.10.21 FINDINGS: Normal lumbar lordosis. There is a levoscoliosis of the lumbar spine. Spinal fixation hardware noted. There is multilevel endplate spondylosis of the lumbar vertebrae. There is multi-level degenerative disc disease with multi-level disc space narrowing. There are atherosclerotic vascular calcifications. The soft tissue structures are unremarkable. RAD/Lumbar Spine 2 or 3 Views IMPRESSION: Degenerative changes of the spine, as detailed above. Electronically Signed: Percy Troy MD at 14:43 EDT ,
== END | disposition home or self-care (01) ==
LOC: RAD.FUTURE 13:24
PROVIDERS: PCP Family Medicine Geriatric Medicine
DX: M48.062 Spinal stenosis, lumbar region with neurogenic claudication (principal)
CPT/HCPCS: 72100

== ENCOUNTER → 2022-11-10 | Outpatient (CLI) | payer MEDICARE, SELFPAY ==
[2022-11-10 10:32] LABS: Absolute Lymphocyte Count 1.58 X10^3/uL (0.83-4.51); Absolute Neutrophil Count 1.9 X10^3/uL (2.0-7.7); Basophil# 0.02 X10^3/uL; Basophil% 0.5 % (0-1); Eosinophil# 0.13 X10^3/uL; Eosinophils% 3.3 % (0-5); Hematocrit 37.5 % (37-47); Lymphocyte # 1.58 X10^3/ul (0.83-4.51); Lymphocyte % 40.2 % (19-41); Mean Corpuscular Hgb 31.4 pg (27.0-32.0); Mean Corpuscular Volume 98.2 fL (81-99); Mean Platelet Vol. 10.2 fl (6.2-12.0); Monocyte% 7.6 % (0-10); NRBC Flagged by Analyzer 0 % (0-5); Neutrophil % 48.4 % (47-70); Platelet Count 175 K/mm3 (150-450); RBC Distribution Width CV 11.9 % (11.6-14.6); RBC Distribution Width SD 42.8 fl (35.1-43.9); Red Blood Count 3.82 M/mm3 (4.2-5.4); White Blood Count 3.9 K/mm3 (4.4-11.0)
[2022-11-10 11:24] LABS: BUN 15 mg/dL (7-18); Creatinine, Serum 0.95 mg/dL (0.55-1.02); Glucose 126 mg/dL (74-106)
[2022-11-10 11:25] LABS: ALB/GLOB Ratio 1.3 RATIO (0.9-2.4); AST(SGOT) 40 U/L (15-37); Alanine Aminotransfer ALT/SGPT 45 U/L (13-56); Albumin, Serum 4.1 g/dL (3.2-5.0); Alkaline Phosphatase 93 U/L (45-117); Anion Gap 9 (5-15); BUN/Creat Ratio 15.7 RATIO (10-20); Calcium,Total 10.2 mg/dL (8.5-10.1); Chloride 109 mmol/L (98-107); EST Glomerular Filtration Rate 60 mL/min (>60); Est Glom Filt Rate - Afr Amer 73 mL/min (>60); Globulin 3.1 g/dL (2.2-4.2); Potassium 3.7 mmol/L (3.5-5.1); Protein, Total 7.2 g/dL (6.4-8.2); Sodium Level 143 mmol/L (136-145)
== END | disposition home or self-care (01) ==
LOC: MTLAB 09:03
PROVIDERS: PCP Family Medicine Geriatric Medicine; Referring Provider Internal Medicine Rheumatology; Visit Provider Internal Medicine Rheumatology
DX: M06.4 Inflammatory polyarthropathy (principal); Z79.899 Other long term (current) drug therapy
CPT/HCPCS: 36415; 80053; 85025

== ENCOUNTER → 2022-12-08 | Outpatient (CLI) | payer MEDICARE, SELFPAY ==
[2022-12-08 11:39] LABS: Absolute Lymphocyte Count 1.45 X10^3/uL (0.83-4.51); Absolute Neutrophil Count 3.4 X10^3/uL (2.0-7.7); Basophil# 0.03 X10^3/uL; Basophil% 0.6 % (0-1); Eosinophil# 0.03 X10^3/uL; Eosinophils% 0.6 % (0-5); Hematocrit 37.7 % (37-47); Hemoglobin 12.3 g/dL (12.0-15.0); Lymphocyte # 1.45 X10^3/ul (0.83-4.51); Lymphocyte % 27.2 % (19-41); Mean Corp Hgb Conc 32.6 g/dL (32-36); Mean Corpuscular Hgb 31.6 pg (27.0-32.0); Mean Corpuscular Volume 96.9 fL (81-99); Mean Platelet Vol. 10.3 fl (6.2-12.0); Monocyte# 0.42 X10^3/uL; Monocyte% 7.9 % (0-10); NRBC Flagged by Analyzer 0 % (0-5); Neutrophil # 3.39 X10^3/uL (2.7-7.7); Neutrophil % 63.3 % (47-70); Platelet Count 173 K/mm3 (150-450); RBC Distribution Width CV 12.4 % (11.6-14.6); RBC Distribution Width SD 44.1 fl (35.1-43.9); Red Blood Count 3.89 M/mm3 (4.2-5.4); White Blood Count 5.3 K/mm3 (4.4-11.0)
[2022-12-08 12:14] LABS: Vitamin D,25 Hydroxy 48.5 ng/mL
[2022-12-08 12:21] LABS: ALB/GLOB Ratio 1.4 RATIO (0.9-2.4); AST(SGOT) 32 U/L (15-37); Alanine Aminotransfer ALT/SGPT 43 U/L (13-56); Albumin, Serum 4.2 g/dL (3.2-5.0); Alkaline Phosphatase 82 U/L (45-117); Anion Gap 5 (5-15); BUN 21 mg/dL (7-18); BUN/Creat Ratio 23.3 RATIO (10-20); Calcium,Total 9.9 mg/dL (8.5-10.1); Chloride 111 mmol/L (98-107); EST Glomerular Filtration Rate 64 mL/min (>60); Est Glom Filt Rate - Afr Amer 78 mL/min (>60); Globulin 3.1 g/dL (2.2-4.2); Glucose 105 mg/dL (74-106); Potassium 3.8 mmol/L (3.5-5.1); Protein, Total 7.3 g/dL (6.4-8.2); Sodium Level 142 mmol/L (136-145); Thyroid Stim Hormone (TSH) 0.64 uIU/mL (0.358-3.74)
== END | disposition home or self-care (01) ==
PROVIDERS: PCP Family Medicine Geriatric Medicine; Referring Provider Family Medicine Geriatric Medicine; Visit Provider Family Medicine Geriatric Medicine
DX: I10 Essential (primary) hypertension (principal); E55.9 Vitamin D deficiency, unspecified
CPT/HCPCS: 36415; 80053; 82306; 84443; 85025

== ENCOUNTER → 2022-12-10 | Outpatient (CLI) | payer MEDICARE, SELFPAY ==
[2022-12-10 16:21] LABS: Erythrocyte Sedimentation Rate 4 mm/hr (0-30)
[2022-12-10 16:29] LABS: Vitamin B12 887 pg/mL (211-911)
[2022-12-10 16:46] LABS: CRP < 2.90 mg/L (0.0-3.0); LDH 206 U/L (84-246); Thyroid Stim Hormone (TSH) 1.14 uIU/mL (0.358-3.74)
[2022-12-13 16:08] LABS: Endomysial Antibody IgA Negative (Negative); Immunoglobulin A 100 mg/dL (64-422); t-Transglutaminase IgA <2 U/mL (0-3)
[2022-12-16 11:08] LABS: Anti-Centromere B Ab <0.2 AI (0.0-0.9); Anti-Chromatin 0.3 AI (0.0-0.9); Anti-Jo <0.2 AI (0.0-0.9); Anti-Scleroderma-70 AB <0.2 AI (0.0-0.9); Anti-dsDNA Ab 22 IU/mL (0-9); Beef <0.10 kU/L (Class 0); Chocolate <0.10 kU/L (Class 0); Clam <0.10 kU/L (Class 0); Codfish <0.10 kU/L (Class 0); Corn <0.10 kU/L (Class 0); Egg, White <0.10 kU/L (Class 0); Egg, Whole <0.10 kU/L (Class 0); Milk (Cow) <0.10 kU/L (Class 0); Peanut <0.10 kU/L (Class 0); Pork <0.10 kU/L (Class 0); RNP Ab 1.3 AI (0.0-0.9); SCALLOP <0.10 kU/L (Class 0); SESAME SEED <0.10 kU/L (Class 0); SJOGREN'S Anti-SS-A test < 0.2 AI (0.0-0.9); SJOGREN'S Anti-SS-B test < 0.2 AI (0.0-0.9); Shrimp <0.10 kU/L (Class 0); Smith Ab <0.2 AI (0.0-0.9); Soybean <0.10 kU/L (Class 0); Walnut, (Food) <0.10 kU/L (Class 0); Wheat <0.10 kU/L (Class 0)
[2022-12-16 12:09] LABS: Albumin 4.3 g/dL (2.9-4.4); Alpha-1-Globulins 0.2 g/dL (0.0-0.4); Alpha-2-Globulins 0.8 g/dL (0.4-1.0); Cytoplasmic Ab (C-ANCA) <1:20 titer (Neg:<1:20); Gamma Globulin 0.7 g/dL (0.4-1.8); Gastrin, Serum 11 pg/mL (0-115); Immunoglobulin A 100 mg/dL (64-422); Immunoglobulin E 4 IU/mL (6-495); Immunoglobulin G 750 mg/dL (586-1602); Immunoglobulin M 44 mg/dL (26-217); PROEL- TOTAL PROTEIN 7.1 g/dL (6.0-8.5); Perinuclear Ab (P-ANCA) <1:20 titer (Neg:<1:20)
== END | disposition home or self-care (01) ==
PROVIDERS: PCP Family Medicine Geriatric Medicine; Visit Provider Internal Medicine Gastroenterology
DX: R19.7 Diarrhea, unspecified (principal); F32.9 Major depressive disorder, single episode, unspecified
CPT/HCPCS: 82607; 82784; 82785; 82941; 83516; 83615; 84165; 84443; 85652; 86003; 86005; 86140; 86225; 86235; 86255; 86256; 86334

== ENCOUNTER → 2022-12-13 | Outpatient (CLI) | payer MEDICARE, SELFPAY ==
[2022-12-16 14:09] LABS: Pancreatic Elastase, Fecal 433 (>200)
[2022-12-18 21:07] LABS: Calprotectin, Stool 13 ug/g (0-120); Fats, Neutral Normal (.); Fats, Total Normal (.)
== END | disposition home or self-care (01) ==
LOC: LAB 10:01 → LABSPEC 10:08
PROVIDERS: PCP Family Medicine Geriatric Medicine; Referring Provider Internal Medicine Gastroenterology; Visit Provider Internal Medicine Gastroenterology
DX: K58.0 Irritable bowel syndrome with diarrhea (principal)
CPT/HCPCS: 82653; 82705; 83630; 83993; 87177; 87209; 87329; 87493

== ENCOUNTER → 2023-01-12 | Outpatient (CLI) | payer MEDICARE, SELFPAY | END | disposition home or self-care (01) | PROVIDERS: PCP Family Medicine Geriatric Medicine; Visit Provider Internal Medicine Gastroenterology | DX: R76.8 Other specified abnormal immunological findings in serum (principal) | CPT/HCPCS: 36415 ==

== ENCOUNTER → 2023-02-01 | Outpatient (CLI) | payer MEDICARE, SELFPAY ==
[2023-02-01 12:46] LABS: Absolute Lymphocyte Count 1.51 X10^3/uL (0.83-4.51); Absolute Neutrophil Count 2.5 X10^3/uL (2.0-7.7); Basophil# 0.01 X10^3/uL; Basophil% 0.2 % (0-1); Eosinophil# 0.07 X10^3/uL; Eosinophils% 1.6 % (0-5); Hematocrit 37.9 % (37-47); Hemoglobin 12.1 g/dL (12.0-15.0); Lymphocyte # 1.51 X10^3/ul (0.83-4.51); Lymphocyte % 33.6 % (19-41); Mean Corp Hgb Conc 31.9 g/dL (32-36); Mean Corpuscular Hgb 31.8 pg (27.0-32.0); Mean Corpuscular Volume 99.7 fL (81-99); Mean Platelet Vol. 10.3 fl (6.2-12.0); Monocyte# 0.36 X10^3/uL; NRBC Flagged by Analyzer 0 % (0-5); Neutrophil # 2.54 X10^3/uL (2.7-7.7); Neutrophil % 56.4 % (47-70); Platelet Count 138 K/mm3 (150-450); RBC Distribution Width CV 12.9 % (11.6-14.6); RBC Distribution Width SD 47.1 fl (35.1-43.9); White Blood Count 4.5 K/mm3 (4.4-11.0)
[2023-02-01 13:28] LABS: ALB/GLOB Ratio 1.3 RATIO (0.9-2.4); AST(SGOT) 26 U/L (15-37); Alanine Aminotransfer ALT/SGPT 32 U/L (13-56); Alkaline Phosphatase 81 U/L (45-117); Anion Gap 3 (5-15); BUN 19 mg/dL (7-18); Calcium,Total 10.1 mg/dL (8.5-10.1); Chloride 108 mmol/L (98-107); EST Glomerular Filtration Rate 57 mL/min (>60); Est Glom Filt Rate - Afr Amer 69 mL/min (>60); Globulin 3.1 g/dL (2.2-4.2); Glucose 88 mg/dL (74-106); Protein, Total 7.1 g/dL (6.4-8.2); Sodium Level 141 mmol/L (136-145)
[2023-02-01 13:46] LABS: Partial Thromboplast Time 42.9 Seconds (24.1-36.2)
[2023-02-01 14:28] LABS: International Normalized Ratio 1.2; Prothrombin Time (Protime)PT. 15.2 SECONDS (11.7-14.9)
== END | disposition home or self-care (01) ==
LOC: POLAB3 12:01
PROVIDERS: PCP Family Medicine Geriatric Medicine; Visit Provider Family Medicine Geriatric Medicine
DX: N18.31 Chronic kidney disease, stage 3a (principal)
CPT/HCPCS: 36415; 80053; 85025; 85610; 85730

== ENCOUNTER 2023-02-07 13:46 | Outpatient (CLI) | payer MEDICARE, SELFPAY ==
--- NOTE | 2023-02-07 14:14 | CT_ITS ---
PROCEDURE: CT RIGHT LOWER EXTREMITY WITHOUT CONTRAST REASON FOR EXAM: Female, 77 years old. Preoperative planning for the MakoPl[employer] Robotic knee surgery. Knee pain. TECHNIQUE: Transaxial CT of the hip, knee and ankle were obtained. Coronal and sagittal reconstruction images of the knee were provided. Individualized dose optimization techniques were used for this CT. COMPARISON: None. FINDINGS: Standard protocol for the preoperative planning for total hip arthroplasty was performed. Mild arthrosis of both hips, the knee and the tibiotalar joint. CT/Extremity Lower without Contra IMPRESSION: Preoperative evaluation for right total hip arthroplasty as described. Electronically Signed: Darwin Vasquez MD at 16:05 EDT ,
[2023-02-07 14:57] LABS: Magnesium 2.1 mg/dL (1.6-2.6)
--- NOTE | 2023-02-07 15:10 | RAD_ITS ---
INDICATION: SPINAL STENOSIS EXAMINATION/TECHNIQUE: X-RAY - XR Spine Lumbar 2 or 3 Views: AP and lateral views COMPARISON: Lumbar spine radiographs from 09/07/2022 FINDINGS: Stable appearance of posterior spinal fusion hardware and laminectomy decompression L2-L4. Stable mild thoracolumbar levoscoliotic curvature with no significant lumbar spondylolisthesis. No acute fracture identified. Multilevel endplate spondylosis, lumbar spondylosis and lumbar discogenic degenerative changes appear stable. Symmetric bilateral sacroiliac joints. Multiple small metallic coils and clips within pelvis. Vascular calcifications again noted. Nonobstructive bowel gas pattern. RAD/Lumbar Spine 2 or 3 Views IMPRESSION: Stable degenerative and postoperative changes of lumbar spine, as described above. Electronically Signed: Issac Allen MD at 7:28 EDT ,
[2023-02-09 05:07] LABS: Fructosamine 230 umol/L (0-285)
== END 2023-02-07 23:59 | disposition home or self-care (01) ==
PROVIDERS: PCP Family Medicine Geriatric Medicine; Referring Provider Orthopaedic Surgery
DX: Z01.818 Encounter for other preprocedural examination (principal); M48.061 Spinal stenosis, lumbar region without neurogenic claudication; M17.11 Unilateral primary osteoarthritis, right knee
CPT/HCPCS: 36415; 72100; 73700; 82985; 83036; 83735; 86850; 86900; 86901; 87081

== ENCOUNTER 2023-03-15 12:34 | Observation (INO) | payer MEDICARE, SELFPAY ==
[2023-03-15] VITALS (16 sets, daily range): BP systolic 131–158; BP diastolic 54–77; PULSE 77–88; RESP 16–18; TEMP 36.3–37.1; O2SAT 91–99; BMI 31.4
[2023-03-15] MEDS: 0.9% Normal Saline (Pres. free 10 ML Vial ×2 (08:17→11:17)
[2023-03-15] MEDS: Scopolamine 1mg/72hr Patch 1 PATCH TD (08:20)
[2023-03-15] MEDS: Acetaminophen 500 MG Tablet 1000 MG PO ×2 (08:20→17:48)
[2023-03-15] MEDS: Lactated Ringers 1,000 ML 15 ML IV (08:21)
[2023-03-15] MEDS: Magnesium 1 GM over 15 mins IV (08:21)
[2023-03-15] MEDS: Insulin Lispro 100 UNIT/ML INSULN.PEN SC ×2 (08:56→13:24)
[2023-03-15 09:33] LABS: Bedside Glucose 192 mg/dL (74-106)
--- NOTE | 2023-03-15 10:10 | KNEE_PTH ---
PATIENT: KATIE OZUNA LOC: MS3 U#:[id number] AGE/SX: 77/F ROOM: [facility] [place]03/15/[address]: Dr. Sean Singh DO : 1945 BED: 1 DIS: 03/17/2023 SPEC #: [id number] RECD: 03/15/23 14:17 STATUS: CYNTHIA JOSUÉ #: [id number] JASON: 03/15/23 10:[address]: Sean Singh DEPT: SURGICAL PATHOLOGY RECD BY: Saritha Hastings ENTERED: 03/16/23 08:16 SP TYPE: TOTAL KNEE OTHR DR: Dr. Alessio Chang MD Tissues: Knee, NOS Procedures: Decalcification bone/plaque Surgery Specimen Level IV HEADER OPERATION: ERAS, total knee arthroplasty robotic assisted PRE-OP DIAGNOSIS: Osteoarthritis right knee TISSUE SUBMITTED: Bone right knee MICROSCOPIC DIAGNOSIS Bone and tissue of right knee, total knee resection: Severe degenerative joint disease. AM:chris 03/21/2023 MICROSCOPIC DESCRIPTION Slides are reviewed. GROSS DESCRIPTION Received is one container designated bone right knee. The specimen consists of multiple fragments of cuellar-yellow bone measuring in aggregate 8.0 x 9.0 x 2.5 cm. No soft tissue is identified. A number of bony fragments contain articular surfaces consistent with tibial plateau and femoral condyle and displaying prominent osteophyte formation, eburnation and bone erosion. Header Operator sections are submitted in one cassette after decalcification. / ALEJANDRO:chris 03/16/2023 TC:5 CPT: 77470, 96228
--- NOTE | 2023-03-15 10:11 | PCM.HP.BLA ---
History and Physical Date of Admission: 03/15/23 [facility] [address] [place] [address] OFFICE VISIT Date of Service: 01/12/23 MR#: [id number] Acct: [id number] Name: KATIE OZUNA Rep #: [id number] : 1945 Provider: Dr. Sean Singh DO Age/Sex: 77/F Location: [facility] [place] Status: Signed Intake Vital Signs 08/27/2312:05 01/12/2314:18 Height 5 ft 3 in 5 ft 3 in Weight: 169 lb 6 oz BMI 29.9 Intake Visit Reasons: BL knee Chief Complaint: BL knees Accompanied by: Self Is patient in pain?: Yes Pain scale (1-10): 9 Allergies acetaminophen [From Vicodin] Allergy (Verified 08/26/22 17:49) Hiveshydrocodone [From Vicodin] Allergy (Verified 06/29/22 16:45) HivesSulfa (Sulfonamide Antibiotics) Allergy (Verified 06/29/22 16:45) Hives Medications citalopram 20 mg tablet 20 mg PO DAILY Mood 09/17/20 [History Confirmed 01/12/23] hydroxychloroquine 200 mg tablet 200 mg PO BID Gout 09/17/20 [History Confirmed 01/12/23] Handicap Placard #1 ea 07/14/21 [Rx Confirmed 06/29/22] multivitamin 1 tab PO DAILY supplement 08/26/22 [History Confirmed 01/12/23] acetaminophen 500 mg tablet 1,000 mg (2 x 500 mg) PO Q8 #0 tabs 09/06/22 [Rx Confirmed 01/12/23] baclofen 10 mg tablet 10 mg PO BID Muscle spasms #45 tabs 09/06/22 [Rx Confirmed 01/12/23] trazodone 100 mg tablet 100 mg PO QHS #30 tabs 09/06/22 [Rx Confirmed 01/12/23] gabapentin 400 mg capsule 400 mg PO TID #90 caps 09/07/22 [Rx Confirmed 01/12/23] losartan 100 mg tablet mg PO 01/12/23 [History Confirmed 01/12/23] tramadol 50 mg tablet 50 mg PO 01/12/23 [History Confirmed 01/12/23] [facility] Medical History (Updated 01/12/23 @ 15:[address] Sean Singh DO) Acute blood loss anemia Acute insomnia Anxiety Benzodiazepine dependence Chronic back pain Chronic insomnia Cirrhosis Depression Diarrhea Diverticulosis Fracture of metacarpal base, first, left hand, closed HTN (hypertension) IBS (irritable bowel syndrome) Inflammatory polyarthritis P-ANCA titer positive Pain of right calf Physical debility Presbycusis Radicular pain of both lower extremities Scoliosis of lumbar spine Segmental and somatic dysfunction of cervical region Segmental and somatic dysfunction of lumbar region Segmental and somatic dysfunction of pelvic region Skin cancer Spinal stenosis of lumbar region with radiculopathy Thrombocytopenia Surgical History (Updated 01/12/23 @ 14:27 by Carleen Johnson) History of cholecystectomy History of colectomy History of colonoscopy History of incisional hernia repair History of removal of ovarian cyst S/P lumbar fusion S/P lumbar laminectomy Status post surgical removal of malignant neoplasm of skin Family History Father Heart diseaseMother Colon cancerSister Breast cancer Social History (Updated 08/30/22 @ 10:[address] Mare Ashley DO) household members: none housing: house Smoking Status: Never smoker alcohol intake: never substance use type: does not use what type of physical activity do you participate in: none HPI BL knee Details: Parts of this documentation were recorded by a scribe, this documentation accurately reflects the service provided and the decisions made by me, Dr. Sean Singh, 01/12/23 1418. KATIE OZUNA is a 77 year old F here today for BL knee pain that she has been having for a couple years. She states that she has been seeing Dr. Clark and have steroid injections into her right knee which hasn't been as helpful lately. She sees Dr. Clark for her inflammatory arthritis and is being treated with Plaquenil. She then tried to have viscosupplementation but this wasn't covered by insurance. Her last steroid injection was 5-6 months ago in the right knee. She states that the right knee is worse than the left knee. She states that the knees are painful globally. She has pain with any WB in the knees. She has completed PT in the past. Denies any knee bracing. She take Tylenol and ibuprofen for her pain. she has not had anytreatement on the left She did just undergo a lumbar surgery 08/23/22 and is taking tramadol, gabapentin, and baclofen for the back but this doesn't help the knee. Denies any dental infections or work that needs completed. Ortho Exam General General: Yes no acute distress Neurologic: Yes alert and Yes oriented x3 Psychologic: Yes reasonable and appropriate Right Knee Skin/Wound: Yes CDI, No erythema, No ecchymosis and No swelling Homans Sign: No Knee ROM: Yes ROM-Extension -20 to 0 and No ROM-Flexion 0-140 (125) Examination: Yes Med jt line tenderness, Yes Lat jt line tenderness and No Ok's Test Stability: NML: Anterior Drawer, NML: Posterior Drawer and NML: Varus 30 and 1+: Valgus 30 (3mm medial gapping) Patella Translation: 1 Patella Grind: Yes KNEE: no joint effusion no patellar instability 2/4 pedal pulse 2/4 posterior tibial intact sensation to light touch Left Knee Skin/Wound: Yes CDI, No ecchymosis, No erythema and No swelling Homans Sign: No Knee ROM: Yes ROM-Extension -20 to 0 and No ROM-Flexion 0-140 (125) Examination: No med jt line tenderness, No Lat jt line tenderness, No Ok's Test and No TTP Pes Anserine Stability: NML: Anterior Drawer, NML: Posterior Drawer, NML: Valgus 30 and NML: Varus 30 Apprehension with Lateral Translation: No Patella Translation: 1 Patella Grind: Yes KNEE: no joint effusion no patellar instability 2/4 pedal pulse 2/4 posterior tibial intact sensation to light touch Head: Normocephalic Atraumatic Chest: symmetrical rise, non-labored breathing, no audible wheeze Abdomen: no guarding, non-rigid Office Procedures Ortho Injections Injections Yes Knee Left Details: Obtained consent for injection. Under sterile conditions, injected the patient's left knee with 1.5cc bupivacaine, 1.5cc lidocaine and 1cc depomedrol. The patient tolerated the injection well without any noted complication. Patient should call our office if redness develops, pain worsens or if they have any concerns. Office Meds Depo-Medrol 40 mg/mL suspension for injection Performing Provider: Sean Singh DO Performing Location: [facility] Administered by: Sean Singh DO on 01/12/23 15:04 Dose Route Admin Location Dispensed Lot Number Expiration Date NDC Senior Systems Programmer 40 mg intra-articular left knee 1 mL [id number] 09/25/24 16710-496-28 [employer] Supplemental Info 11/15/2022 x-ray right knee: severe joint space narrowing medially worse on flexion view there is bone spurs noted in the lateral compartment mild Supplemental Info: 01/12/2023 x-ray left knee: Moderate patellofemoral arthrosis mild spurring medial and lateral compartments bone has osteopenic appearance Coding Level of Care Code Off vis,est,level 4 Diagnoses Primary osteoarthritis of left knee M17.12 Osteoarthritis type: primary 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 Personally reviewed x-rays. There is no obvious fracture, dislocation, or lucency noted. Patient educated that she has OA of the BL knees worse on the right knee. Treatment options are do nothing or PT or NSAIDs or bracing or steroid injections or viscosupplementation or TKA. Risks, benefits and alternatives of surgery reviewed including but not limited to bleeding, infection, nerve, artery and/or tissue damage, fracture, VTE, mechanical feel of the knee, continued pain, stiffness and expected post-operative course. Educated that the surgery would be precerted as an inpatient surgery d/t age, living along, and stairs at home. Recovery is about 3 months but she can improve up to 2 years after surgery. She wishes to proceed with right TKA and right knee IOVERA treatment. Will need medial clearance. She wishes to proceed with the left knee steroid injection today. Follow up for IOVERA tx or sooner if pain, swelling, numbness or associated symptoms, or concerns develop. All questions answered. Patient in agreement of plan. Tentative surgery date February 22, 2023 with intentions of admission secondary to patient's age she does live at home by herself does have stairs at home she did require rehab after her back surgery prior to returning home. Plan Details Goals & Barriers: Goals Decrease spasm Decrease pain Increase ability to sit Barriers Scoliosis 01/12/23 1522 <Electronically signed by Sean Singh DO> Date Sean Singh DO Cosigner Signature: Date (if applicable) CC: ~ I have examined the patient and the H&P has been reviewed. There are no clinical changes since date of exam.
[2023-03-15] MEDS: Cefazolin 2 GM in 0.9% Normal Saline (100mL Bag) 100 ML IV (10:36)
[2023-03-15] MEDS: TXA 1000mg in NS100 100ml (IVPB at Incision) 660 MG IV (10:46)
[2023-03-15] MEDS: dexAMETHasone 10 MG/ML Vial IV (10:46)
[2023-03-15] MEDS: TXA 1000mg in NS100 100ml (IVPB at Closure) 660 MG IV (11:07)
[2023-03-15] MEDS: dexAMETHasone 4 MG/ML Vial (11:17)
[2023-03-15] MEDS: Bupivacaine 0.5% PF 10 ML VIAL (11:17)
[2023-03-15] MEDS: Epinephrine (1 mg/ml) 1 MG/ML VIAL (11:17)
--- NOTE | 2023-03-15 12:44 | PCM.OP.BLANK ---
Operative Report Date of Procedure: 03/15/23 Preoperative diagnosis: Right knee DJD Postoperative diagnosis: Same Procedure: Right total knee arthroplasty CT guided Robotic Assisted Implant: [place] triathlon press fit, femoral component size3, tibial baseplate size 3, asymmetric patella size 35, polyethylene X3 size 9 CS Anesthesia: General with adductor canal block Tourniquet time: 12 minutes at 300 mmHg Complications: None Condition: Stable to PACU Estimated blood loss: 200 cc Lump Roller Pranav Waldrop. My physician social media assistant was a vital part of this case. He was important in appropriate retraction during the case, and protection of soft tissues during procedure. His intimate knowledge of the case and my steps aided in safe and expedient completion of the procedure as well as appropriate position of the extremity during the case. He was also vital in assisting with closure under my direct supervision. Indication for procedure: This is a 77-year-old female with long standing degenerative joint disease of the knee who has failed conservative treatment and wished to proceed with elective total knee arthroplasty. Risk benefits and alternatives were reviewed including; risk of bleeding, infection, nerve artery and tissue damage, continued pain, postoperative stiffness, venous thromboembolism, need for postoperative rehabilitation, mechanical feel to the knee, and expected postoperative course. The pre- operative CT and templating was performed with component sizing. Procedure: The patient was met in the preoperative holding area. The operative extremity was identified by both patient and physician and was marked. Patient was met by anesthesia. An adductor canal block was placed by anesthesia preoperatively the patient was brought back to the operating room on a wheeled cart and transferred to the operating table in the supine position. Anesthesia was started. A well-padded tourniquet was placed on the operative extremity. The patient was prepped and draped in the usual sterile fashion. A timeout was called to ensure the proper patient procedure and extremity were being contemplated. An esmarch was used to exsanguinate the extremity. The tourniquet was inflated. A 10 blade scalpel was used to make a midline incision down through the skin and subcutaneous tissue. Skin retractors placed. Bovie and Aquamantis were used to perform meticulous hemostasis. full-thickness flaps were elevated medial and lateral along the joint capsule. A deep blade scalpel was used to perform a medial parapatellar arthrotomy. The knee was brought to full extension. A bovie was used to release the soft tissues off the most proximal aspect of the medial tibial plateau, a three-quarter inch curved osteotome was also used in this process. The infrapatellar fat pad was excised. The suprapatellar fat pad was excised partially anteriorolateraly and portion the anterioromedial pad was elevated from the femur. At this point our intra-articular femoral array was placed at a 45 degree angle proximal and posterior to the medial epicondyle. femoral checkpoint was placed at this time. Our tibial array was placed greater than 1 hands breath below the incision at a 20 degree angle stab incisions were made with a 15 blade scalpel and pins were placed and attached to the tibial array , tibial checkpoint was placed in the proximal tibial metaphysis. Tourniquet was let down. At this point registration foster were taken throughout the knee . Once the knee was registered we then tensioned the medial and lateral ligaments in extension and 90 degrees of flexion. We then used these numbers to adjust our components within parameters to balance the knee in both flexion and extension once this was done on our monitor we then proceeded with using the robotic arm to make our tibial plateau cut, anterior and posterior chamfer and distal femur cuts. we removed the cut fragments with the use of a bovie and David, we did use a lamina supervisor fertilizer processing to insure we visualized and removed all posterior osteophytes and at this time also used the Aquamantis on the posterior joint capsule. we then trialed and achieved the desired plan with a well-balanced knee. we used the green probe to amanuel the corresponding tibial rotation based on our CT template. Lug holes were drilled in the femur the tibia preparation was completed with the appropriate sized base plate pinned based on previous rotation amanuel. An appropriate sized fin punch was used on the tibia and 4 corner drill was used for the press fit component and the patella was prepared by first using a caliper to ensure sufficient bone stock and a patellar reamer to remove the desired amount of bone. lug holes drilled for an asymmetric poly. We then brought the knee through range of motion with excellent patellar tracking. We thoroughly irrigated the knee. Trial components were removed a posterior capsular injection was preformed with our standard cocktail. In addition the aqua Mantis was also used to aid in hemostasis. Betadine rinse was allowed to sit and washed out completely. Components were press-fit into place. Aricept rinse was then used followed by several more liters of irrigation after it was allowed to sit. The joint capsule was closed with #1 Ethibond [id number] followed by Vicryl in the subcutaneous tissues with chiquita in the skin. Arrays and checkpoints were removed prior to closure all counts were correct stab incisions were closed with a staple standard dressing in the form of Mepilex AG for the main incision and a small Mepilex over the pin holes. Thigh-high LILLY hose applied over top of dressing. Patient tolerated the procedure well and was directed to PACU in stable condition . There were no intraoperative complications.
--- NOTE | 2023-03-15 13:00 | RAD_ITS ---
STUDY: X-RAY - RIGHT KNEE REASON FOR EXAM: Female, 77 years old. Post op -- AP and Lateral x-ray of operative knee in PACU TECHNIQUE: 2 view(s) of the knee. COMPARISON: Comparison is made with prior study November 15, 2022. FINDINGS: Normal visualized distal femur. Normal visualized proximal tibia and fibula. Normal proximal tibiofibular articulation. The patient is status post total knee replacement. There is good alignment. Postoperative soft tissue changes. RAD/Knee 1 or 2 Views IMPRESSION: Status post total knee replacement. There is good alignment. Postoperative soft tissue changes. Electronically Signed: Júnior Parker MD at 13:23 EDT ,
[2023-03-15] MEDS: Cefazolin 1 GM/50 ML BAG IV ×2 (13:36→21:08)
[2023-03-15 15:04] LABS: Bedside Glucose 222 mg/dL (74-106)
[2023-03-15] MEDS: oxyCODONE 5 MG Tablet PO ×2 (15:35→19:48)
[2023-03-15] MEDS: Lactated Ringers 1,000 ML 125 ML IV (17:46)
[2023-03-15] MEDS: Gabapentin 400 MG Capsule PO ×2 (17:48→22:23)
--- NOTE | 2023-03-15 21:16 | NURSING ---
Pt asking for jessica so she wouldn't have to get up tonight. educated pt on the importance of getting out of bed and moving.
[2023-03-15] MEDS: traZODone 100 MG Tablet PO (21:25)
[2023-03-15] MEDS: Baclofen 10 MG Tablet PO (21:25)
[2023-03-16 01:06] VITALS: BP 130/52; PULSE 77; RESP 18; TEMP 36.7; O2SAT 98
[2023-03-16] MEDS: Acetaminophen 500 MG Tablet 1000 MG PO ×3 (01:07→17:26)
[2023-03-16 04:59] VITALS: BP 121/51; PULSE 68; RESP 18; TEMP 37.1; O2SAT 97
[2023-03-16] MEDS: oxyCODONE 5 MG Tablet PO ×4 (05:03→21:01)
[2023-03-16] MEDS: Cefazolin 1 GM/50 ML BAG IV (05:07)
[2023-03-16 06:08] LABS: Hematocrit 25.5 % (37-47); Hemoglobin 8.7 g/dL (12.0-15.0); Mean Corp Hgb Conc 34.1 g/dL (32-36); Mean Corpuscular Hgb 34.1 pg (27.0-32.0); Mean Platelet Vol. 9.3 fl (6.2-12.0); Platelet Count 120 K/mm3 (150-450); RBC Distribution Width SD 47.2 fl (35.1-43.9); Red Blood Count 2.55 M/mm3 (4.2-5.4); White Blood Count 5.8 K/mm3 (4.4-11.0)
[2023-03-16] MEDS: Gabapentin 400 MG Capsule PO ×3 (06:12→21:08)
[2023-03-16] MEDS: APIXABAN 2.5 MG TABLET (WCH) PO ×2 (06:15→21:08)
[2023-03-16 06:52] LABS: Anion Gap 7 (5-15); BUN 14 mg/dL (7-18); BUN/Creat Ratio 13.9 RATIO (10-20); Calcium,Total 8.4 mg/dL (8.5-10.1); Chloride 112 mmol/L (98-107); Creatinine, Serum 1.01 mg/dL (0.55-1.02); EST Glomerular Filtration Rate 56 mL/min (>60); Est Glom Filt Rate - Afr Amer 68 mL/min (>60); Estimated Creatinine Clearance 36.89 ml/min; Glucose 118 mg/dL (74-106); Potassium 4.4 mmol/L (3.5-5.1); Sodium Level 140 mmol/L (136-145)
[2023-03-16] MEDS: Losartan Potassium 100 MG Tablet PO (08:04)
[2023-03-16] MEDS: Latanoprost 0.005% 1 Bottle 1 DRP OPHTHALMIC (08:12)
[2023-03-16 08:40] VITALS: BP 123/58; PULSE 69; RESP 18; TEMP 36.3; O2SAT 98
[2023-03-16 10:54] VITALS: O2SAT 98
--- NOTE | 2023-03-16 11:50 | CASEMGMT ---
RN RICHARD Face to Face with patient for initial transition planning/care coordination assessment. RN RICHARD introduced self and role at [facility]. Patient sitting up in chair eating lunch, alert and oriented. Patient willing to participate in assessment and is able to answer all questions appropriately.? Care providers, pharmacy, and demographics verified. Patient wishes to discharge home.? Patient states she has no further needs or concerns at this time. CM to follow for discharge planning needs that may arise. PCP:Bernardo Specialists:Francisco, ortho; Eduardo, rheum; Friend, GI; Tramaine, eyes; Carmela, ortho; Joshua, ENT Preferred Pharmacy:[facility] Retail Insurance:[employer] Prescription Benefit:?yes LNOK:Sheldon Ross, son; Radha Grossman dtr Living Arrangements:Pt lives alone in a two story home with 3 steps to enter. Pt reports she was I in ADL's prior to surgery. Pt dtr who is a PT is coming to stay with her for 4 days post surgery. Transportation:Pt drives self, she states her sisters can drive her sometimes pending their obligations and pt uses [facility] van until she can drive again. DME:HH shower, FWW, straight cane, shower chair, medical management specialist, sock aid, long handled bath sponge HHC/SNF: Pt has had [facility] HHC in the past and denies SNF stays. Disposition Plan:Home with dtr assistance and outpt therapy set up at [facility] for Tuesday.
--- NOTE | 2023-03-16 12:56 | PCM.PN.ORT ---
Subjective Subjective Patient seen and examined. She is doing okay she has more pain than she expected. She was not aware that she could take the oxycodone every 4 hours and was only getting it every 6 now she is aware and she is taking 2 every 4. She denies any fevers chills nausea vomiting shortness of breath or chest pain, she does not feel she is ready for discharge. Objective Data Objective Data Vital Signs: Vital Signs Temp Pulse Resp BP Pulse Ox O2 Del Method O2 Flow Rate 97.4 F L 69 18 123/58 H 98 Room Air 4 03/16/23 08:40 03/16/23 08:40 03/16/23 08:40 03/16/23 08:40 03/16/23 10:54 03/16/23 08:40 03/15/23 14:29 Oxygen Flow Rate (L/min) 4 Oxygen Delivery Method Room Air Weight: 171 lb 15.369 oz Body Mass Index (BMI) 31.4 Intake & Output: Intake and Output for Last 24 Hours 03/14/23 03/15/23 03/16/23 23:59 23:59 23:59 Intake Total 1352.58 / 1352.58 365.75 / 365.75 Output Total 200 / 200 Balance 1152.58 / 1152.58 365.75 / 365.75 Lab / Micro Data 03/16/23 06:00 03/16/23 06:00 Labs: Laboratory Results - last 24 hr 03/15/23 13:23: POC Glucose 222 H 03/16/23 06:00: WBC 5.8, RBC 2.55 L, Hgb 8.7 L, Hct 25.5 L, MCV 100.0 H, MCH 34.1 H, MCHC 34.1, RDW Std Deviation 47.2 H, RDW Coeff of Purvi 13.0, Plt Count 120 L, MPV 9.3, Sodium 140, Potassium 4.4, Chloride 112 H, Carbon Dioxide 21.0, Anion Gap 7, BUN 14, Creatinine 1.01, Estim Creat Clear Calc 36.89, Est GFR (MDRD) Af Amer 68, Est GFR (MDRD) Non-Af 56 L, BUN/Creatinine Ratio 13.9, Glucose 118 H, Calcium 8.4 L Radiography Diagnostic Testing: Radiology Impression Knee X-Ray 03/15/23 13:00 IMPRESSION: Status post total knee replacement. There is good alignment. Postoperative soft tissue changes. Electronically Signed: Júnior Parker MD at 13:23 EDT , Physical Exam Const alert, oriented x3 and no apparent distress General Appearance: cooperative Extremity Extremity Narrative: Right knee dressing clean dry intact there is some mild bloody drainage over the inferior pin site tract dressing however it is sealed her compartments are soft she is neurovascular intact EHL tibialis anterior gastrocsoleus intact sensation light touch 2 out of 4 pedal pulse Assessment & Plan Assessment/Plan (1) S/P total knee arthroplasty: QUALIFIERS: Laterality: right Qualified Code(s): Z96.651 - Presence of right artificial knee joint PLAN: Plan Postop day #1 right total knee arthroplasty PT OT weightbearing as tolerated DVT prophylaxis SCDs Sunshine peguero Pain control oxycodone 5 to 10 mg every 4 hours DC planning home tomorrow Continue physical therapy
--- NOTE | 2023-03-16 13:40 | CASEMGMT ---
Social Work SW introduced self and role to patient. Pt admission indicated concerns for social determinants of health. SW conducted SDOH screening with patient. Pt reports no concerns typically but is concerned about transportation while she is unable to drive. Pt reports she had [facility] transportation set up for a therapy appointment previously. SW provided transportation resources handout. SW provided emotional support and patient indicated no other needs at this time. Debbie Rosales PERSONAL TRAINER, [employer]
[2023-03-16 14:15] VITALS: BP 122/54; PULSE 77; RESP 18; TEMP 37.1; O2SAT 100
--- NOTE | 2023-03-16 16:00 | CASEMGMT ---
Discharge Planning Met with patient to complete ROCA form. ROCA form explained to patient who voiced understanding and signed form. Original form placed in pt?s chart and copy provided to?patient. Milly Zambrano, Discharge Planning Asst.
[2023-03-16] MEDS: traZODone 100 MG Tablet PO (21:08)
[2023-03-16] MEDS: Baclofen 10 MG Tablet PO (21:08)
[2023-03-16 21:14] VITALS: BP 142/69; PULSE 84; RESP 18; TEMP 37.1; O2SAT 93
--- NOTE | 2023-03-17 00:20 | MDS.RN ---
Pt called out at the start of shift and notified staff that she needed sleeping medication. This nurse was providing care in another room but wanted to be sure medication was ordered promptly and stopped in to say hello and to inquire what sleeping medication she was needing to have ordered. She notified this nurse that she does not need sleeping medication but needs pain meds. She said I am ordered to have Oxy every 4 hours and then counted hours on her hand since her last administration and notified this nurse that they are extremely late. This nurse notified patient that her pain medications are not scheduled but are as needed and that this nurse is providing care in the room next door and will be with her directly when finished. Patient stated, well hurry up!. This nurse then entered patients room within 30 minutes of stopping in. Patient looked at this nurse and said that it was inappropriate that it took so long especially since this nurse came on shift at 7pm. This nurse apologized to patient for not being in as soon as she would like but reminded her that this nurse has other patients with immediate needs as well. Patient glared at this nurse and said, what have you been doing and how many patients do you have? This nurse notified her that each nurse has 5 patients. Again, this nurse apologized for not being available to assist her but notified her that this nurse will try to assist her through the night every 4 hours as she is requesting. Understanding was verbalized by the patient.
[2023-03-17] MEDS: oxyCODONE 5 MG Tablet PO ×4 (01:00→13:04)
[2023-03-17] MEDS: Acetaminophen 500 MG Tablet 1000 MG PO ×2 (01:00→09:02)
--- NOTE | 2023-03-17 02:16 | NURSING ---
Computer was not functioning at 2100 when Oxyir was given. Back up computer was brought in but also was not registering medication administration. Unable to scan 2 tablets of Oxyir but they were charted and given PO at 2100.
[2023-03-17] MEDS: Gabapentin 400 MG Capsule PO ×2 (05:05→13:51)
[2023-03-17 05:07] VITALS: BP 148/68; PULSE 78; RESP 18; TEMP 36.5; O2SAT 96
[2023-03-17 06:26] LABS: Hematocrit 26.7 % (37-47); Hemoglobin 8.7 g/dL (12.0-15.0); Mean Corp Hgb Conc 32.6 g/dL (32-36); Mean Corpuscular Hgb 33.2 pg (27.0-32.0); Mean Corpuscular Volume 101.9 fL (81-99); Mean Platelet Vol. 10.2 fl (6.2-12.0); Platelet Count 119 K/mm3 (150-450); RBC Distribution Width CV 13.4 % (11.6-14.6); RBC Distribution Width SD 49.8 fl (35.1-43.9); Red Blood Count 2.62 M/mm3 (4.2-5.4); White Blood Count 5.7 K/mm3 (4.4-11.0)
--- NOTE | 2023-03-17 07:15 | PCM.PN.ORT ---
Subjective Subjective Seen and examined. Complain of pain no other complaints denies fevers chills nausea vomit shortness of breath or chest pain. Objective Data Objective Data Vital Signs: Vital Signs Temp Pulse Resp BP Pulse Ox O2 Del Method O2 Flow Rate 97.7 F L 78 18 148/68 H 96 Room Air 4 03/17/23 05:07 03/17/23 05:07 03/17/23 05:07 03/17/23 05:07 03/17/23 05:07 03/17/23 05:07 03/15/23 14:29 Oxygen Flow Rate (L/min) 4 Oxygen Delivery Method Room Air Weight: 171 lb 15.369 oz Body Mass Index (BMI) 31.4 Intake & Output: Intake and Output for Last 24 Hours 03/15/23 03/16/23 03/17/23 23:59 23:59 23:59 Intake Total 1352.58 / 1352.58 365.75 / 365.75 500 / 500 Output Total 200 / 200 Balance 1152.58 / 1152.58 365.75 / 365.75 500 / 500 Lab / Micro Data 03/17/23 05:30 03/16/23 06:00 Labs: Laboratory Results - last 24 hr 03/17/23 05:30: WBC 5.7, RBC 2.62 L, Hgb 8.7 L, Hct 26.7 L, MCV 101.9 H, MCH 33.2 H, MCHC 32.6, RDW Std Deviation 49.8 H, RDW Coeff of Purvi 13.4, Plt Count 119 L, MPV 10.2 Physical Exam Const alert, oriented x3 and no apparent distress General Appearance: cooperative Extremity Extremity Narrative: Right knee dressing clean dry intact there is some mild bloody drainage over the inferior pin site tract dressing however it is sealed her compartments are soft she is neurovascular intact EHL tibialis anterior gastrocsoleus intact sensation light touch 2 out of 4 pedal pulse Assessment & Plan Assessment/Plan (1) S/P total knee arthroplasty: QUALIFIERS: Laterality: right Qualified Code(s): Z96.651 - Presence of right artificial knee joint PLAN: Plan Postop day #2 right total knee arthroplasty PT OT weightbearing as tolerated DVT prophylaxis SCDs Elimyron peguero Pain control oxycodone 5 to 10 mg every 4 hours DC planning home today after second round physical therapy this evening when family is available for pickup as long as physical therapy determined safe patient comfortable with discharge
--- NOTE | 2023-03-17 07:16 | PCM.DC ---
Discharge Instructions Diet Discharge Diet: No restrictions (High sugar diet increases risk of infection postoperatively) Activity Weight Bearing Status: Weight bearing as tolerated Dressing / Incision Call your doctor if you observe: Shortness of breath and Chest pain Additional Dressing/Incision Instructions:: Ice and elevate lower extremities 2 weeks while not ambulating. Ambulation is encouraged. Weight bearing as tolerated. Use assistive devise for stability. Encourage FULL knee extension and flexion 1 time EVERY time you get up and down and MULTIPLE times per day. No showering 72 hours after surgery. Begin showering postop day #3. Remove the dressing prior to shower and gently wash with warm water and antibacterial soap then pat dry and place abdominal pad (or plain gauze) and LILLY hose over top. This is to be done daily. Do not submerge for 3 weeks. If not showering daily after the initial 72 hours then you must clean incision and change dressing daily. Do not allow animals near the incision area. Keep clean. Follow anti-coagulation recommendations as prescribed. Do not take any NSAIDs while on blood thinner. Do not take any additional narcotic pain medication other than what was prescribed on your surgery day without discussing with physician. Narcotic medication can be addictive. Do not drink alcohol while taking narcotics. Supplement narcotic prescription with acetaminophen 1000 mg 4 times a day. Start physical therapy. If you are not currently scheduled for physical therapy or you are unsure of appointment time please call office [facility] to arrange. Call Dr. Singh with any concerns. Follow Up Care Please Follow Up With: Sean Singh DO When: 2 weeks Test Results: Test results from this visit will be discussed in further detail at your follow-up appointment, if applicable. Discharge Plan Admission Admit Date/Time: 03/15/23 12:34 Primary Reason for Your Visit: Right total knee arthroplasty Attending Provider: Sean Singh Primary Care Provider: Alessio Chang Chi Discharge Orders/Prescriptions Prescriptions: New acetaminophen 500 mg Tablet 1,000 mg PO Q6H Qty: 100 2RF oxycodone 5 mg Tablet 5 - 10 mg PO Q4H PRN PRN (Reason: Pain Score 4-10) 7 Days Qty: 60 0RF Eliquis 2.5 mg tablet 2.5 mg PO BID Qty: 28 0RF Continued hydroxychloroquine 200 mg tablet 200 mg PO BID Patient Comments: TAKE 1 TABLET(S) ORAL TWO TIMES A DAY losartan 100 mg tablet 100 mg PO DAILY Patient Comments: TAKE 1 TABLET BY MOUTH EVERY DAY citalopram 20 mg tablet 20 mg PO DAILY multivitamin Tablet 1 tab PO DAILY trazodone 100 mg Tablet 100 mg PO QHS Qty: 30 0RF gabapentin 400 mg capsule 400 mg PO TID Qty: 90 0RF latanoprost 0.005 % drops 1 drp ophthalmic (eye) DAILY Patient Comments: PLACE 1 DROP INTO EACH EYE ONCE A DAY baclofen 10 mg tablet 10 mg PO DAILY Rx Instructions: Take BID x 2 week and then decrease to 10 mg at bedtime only (DME) Handicap Placard See Rx Instructions .Route .MEDSUPPLY Qty: 1 0RF Rx Instructions: Handicap Placard. May use as needed. Valid for 12 months. cholestyramine-aspartame [Cholestyramine Light] 4 gram powder in packet 4 g PO BID Qty: 60 3RF Rx Instructions: administer w/meal; avoid other meds within 1hr before or 4-6hr after dose diphenoxylate-atropine [Lomotil] 2.5-0.025 mg tablet 1 tab PO TID PRN (Reason: diarrhea) Qty: 90 0RF Discontinued tramadol 50 mg tablet 50 mg PO Q12H PRN (Reason: pain) Patient Comments: TAKE 1 TABLET BY MOUTH TWICE A DAY acetaminophen 500 mg Tablet 1,000 mg PO BID Referrals / Follow Up: Alessio Chang Chi, MD [Primary Care Provider] - Disposition Disposition (needs filled in before D/C Order can be placed): Home, Self Care
--- NOTE | 2023-03-17 07:23 | DS.PCM_ITS ---
Providers Date of Admission: 03/15/23 Primary Care Physician: Dr. Alessio Chang MD Reason For Visit: ERAS, Total Knee Arthroplasty Robotic Assisted Diagnosis Discharge Diagnosis (1) S/P total knee arthroplasty: Status: Acute Code(s): Z96.659 - Presence of unspecified artificial knee joint Qualifiers: Laterality: right Qualified Code(s): Z96.651 - Presence of right artificial knee joint Plan Postop day #2 right total knee arthroplasty PT OT weightbearing as tolerated DVT prophylaxis SCDs Eliqule peguero Pain control oxycodone 5 to 10 mg every 4 hours DC planning home today after second round physical therapy this evening when family is available for pickup as long as physical therapy determined safe patie nt comfortable with discharge Medications at Discharge Home Medications citalopram 20 mg tablet 20 mg PO DAILY Mood 09/17/20 hydroxychloroquine 200 mg tablet 200 mg PO BID Gout 09/17/20 Handicap Placard #1 ea 07/14/21 multivitamin 1 tab PO DAILY supplement 08/26/22 trazodone 100 mg tablet 100 mg PO QHS SLEEP #30 tabs 09/06/22 gabapentin 400 mg capsule 400 mg PO TID PAIN #90 caps 09/07/22 losartan 100 mg tablet 100 mg PO DAILY BP 01/12/23 baclofen 10 mg tablet 10 mg PO DAILY Muscle spasms 02/07/23 latanoprost 0.005 % eye drops 1 drp ophthalmic (eye) DAILY SIGHT 02/07/23 cholestyramine-aspartame 4 gram oral powder for susp in a packet (Cholestyramine Light) 4 g PO BID #60 ea 02/10/23 diphenoxylate-atropine 2.5 mg-0.025 mg tablet (Lomotil) 1 tab PO TID PRN diarrhea #90 tabs 02/10/23 acetaminophen 500 mg tablet 1,000 mg (2 x 500 mg) PO Q6H #100 tabs 03/17/23 apixaban 2.5 mg tablet (Eliquis) 2.5 mg PO BID #28 tabs 03/17/23 oxycodone 5 mg tablet 5 - 10 mg (1 - 2 x 5 mg) PO Q4H PRN PRN Pain Score 4-10 7 days #60 tabs 03/17/23 Hospital Course Operations total knee replacement Summary of Care Provided Hospital Course: Who has long history of degenerative joint disease to the knee who has failed c onservative treatment and wished to undergo elective total knee arthroplasty. Patient underwent the aformentioned procedure on the admission date without any intraoperative complications. Patient did receive pre-and postoperative antibiotics which were discontinued within 23 hours postoperatively. Patient did receive spinal anesthesia as well as an adductor canal block postoperatively. pain was controlled with IV and transition to p.o. pain medication . Patient did have preoperative narcotic tolerance to a bit and her pain level was higher than typical but controlled patient will be discharged home with oxycodone and will continue Tylenol as well. Patient had minimal intraoperative blood loss and 2gm tranexamic acid was administered there was no need for postoperative blood transfusion Patients vital signs remained stable. Patient was started on both mechanical and chemical DVT per prophylaxis postoperatively in the form of SCDs LILLY hose and Eliquis 2.5 mg twice daily for which she will continue for 2 additional weeks post hospital discharge. thigh high lilly hose placed over top of the meplix silver dressing. This should be removed 72 hrs post operatively and showering begun daily at that time with warm water and antibacterial soap. not to submerge for 3 weeks. To change dressing daily after first dressing change. Patient will follow-up in the office in 2 weeks. No intrahospital complications. Weight / BMI Weight Weight: 171 lb 15.369 oz Body Mass Index (BMI) 31.4 ABG / Lab / Microbiology Data 03/17/23 05:30 03/16/23 06:00 Laboratory: Laboratory Results - last 24 hr 03/17/23 05:30: WBC 5.7, RBC 2.62 L, Hgb 8.7 L, Hct 26.7 L, MCV 101.9 H, MCH 33.2 H, MCHC 32.6, RDW Std Deviation 49.8 H, RDW Coeff of Purvi 13.4, Plt Count 119 L, MPV 10.2 D/C Instructions Discharge Diet: No restrictions (High sugar diet increases risk of infection postoperatively) Weight Bearing Status: Weight bearing as tolerated Call your doctor if you observe: Shortness of breath and Chest pain Additional Dressing/Incision Instructions: Ice and elevate lower extremities 2 weeks while not ambulating. Ambulation is encouraged. Weight bearing as tolerated. Use assistive devise for stability. Encourage FULL knee extension a nd flexion 1 time EVERY time you get up and down and MULTIPLE times per day. No showering 72 hours after surgery. Begin showering postop day #3. Remove the dressing prior to shower and gently wash with warm water and antibacterial soap then pat dry and place abdominal pad (or plain gauze) and LILLY hose over top. This is to be done daily. Do not submerge for 3 weeks. If not showering daily after the initial 72 hours then you must clean incision and change dressing daily. Do not allow animals near the incision area. Keep clean. Follow anti- coagulation recommendations as prescribed. Do not take any NSAIDs while on blood thinner. Do not take any additional narcotic pain medication other than what was prescribed on your surgery day without discussing with physician. Narcotic medication can be addictive. Do not drink alcohol while taking narcotics. Supplement narcotic prescription with acetaminophen 1000 mg 4 times a day. Start physical therapy. If you are not currently scheduled for physical therapy or you are unsure of appointment time please call office [facility] to arrange. Call Dr. Singh with any concerns. Please Follow Up With: Sean Singh DO When: 2 weeks Meaningful Use Info Meaningful Use Diagnoses (Choose all that apply): None applicable Discharge Plan Admission Admit Date/Time: 03/15/23 12:34 Primary Reason for Your Visit: Right total knee arthroplasty Attending Provider: Sean Singh Primary Care Provider: Alessio Chang Chi Discharge Orders/Prescriptions Prescriptions: New acetaminophen 500 mg Tablet 1,000 mg PO Q6H Qty: 100 2RF oxycodone 5 mg Tablet 5 - 10 mg PO Q4H PRN PRN (Reason: Pain Score 4-10) 7 Days Qty: 60 0RF Eliquis 2.5 mg tablet 2.5 mg PO BID Qty: 28 0RF Continued hydroxychloroquine 200 mg tablet 200 mg PO BID Patient Comments: TAKE 1 TABLET(S) ORAL TWO TIMES A DAY losartan 100 mg tablet 100 mg PO DAILY Patient Comments: TAKE 1 TABLET BY MOUTH EVERY DAY citalopram 20 mg tablet 20 mg PO DAILY multivitamin Tablet 1 tab PO DAILY trazodone 100 mg Tablet 100 mg PO QHS Qty: 30 0RF gabapentin 400 mg capsule 400 mg PO TID Qty: 90 0RF latanoprost 0.005 % drops 1 drp ophthalmic (eye) DAILY Patient Comments: PLACE 1 DROP INTO EACH EYE ONCE A DAY baclofen 10 mg tablet 10 mg PO DAILY Rx Instructions: Take BID x 2 week and then decrease to 10 mg at bedtime only (DME) Handicap Placard See Rx Instructions .Route .MEDSUPPLY Qty: 1 0RF Rx Instructions: Handicap Placard. May use as needed. Valid for 12 months. cholestyramine-aspartame [Cholestyramine Light] 4 gram powder in packet 4 g PO BID Qty: 60 3RF Rx Instructions: administer w/meal; avoid other meds within 1hr before or 4-6hr after dose diphenoxylate-atropine [Lomotil] 2.5-0.025 mg tablet 1 tab PO TID PRN (Reason: diarrhea) Qty: 90 0RF Discontinued tramadol 50 mg tablet 50 mg PO Q12H PRN (Reason: pain) Patient Comments: TAKE 1 TABLET BY MOUTH TWICE A DAY acetaminophen 500 mg Tablet 1,000 mg PO BID Referrals / Follow Up: Alessio Chang Chi, MD [Primary Care Provider] - Disposition Disposition (needs filled in before D/C Order can be placed): Home, Self Care
[2023-03-17] MEDS: APIXABAN 2.5 MG TABLET (WCH) PO (09:02)
[2023-03-17] MEDS: Latanoprost 0.005% 1 Bottle 1 DRP OPHTHALMIC (09:02)
[2023-03-17] MEDS: Losartan Potassium 100 MG Tablet PO (09:02)
--- NOTE | 2023-03-17 09:12 | CASEMGMT ---
TC to [facility] Retail pharmacy, pt cost for eliquis is $21.93.
--- NOTE | 2023-03-17 11:04 | CASEMGMT ---
LAURE RAMOS spoke with physical and occupational therapy who report pt needs much encouragement. LAURE RAMOS into pt room, pt states her son will pick her up today from the hospital and her dtr that is a PT will be at her home approx 8pm and will stay until Tuesday. Pt has outpt therapy set up. Pt denies further needs.
[2023-03-17 11:40] VITALS: BP 122/72; PULSE 89; RESP 18; TEMP 36.8; O2SAT 93
[2023-03-17 14:20] VITALS: BP 137/67; PULSE 91; RESP 18; TEMP 36.6; O2SAT 97
== END 2023-03-17 14:46 | disposition home or self-care (01) ==
LOC: SDC 16:38 → MS3 16:38
PROVIDERS: Admitting Provider Orthopaedic Surgery; PCP Family Medicine Geriatric Medicine; Referring Provider Orthopaedic Surgery; Visit Provider Orthopaedic Surgery
PROC: 0SRC0JZ Replacement of Right Knee Joint with Synthetic Substitute, Open Approach (ICD-10-PCS; CPT 27447; principal; 2023-03-15 09:40)
DX: M17.0 Bilateral primary osteoarthritis of knee (principal); M06.4 Inflammatory polyarthropathy; G89.29 Other chronic pain; I10 Essential (primary) hypertension; G47.00 Insomnia, unspecified; Z79.899 Other long term (current) drug therapy
CPT/HCPCS: 27447; S2900; 01402; 64447; 36415; 73560; 80048; 82962; 85027; 88305; 88311; 94668; 96361; 96365; 96366; 97110; 97116; 97162; 97166; 97530; 97535; 99221; 99252; C1776; J7120; G0378; G0463; J2405; J3475; J3490

== ENCOUNTER 2023-03-18 09:47 | Outpatient (RCR) | payer MEDICARE, SELFPAY ==
--- NOTE | 2023-03-18 12:50 | HP.PTEVAL ---
Patient's Visit Information Visit Information Visit Information: KATIE OZUNA is a 77 year old F referred to Physical Therapy by Dr. Sean Singh DO with a diagnosis of R TKA. Date of Evaluation: 03/18/23 Physical Therapist: Ange Chan, PT, Cert MDT Visit Plan Frequency: 1x/Week Duration: 1 Week Plan: EVAL ONLY Subjective Subjective: Work/Leisure: RETIRED. LIVES ALONE. TWO STORY HOME WITH BR UPSTAIRS. CURRENTLY LIVING ON FIRST FLOOR. SLEEPING ON THE COUCH. SURGERY WAS Tuesday03/15/23 AND HOME FROM HOSPITAL YESTERDAY 03/17/23. Present symptoms: RIGHT KNEE PAIN AND SWELLING. PATIENT DENIES SCIATICA CURRENTLY. Present since: CHRONIC R KNEE PAIN. Pain Scale: WORST 9/10, LEAST 7/10 Currently: 8/10 Is it getting better, worse or staying the same: GETTING BETTER Commenced as a result of: ARTHRITIS Worse: MOVING IT, WEIGHT BEARING ON IT. Better: ICE, GETTING SLEEP, PAIN MEDICINE Disturbed sleep: YES Previous history/Previous treatment: NO PRIOR R KNEE SURGERY. A LOT OF R KNEE INJECTIONS PRIOR TO SURGERY. PHYSICAL THERPAY PRIOR TO SURGERY. Treatment this episode: R TKR 03/15/23 Gait: WALKING ABOUT 50 FEET WITH FWW AT HOME FROM COUCH TO BATHROOM WITH SUPERVISION OF DAUGHTER THAT IS A PT. MAX ASSIST SIT TO STAND FROM COUCH AND MOD ASSIST +1 FROM BEDSIDE COMMODE PER DAUGHTER. Bowel or Bladder Dysfunction: NO PMH/Recent major surgery: BACK SURGERY Jul WITH SEVERE R LE PAIN BEFORE AND AFTER SX WITH R LE PAIN HELPED WITH INJECTION AFTER SURGERY. HTN BUT LOW AFTER BACK SURGERY. PATIENT REPORTS HER BLOOD PRESSURE HAS BEEN GOOD SINCE KNEE SURGERY. STAGE 3 KIDNEY FAILURE. CURRENTLY ON BLOOD THINNER. OSTEOPENIA. FULL HEARING LOSS L EAR AND 30% LOSS R EAR. OTHER: NERVE BLOCK BLOCK WAS GIVEN ON TIME BUT SURGERY WAS DELAYED 3 WEEKS. PLOF: GETTING AROUND IN THE HOUSE WITHOUT AD BEFORE TKR BUT USING ROLLATOR OUTSIDE OF HOME. INDEP AT HOME AND GOING UP AND DOWN STEPS TO BEDROOM LIVING ALONE PRIOR TO KNEE SURGERY. PATIENTS DAUGHTER REPORTS HER MOM ISN'T DOING MANY OF HER HOME EX'S YET. PATIENTS DAUGHTER STATES UPON ARRIVAL THAT SHE THINKS THEY PROBABLY SHOULD HAVE DONE HOME HEALTH INSTEAD OF OUTPATIENT PT BUT WANT TO GO AHEAD WITH EVAL TODAY. 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 WE BROUGHT HER MOM BACK TO A TREATMENT ROOM IN A WHEELCHAIR AND THEY BROUGHT HER FWW WITH HER. GAIT: PATIENT EDMUNDO'S GAIT WITH FWW WITH SUPERVISION +1 WITHIN THE TREATMENT ROOM FOR TUG TESTING AND TO MOVE FROM THE W/C TO THE TREATMENT TABLE AND BACK. NO HEEL STRIKE OR TOE OFF PHASES OF GAIT. INSTRUCTION GIVEN TO PATIENT AND CAREGIVER FOR CORRECTION. SHE REQUIRES CG TO MIN ASSIST +1 TO TRANSFER FROM SIT TO STAND AND REVERSE. SHE REQUIRES MIN ASSIST +1 TO TRANSFER FROM SIT TO SUPINE AND MOD ASSIST +1 TO TRANSFER FROM SUPINE TO SIT. WOMAC score: 75/96 TU'.21 - WITH FWW AND SUPERVISION. LIMPING ON R LE. R knee flexion AROM: 75 DEG R knee ext AROM: -20 DEG. R knee flex MMT; 2+/5 R knee ext MMT 2/5 R hip MMT 3-/5 FURTHER TESTING DEFERRED BY DAUGHTER. DAUGHTER IS CONCERNED ABOUT DRAINAGE FROM LOWER LEG INCISION AND PLANS TO STOP AT DR. SINGH'S OFFICE TO INQUIRE ABOUT IT AFTER PT WELL REQUEST AN ORDER FOR HOME PT. PATIENTS DAUGHTER STATES THAT SHE REALIZED ONCE SHE GOT HERE THAT SHE UNDERESTIMATED WHAT THIS WAS GOING TO INVOLVE FOR HER MOM BUT SHE WANTED TO AT LEAST HAVE HER KNEE MEASURED TODAY. OTHER: PATIENT C/O BEING A LOT OF PAIN UPON ARRIVAL AND JUST WANTING TO GO HOME AND SLEEP. BLOOD PRESSURE WAS MEASURED AT 132/60 AND PULSE 92. SHE WAS ALERT AND ORIENTED AND COOPERATIVE WITH ASSESSEMENT. Palpation: R LE INCISIONS ARE NOT VISIBLE DUE TO BANDAGING BUT THERE IS A LOT OF DRAINAGE AT THE R LOWER LEG INCISION WHICH PATIENTS DAUGHTER REPORTS WAS CLEAN AND DRY LAST NIGHT. THEY ARE ON THEIR WAY TO DR. SINGH'S OFFICE FROM HERE. TREATMENT: HOME INSTRUCTIONS TO PATIENT AND CAREGIVER (DAUGHTER) FOR HEP - AP'S, HS'S, QS'S, GS'S, ASSISTED SLR'S AND GAIT TRAINING. ALSO INSTRUCTED IN PROPER POSTURE CONTROL IN SITTING WITH USE OF LUMBAR SUPPORT AND FREQUENT BREAKS FROM SITTING. PATIENT AGREEABLE AND STATES HAS FOUND THIS HELPFUL DUE TO BACK SURGERY. Balance/Special Test Scores Lower Extremity Functional Score: 9 WOMAC Total Score: 75 WOMAC Percentatge: 21.8800 Goals Goal 1:: COMPLETION OF EVAL Goal Time Frame: 1 Week Anticipated Interventions Text: Thank you for the opportunity to evaluate your patient. For Medicare and Medicare HMO plans, please review the plan of care and approve it. It will need to be FAXED BACK to us at [phone] for Medicare purposes. For Medicare only, by signing this I certify the plan of care. Please let me know if there are questions or concerns regarding this plan of care. Physician Signature: Date:
--- NOTE | 2023-03-18 12:53 | HP.PT.NRP ---
Patient Information Patient Information: KATIE OZUNA was seen in my office for initial evaluation on 03/18/23. The following Plan of Care was established for this patient: POC Established Initial Frequency: 1x/Week Initial Duration: 1 Week Last Seen Last Seen: This patient was last seen in our office 03/18/23. Pertinent comments regarding their Physical therapy will appear below: EVAL ONLY. PATIENTS DAUGHTER IS GOING TO REQUEST A REFERRAL FOR HOME HEALTH. At this point I will be discontinuing this patient from physical therapy. I would be happy to see this patient again in the future if found appropriate by the physician. Thank you! Ange Chan, PT, Cert MDT Balance/Gait/Functional tests Balance/Special Test Scores Lower Extremity Functional Score: 9 WOMAC Total Score: 75 WOMAC Percentage: 21.8800
== END 2023-03-18 12:58 | disposition home or self-care (01) ==
LOC: PT 09:47
PROVIDERS: PCP Family Medicine Geriatric Medicine; Referring Provider Orthopaedic Surgery; Visit Provider Orthopaedic Surgery
DX: M17.11 Unilateral primary osteoarthritis, right knee (principal); Z96.651 Presence of right artificial knee joint
CPT/HCPCS: 97162; 97530

== ENCOUNTER 2023-05-25 10:00 | Outpatient (RCR) | payer MEDICARE, SELFPAY ==
--- NOTE | 2023-04-12 11:00 | HP.PTEVAL ---
Patient's Visit Information Visit Information Visit Information: KATIE OZUNA is a 77 year old F referred to Physical Therapy by Dr. Sean Singh DO with a diagnosis of R TKR s/p 03-15-23. Date of Evaluation: 04/12/23 Physical Therapist: SHANEKA Crane Visit Plan Frequency: 2x /Week Duration: 2 Months Plan: 2X/ week for 8 weeks for R knee AROM, R hip and and knee strength, gait training, functional activities with HEP HEP: heel slides and QS Subjective Subjective: Pt had R TKR on 03-15-23. She had home health PT. She is 4 weeks post op. She is walking with a straight cane starting today. She uses the walker at home or furniture walks at home. She uses her walker cause it has a tray on it. Her pain has been terrible especially at night. Took 2 Oxycodone and Tylenol at night and had to ice at 2am. Took Gabapentin at 4:00 with more ice and got to sleep. She keeps calling Dr for oxy and takes 3 a day. She reports that it is sharp pain. She does exercises once a day. She has stairs at home but she is sleeping on her couch and afraid to go down the stairs by herself. She lives alone. Pain R knee pain: Pain Intensity (Out of 10): 8 Comment: stiff and sharp pain under knee cap Objective Objective: Gait: walks with a straight cane with decrease stride length, decreased stance time on the R LE with slightly decreased heel strike R knee MMT :hip flex 4.4, knee ext 5.8, knee flex 1.9 L knee MMT: 5.7, 14.5, 5.2 R knee AROM: -3 to 110 Pt is very painful with flex/ext AROM R Girth measurements: 6 inch supra patella 46.7, patella 38.8 Sit to stand: pt is able to stand on first attempt but needs UE to be able to push to stand TUG 20:10 Balance/Special Test Scores WOMAC Total Score: 58 WOMAC Percentatge: 39.5900 Goals Goal 1:: I HEP Goal Time Frame: 6-8 Weeks Goal 2:: Increase R knee AROM 0-120 degrees R knee flexion Goal Time Frame: 6-8 Weeks Goal 3:: Be able to walk with no AD with normal gait pattern Goal Time Frame: 6-8 Weeks Goal 4:: Increase R knee strength (at the time of eval R knee MMT :hip flex 4.4, knee ext 5.8, knee flex 1.9) Goal Time Frame: 6-8 Weeks Goal 5:: Be able to go up and down the stair recip with 1 hand rail for safety Goal Time Frame: 6-8 Weeks Goal 6:: Be able to sit to stand without UE support Goal Time Frame: 6-8 Weeks Rehabilitation Potential Rehabilitation Potential: Good Anticipated Interventions Text: Thank you for the opportunity to evaluate your patient. For Medicare and Medicare HMO plans, please review the plan of care and approve it. It will need to be FAXED BACK to us at [phone] for Medicare purposes. For Medicare only, by signing this I certify the plan of care. Please let me know if there are questions or concerns regarding this plan of care. Physician Signature: Date:
--- NOTE | 2023-05-09 12:11 | HP.PTREVAL ---
Re-Evaluation Intro: Dr. Sean Singh, DO, It has been my pleasure to treat KATIE OZUNA over the last 10 visits for R TKR s/p 03-15-23. Please see the progress note below for an update on the physical therapy plan of care! Subjective Subjective: Pt is in a lot of pain all the time. This morning she had a lot of pain in her hip and her knee did not work right. It is stiff in the morning and hurts on her knee cap and has to take an oxycodone. She does not see the Dr in May. She is doing her exercises once a day. She did not get them done this weekend. Objective Objective/Function: -2 to 122 degrees R knee flexion AROM Sit to stand: able X 5 with no UE support but verbal instruction on how to lean FW and keep feet apart. R knee MMT :hip flex 10.9, knee ext 17.3, knee flex 10.8 Walk: walks with slight antalgic gait Stairs: up and downrecip but with pain, hesitation and 2 hand rails Plan Plan Plan: Encouraged pt to do HEP at least twice a day and see if that helps with the pain level. 2X/ week for 2 additional weeks for R knee AROM, R hip and and knee strength, gait training, functional activities with HEP HEP: heel slides and QS Balance/Gait/Functional tests Balance/Special Test Scores Lower Extremity Functional Score: 35 WOMAC Total Score: 58 WOMAC Percentage: 39.5900 Goals Goals Goal 1:: I HEP Goal Time Frame: 6-8 Weeks Goal Progress: Goal Met Goal 2:: Increase R knee AROM 0-120 degrees R knee flexion Goal Time Frame: 6-8 Weeks Goal Progress: Progressing Goal 3:: Be able to walk with no AD with normal gait pattern Goal Time Frame: 6-8 Weeks Goal Progress: Progressing Goal 4:: Increase R knee strength (at the time of eval R knee MMT :hip flex 4.4, knee ext 5.8, knee flex 1.9) Goal Time Frame: 6-8 Weeks Goal 5:: Be able to go up and down the stair recip with 1 hand rail for safety Goal Time Frame: 6-8 Weeks Goal 6:: Be able to sit to stand without UE support Goal Time Frame: 6-8 Weeks Goal Progress: Goal Met Anticipated Interventions Re-Evaluation Ending Re-evaluation ending: Please do not hesitate to contact me at [phone] by phone or if you have questions or concerns regarding this new plan of care! Sincerely, Isabela Prater, MPT
--- NOTE | 2023-05-25 10:47 | HP.PTDCSUM ---
Discharge Summary D/C summary: It has been my pleasure to treat KATIE OZUNA referred by Dr. Sean Singh DO, with the diagnosis of R TKR s/p 03-15-23 for a total of 14 visit(s). Discharge Date: 05/25/23 Please see the following information for a summary of their discharge status. Subjective Subjective: Pt thinks that she is doing pretty good in all. She knows she is not going to run or walk a mile. Pt knows that her recovery time is 6 months to a year. Pt is comfortable doing her HEP at home and does them twice a day. Pt sees Dr Devlin the following week. Pain R knee pain: Pain Intensity (Out of 10): 4 R hip pain: Pain Intensity (Out of 10): 6 Overall Improvement % Improvement: 90 Objective Objective/Function: Stairs: up and down recip with 2 hand rails today (reports that she does one hand rail at home with both hands on one handrail). R knee AROM: -1 to 126 degrees R knee flex LE MMT: R knee MMT :hip flex 13, knee ext 13.2, knee flex 10.9 Gait: Pt walks with a normal gait pattern Goals Goal 1:: I HEP Goal Progress: Goal Met Goal 2:: Increase R knee AROM 0-120 degrees R knee flexion Goal Progress: Progressing Goal 3:: Be able to walk with no AD with normal gait pattern Goal Progress: Progressing Goal 4:: Increase R knee strength (at the time of eval R knee MMT :hip flex 4.4, knee ext 5.8, knee flex 1.9) Goal 5:: Be able to go up and down the stair recip with 1 hand rail for safety Goal Progress: Progressing Goal 6:: Be able to sit to stand without UE support Goal Progress: Goal Met Plan Plan: DC PT to HEP D/C Information Discharge Comments: DC PT to HEP d/c sentence: If there are questions or concerns regarding this patient's physical therapy, please feel free to call me at [phone]. Thank you for the referral of this patient. Sincerely, Isabela Prater, MPT Balance/Gait/Functional tests Balance/Special Test Scores Lower Extremity Functional Score: 41 WOMAC Total Score: 58 WOMAC Percentage: 39.5900 Improvement % Improvement: 90
== END 2023-05-25 19:00 | disposition home or self-care (01) ==
LOC: PT 10:00
PROVIDERS: PCP Family Medicine Geriatric Medicine; Referring Provider Orthopaedic Surgery; Visit Provider Orthopaedic Surgery
DX: Z96.651 Presence of right artificial knee joint (principal)
CPT/HCPCS: 97110; 97161; 97530

== ENCOUNTER → 2023-05-30 | Outpatient (CLI) | payer MEDICARE, SELFPAY ==
[2023-05-30 15:47] LABS: Absolute Lymphocyte Count 1.72 X10^3/uL (0.83-4.51); Absolute Neutrophil Count 2.7 X10^3/uL (2.0-7.7); Basophil# 0.02 X10^3/uL; Basophil% 0.4 % (0-1); Eosinophil# 0.06 X10^3/uL; Eosinophils% 1.2 % (0-5); Hematocrit 39.1 % (37-47); Hemoglobin 12.3 g/dL (12.0-15.0); Lymphocyte # 1.72 X10^3/ul (0.83-4.51); Lymphocyte % 35.4 % (19-41); Mean Corp Hgb Conc 31.5 g/dL (32-36); Mean Corpuscular Hgb 31.5 pg (27.0-32.0); Mean Corpuscular Volume 100.3 fL (81-99); Mean Platelet Vol. 10.4 fl (6.2-12.0); Monocyte# 0.33 X10^3/uL; Monocyte% 6.8 % (0-10); NRBC Flagged by Analyzer 0 % (0-5); Neutrophil # 2.72 X10^3/uL (2.7-7.7); Platelet Count 171 K/mm3 (150-450); RBC Distribution Width SD 47.8 fl (35.1-43.9); White Blood Count 4.9 K/mm3 (4.4-11.0)
[2023-05-30 16:35] LABS: ALB/GLOB Ratio 1.3 RATIO (0.9-2.4); AST(SGOT) 30 U/L (15-37); Alanine Aminotransfer ALT/SGPT 29 U/L (13-56); Albumin, Serum 4.3 g/dL (3.2-5.0); Alkaline Phosphatase 86 U/L (45-117); Anion Gap 7 (5-15); BUN 17 mg/dL (7-18); BUN/Creat Ratio 18.5 RATIO (10-20); Calcium,Total 9.9 mg/dL (8.5-10.1); Chloride 109 mmol/L (98-107); Creatinine, Serum 0.92 mg/dL (0.55-1.02); EST Glomerular Filtration Rate 63 mL/min (>60); Est Glom Filt Rate - Afr Amer 76 mL/min (>60); Globulin 3.3 g/dL (2.2-4.2); Glucose 90 mg/dL (74-106); Potassium 3.8 mmol/L (3.5-5.1); Protein, Total 7.6 g/dL (6.4-8.2); Sodium Level 142 mmol/L (136-145)
== END | disposition home or self-care (01) ==
LOC: MTLAB 14:07
PROVIDERS: PCP Family Medicine Geriatric Medicine; Referring Provider Internal Medicine Rheumatology; Visit Provider Internal Medicine Rheumatology
DX: M06.4 Inflammatory polyarthropathy (principal); Z79.899 Other long term (current) drug therapy
CPT/HCPCS: 36415; 80053; 85025

== ENCOUNTER → 2023-06-07 | Outpatient (CLI) | payer MEDICARE, SELFPAY ==
[2023-06-07 11:40] LABS: Absolute Lymphocyte Count 1.22 X10^3/uL (0.83-4.51); Absolute Neutrophil Count 1.6 X10^3/uL (2.0-7.7); Basophil# 0.01 X10^3/uL; Basophil% 0.3 % (0-1); Eosinophil# 0.05 X10^3/uL; Eosinophils% 1.6 % (0-5); Hematocrit 36.2 % (37-47); Hemoglobin 11.8 g/dL (12.0-15.0); Lymphocyte # 1.22 X10^3/ul (0.83-4.51); Lymphocyte % 39.2 % (19-41); Mean Corp Hgb Conc 32.6 g/dL (32-36); Mean Corpuscular Hgb 32.2 pg (27.0-32.0); Mean Corpuscular Volume 98.6 fL (81-99); Mean Platelet Vol. 10.3 fl (6.2-12.0); Monocyte# 0.27 X10^3/uL; Monocyte% 8.7 % (0-10); NRBC Flagged by Analyzer 0 % (0-5); Neutrophil # 1.56 X10^3/uL (2.7-7.7); Neutrophil % 50.2 % (47-70); Platelet Count 120 K/mm3 (150-450); RBC Distribution Width SD 46.3 fl (35.1-43.9); RET-HE 35.1 pg (30-35); Red Blood Count 3.67 M/mm3 (4.2-5.4); Reticulocyte Count 1.53 % (0.5-1.5); White Blood Count 3.1 K/mm3 (4.4-11.0)
[2023-06-07 11:54] LABS: Vitamin B12 671 pg/mL (211-911); Vitamin D,25 Hydroxy 35.4 ng/mL
[2023-06-07 12:29] LABS: ALB/GLOB Ratio 1.3 RATIO (0.9-2.4); AST(SGOT) 20 U/L (15-37); Alanine Aminotransfer ALT/SGPT 28 U/L (13-56); Albumin, Serum 3.9 g/dL (3.2-5.0); Alkaline Phosphatase 78 U/L (45-117); Anion Gap 7 (5-15); BUN 16 mg/dL (7-18); BUN/Creat Ratio 17.5 RATIO (10-20); Calcium,Total 9.1 mg/dL (8.5-10.1); Chloride 109 mmol/L (98-107); Creatinine, Serum 0.92 mg/dL (0.55-1.02); EST Glomerular Filtration Rate 63 mL/min (>60); Est Glom Filt Rate - Afr Amer 76 mL/min (>60); Globulin 2.9 g/dL (2.2-4.2); Glucose 106 mg/dL (74-106); Potassium 3.5 mmol/L (3.5-5.1); Protein, Total 6.8 g/dL (6.4-8.2); Sodium Level 142 mmol/L (136-145); Thyroid Stim Hormone (TSH) 1.06 uIU/mL (0.358-3.74)
== END | disposition home or self-care (01) ==
LOC: POLAB3 10:21
PROVIDERS: Internal Medicine; PCP Family Medicine Geriatric Medicine; Visit Provider Family Medicine Geriatric Medicine
DX: I10 Essential (primary) hypertension (principal); E55.9 Vitamin D deficiency, unspecified
CPT/HCPCS: 80053; 82306; 82607; 82746; 84443; 85025; 85045

== ENCOUNTER → 2023-07-07 | Outpatient (CLI) | payer MEDICARE, SELFPAY | END | disposition home or self-care (01) | LOC: PSN 11:45 | PROVIDERS: PCP Family Medicine Geriatric Medicine; Referring Provider Family Medicine Geriatric Medicine; Visit Provider Family Medicine Geriatric Medicine | DX: R68.83 Chills (without fever) (principal) | CPT/HCPCS: 87631 ==

== ENCOUNTER → 2023-07-18 | Outpatient (CLI) | payer MEDICARE, SELFPAY ==
--- NOTE | 2023-07-18 11:18 | RAD_ITS ---
INDICATION: Sciatica EXAMINATION/TECHNIQUE: X-RAY - XR Spine Lumbar Min 4 Views COMPARISON: Prior study dated: 02/07/2023 FINDINGS: VERTEBRAE: Preserved vertebral body height. No fracture. No spondylolisthesis. Preservation of the normal lumbar lordosis. Unchanged scoliosis. DISCS: Stable posterior fusion of L2, L3 and 4 with bilateral pedicle screws unchanged in alignment or position since the previous exam. Narrowing of L5-S1 disc space. Mild endplate spondylosis. INCLUDED ABDOMEN: Multiple small metallic densities are again seen in the pelvic region. Atherosclerotic calcifications of the abdominal aorta. RAD/L/S Spine Min 4 Views IMPRESSION: Fusion of the lower lumbar spine stable since previous exam. Degenerative changes unchanged. Electronically Signed: Carlos Prince MD at 11:36 EST ,
== END | disposition home or self-care (01) ==
LOC: LAB 11:03 → RAD 11:08
PROVIDERS: PCP Family Medicine Geriatric Medicine; Referring Provider Family Medicine Geriatric Medicine; Visit Provider Family Medicine Geriatric Medicine
DX: M54.31 Sciatica, right side (principal)
CPT/HCPCS: 72110

== ENCOUNTER 2023-09-06 10:00 | Outpatient (RCR) | payer MEDICARE, SELFPAY ==
--- NOTE | 2023-08-25 12:04 | HP.PTEVAL ---
Patient's Visit Information Visit Information Visit Information: KATIE OZUNA is a 78 year old F referred to Physical Therapy by LAM CERDA with a diagnosis of Spinal stenosis lumbar with neurogenic claudication. Date of Evaluation: 08/25/23 Physical Therapist: Louie Cornejo, DPT, OCS, CSCS Visit Plan Frequency: 2x /Week Duration: 4-6 Weeks Plan: 2x/week for 4-6(2 to start), 0please focus on Manual STM and MH to LB and upper glutes, ROM lumbar rotation and flexion exercises, stretch HS and psoas to HEP and core strength progressing to general ex when tolerated. First couple weeks should be manual and ROM/stretching. Subjective Subjective: Back brings her here. had back surgery last July L234 fused and rods and 6 screws. Saw doctor for one year f/u last week. 07/12 took dogs to vet adn lifted dog into van and felt a pull in back that day. surgeon says things look fine. Saw Dr. Chang who took x rays and given antiinflammatories which helped and then got worse again 07/26. sent to pain management who gave cortisone injection in back for OA which did not help. has been in pain for the last month and has been taking tramadol. Surgeon gave her strong muscle relaxers which put her to sleep. It helps her sleep. Pain is in B LB upper buttocks. Hurts to roll over. Hurts to lie on it. pain gets up to 8/10 with just sitting and is fairly constant. Ice pack helps at home. At best it has been a 6/10. Standing is hard. Surgeon wanted PT and if it is not helping then may do an MRI. Not employed. Spends day reading , taking care of dog, Hurts to put water on floor. Basic ADLs: dressing, bathing, shower all I. No regular exercises. Sometimes painn in R leg but no numbness or tingling. Standing 3-5 minutes is limit adn needs to sit whcih feels better.Walking around house is not bad if she is moving. Pain back pain: Pain Intensity (Out of 10): 3 Pain Intensity Range: 3 and 8 Objective Objective: Walks very stiff lacking extension at hips but safe and I. Transfers chair I but slow with UE. Bed trasnfer is I with some groans and needs to log roll. Tender to touch is upper gluts and lumbar paraspinals R>L. Posture is flat lordosis Tightness obvious in HS and psoas B with pain psoas tension B Lumbar AROM mod deficts extension without pain, flexion is max deficits and painful LB stretching, SB min limited. reflexes 1/3 patella adn achilles Sensation LE WNL to gross light touch B strength in hips is 3/5, core 3/5, knees 3+/5 adn ankles 4/5 without myotomal problems. Balance/Special Test Scores Oswestry Low Back Score: 27 Goals Goal 1:: I appropriate core adn general strength program via HEP with lumbar ROM to limit fitire problems. Goal Time Frame: 4-6 Weeks Goal 2:: Pain in LB 1/10 at worst and 80% better. Goal Time Frame: 4-6 Weeks Goal 3:: min limitations in lumbar flexions without pain Goal Time Frame: 4-6 Weeks Goal 4:: back oswestry 10 or better Goal Time Frame: 4-6 Weeks Rehabilitation Potential Physical Therapy Diagnosis: Limited ROM and weakness effecting comfortable function Rehabilitation Potential: Fair Anticipated Interventions Patient/Client Instruction: Educate patient on: Condition and Risk Factors For the Purpose of:: To decrease pain, To increase ROM, To improve muscle performance and motor function and To increase tolerance to activity/condition/position Therapeutic Exercise to Include: Strength training, Flexibilty training, Passive ROM, Active ROM and Dynamic Lumbar Stabilization For the Purpose of:: To decrease pain, To increase ROM, To improve nutrient delivery to tissue, To increase tolerance to activity/condition/position, To improve ability of physical actions for home/community/work/leisure, To improve gait and locomotor functions and To increase flexibility/ROM Manual Therapy Techniques to Include: Passive ROM and Soft tissue mobilization For the Purpose of:: To decrease pain, To decrease swelling/inflammation and To improve nutrient delivery to tissue Thermo therapy (hot pack): Yes For the Purpose of:: To decrease pain, To increase ROM and To improve nutrient delivery to tissue Text: Thank you for the opportunity to evaluate your patient. For Medicare and Medicare HMO plans, please review the plan of care and approve it. It will need to be FAXED BACK to us at [phone] for Medicare purposes. For Medicare only, by signing this I certify the plan of care. Please let me know if there are questions or concerns regarding this plan of care. Physician Signature: Date:
--- NOTE | 2023-12-19 09:09 | HP.PT.NRP ---
Patient Information Patient Information: KATIE OZUNA was seen in my office for initial evaluation on 08/25/23. The following Plan of Care was established for this patient: POC Established Initial Frequency: 2x /Week Initial Duration: 4-6 Weeks Anticipated Interventions Patient/Client Instruction: Educate patient on: Condition and Risk Factors For the Purpose of:: To decrease pain, To increase ROM, To improve muscle performance and motor function and To increase tolerance to activity/condition/position Therapeutic Exercise to Include: Strength training, Flexibilty training, Passive ROM, Active ROM and Dynamic Lumbar Stabilization For the Purpose of:: To decrease pain, To increase ROM, To improve nutrient delivery to tissue, To increase tolerance to activity/condition/position, To improve ability of physical actions for home/community/work/leisure, To improve gait and locomotor functions and To increase flexibility/ROM Manual Therapy Techniques to Include: Passive ROM and Soft tissue mobilization For the Purpose of:: To decrease pain, To decrease swelling/inflammation and To improve nutrient delivery to tissue Thermo therapy (hot pack): Yes For the Purpose of:: To decrease pain, To increase ROM and To improve nutrient delivery to tissue Last Seen Last Seen: This patient was last seen in our office 09/06/23. Pertinent comments regarding their Physical therapy will appear below: Pt seen 4 visits of POC and was still hurting 8/10 in back. She did not attend any further visits. at this point, it has been over 3 months and i will discontinue from my care. At this point I will be discontinuing this patient from physical therapy. I would be happy to see this patient again in the future if found appropriate by the physician. Thank you! Louie Cornejo, DPT, OCS, CSCS Balance/Gait/Functional tests Balance/Special Test Scores Oswestry Low Back Score: 27
== END 2023-09-06 19:00 | disposition home or self-care (01) ==
LOC: PT 10:00
PROVIDERS: PCP Family Medicine Geriatric Medicine
DX: M48.062 Spinal stenosis, lumbar region with neurogenic claudication (principal)
CPT/HCPCS: 97110; 97140; 97161

== ENCOUNTER → 2023-10-15 | Outpatient (CLI) | payer MEDICARE, SELFPAY ==
[2023-10-15 10:55] LABS: Absolute Lymphocyte Count 1.49 X10^3/uL (0.83-4.51); Absolute Neutrophil Count 1.4 X10^3/uL (2.0-7.7); Basophil# 0.01 X10^3/uL; Basophil% 0.3 % (0-1); Eosinophil# 0.08 X10^3/uL; Eosinophils% 2.5 % (0-5); Hematocrit 36.6 % (37-47); Hemoglobin 12.1 g/dL (12.0-15.0); Lymphocyte # 1.49 X10^3/ul (0.83-4.51); Lymphocyte % 46.7 % (19-41); Mean Corp Hgb Conc 33.1 g/dL (32-36); Mean Corpuscular Volume 102.8 fL (81-99); Monocyte# 0.22 X10^3/uL; Monocyte% 6.9 % (0-10); NRBC Flagged by Analyzer 0 % (0-5); Neutrophil # 1.39 X10^3/uL (2.7-7.7); Neutrophil % 43.6 % (47-70); Platelet Count 122 K/mm3 (150-450); RBC Distribution Width CV 12.7 % (11.6-14.6); RBC Distribution Width SD 48.1 fl (35.1-43.9); RET-HE 35.9 pg (30-35); Red Blood Count 3.56 M/mm3 (4.2-5.4); Reticulocyte Count 2.12 % (0.5-1.5); White Blood Count 3.2 K/mm3 (4.4-11.0)
[2023-10-15 10:59] LABS: International Normalized Ratio 1.1; Prothrombin Time (Protime)PT. 14.2 SECONDS (11.7-14.9)
[2023-10-15 11:19] LABS: ALB/GLOB Ratio 1.3 RATIO (0.9-2.4); AST(SGOT) 23 U/L (15-37); Alanine Aminotransfer ALT/SGPT 57 U/L (13-56); Albumin, Serum 3.9 g/dL (3.2-5.0); Alkaline Phosphatase 89 U/L (45-117); Anion Gap 6 (5-15); BUN 16 mg/dL (7-18); BUN/Creat Ratio 16.1 RATIO (10-20); CRP < 2.90 mg/L (0.0-3.0); Calcium,Total 9.7 mg/dL (8.5-10.1); Chloride 111 mmol/L (98-107); Creatinine, Serum 0.99 mg/dL (0.55-1.02); EST Glomerular Filtration Rate 57 mL/min (>60); Est Glom Filt Rate - Afr Amer 69 mL/min (>60); Ferritin 68 ng/mL (8-252); Globulin 2.9 g/dL (2.2-4.2); Glucose 119 mg/dL (74-106); Iron 67 ug/dL (50-170); Iron Binding Capacity,Total 300 ug/dL (250-450); Potassium 3.8 mmol/L (3.5-5.1); Protein, Total 6.8 g/dL (6.4-8.2); Sodium Level 142 mmol/L (136-145)
== END | disposition home or self-care (01) ==
PROVIDERS: PCP Family Medicine Geriatric Medicine; Referring Provider Internal Medicine; Visit Provider Internal Medicine
DX: D53.9 Nutritional anemia, unspecified (principal)
CPT/HCPCS: 36415; 80053; 82274; 82653; 82705; 82728; 83540; 83550; 83630; 83993; 85025; 85045; 85610; 86140; 87493

== ENCOUNTER → 2023-10-20 | Outpatient (CLI) | payer MEDICARE, SELFPAY ==
--- NOTE | 2023-10-20 09:24 | US_ITS ---
STUDY: ABDOMINAL ULTRASOUND - RIGHT UPPER QUADRANT; ELASTOGRAPHY REASON FOR VISIT: Female, 78 years old. NAFL D Ultrasound evaluation of the right upper quadrant was performed with real-time and static mendiola-scale imaging. TECHNIQUE: Point quantification shear wave elastography was performed ([employer]). TECHNICAL QUALITY: Adequate. COMPARISON: Comparison is made with prior study dated July 10, 2018. FINDINGS: Liver: The liver measures 15.1 cm. There is increased echogenicity consistent with fatty infiltration. The bile ducts are within normal limits. There is hepatic color flow. The direction of portal flow is hepatopetal. There is no demonstrated mass lesion. Median liver stiffness measured 9.3 kPa. Gallbladder: The patient is status post cholecystectomy. Common Bile Duct (C.B.D.): The common bile duct measures 10 mm. Pancreas: There is normal echogenicity of the visualized pancreas. There is no demonstrated pancreatic mass or cyst. Right Kidney: Normal size of the right kidney. The right kidney measures 10.1 cm x 4.7 cm x 4.8 cm. Normal renal cortex. The right cortex measures 1.5 cm. 3 cysts are seen. The largest is in the inferior aspect of the kidney and measures 2.5 cm x 2.3 cm x 2.3 cm. There is no right hydronephrosis. US/ABD Limited w/ Elastography IMPRESSION: 1. Liver stiffness measures 9.3 kPa compatible with F2-F3 (Mild to moderate liver fibrosis) Metavir score. Electronically Signed: Júnior Parker MD at 15:40 EDT ,
== END | disposition home or self-care (01) ==
PROVIDERS: PCP Family Medicine Geriatric Medicine; Referring Provider Internal Medicine; Visit Provider Internal Medicine
DX: K70.0 Alcoholic fatty liver (principal); K76.0 Fatty (change of) liver, not elsewhere classified
CPT/HCPCS: 76705; 76981

== ENCOUNTER → 2023-11-03 | Outpatient (CLI) | payer MEDICARE, SELFPAY ==
--- NOTE | 2023-11-03 14:10 | RAD_ITS ---
STUDY: X-RAY - LUMBAR SPINE REASON FOR EXAM: Female, 78 years old. Leg pain. TECHNIQUE: 5 view(s) of the lumbar spine were obtained. COMPARISON: None FINDINGS: Marked osteopenia. Normal lordosis. Mild levoscoliosis. Posterior fusion with laminectomies at L2-L4. Anterior wedge compression deformity of L1, age indeterminant. Diffuse lower thoracic and lumbosacral facet sclerosis. Diffuse intervertebral disc space narrowing most marked at L2-3, L3-4 and L5-S1. Osteophytes most marked at L2-3 and L3-4. Vacuum phenomenon at L5-S1. Vascular calcification with coils in the pelvis. RAD/L/S Spine Min 4 Views IMPRESSION: Osteopenia with ORIF from L2 to L4 with laminectomy defects at these levels. Anterior wedge compression deformity of L1, age indeterminant. Diffuse lower thoracic and lumbosacral spondylosis most marked from L2-3 to L5-S1 as described. Electronically Signed: Darwin Vasquez MD at 15:02 EDT ,
--- NOTE | 2023-11-03 14:10 | RAD_ITS ---
STUDY: X-RAY - LEFT TIBIA AND FIBULA REASON FOR EXAM: Female, 78 years old. Left leg pain. TECHNIQUE: 2 view(s) of the tibia and fibula were obtained. COMPARISON: None. FINDINGS: Osteopenia. Normal visualized tibia. Normal visualized fibula. The soft tissue structures are normal. RAD/Tibia & Fibula 2 Views IMPRESSION: Osteopenia with no other abnormality. Electronically Signed: Darwin Vasquez MD at 14:55 EDT ,
== END | disposition home or self-care (01) ==
LOC: RAD 14:07
PROVIDERS: PCP Family Medicine Geriatric Medicine; Referring Provider Family Medicine Geriatric Medicine; Visit Provider Family Medicine Geriatric Medicine
DX: M79.605 Pain in left leg (principal)
CPT/HCPCS: 72110; 73590

== ENCOUNTER 2023-11-09 09:20 | Day surgery (SDC) | payer MEDICARE, SELFPAY ==
[2023-11-09] VITALS (7 sets, daily range): BP systolic 110–152; BP diastolic 64–101; PULSE 62–74; RESP 16; TEMP 36.4–36.6; O2SAT 95–99; BMI 29.8
[2023-11-09] MEDS: Lactated Ringers 1,000 ML 15 ML IV (10:01)
--- NOTE | 2023-11-09 10:19 | PCM.HP.BLA ---
History and Physical Date of Admission: 11/09/23 diarrhea Details: KATIE OZUNA, is a 78 F who presents to the office today for follow up. GI Hx liver cirrhosis versus fatty liver, GERD, diverticulitis. PMH anxiety. PSH cholecystectomy; sigmoid diverticulitis with perforation requiring colectomy in 1999.? ? Prior workup:? EGD and colonoscopy 02.07.18?with Dr. Jeffries for RLQ pain and recurrent duodenal polyp. EGD noted small hiatal hernia; duodenal polyp with focal metaplasia. Advanced to third portion of duodenum.? Colonoscopy found moderate hemorrhoidal changes; tortuous sigmoid colon; cecal biopsy without pathologic changes, noted lymphoid aggregates. Scope not advanced past cecum.? CT abd/pel 09.14.21?for abd pain noting normal liver; post-surgical changes of abdominal wall hernia repair.? Stool testing 09.15.21?lactoferrin, EP, C.Difficile, O/P and occult WNL? ? PCP seen 06.09.22 for annual visit noting diarrhea and referred to GI.? ? *[facility] established 12.10.22 diarrhea has been an issue since her 30?s with postprandial diarrhea without specific food triggers with progressive worsening over the years, will have intermittent incontinence because urgency; will use immodium for management. She is not currently concerned about her liver. ?Biochemical 01.09.23?ESR, CRP, LDH, Vit B12, gastrin, TSH, RAST, GAME, INO, celiac WNL.? apANCA H1:160, [employer] H1.3, anti dbl strand DNA H22? Stool fats, calprotectin, elastase, EP, O/P, giardia, lactoferrin, C.difficile WNL? Contact 01.04.23 with biochemical results recommending rheumatology referral and additional bloodwork for apANCA?Biochemical?IBD WNL? Vasculitis +? Contact 01.28.23 recommend rheumatology referral; continues to have loose stools, possible colestipol/cholestyramine.? Contact 02.09.23 colestipol is ineffective.?Start cholestyramine and lomotil? OV 04/25/23 Pt d/c cholestyramine as it was hard for her to take with other meds. States Lomotil has been helpful. Only has 1-2 liquid bm per day instead of 5+. Continues to take Oxycodone from her knee surgery 6 weeks ago. Hb was low. OV : Diarrhea,at most 3 bm/day, liquid, sometimes bm/day, irregular pattern, most time black sometime brown. Her knee is working good. ROS Const Constitutional: No anorexia, body ache, chills, excessive sweating, fatigue, fever(s), frequent falls, headache(s), decreased energy, malaise, night sweats, snoring, weakness, weight change, sleep problems, abnormal sleep pattern, change in appetite or other Eyes Eyes: No blurry vision, change in vision, double vision, irritation, discharge, vision loss, dry eyes, bulging eyes, floaters, visual disturbances, eye pain, Light sensitivity, spots in vision, tunnel vision or other ENT ENT: No abnormal hearing, ear or mastoid pain, ear discharge, ear pressure, hearing loss, tinnitus, dizziness/vertigo, balance problems, nosebleed/epistaxis, nasal congestion, nasal obstruction, nose pain, sinus pressure, sinus pain, nasal discharge, post nasal drip, headache(s), facial pain, dental pain, dry mouth, difficulty swallowing, bad breath, hoarseness, lip swelling, mouth lesions, mouth pain, neck pain, sore throat, tongue swelling, throat swelling or other Resp Respiratory: No cough, change in phlegm color, chest congestion, excessive phlegm production, hemoptysis, pain on inspiration, shortness of breath, pain with cough, snoring, stridor, wheezing or other Cardio Cardiology: Positive for leg pain with exertion; No chest pain at rest, chest pain with exertion, excessive sweating, shortness of breath, dyspnea on exertion, generalized swelling, irregular heart rhythm, lightheadedness, orthopnea, radiating jaw, neck or arm pain, fast heart rate, slow heart rate, palpitations, difficulty breathing or other Gastro GI: Positive for diarrhea; No abdominal pain, belching, bloating, change in bowel habits, change in stool character, coffee ground emesis, constipation, cramping, heartburn, difficulty swallowing, feeling full early, excessive flatus, incontinent of stools, Vomiting blood/hematemesis, Blood in stool, loose stools, Black,tarry stools, nausea/dyspepsia, pain with swallowing, vomiting or other Genitourinary-Female: No difficulty urinating, burning urination, painful urination, urinary incontinence, urinary frequency, urinary urgency, urinary hesitancy, urinary retention, blood in urine, Frequent nighttime urination/ nocturia, post void dribbling, suprapubic fullness, side pain, sexual problems, genital lesions, genital itching, hot flashes, abnormal periods, abnormal vaginal bleeding, absent period, painful periods, light periods, heavy periods, difficulty getting , painful intercourse, pelvic pain, vaginal dryness, vaginal odor, Vaginal Itching or other Musc Musculoskeletal: Positive for joint pain, back pain, stiffness, Arthritis and leg pain with exertion; No abnormal gait, deformity, joint swelling, limited range of motion, loss of height, muscle cramps, muscle weakness, decreased muscle mass, myalgias, neck pain, numbness, radiating pain into limb, tingling, sciatica, restless legs, leg pain at night or other Skin Skin: Positive for itchy eyes and rash; No acne, hair loss in leg, change in hair, nail changes, boil, change in skin color, dry skin, redness, excessive hair growth, yellowing of the eye, lesions, skin pain, skin ulcer, sores, skin swelling, wounds or other Neuro Neurology: No abnormal gait, abnormal hearing, abnormal movements, abnormal speech, behavioral changes, confusion, unsteady gait/balance, dizziness, weakness, frequent falls, headache(s), lack of coordination, loss of vision, memory loss, numbness, tingling, visual disturbances, restless legs, fainting, tremor(s), Increased tone in limbs, paralysis, seizures or other Psych Psychiatric: No abnormal sleep pattern, No lack of enjoyment, No anxiety, No behavioral changes, No change in appetite, No confusion, No depression, No difficulty concentrating, No hopelessness, No irritability, No memory loss, No mood swings, No panic attacks, No paranoia, No Thoughts of harming yourself/Others, No hallucinations, No Behavioral Problems, No Compulsive Behavior, No hyperactivity, No inattentiveness, No obsessions/compulsions, No Temper Tantrums, No suicidal ideation and No other Endo Endocrine: No change in body appearance, cold intolerance, excessive sweating, fatigue, flushing, heat intolerance, increased thirst/drinking, increased hunger, increased urine leakage, weight change or other Aller/Imm Allergy/Immunologic: Positive for itchy eyes; No food intolerance, lip swelling, seasonal allergy symptoms, throat swelling, tongue swelling, hives, wheezing or other Pablo/Lymp Hematologic/Lymphatic: Positive for easy bleeding; No easy bruising, enlarged lymph nodes or other Exam Const General: cooperative and comfortable Nutritional Appearance: average body habitus and well nourished HENMT Head: normal to inspection Ears: hearing grossly normal bilaterally Nose: external nose normal Face and sinus: normal facial exam Mouth: oral mucosae normal Throat: posterior oropharynx normal Eyes General: appearance normal, both eyes and all related structures Neck Neck: normal visual inspection Chest Chest palpation & inspection: normal inspection of the chest and normal palpation of entire chest wall Resp Effort & Inspection: normal respiratory effort Auscultation: Bilateral: Clear to Auscultation Cardio Palpation: normal PMI Rate: regular rate Rhythm: regular rhythm GI Inspection: normal to inspection Auscultation: normal bowel sounds Percussion: normal to percussion Palpation: no hepatosplenomegaly Skin General: no rashes or lesions noted Neuro General: patient alert Extrem General: normal to inspection Psych Affect: normal affect Quality Reporting Tobacco Screening ([facility] 138) Smoking Status: Never smoker Assessment and Plan Assessment and Plan (1) Diarrhea: Status: Chronic Qualifiers: Diarrhea type: unspecified type Qualified Code(s): R19.7 - Diarrhea, unspecified Plan: Currently she is having 1 bowel movement per day and sometimes 2 bowel movements per day if she forgets to take Lomotil. She is also on oxycodone for right total knee arthroplasty by Dr. Singh but still soon complete it. As mentioned above her extensive blood work for diarrhea was negative including celiac panel, gastrin, TSH, enteric bacteriology panel, calprotectin, stool panel and C. difficile. She said she had 10 inches of colon removed due to infected diverticulitis with perforation [place] [address] Jeffries. She has history of diverticulosis therefore high suspicion of small intestinal bacterial overgrowth. She had EGD and colonoscopy in January 2018. EGD findings:Suspected recurrent duodenal polyp with pathology pending. Treated with saline lift hot snare and hemostatic clip. Minimal findings to suggest gastritis. No gross findings of esophagitis. Hiatal hernia noted. Biopsy results Focal gastric metaplasia. Colonoscopy findings:Angiodysplasia of the cecum and ascending colon. No profuse active bleeding at this time. Sigmoid diverticulosis. Biopsy shows no significant pathologic changes. Dr. Chang also referred to Ella for suspicion of cirrhosis and she had extensive blood work and cirrhosis was ruled out. She had CT scan of abdomen pelvis with IV contrast in August 2021 which reported normal liver, normal GB and extrahepatic biliary system. Normal spleen and pancreas. She is taking Lomotil and probiotic. She takes 2 tablets of probiotic every morning. Advised to change to 1 tablet morning and 1 tablet in the evening. Repeat a stool test ordered looking for chronic infection, stool calprotectin and C. difficile. She also takes amoxicillin prior to dental visit last 1 was 3 weeks ago. During previous visit cholestyramine was discontinued because of side effects which hinders in the absorption of other medications. Patient agreed for colonoscopy looking for IBD and collagenous colitis or microscopic colitis. Repeat lab test including anemia workup ordered. Follow-up in 3 months (2) Thrombocytopenia: Status: Chronic (3) Anemia, macrocytic: Status: Chronic Plan: H&H improved 11.8/36%. Platelet count 120,000. Patient on ferrous sulfate and vitamin C. Vitamin B12, folic acid and vitamin D 25 OH normal. . Orders: Orders Calprotectin, Stool 3 Months D53.9 - Nutritional anemia, unspecified, D69.6 - Thrombocytopenia, unspecified, R19.7 - Diarrhea, unspecified Pancreatic Elastase, Fecal 3 Months D53.9 - Nutritional anemia, unspecified, D69.6 - Thrombocytopenia, unspecified, R19.7 - Diarrhea, unspecified Stool Lactoferrin/WBC 3 Months D53.9 - Nutritional anemia, unspecified, D69.6 - Thrombocytopenia, unspecified, K58.9 - Irritable bowel syndrome without diarrhea, R19.7 - Diarrhea, unspecified ENTERIC PATHOGEN PANEL STOOL 3 Months D53.9 - Nutritional anemia, unspecified, D69.6 - Thrombocytopenia, unspecified, K58.9 - Irritable bowel syndrome without diarrhea, R19.7 - Diarrhea, unspecified Fecal Fat, Qualitative 3 Months D53.9 - Nutritional anemia, unspecified, D69.6 - Thrombocytopenia, unspecified, R19.7 - Diarrhea, unspecified Stool Occult Blood iFOB 3 Months D53.9 - Nutritional anemia, unspecified, D69.6 - Thrombocytopenia, unspecified, R19.7 - Diarrhea, unspecified CDIFF (PCR) 3 Months D53.9 - Nutritional anemia, unspecified, D69.6 - Thrombocytopenia, unspecified, R19.7 - Diarrhea, unspecified Ferritin 3 Months D53.9 - Nutritional anemia, unspecified, D69.6 - Thrombocytopenia, unspecified, R19.7 - Diarrhea, unspecified Iron Binding Capacity,Total 3 Months D53.9 - Nutritional anemia, unspecified, D69.6 - Thrombocytopenia, unspecified, R19.7 - Diarrhea, unspecified Iron 3 Months D53.9 - Nutritional anemia, unspecified, D69.6 - Thrombocytopenia, unspecified, R19.7 - Diarrhea, unspecified Retic Panel Count 3 Months D53.9 - Nutritional anemia, unspecified, D69.6 - Thrombocytopenia, unspecified, R19.7 - Diarrhea, unspecified Comprehensive Metabolic Profil 3 Months D53.9 - Nutritional anemia, unspecified, D69.6 - Thrombocytopenia, unspecified, R19.7 - Diarrhea, unspecified Prothrombin Time w/INR 3 Months D53.9 - Nutritional anemia, unspecified, D69.6 - Thrombocytopenia, unspecified, R19.7 - Diarrhea, unspecified CBC W/Diff, Automated 3 Months D53.9 - Nutritional anemia, unspecified, D69.6 - Thrombocytopenia, unspecified, K58.9 - Irritable bowel syndrome without diarrhea, R19.7 - Diarrhea, unspecified CRP 3 Months D53.9 - Nutritional anemia, unspecified, D69.6 - Thrombocytopenia, unspecified, R19.7 - Diarrhea, unspecified ABD Limited w/ Elastography Today K76.0 - Fatty (change of) liver, not elsewhere classified Medications: Refilled amoxicillin take 4 tabs within 1 hr prior to dental procedure. 2,000 mg (4 x 500 mg) PO ONCE 4 tabs 1RF I have examined the patient and the H&P has been reviewed. There are no clinical changes since date of exam.
--- NOTE | 2023-11-09 10:30 | COLBX_PTH ---
PATIENT: KATIE OZUNA LOC: EN U#:[id number] AGE/SX: 78/F ROOM: RE11/09/[address]: Dr. Red Chaves DO : 1945 BED: DIS: 11/09/2023 SPEC #: [id number] RECD: 11/09/23 10:52 STATUS: CYNTHIA RENikia #: [id number] JASON: 11/09/23 10:[address]: Red Chaves DEPT: SURGICAL PATHOLOGY RECD BY: Saritha Hastings ENTERED: 11/09/23 12:23 SP TYPE: COLON BX OTHR DR: Dr. Alessio Chang MD Tissues: COLON BIOPSY Procedures: Surgery Specimen Level IV HEADER OPERATION: Colonoscopy with biopsy PRE-OP DIAGNOSIS: Diarrhea TISSUE SUBMITTED: Random colon biopsy MICROSCOPIC DIAGNOSIS Colon, random biopsy: Focal acute colitis. See comment. ALEJANDRO/ 11/10/2023 COMMENT Focal minimal cryptitis and glandular distortion are noted. Correlation with clinical, endoscopic findings and appropriate follow up are necessary. MICROSCOPIC DESCRIPTION Slides are reviewed. GROSS DESCRIPTION Received in fixative is one container labeled with the patient's name and designated Random colon biopsy. The specimen consists of multiple irregular fragments of light cuellar soft tissue that in aggregate measure 2.0 x 0.5 x 0.1 cm. The specimen is totally submitted in one cassette. ALEJANDRO/ 11/09/2023 TC:2 CPT:51399
--- NOTE | 2023-11-09 10:47 | OP.COLON_ITS ---
Patient Name: Zaria Ross Procedure Date: 11/09/2023 10:20 AM Date of : 1945 Age: 78 Procedure: Colonoscopy Indications: Chronic diarrhea Providers: Red Chaves DO Referring MD: Alessio Chang MD Medicines: Monitored Anesthesia Care Patient Profile: This is a 78 year old female. Refer to note in patient chart for documentation of history and physical. Last Colonoscopy: 5 years ago. Complications: No immediate complications. Procedure: Pre-Anesthesia Assessment: - Prior to the procedure, a History and Physical was performed, and patient medications and allergies were reviewed. The patient is competent. The risks and benefits of the procedure and the sedation options and risks were discussed with the patient. All questions were answered and informed consent was obtained. Patient identification and proposed procedure were verified by the physician in the pre-procedure area. Mental Status Examination: alert and oriented. Airway Examination: normal oropharyngeal airway and neck mobility. Respiratory Examination: clear to auscultation. CV Examination: normal. Prophylactic Antibiotics: The patient does not require prophylactic antibiotics. Prior Anticoagulants: The patient has taken no anticoagulant or antiplatelet agents. ASA Grade Assessment: III - A patient with severe systemic disease. After reviewing the risks and benefits, the patient was deemed in satisfactory condition to undergo the procedure. The anesthesia plan was to use monitored anesthesia care (MAC). Immediately prior to administration of medications, the patient was re-assessed for adequacy to receive sedatives. The heart rate, respiratory rate, oxygen saturations, blood pressure, adequacy of pulmonary ventilation, and response to care were monitored throughout the procedure. The physical status of the patient was re-assessed after the procedure. After I obtained informed consent, the scope was passed under direct vision. Throughout the procedure, the patient's blood pressure, pulse, and oxygen saturations were monitored continuously. The Colonoscope was introduced through the anus and advanced to the terminal ileum. The colonoscopy was performed without difficulty. The patient tolerated the procedure well. The quality of the bowel preparation was adequate. The terminal ileum, ileocecal valve, appendiceal orifice, and rectum were photographed. Scope In: 10:30:05 AM Scope Withdrawal Time 0 hours 7 minutes 59 seconds Scope Out: 10:42:11 AM Total Procedure Duration Time 0 hours 12 minutes 6 seconds Findings: The perianal and digital rectal examinations were normal. Patchy moderate inflammation characterized by congestion (edema), erosions and erythema was found in the recto-sigmoid colon, in the sigmoid colon, at the splenic flexure, in the transverse colon and in the cecum. Biopsies were taken with a cold forceps for histology. Verification of patient identification for the specimen was done. Estimated blood loss was minimal. Moderate rectal prolapse was present. Impression: - Patchy moderate inflammation was found in the recto-sigmoid colon, in the sigmoid colon, at the splenic flexure, in the transverse colon and in the cecum secondary to colitis. Biopsied. Recommendation: - Discharge patient to home. - Resume previous diet. - Continue present medications. - Await pathology results. - Repeat colonoscopy for surveillance based on pathology results. Procedure Code(s): --- Professional --- 63910, Colonoscopy, flexible; with biopsy, single or multiple CPT copyright 2021 [employer]. All rights reserved. The codes documented in this report are preliminary and upon pre coder review may be revised to meet current compliance requirements. Red Chaves DO 11/09/2023 10:47:23 AM This report has been signed electronically. Number of Addenda: 0 Note Initiated On: 11/09/2023 10:20 AM
--- NOTE | 2023-11-09 10:48 | OP.CCLET_ITS ---
11/09/2023 Alessio Chang MD [address] [place] [address] Re : Colonoscopy procedure for Zaria Ross Dear Dr. Chang This procedure was performed on Thursday, November 09, 2023. My impressions and recommendations are as follows: Impressions : - Patchy moderate inflammation was found in the recto-sigmoid colon, in the sigmoid colon, at the splenic flexure, in the transverse colon and in the cecum secondary to colitis. Biopsied. Recommendations : - Discharge patient to home. - Resume previous diet. - Continue present medications. - Await pathology results. - Repeat colonoscopy for surveillance based on pathology results. My findings are described in the full procedure note, which is enclosed. If I can be of further assistance, please feel free to contact me at . Sincerely, Red Chaves, 11/09/2023 10:47:23 AM This report has been signed electronically.
== END 2023-11-09 11:31 | disposition home or self-care (01) ==
LOC: EN 09:20 → AC 09:22
PROVIDERS: PCP Family Medicine Geriatric Medicine; Referring Provider Family Medicine Geriatric Medicine; Visit Provider Internal Medicine Gastroenterology
PROC: 0DJD8ZZ Inspection of Lower Intestinal Tract, Via Natural or Artificial Opening Endoscopic (ICD-10-PCS; CPT 45378; principal; 2023-11-09 10:25)
DX: K52.9 Noninfective gastroenteritis and colitis, unspecified (principal); K21.9 Gastro-esophageal reflux disease without esophagitis; D69.6 Thrombocytopenia, unspecified; D53.9 Nutritional anemia, unspecified; K63.3 Ulcer of intestine; K62.89 Other specified diseases of anus and rectum; Z90.49 Acquired absence of other specified parts of digestive tract; Z79.899 Other long term (current) drug therapy; K76.0 Fatty (change of) liver, not elsewhere classified; Z87.19 Personal history of other diseases of the digestive system
CPT/HCPCS: 45380; 88305; J7120; J2405

== ENCOUNTER → 2023-11-22 | Outpatient (CLI) | payer MEDICARE, SELFPAY ==
[2023-11-22 12:38] LABS: Absolute Lymphocyte Count 2.07 X10^3/uL (0.83-4.51); Absolute Neutrophil Count 3.1 X10^3/uL (2.0-7.7); Basophil# 0.02 X10^3/uL; Basophil% 0.4 % (0-1); Eosinophil# 0.06 X10^3/uL; Eosinophils% 1.1 % (0-5); Hematocrit 39.7 % (37-47); Hemoglobin 13.3 g/dL (12.0-15.0); Lymphocyte # 2.07 X10^3/ul (0.83-4.51); Mean Corp Hgb Conc 33.5 g/dL (32-36); Mean Corpuscular Volume 101.5 fL (81-99); Monocyte# 0.33 X10^3/uL; Monocyte% 5.9 % (0-10); NRBC Flagged by Analyzer 0 % (0-5); Neutrophil % 55.4 % (47-70); Platelet Count 131 K/mm3 (150-450); RBC Distribution Width CV 11.8 % (11.6-14.6); RBC Distribution Width SD 43.4 fl (35.1-43.9); Red Blood Count 3.91 M/mm3 (4.2-5.4); White Blood Count 5.6 K/mm3 (4.4-11.0)
[2023-11-22 12:46] LABS: ALB/GLOB Ratio 1.3 RATIO (0.9-2.4); AST(SGOT) 24 U/L (15-37); Alanine Aminotransfer ALT/SGPT 35 U/L (13-56); Albumin, Serum 4.1 g/dL (3.2-5.0); Alkaline Phosphatase 69 U/L (45-117); Anion Gap 8 (5-15); BUN 23 mg/dL (7-18); BUN/Creat Ratio 22.8 RATIO (10-20); Calcium,Total 9.8 mg/dL (8.5-10.1); Chloride 109 mmol/L (98-107); Creatinine, Serum 1.01 mg/dL (0.55-1.02); EST Glomerular Filtration Rate 56 mL/min (>60); Est Glom Filt Rate - Afr Amer 68 mL/min (>60); Globulin 3.1 g/dL (2.2-4.2); Glucose 97 mg/dL (74-106); Potassium 3.7 mmol/L (3.5-5.1); Protein, Total 7.2 g/dL (6.4-8.2); Sodium Level 141 mmol/L (136-145)
== END | disposition home or self-care (01) ==
LOC: MTLAB 10:01
PROVIDERS: PCP Family Medicine Geriatric Medicine; Referring Provider Internal Medicine Rheumatology; Visit Provider Internal Medicine Rheumatology
DX: M06.4 Inflammatory polyarthropathy (principal); M19.041 Primary osteoarthritis, right hand; M17.11 Unilateral primary osteoarthritis, right knee; Z79.899 Other long term (current) drug therapy
CPT/HCPCS: 36415; 80053; 85025

== ENCOUNTER → 2023-12-06 | Outpatient (CLI) | payer MEDICARE, SELFPAY ==
--- NOTE | 2023-12-06 13:46 | BD_ITS ---
STUDY: DUAL ENERGY X-RAY ABSORPTIOMETRY / DXA REASON FOR EXAM: Female, 78 years old. Z780 TECHNIQUE: Bone Mineral Density (BMD) measurements of left forearm and bilateral hips were obtained. COMPARISON: Comparison is made with prior study dated June 02, 2017. FINDINGS: Left Femur Total: g/cm2 (0.811) / T-score (-1.1) / Z-score (0.9) Left Femoral Neck: g/cm2 (0.660) / T-score (-1.7) / Z-score (0.5) Right Femur Total: g/cm2 (0.792) / T-score (-1.2) / Z-score (0.7) Right Femoral Neck: g/cm2 (0.543) / T-score (-2.8) / Z-score (-0.5) Left Forearm: g/cm2 (0.541) / T-score (-0.7) / Z-score (2.1) The T-Scores on the most recent prior examination were: Left Femur Total: which represents a worsening of 8%. Right Femur Total: which represents a worsening of 10%. BD/Dexa Bone Density Study IMPRESSION: The patient is considered osteoporotic as outlined below according to World Reyes Organization (WHO) criteria with a high fracture risk. There has been worsening of bone density since the previous examination. Reference Information: The T-score is the number of standard deviations above or below the standard which is normal for young adults at their peak bone mineral density. The World Health Organization (WHO) interprets the T-scores as follows: Above -1 Normal bone density Between -1 and -2.5 Osteopenia Equal to / or below -2.5 Osteoporosis As a practical clinical guideline, osteopenia may be graded as follows: Mild -1 through -1.5 Moderate -1.6 through -2.0 Severe -2.1 through -2.4 The Z-score is the number of standard deviations above or below age-matched controls. A Z-score of less than -1.5 would be considered abnormal. References: 1. NIH Osteoporosis and Related Bone Diseases www osteo.org 2. International Society for Clinical Densitometry www iscd.org 3. National Osteoporosis Foundation www nof.org Electronically Signed: Júnior Parker MD at 13:19 EDT ,
== END | disposition home or self-care (01) ==
PROVIDERS: PCP Family Medicine Geriatric Medicine; Referring Provider Family Medicine Geriatric Medicine; Visit Provider Family Medicine Geriatric Medicine
DX: Z78.0 Asymptomatic menopausal state (principal)
CPT/HCPCS: 77080

== ENCOUNTER → 2023-12-13 | Outpatient (CLI) | payer MEDICARE, SELFPAY ==
[2023-12-13 12:37] LABS: Absolute Neutrophil Count 3.3 X10^3/uL (2.0-7.7); Basophil# 0.02 X10^3/uL; Basophil% 0.3 % (0-1); Eosinophil# 0.02 X10^3/uL; Eosinophils% 0.3 % (0-5); Hematocrit 38.8 % (37-47); Hemoglobin 12.6 g/dL (12.0-15.0); Lymphocyte % 34.2 % (19-41); Mean Corp Hgb Conc 32.5 g/dL (32-36); Mean Corpuscular Hgb 33.5 pg (27.0-32.0); Mean Corpuscular Volume 103.2 fL (81-99); Mean Platelet Vol. 9.9 fl (6.2-12.0); Monocyte# 0.45 X10^3/uL; Monocyte% 7.7 % (0-10); NRBC Flagged by Analyzer 0 % (0-5); Neutrophil # 3.34 X10^3/uL (2.7-7.7); Neutrophil % 57.2 % (47-70); Platelet Count 131 K/mm3 (150-450); RBC Distribution Width CV 12.2 % (11.6-14.6); RBC Distribution Width SD 45.8 fl (35.1-43.9); Red Blood Count 3.76 M/mm3 (4.2-5.4); White Blood Count 5.9 K/mm3 (4.4-11.0)
[2023-12-13 13:10] LABS: Vitamin D,25 Hydroxy 37.4 ng/mL
[2023-12-13 13:20] LABS: ALB/GLOB Ratio 1.3 RATIO (0.9-2.4); AST(SGOT) 22 U/L (15-37); Alanine Aminotransfer ALT/SGPT 34 U/L (13-56); Albumin, Serum 3.9 g/dL (3.2-5.0); Alkaline Phosphatase 74 U/L (45-117); Anion Gap 5 (5-15); BUN 15 mg/dL (7-18); BUN/Creat Ratio 17.8 RATIO (10-20); Calcium,Total 9.9 mg/dL (8.5-10.1); Chloride 108 mmol/L (98-107); Creatinine, Serum 0.84 mg/dL (0.55-1.02); EST Glomerular Filtration Rate 69 mL/min (>60); Est Glom Filt Rate - Afr Amer 84 mL/min (>60); Globulin 2.9 g/dL (2.2-4.2); Glucose 82 mg/dL (74-106); Potassium 3.8 mmol/L (3.5-5.1); Protein, Total 6.8 g/dL (6.4-8.2); Sodium Level 141 mmol/L (136-145); Thyroid Stim Hormone (TSH) 0.72 uIU/mL (0.358-3.74)
== END | disposition home or self-care (01) ==
LOC: LAB 11:23
PROVIDERS: PCP Family Medicine Geriatric Medicine; Referring Provider Family Medicine Geriatric Medicine; Visit Provider Family Medicine Geriatric Medicine
DX: I10 Essential (primary) hypertension (principal); E55.9 Vitamin D deficiency, unspecified
CPT/HCPCS: 36415; 80053; 82306; 84443; 85025

== ENCOUNTER → 2024-01-13 | Outpatient (CLI) | payer MEDICARE, SELFPAY ==
--- NOTE | 2024-01-13 11:47 | RAD_ITS ---
STUDY: X-RAY - ABDOMEN/PELVIS REASON FOR EXAM: Female, 78 years old. Diarrhea TECHNIQUE: Single AP view of the abdomen / pelvis. COMPARISON: None. FINDINGS: Normal visualized lung bases. Elevated right hemidiaphragm. Retention devices of mesh in the left lower quadrant. There is an unremarkable bowel gas pattern. The visualized liver, spleen and kidneys are grossly normal in size and morphology. Normal soft tissue structures. Mild levoscoliosis thoracic lumbar spine. Status post transpedicular fixation the lumbar spine. RAD/Abdomen Single View IMPRESSION: No bowel obstruction. Electronically Signed: Julio Koroma MD at 17:43 EDT ,
== END | disposition home or self-care (01) ==
PROVIDERS: PCP Family Medicine Geriatric Medicine; Referring Provider Internal Medicine Gastroenterology; Visit Provider Internal Medicine Gastroenterology
DX: R19.7 Diarrhea, unspecified (principal)
CPT/HCPCS: 74018

== ENCOUNTER → 2024-01-16 | Outpatient (CLI) | payer MEDICARE, SELFPAY | END | disposition home or self-care (01) | LOC: POLAB3 13:55 | PROVIDERS: PCP Family Medicine Geriatric Medicine; Visit Provider Family Medicine Geriatric Medicine | DX: N39.0 Urinary tract infection, site not specified (principal) | CPT/HCPCS: 87077; 87086; 87088; 87186 ==

== ENCOUNTER → 2024-01-20 | Outpatient (CLI) | payer MEDICARE, SELFPAY ==
--- NOTE | 2024-01-20 09:59 | VDLE_ITS ---
Reason For Study: BLE Pain RIGHT LEFT GSV is normal. GSV is normal. CFV is compressible, spontaneous, phasic, CFV is compressible, spontaneous, phasic, competent and demonstrates normal competent, and demonstrates normal augmentation. augmentation. FV is compressible, spontaneous, phasic, FV is compressible, spontaneous, phasic, competent and demonstrates normal competent and demonstrates normal augmentation. augmentation. POP V is compressible, spontaneous, phasic, POP V is compressible, spontaneous, phasic, competent and demonstrates normal competent and demonstrates normal augmentation. augmentation. T/P Trunk is compressible. T/P Trunk is compressible. PTV is compressible. PTV is compressible. RT PerV is compressible. LT PerV is compressible. Procedure This is a venous duplex using B-mode, color flow and spectral Doppler. Exam performed in department. The exam was diagnostic. VL/Venous Duplex US - Basilio Extrem Interpretation Summary Deep veins of the bilateral lower extremities are patent and compressible segme ntally. There is no evidence of bilateral lower extremity deep vein thrombosis. The bilateral great saphenous veins appear patent and compressible segmentally. Ordering Physician: Kerwin Byrd Referring Physician: Alessio Chang Chi Performed By: Doroteo Aleman, RVT
--- NOTE | 2024-01-20 09:59 | ART_ITS ---
Reason For Study: BLE Pain Procedure A bilateral lower extremity continuous wave Doppler with analog waveform analysis,segmental pressures,and ankle brachial indexes without exercise. Left Segmental Pressures Left brachial= 142mmHg. Left posterior tibial artery = 205mmHg. Left dorsalis pedis artery = 183mmHg. Left digit = 152 mmHg. The left posterior tibial artery waveforms are triphasic. The left dorsalis pedis waveforms are triphasic. Right Segmental Pressures Right brachial= 148mmHg. Right posterior tibial artery = 192mmHg. Right dorsalis pedis artery = 203mmHg. Right digit = 142 mmHg. The right posterior tibial artery waveforms are triphasic. The right dorsalis pedis waveforms are triphasic. Indices The right ankle brachial index by the posterior tibial artery is 1.30. The right ankle brachial index by the dorsalis pedis is 1.37. The right digital-brachial index is 0.96. The left ankle brachial index by the posterior tibial artery is 1.39. The left ankle brachial index by the dorsalis pedis is 1.24. The left digital-brachial index is 1.03. VL/Lower Ext Art Exam w/o Exercis Interpretation Summary Right FARNAZ 1.37, normal. TBI and Doppler/PVR waveforms of the right leg normal a t rest. Left FARNAZ 1.39, normal. TBI and Doppler/PVR waveforms of the left leg normal at rest. Ordering Physician: Kerwin Byrd Referring Physician: Alessio Chang Chi Performed By: Doroteo Aleman RVT
== END | disposition home or self-care (01) ==
LOC: CVS 09:57
PROVIDERS: PCP Family Medicine Geriatric Medicine; Referring Provider Podiatrist Foot & Ankle Surgery; Visit Provider Podiatrist Foot & Ankle Surgery
DX: I73.89 Other specified peripheral vascular diseases (principal); M79.605 Pain in left leg; M79.604 Pain in right leg
CPT/HCPCS: 93923; 93970

== ENCOUNTER → 2024-02-16 | Outpatient (CLI) | payer MEDICARE, SELFPAY ==
--- NOTE | 2024-02-16 06:45 | MRI_ITS ---
EXAM: MR LUMBAR SPINE WITHOUT INTRAVENOUS CONTRAST CLINICAL INDICATION: OSTEOPOROSIS WITH FX VERTEBRAE C/O BACK PAIN AND R FOOT PAIN TECHNIQUE: Multiplanar and multisequence MR images of the lumbar spine without intravenous contrast. COMPARISON: Abdominal radiograph, 01/13/2024 and lumbar spine radiographs, 11/03/2023. CT abdomen and pelvis, 10/14/2020. FINDINGS: VERTEBRAE: L1 superior endplate compression fracture with minimal retropulsion of the posterior cortex and minimal kyphotic wedging is similar to the prior radiograph dated 11/03/2023. No acute fracture is otherwise identified. [place] left thoracolumbar curvature. Pedicle screws are identified bilaterally at L2-L4 with longitudinal connecting rods resulting in susceptibility artifact which obscures/distorts the adjacent tissues. L2-L4 laminectomy change. No spondylolisthesis. SPINAL CORD: No significant abnormality. Normal position and signal intensity of the conus medullaris. SOFT TISSUES: Fatty-replaced atrophy of the erector spinae muscles. KIDNEYS AND URETERS: Renal cysts are identified bilaterally for which no follow-up is indicated. DISCS/SPINAL CANAL/NEURAL FORAMINA: T12-L1: Disc bulge and bilateral facet arthrosis. Mild to moderate spinal canal stenosis and bilateral neural foraminal narrowing. L1-L2: Disc bulge and moderate bilateral facet arthrosis. Mild spinal canal stenosis and bilateral neural foraminal narrowing. L2-L3: Postoperative change. At least mild right greater than left neural foraminal narrowing. No significant spinal canal stenosis. L3-L4: Postoperative change. Moderate bilateral facet arthrosis. Mild left and moderate right neural foraminal narrowing. No significant spinal canal stenosis. L4-L5: Disc bulge and left foraminal to extraforaminal disc herniation. Severe bilateral facet arthrosis. Mild spinal canal stenosis and moderate to severe bilateral neural foraminal narrowing. Left L4 nerve root impingement. L5-S1: Disc bulge and severe bilateral facet arthrosis with ligamentum flavum thickening. Mild right and moderate to severe left neural foraminal narrowing. Moderate spinal canal stenosis. Bilateral S1 nerve root impingement and left L5 nerve root impingement. MRI/Spine Lumbar (Routine) IMPRESSION: 1. L1 superior endplate compression fracture with minimal retropulsion of the posterior cortex and minimal kyphotic wedging is similar to the prior radiograph dated 11/03/2023. No acute fracture is otherwise identified. 2. L2-L4 laminectomy and posterior instrumented fusion. 3. Multilevel degenerative changes resulting in multilevel spinal canal and neural foraminal stenosis. Left L4, left L5, and bilateral S1 nerve root impingement. Electronically Signed: Rene Mims DO at 22:14 EDT ,
== END | disposition home or self-care (01) ==
PROVIDERS: PCP Family Medicine Geriatric Medicine; Referring Provider Anesthesiology; Visit Provider Anesthesiology
DX: M80.08XA Age-related osteoporosis with current pathological fracture, vertebra(e), initial encounter for fracture (principal)
CPT/HCPCS: 72148

== ENCOUNTER → 2024-04-05 | Outpatient (CLI) | payer MEDICARE, SELFPAY ==
--- NOTE | 2024-04-05 11:45 | RAD_ITS ---
STUDY: X-RAY - LEFT TIBIA AND FIBULA REASON FOR EXAM: Female, 78 years old. Anterior tibial syndrome, left leg TECHNIQUE: 2 view(s) of the tibia and fibula were obtained. COMPARISON: None. FINDINGS: Normal visualized tibia. Normal visualized fibula. The soft tissue structures are unremarkable. RAD/Tibia & Fibula 2 Views IMPRESSION: Normal x-ray examination of the tibia and fibula. Electronically Signed: Jett Dailey MD at 13:36 EDT ,
== END | disposition home or self-care (01) ==
LOC: RAD 11:39
PROVIDERS: PCP Family Medicine Geriatric Medicine; Referring Provider Anesthesiology; Visit Provider Anesthesiology
DX: M76.812 Anterior tibial syndrome, left leg (principal)
CPT/HCPCS: 73590

== ENCOUNTER → 2024-05-07 | Outpatient (CLI) | payer MEDICARE, SELFPAY | END | disposition home or self-care (01) | PROVIDERS: PCP Family Medicine Geriatric Medicine; Referring Provider Anesthesiology; Visit Provider Anesthesiology | DX: Z01.818 Encounter for other preprocedural examination (principal) | CPT/HCPCS: 72146 ==

== ENCOUNTER → 2024-05-18 | Outpatient (CLI) | payer MEDICARE, SELFPAY ==
[2024-05-18 12:17] LABS: Absolute Lymphocyte Count 2.09 X10^3/uL (0.83-4.51); Absolute Neutrophil Count 2.4 X10^3/uL (2.0-7.7); Basophil# 0.01 X10^3/uL; Basophil% 0.2 % (0-1); Eosinophil# 0.05 X10^3/uL; Hematocrit 39.9 % (37-47); Hemoglobin 13.5 g/dL (12.0-15.0); Lymphocyte # 2.09 X10^3/ul (0.83-4.51); Lymphocyte % 42.8 % (19-41); Mean Corp Hgb Conc 33.8 g/dL (32-36); Mean Corpuscular Hgb 34.9 pg (27.0-32.0); Mean Corpuscular Volume 103.1 fL (81-99); Mean Platelet Vol. 9.8 fl (6.2-12.0); Monocyte# 0.31 X10^3/uL; Monocyte% 6.4 % (0-10); NRBC Flagged by Analyzer 0 % (0-5); Neutrophil % 49.2 % (47-70); Platelet Count 141 K/mm3 (150-450); RBC Distribution Width CV 12.4 % (11.6-14.6); RBC Distribution Width SD 46.5 fl (35.1-43.9); Red Blood Count 3.87 M/mm3 (4.2-5.4); White Blood Count 4.9 K/mm3 (4.4-11.0)
[2024-05-18 12:58] LABS: ALB/GLOB Ratio 1.4 RATIO (0.9-2.4); AST(SGOT) 25 U/L (15-37); Alanine Aminotransfer ALT/SGPT 43 U/L (13-56); Albumin, Serum 4.1 g/dL (3.2-5.0); Alkaline Phosphatase 67 U/L (45-117); Anion Gap 7 (5-15); BUN 14 mg/dL (7-18); BUN/Creat Ratio 16.3 RATIO (10-20); Calcium,Total 9.5 mg/dL (8.5-10.1); Chloride 110 mmol/L (98-107); Creatinine, Serum 0.86 mg/dL (0.55-1.02); EST Glomerular Filtration Rate 68 mL/min (>60); Est Glom Filt Rate - Afr Amer 82 mL/min (>60); Glucose 105 mg/dL (74-106); Potassium 3.5 mmol/L (3.5-5.1); Protein, Total 7.1 g/dL (6.4-8.2); Sodium Level 143 mmol/L (136-145)
== END | disposition home or self-care (01) ==
LOC: MTLAB 10:23
PROVIDERS: PCP Family Medicine Geriatric Medicine; Referring Provider Internal Medicine Rheumatology; Visit Provider Internal Medicine Rheumatology
DX: M06.4 Inflammatory polyarthropathy (principal); Z79.899 Other long term (current) drug therapy
CPT/HCPCS: 36415; 80053; 85025

== ENCOUNTER → 2024-06-11 | Outpatient (CLI) | payer MEDICARE, SELFPAY ==
[2024-06-11 10:12] LABS: Absolute Lymphocyte Count 2.33 X10^3/uL (0.83-4.51); Absolute Neutrophil Count 4.3 X10^3/uL (2.0-7.7); Basophil# 0.03 X10^3/uL; Basophil% 0.4 % (0-1); Eosinophil# 0.07 X10^3/uL; Hematocrit 39.3 % (37-47); Hemoglobin 13.1 g/dL (12.0-15.0); Lymphocyte # 2.33 X10^3/ul (0.83-4.51); Lymphocyte % 31.9 % (19-41); Mean Corp Hgb Conc 33.3 g/dL (32-36); Mean Corpuscular Hgb 34.3 pg (27.0-32.0); Mean Corpuscular Volume 102.9 fL (81-99); Mean Platelet Vol. 9.4 fl (6.2-12.0); Monocyte# 0.55 X10^3/uL; Monocyte% 7.5 % (0-10); NRBC Flagged by Analyzer 0 % (0-5); Neutrophil % 58.8 % (47-70); Platelet Count 161 K/mm3 (150-450); RBC Distribution Width CV 12.2 % (11.6-14.6); RBC Distribution Width SD 45.6 fl (35.1-43.9); Red Blood Count 3.82 M/mm3 (4.2-5.4); White Blood Count 7.3 K/mm3 (4.4-11.0)
[2024-06-11 10:52] LABS: ALB/GLOB Ratio 1.3 RATIO (0.9-2.4); AST(SGOT) 28 U/L (15-37); Alanine Aminotransfer ALT/SGPT 39 U/L (13-56); Albumin, Serum 3.9 g/dL (3.2-5.0); Alkaline Phosphatase 67 U/L (45-117); Anion Gap 4 (5-15); BUN 14 mg/dL (7-18); BUN/Creat Ratio 16.3 RATIO (10-20); Calcium,Total 9.7 mg/dL (8.5-10.1); Chloride 112 mmol/L (98-107); Creatinine, Serum 0.86 mg/dL (0.55-1.02); EST Glomerular Filtration Rate 68 mL/min (>60); Est Glom Filt Rate - Afr Amer 82 mL/min (>60); Glucose 95 mg/dL (74-106); Potassium 3.6 mmol/L (3.5-5.1); Protein, Total 6.9 g/dL (6.4-8.2); Sodium Level 142 mmol/L (136-145)
[2024-06-11 15:53] LABS: Vitamin D,25 Hydroxy 24.1 ng/mL
== END | disposition home or self-care (01) ==
PROVIDERS: PCP Family Medicine Geriatric Medicine; Visit Provider Family Medicine Geriatric Medicine
DX: I10 Essential (primary) hypertension (principal); E55.9 Vitamin D deficiency, unspecified
CPT/HCPCS: 36415; 80053; 82306; 84443; 85025

== ENCOUNTER → 2024-06-26 | Outpatient (CLI) | payer MEDICARE, SELFPAY ==
--- NOTE | 2024-06-26 10:13 | BI_ITS ---
MAMMOGRAPHY - BILATERAL SCREENING 3-D TOMOSYNTHESIS REASON FOR EXAM: Female, 79 years old. SCREENING PERTINENT HISTORY: No significant family history. TECHNIQUE: 2-D mammograms and 3-D Tomosynthesis of the breast (s) were performed. CAD was performed. COMPARISON: 07/20/2018 FINDINGS: The breast composition is composed of scattered fibroglandular density. Scattered benign calcifications are seen. No dense spiculated masses or suspicious microcalcifications are identified. No architectural distortion is identified. There is no skin thickening or retraction. There has been no significant change since the prior study. BI/SCRN MAMM (CAD)W/BRE BILAT IMPRESSION: No mammographic signs of malignancy. Routine yearly mammograms recommended. ASSESSMENT CATEGORY: BIRADS Category 1: Negative. A letter regarding these results will be sent to the patient by the facility within 30 days. FOLLOW UP RECOMMENDATION: Yearly follow up mammogram recommended. (A) Approximately 10% of breast cancers are not detected by mammography. A normal mammogram should not delay biopsy of a clinically suspicious abnormality. Electronically Signed: Julio Koroma MD at 19:49 EST ,
== END | disposition home or self-care (01) ==
LOC: OPBI 10:11
PROVIDERS: PCP Family Medicine Geriatric Medicine; Referring Provider Family Medicine Geriatric Medicine; Visit Provider Family Medicine Geriatric Medicine
DX: Z12.31 Encounter for screening mammogram for malignant neoplasm of breast (principal); N64.4 Mastodynia
CPT/HCPCS: 77063; 77067

== ENCOUNTER → 2024-07-09 | Outpatient (CLI) | payer MEDICARE, SELFPAY | END | disposition home or self-care (01) | PROVIDERS: PCP Family Medicine Geriatric Medicine; Referring Provider Anesthesiology; Visit Provider Anesthesiology | DX: Z01.818 Encounter for other preprocedural examination (principal) | CPT/HCPCS: 87081 ==

== ENCOUNTER 2024-07-30 11:19 | Day surgery (SDC) | payer MEDICARE, SELFPAY ==
[2024-07-30] VITALS (8 sets, daily range): BP systolic 135–161; BP diastolic 69–76; PULSE 70–81; RESP 16–17; TEMP 36.6–36.8; O2SAT 92–100; BMI 31.3
--- NOTE | 2024-07-30 11:52 | PRE.ANES_ITS ---
ASA Classification* ASA Classification ASA Classification: 2 Assessment & Plan Anesthesia* Anesthesia Assessment Anesthesia Assessment: Discussed sedation and/or anesthesia options, risks, benefits, and alternatives with patient/parents/legal guardian/POA. Questions invited. The patient/parents/legal guardian/POA seems to understand and agrees to proceed with anesthesia plan. Reviewed the physical assessment, medical history, allergy history and patient home medications list prior to surgery/procedure/anesthetic and documented any changes. Performed airway and anesthesia risk assessments. Anesthesia Type Anesthesia Type: General Anesthesia Focused Assessment* Airway Assessment Mouth opens: >3 cm Mallampati Score: II Focused Labs Anesthesia Preop lab: CBC WBC 7.3 K/mm3 (4.4-11.0) 06/11/24 10:01 06/11/24 RBC 3.82 M/mm3 (4.2-5.4) L 06/11/24 10:01 06/11/24 Hgb 13.1 g/dL (12.0-15.0) 06/11/24 10:01 06/11/24 Hct 39.3 % (37-47) 06/11/24 10:01 06/11/24 Plt Count 161 K/mm3 (150-450) 06/11/24 10:01 06/11/24 CHEMISTRY Potassium 3.6 mmol/L (3.5-5.1) 06/11/24 10:01 06/11/24 Sodium 142 mmol/L (136-145) 06/11/24 10:01 06/11/24 Magnesium 2.1 mg/dL (1.6-2.6) 02/07/23 14:05 02/07/23 Phosphorus 2.6 mg/dL (2.5-4.9) 08/27/22 05:35 08/27/22 BUN 14 mg/dL (7-18) 06/11/24 10:01 06/11/24 Creatinine 0.86 mg/dL (0.55-1.02) 06/11/24 10:01 06/11/24 Glucose 95 mg/dL (74-106) 06/11/24 10:01 06/11/24 POC Glucose 222 mg/dL (74-106) H 03/15/23 13:23 03/15/23 TSH 1.370 uIU/mL (0.358-3.740) 06/11/24 10:01 12/12/18 COAG PT 14.2 SECONDS (11.7-14.9) 10/15/23 09:59 Pre-Assessment Diagnosis/Proposed Procedure Planned Operative Procedure(s): Insertion, Spinal Cord Stim,Permanent Anesthesia History 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 When Was Last Pacemaker Check QUESTION #4 FULL TEXT: You/Your Family Experience fever (hyperthermia) with Anesthesia Last Oral Intake Last Oral intake: Last Oral Intake NPO since Meds taken in AM with sips of water? Meds patient instructed to take am of surgery PONV PONV - vinyl welder and fabricator: PONV - vinyl welder and fabricator Female Yes 07/27/24 13:37 HX of Motion Sickness Yes 07/27/24 13:37 HX of N/V After Surgery No 07/27/24 13:37 Non-Smoker Yes 07/27/24 13:37 Duration of Surgery greater Yes 07/27/24 13:37 than 60 minutes Number of Risk Factors 4 07/27/24 13:37 PONV Score Severe Risk 07/27/24 13:37 Height & Weight Height & Weight: Anesthesia: Height & Weight Height 5 ft 2 in 12/06/23 13:44 Respiratory Assessment Respiratory Assessment - vinyl welder and fabricator: Respiratory Tract Infection Hx - vinyl welder and fabricator Hx Respiratory Tract Infection No 07/27/24 13:37 STOP Sleep Apnea STOP Sleep Apnea - vinyl welder and fabricator: STOP Sleep Apnea - vinyl welder and fabricator Hx Hypertension Yes: PER PT, CONTROLLED ON 07/27/24 13:37 MEDS Hx Sleep Apnea No 07/27/24 13:37 CPAP BIPAP Do you snore loudly (louder No 07/27/24 13:37 than talking or can be heard Do you often feel tired/ No 07/27/24 13:37 fatigued/ sleepy during daytime? Has anyone observed you stop No 07/27/24 13:37 breathing during sleep? STOP Results Negative 07/27/24 13:37 QUESTION #5 FULL TEXT : Do you snore loudly (louder than talking or can be heard through closed doors)? Tobacco Use History Tobacco Use History - vinyl welder and fabricator: Tobacco Use History - vinyl welder and fabricator Tobacco Use Smoking Status Never smoker 07/27/24 13:37 Hx Tobacco Use No 07/27/24 13:37 Years Smoking Packs Smoked per Day Smoking Cessation Date was within the last 15 years Hx Smoking Cessation Date Hx Smoking Cessation Counseling Hematologic Medial History Hematologic Hx - vinyl welder and fabricator: Hematologic Medical Hx - hall coordinator Hx of Blood Transfusion No 07/27/24 13:37 Hx of Transfusion in last 3 No 07/27/24 13:37 Months Date of Last Transfusion (if within last 3 months) Ever experience any problems No 07/27/24 13:37 with transfusion(s)? Specify any problems Hx of Preganancy in last 3 No 07/27/24 13:37 Months Nurse Filling Out Transfusion MGRIFFITH 07/27/24 13:37 & Questions: Date: 07/27/24 07/27/24 13:37 Time: 13:39 07/27/24 13:37 Patient unable to answer at this time (ie. confused, unrespo /Reproduction History /Reproductive History - vinyl welder and fabricator: /Reproductive Hx- vinyl welder and fabricator Hx Now Gestational Age (in weeks): EDC: Hx Hx Para Hx Section SAB No 02/07/23 11:32 Active Medications Active Medications: Current Medications Generic Name Dose Route Start Last Admin Trade Name Freq PRN Reason Stop Dose Admin Sodium Chloride 1,000 mls @ 15 mls/hr 07/30/24 11:45 IV 08/05/24 01:04 .Q48H CANDICE Protocol Cefazolin Sodium 2 gm/ N/A 20 mls @ 400 mls/hr 07/30/24 13:00 IV 07/30/24 13:02 PREOP ONE PFSH Medical History Substance abuse Open wound Shortness of breath on exertion Wears hearing aid Wears glasses Cancer Ambulates with cane Arthritis History of renal disease Fatty liver Easy bruising Back pain History of diverticulitis History of IBS Non-smoker Hypertension P-ANCA titer positive Chronic insomnia Benzodiazepine dependence Pain of right calf Thrombocytopenia Acute blood loss anemia Physical debility Radicular pain of both lower extremities Diverticulosis Presbycusis Acute insomnia Inflammatory polyarthritis Fracture of metacarpal base, first, left hand, closed Spinal stenosis of lumbar region with radiculopathy Segmental and somatic dysfunction of cervical region Segmental and somatic dysfunction of pelvic region Segmental and somatic dysfunction of lumbar region Scoliosis of lumbar spine IBS (irritable bowel syndrome) Skin cancer Chronic back pain Anxiety Depression HTN (hypertension) Home Medications ?Medication ?Instructions ?Recorded ?Last Taken ?Type citalopram 20 mg tablet 20 mg PO DAILY Mood 09/17/20 Unknown History hydroxychloroquine 200 mg tablet 200 mg PO BID ARTHRIT IS 09/17/20 11/09/23 06:10 History Handicap Placard #1 ea 07/14/21 Unknown Rx multivitamin 1 tab PO DAILY supplement Unknown History trazodone 100 mg tablet 100 mg PO QHS SLEEP #30 tabs 09/06/22 Unknown Rx losartan 100 mg tablet 100 mg PO DAILY BP 01/12/23 11/09/23 06:10 History baclofen 10 mg tablet 10 mg PO DAILY Muscle spasms 02/07/23 Unknown History acetaminophen 500 mg tablet 1,000 mg PO BID 11/04/23 U nknown History gabapentin 400 mg capsule 400 mg PO BID PAIN 11/04/23 Unknown History prednisone 10 mg tablet 10 mg PO DAILY PRN PRN ARTHR ITIS 11/09/23 Unknown History FLARE UP ascorbic acid (vitamin C) 500 mg 500 mg PO DAILY #30 t abs 01/04/24 Unknown Rx tablet budesonide 3 mg 9 mg (3 x 3 mg) PO DAILY #27 0 caps 03/02/24 Unknown Rx capsule,delayed,extended release diphenoxylate-atropine 2.5 2 tab PO BID PRN diarrhea 3 0 days 03/05/24 Unknown Rx mg-0.025 mg tablet (Lomotil) #120 tabs ferrous sulfate 325 mg (65 mg 325 mg PO Q OTHER DAY #3 0 tabs 03/16/24 Unknown Rx iron) tablet,delayed release cholestyramine (with sugar) 4 gram 4 g PO .QOD 5 Unknown History oral powder Allergy/AdvReac Type Severity Reaction Status Date / Time hydrocodone (From Vicodin) Allergy Hives Verified 07/27/24 13:31 Sulfa (Sulfonamide Allergy Hives Verified 07/27/24 13:31 Antibiotics) Family History Father Heart disease Mother Colon cancer Sister Breast cancer Surgical History History of knee replacement procedure of right knee S/P lumbar fusion S/P lumbar laminectomy Status post surgical removal of malignant neoplasm of skin History of colonoscopy History of cholecystectomy History of colectomy History of incisional hernia repair History of removal of ovarian cyst Social History household members: none housing: house Smoking Status: Never smoker alcohol intake: never substance use type: does not use what type of physical activity do you participate in: none Review of Systems (Anesthesia) ROS Narrative System reviewed and no additional complaints, except as documented.
[2024-07-30] MEDS: 0.9% Normal Saline (1000mL) 1,000 ML 15 ML IV (12:07)
--- NOTE | 2024-07-30 13:10 | RAD_ITS ---
PROCEDURE: LUMBAR SPINE 2 OR 3 VIEWS REASON FOR EXAM: Spinal stimulator insertion. TECHNIQUE: Fluoroscopy was performed. COMPARISON: None. FINDINGS: A spinal stimulator is present. 459.5 seconds of fluoroscopic time. 227.39 mGy RAD/Lumbar Spine 2 or 3 Views IMPRESSION: As above. Reading Location: [id number]
[2024-07-30] MEDS: Cefazolin 2 GM in Syringe IV (13:21)
[2024-07-30] MEDS: Bupiv/Epi 0.25% 30 ML Vial (14:52)
[2024-07-30] MEDS: Lidocaine 1% (30 ml sdv) 30 ML Vial (14:52)
--- NOTE | 2024-07-30 15:41 | PCM.POST.ANE ---
Anesthesia: Postop Eval I Current Vital Signs Temperature: 98.3 F Pulse Rate: 78 Blood Pressure: 151/71 Respiratory Rate: 16 Pulse Ox: 95 Oxygen Delivery Method: Room Air Assessment Airway patent: Yes Spontaneous unlabored respirations: Yes Mental status: Awake and Calm nausea: No Vomiting: No Anesthesia Complication: No Fluid Hydration Crystalloid volume administer (ml): 800 Total IV fluid infused: 800 Progress Note Anesthesia document: Postop Eval 1 completed: Yes
--- NOTE | 2024-07-30 16:19 | POSTOPAN2_ITS ---
Anesthesia Postop Eval I Sum Postop Eval Completion status Anesthesia document: Postop Eval 1 completed: Yes Anesthesia Postop Eval I Summary Anesthesia Postop Eval I Summary: Anesthesia Postop Eval I: Assessment Summary Airway patent Yes 07/30/24 15:42 FOUNDATION ASSISTANT.[email or web address] Spontaneous unlabored Yes 07/30/24 15:42 FOUNDATION ASSISTANT.BJORN respirations Mental status Awake,Calm 07/30/24 15:42 FOUNDATION ASSISTANT.BALOBPerri nausea No 07/30/24 15:42 FOUNDATION ASSISTANT.BALOBPerri Vomiting No 07/30/24 15:42 FOUNDATION ASSISTANT.BALOBPerri Anesthesia Postop Eval I: Fluid Summary Crystalloid volume administer 800 07/30/24 15:42 FOUNDATION ASSISTANT.SKOBY (ml) Colloids volume administered ( ml) Blood Product volume administered (ml) Total IV fluid infused 800 07/30/24 15:42 FOUNDATION ASSISTANT.BJORN Anesthesia Postop Eval I: Summary Notes Anesthesia Complication No 07/30/24 15:42 FOUNDATION ASSISTANT.BJORN Anesthesia Complication Comment: Post-operative progress note Anesthesia: Postop Eval II Evaluation Mental status: Awake Pain Level: 2 nausea: No Vomiting: No
--- NOTE | 2024-07-30 16:19 | PCM.POSTANE2 ---
Anesthesia Postop Eval I Sum Postop Eval Completion status Anesthesia document: Postop Eval 1 completed: Yes Anesthesia Postop Eval I Summary Anesthesia Postop Eval I Summary: Anesthesia Postop Eval I: Assessment Summary Airway patent Yes 07/30/24 15:42 RESTORATION ECOLOGIST.[email or web address] Spontaneous unlabored Yes 07/30/24 15:42 RESTORATION ECOLOGIST.BJORN respirations Mental status Awake,Calm 07/30/24 15:42 RESTORATION ECOLOGIST.BALOBPerri nausea No 07/30/24 15:42 RESTORATION ECOLOGIST.BALOBPerri Vomiting No 07/30/24 15:42 RESTORATION ECOLOGIST.BALOBPerri Anesthesia Postop Eval I: Fluid Summary Crystalloid volume administer 800 07/30/24 15:42 RESTORATION ECOLOGIST.SKOBY (ml) Colloids volume administered ( ml) Blood Product volume administered (ml) Total IV fluid infused 800 07/30/24 15:42 RESTORATION ECOLOGIST.BJORN Anesthesia Postop Eval I: Summary Notes Anesthesia Complication No 07/30/24 15:42 RESTORATION ECOLOGIST.BJORN Anesthesia Complication Comment: Post-operative progress note Anesthesia: Postop Eval II Evaluation Mental status: Awake Pain Level: 2 nausea: No Vomiting: No
[2024-07-30] MEDS: oxyCODONE 5 MG Tablet PO (16:52)
[2024-07-30] MEDS: Acetaminophen 500 MG Tablet 1000 MG PO (16:52)
--- NOTE | 2024-07-30 17:17 | PCM.OPRPT ---
Operative Report (Standard) Operative Information Date of Procedure: 07/30/24 Pre-Operative Diagnosis: Post laminectomy syndrome Post-Operative Diagnosis: same Surgery/Procedure Performed: SCS implantation post acute care nurse practitioner: Yes Labor Specialist: Hallie Akers Tasks completed by neurosurgical physician assistant: Opening, Opening & closing and Hemostasis: Electrocautery Type of Anesthesia: General RN Documented Start/Stop Times: Operation Date: 07/30/24 13:00 Case Time Into Pre-Op 07/30/24 11:31 Anesthesia Start 07/30/24 13:15 Into Room 07/30/24 13:15 Out of Pre-Op 07/30/24 13:15 Procedure Start 07/30/24 13:52 Procedure End 07/30/24 15:31 Anesthesia End 07/30/24 15:36 Out of Room 07/30/24 15:36 Into Recovery 07/30/24 15:39 Into Phase II Recovery 07/30/24 16:08 Out of Recovery 07/30/24 16:08 Out of Phase II 07/30/24 17:05 Procedure Start Time: 13:52 Procedure Stop Time: 15:31 Select all DRAINS/GRAFTS/IMPLANTS that apply: None Estimated Blood Loss: <10cc Specimen collected: No Description of surgery: The patient was brought to the operating room and positioned prone on the operating table. All pressure points were appropriately padded. The back and right flank were prepped, cleaned and draped in the usual sterile fashion (chlorhexidine). Anesthesia was induced. Antibiotics were delivered preoperatively. Ioban was used. A 5 cm midline incision was made at the T12-L1 interspace using a scalpal, cautery and blunt dissection. Then the epidural space was accessed under fluoroscopic guidance via loss of resistance technique to normal saline.. Two leads were carefully placed in the epidural space and advanced to the desired positions. The left lead was positioned with its distal tip at the bottom of the mid T9 level while the right lead was positioned with its distal tip at the top of the T7 vertebral body. Proper lead placement was confirmed through impedance testing and fluoroscopic imaging. The leads were secured using nevrot anchoring devices, which were sutured in place with silk sutures within the midline incision. Next, the leads were tunneled from the midline incision to a subcutaneous generator pocket created in the right flank. Care was taken to ensure the integrity of the leads during the tunneling process. The generator was placed in the right flank pocket and connected to the leads. Connections were verified to be secure, and the generator was anchored in place using silk sutures. Hemostasis was achieved throughout the procedure using cautery, and no significant bleeding was encountered. Lidocaine 1% and 0.25% Bupivacaine mixture was used for local anesthesia at the beginning of the case. The deeper tissues were closed using Vicryl sutures, and the skin was closed with Monocryl in a running subcuticular fashion. Steri-Strips were applied over the incision sites, and the wounds were dressed with sterile bandages. The patient tolerated the procedure well and was transferred to the recovery area in stable condition. Postoperative testing and programming was conducted in the recovery area. The patient has prescription of tramadol already at baseline that can be used to post operative pain. Complications: None. Moving all extremities. Bijalro technical sales representative had extensive discussions pre and post operatively with patient. Patient to follow up in our office in 1 week. 3 days of 250mg cephalexin ordered Surgical Findings: n/a Complications Complications: No
== END 2024-07-30 17:05 | disposition home or self-care (01) ==
LOC: SDC 11:22 → AC 11:23
PROVIDERS: PCP Family Medicine Geriatric Medicine; Referring Provider Anesthesiology; Visit Provider Anesthesiology
PROC: (CPT 63685; principal; 2024-07-30 12:45)
DX: M96.1 Postlaminectomy syndrome, not elsewhere classified (principal); G89.29 Other chronic pain; M46.1 Sacroiliitis, not elsewhere classified; M76.812 Anterior tibial syndrome, left leg; G62.9 Polyneuropathy, unspecified; I12.9 Hypertensive chronic kidney disease with stage 1 through stage 4 chronic kidney disease, or unspecified chronic kidney disease; N18.9 Chronic kidney disease, unspecified; M19.90 Unspecified osteoarthritis, unspecified site; Z79.891 Long term (current) use of opiate analgesic; Z79.899 Other long term (current) drug therapy
CPT/HCPCS: 63685; 63650 ×2; 00300; 72100; 76000; C1713; C1778; J2405

== ENCOUNTER → 2024-08-07 | Outpatient (CLI) | payer MEDICARE, SELFPAY ==
[2024-08-07 15:11] LABS: Amphetamine Urine NEGATIVE (<1000 ng/mL); Barbiturate Urine VISTA NEGATIVE (< 200 ng/mL); Benzodiazepine Urine VISTA NEGATIVE (< 200 ng/mL); Cocaine Urine VISTA NEGATIVE (< 300 ng/mL); Ecstacy Urine VISTA POSITIVE (< 500 ng/mL); Methadone Urine VISTA NEGATIVE (< 300 ng/mL); Opiates Urine NEGATIVE (< 300 ng/mL); PCP Urine NEGATIVE (< 25 ng/mL); THC Urine VISTA NEGATIVE (< 50 ng/mL)
[2024-08-07 20:59] LABS: Vista UDS pH Range 5
== END | disposition home or self-care (01) ==
PROVIDERS: PCP Family Medicine Geriatric Medicine; Referring Provider Anesthesiology; Visit Provider Anesthesiology
DX: F11.20 Opioid dependence, uncomplicated (principal)
CPT/HCPCS: 80307

== ENCOUNTER → 2024-08-30 | Outpatient (CLI) | payer MEDICARE, SELFPAY | END | disposition home or self-care (01) | LOC: LABSPEC 16:46 | PROVIDERS: PCP Family Medicine Geriatric Medicine; Referring Provider Family Medicine Geriatric Medicine; Visit Provider Family Medicine Geriatric Medicine | DX: N39.0 Urinary tract infection, site not specified (principal) | CPT/HCPCS: 87086; 87088; 87186 ==

== ENCOUNTER → 2024-10-02 | Outpatient (CLI) | payer MEDICARE, SELFPAY ==
[2024-10-03 15:08] LABS: Pancreatic Elastase, Fecal > 800 (>200)
[2024-10-03 16:09] LABS: Calprotectin, Stool 22 ug/g (0-120)
== END | disposition home or self-care (01) ==
LOC: LABSPEC 09:46
PROVIDERS: PCP Family Medicine Geriatric Medicine; Referring Provider Student in an Organized Health Care Education/Training Program; Visit Provider Student in an Organized Health Care Education/Training Program
DX: R19.5 Other fecal abnormalities (principal); K58.9 Irritable bowel syndrome, unspecified
CPT/HCPCS: 82653; 83630; 83993; 87177; 87209; 87329; 87493

== ENCOUNTER → 2024-10-12 | Outpatient (CLI) | payer MEDICARE, SELFPAY | END | disposition home or self-care (01) | LOC: MTLAB 12:49 | PROVIDERS: PCP Family Medicine Geriatric Medicine; Referring Provider Ophthalmology; Visit Provider Ophthalmology | DX: H02.423 Myogenic ptosis of bilateral eyelids (principal) | CPT/HCPCS: 36415; 84238 ==

== ENCOUNTER → 2024-10-18 | Outpatient (CLI) | payer MEDICARE, SELFPAY ==
--- NOTE | 2024-10-18 11:18 | CT_ITS ---
PROCEDURE: BRAIN/HEAD WITHOUT CONTRAST 10/18/2024 REASON FOR EXAM: CLOSED HEAD INJURY TECHNIQUE: Head CT without intravenous contrast. Coronal and Sagittal reconstruction series were provided. One or more dose reduction techniques were used (e.g., Automated exposure control, adjustment of the mA and/or kV according to patient size, use of iterative reconstruction technique. RADIATION DOSE SUMMARY: CTDlvol: 44.99 mGy DLP: 829.85 mGycm COMPARISON: None FINDINGS: Brain: Low density in the periventricular white matter suggests mild chronic small vessel ischemic changes. Calcifications in the basal ganglia bilaterally. This is a normal finding for patient's age. Atherosclerotic plaque formation of the cavernous portions of the internal carotid arteries bilaterally. CSF Spaces: Mild generalized cerebral atrophy Sinuses/Mastoids: Clear at visualized levels Bones: No fracture. CT/Brain/Head without Contrast IMPRESSION: NO ACUTE INTRACRANIAL HEMORRHAGE Reading Location: [place] [id number]
--- NOTE | 2024-10-18 11:33 | RAD_ITS ---
EXAM: Right ribs and chest CLINICAL HISTORY: Chest pain, rib pain COMPARISON: None TECHNIQUE: PA view of the chest and two views of the right ribs FINDINGS: Dorsal column spinal stimulator in the lower thoracic spine. Mild levoscoliosis of the thoracolumbar spine. The heart and mediastinum are normal. No opacity within the lungs to suggest active pulmonary disease. Elevated right hemidiaphragm. No obvious displaced right rib fracture. RAD/Ribs Uni Min 3V w/PA Chest IMPRESSION: No obvious displaced right rib fracture. No pneumothorax or hemothorax. Reading Location: [id number]
== END | disposition home or self-care (01) ==
LOC: CT 11:15
PROVIDERS: PCP Family Medicine Geriatric Medicine; Referring Provider Family Medicine Geriatric Medicine; Visit Provider Family Medicine Geriatric Medicine
DX: S09.90XA Unspecified injury of head, initial encounter (principal); X58.XXXA Exposure to other specified factors, initial encounter; R07.82 Intercostal pain
CPT/HCPCS: 70450; 71101

== ENCOUNTER → 2024-11-20 | Outpatient (CLI) | payer MEDICARE, SELFPAY ==
[2024-11-20 12:17] LABS: Absolute Lymphocyte Count 1.76 X10^3/uL (0.83-4.51); Absolute Neutrophil Count 2.9 X10^3/uL (2.0-7.7); Basophil# 0.02 X10^3/uL; Basophil% 0.4 % (0-1); Eosinophil# 0.02 X10^3/uL; Eosinophils% 0.4 % (0-5); Hematocrit 38.6 % (37-47); Lymphocyte # 1.76 X10^3/ul (0.83-4.51); Lymphocyte % 34.9 % (19-41); Mean Corp Hgb Conc 33.7 g/dL (32-36); Mean Corpuscular Hgb 34.2 pg (27.0-32.0); Mean Corpuscular Volume 101.6 fL (81-99); Mean Platelet Vol. 9.9 fl (6.2-12.0); Monocyte# 0.35 X10^3/uL; Monocyte% 6.9 % (0-10); NRBC Flagged by Analyzer 0 % (0-5); Neutrophil # 2.89 X10^3/uL (2.7-7.7); Neutrophil % 57.2 % (47-70); Platelet Count 146 K/mm3 (150-450); RBC Distribution Width CV 12.8 % (11.6-14.6); RBC Distribution Width SD 47.8 fl (35.1-43.9); White Blood Count 5.1 K/mm3 (4.4-11.0)
[2024-11-20 12:45] LABS: ALB/GLOB Ratio 1.9 RATIO (0.9-2.4); AST(SGOT) 27 U/L (<=31); Alanine Aminotransfer ALT/SGPT 29 U/L (<=34); Albumin, Serum 4.4 g/dL (3.4-4.8); Alkaline Phosphatase 70 U/L (35-104); Anion Gap 12 (5-15); BUN 15 mg/dL (4-19); BUN/Creat Ratio 16.8 RATIO (10-20); Calcium,Total 10.2 mg/dL (7.6-11.0); Carbon Dioxide 23.8 mmol/L (21.0-32.0); Chloride 107 mmol/L (98-108); EST Glomerular Filtration Rate 65 (>60); Globulin 2.3 g/dL (2.2-4.2); Glucose 114 mg/dL (70-99); Protein, Total 6.7 g/dL (5.9-8.4); Sodium Level 143 mmol/L (133-145); Total Bilirubin 1.07 mg/dL (0.00-1.30)
== END | disposition home or self-care (01) ==
LOC: MTLAB 10:09
PROVIDERS: PCP Family Medicine Geriatric Medicine; Referring Provider Internal Medicine Rheumatology; Visit Provider Internal Medicine Rheumatology
DX: M06.4 Inflammatory polyarthropathy (principal); M19.041 Primary osteoarthritis, right hand; M17.11 Unilateral primary osteoarthritis, right knee; Z79.899 Other long term (current) drug therapy
CPT/HCPCS: 36415; 80053; 85025

== ENCOUNTER → 2024-12-13 | Outpatient (CLI) | payer MEDICARE, SELFPAY ==
[2024-12-13 11:57] LABS: Absolute Lymphocyte Count 1.92 X10^3/uL (0.83-4.51); Absolute Neutrophil Count 3.1 X10^3/uL (2.0-7.7); Basophil# 0.02 X10^3/uL; Basophil% 0.4 % (0-1); Eosinophil# 0.03 X10^3/uL; Eosinophils% 0.5 % (0-5); Hematocrit 37.2 % (37-47); Hemoglobin 12.8 g/dL (12.0-15.0); Lymphocyte # 1.92 X10^3/ul (0.83-4.51); Lymphocyte % 34.9 % (19-41); Mean Corp Hgb Conc 34.4 g/dL (32-36); Mean Corpuscular Volume 101.6 fL (81-99); Mean Platelet Vol. 9.2 fl (6.2-12.0); Monocyte% 7.3 % (0-10); NRBC Flagged by Analyzer 0 % (0-5); Neutrophil # 3.11 X10^3/uL (2.7-7.7); Neutrophil % 56.5 % (47-70); Platelet Count 133 K/mm3 (150-450); RBC Distribution Width CV 12.8 % (11.6-14.6); RBC Distribution Width SD 48.2 fl (35.1-43.9); Red Blood Count 3.66 M/mm3 (4.2-5.4); White Blood Count 5.5 K/mm3 (4.4-11.0)
[2024-12-13 13:17] LABS: ALB/GLOB Ratio 1.8 RATIO (0.9-2.4); AST(SGOT) 29 U/L (<=31); Alanine Aminotransfer ALT/SGPT 34 U/L (<=34); Albumin, Serum 4.4 g/dL (3.4-4.8); Alkaline Phosphatase 71 U/L (35-104); Anion Gap 11 (5-15); BUN 19 mg/dL (4-19); BUN/Creat Ratio 18.3 RATIO (10-20); Calcium,Total 10.3 mg/dL (7.6-11.0); Carbon Dioxide 25.5 mmol/L (21.0-32.0); Chloride 105 mmol/L (98-108); Cholesterol 176 mg/dL (<=200); Creatinine, Serum 1.03 mg/dL (0.70-1.20); EST Glomerular Filtration Rate 55 (>60); Globulin 2.4 g/dL (2.2-4.2); Glucose 96 mg/dL (70-99); High Density Lipoprotein 52 mg/dL; Low Density Lipoprotein Calc. 75 mg/dL; Protein, Total 6.9 g/dL (5.9-8.4); Sodium Level 142 mmol/L (133-145); Total Bilirubin 1.09 mg/dL (0.00-1.30); Triglycerides 245 mg/dL; Very Low Density Lipoprotein 49 mg/dL (5-40); Vitamin D,25 Hydroxy 30.9 ng/mL (30-100); cholesterol:hdl ratio screen 3.37
== END | disposition home or self-care (01) ==
PROVIDERS: PCP Family Medicine Geriatric Medicine; Referring Provider Family Medicine Geriatric Medicine; Visit Provider Family Medicine Geriatric Medicine
DX: N39.0 Urinary tract infection, site not specified (principal); I10 Essential (primary) hypertension; E78.5 Hyperlipidemia, unspecified; E55.9 Vitamin D deficiency, unspecified
CPT/HCPCS: 36415; 80053; 80061; 82306; 84443; 85025; 87086; 87088

== ENCOUNTER → 2025-01-21 | Outpatient (CLI) | payer MEDICARE, SELFPAY | END | disposition home or self-care (01) | LOC: POLAB3 16:09 | PROVIDERS: PCP Family Medicine Geriatric Medicine; Visit Provider Family Medicine Geriatric Medicine | DX: N39.0 Urinary tract infection, site not specified (principal) | CPT/HCPCS: 87077; 87086; 87088; 87186 ==

== ENCOUNTER → 2025-03-25 | Outpatient (CLI) | payer MEDICARE, SELFPAY ==
[2025-03-25 12:37] LABS: Hematocrit 36.1 % (37-47); Hemoglobin 12.6 g/dL (12.0-15.0); Immature Granulocytes Count 0.010 X10^3/uL (0.0-0.0); Mean Corp Hgb Conc 34.9 g/dL (32-36); Mean Corpuscular Volume 101.1 fL (81-99); Mean Platelet Vol. 9.9 fl (6.2-12.0); NRBC Flagged by Analyzer 0 % (0-5); Platelet Count 153 K/mm3 (150-450); RBC Distribution Width CV 12.3 % (11.6-14.6); RBC Distribution Width SD 45.9 fl (35.1-43.9); Red Blood Count 3.57 M/mm3 (4.2-5.4); White Blood Count 5.8 K/mm3 (4.4-11.0)
[2025-03-25 12:48] LABS: D-Dimer Quantitative (DVT/PE) 0.29 FEU/ug/m (0.27-0.49)
[2025-03-25 13:00] LABS: Anion Gap 13 (5-15); BUN 9 mg/dL (4-19); BUN/Creat Ratio 11.0 RATIO (10-20); Calcium,Total 10.4 mg/dL (7.6-11.0); Carbon Dioxide 22.3 mmol/L (21.0-32.0); Chloride 105 mmol/L (98-108); Glucose 109 mg/dL (70-99); Potassium 4.3 mmol/L (3.3-5.1)
[2025-03-25 20:10] LABS: Xtra Tube Kwok EXTRA TUBE
== END | disposition home or self-care (01) ==
LOC: POLAB3 12:04
PROVIDERS: PCP Family Medicine Geriatric Medicine; Visit Provider Family Medicine Geriatric Medicine
DX: I10 Essential (primary) hypertension (principal); N39.0 Urinary tract infection, site not specified; R06.02 Shortness of breath
CPT/HCPCS: 36415; 80048; 85025; 85379; 87086; 87088

== ENCOUNTER → 2025-05-14 | Outpatient (CLI) | payer MEDICARE, SELFPAY ==
[2025-05-14 12:26] LABS: Hematocrit 41.0 % (37-47); Hemoglobin 13.5 g/dL (12.0-15.0); Immature Granulocytes Count 0.010 X10^3/uL (0.0-0.0); Mean Corp Hgb Conc 32.9 g/dL (32-36); Mean Corpuscular Volume 103.8 fL (81-99); Mean Platelet Vol. 9.8 fl (6.2-12.0); NRBC Flagged by Analyzer 0 % (0-5); Platelet Count 113 K/mm3 (150-450); RBC Distribution Width CV 12.1 % (11.6-14.6); RBC Distribution Width SD 46.7 fl (35.1-43.9); Red Blood Count 3.95 M/mm3 (4.2-5.4); White Blood Count 5.2 K/mm3 (4.4-11.0)
[2025-05-14 12:54] LABS: AST(SGOT) 29 U/L (<=31); Alanine Aminotransfer ALT/SGPT 47 U/L (<=34); Albumin, Serum 4.3 g/dL (3.4-4.8); Alkaline Phosphatase 66 U/L (35-104); Anion Gap 12 (5-15); BUN 16 mg/dL (4-19); BUN/Creat Ratio 18.7 RATIO (10-20); Calcium,Total 9.9 mg/dL (7.6-11.0); Carbon Dioxide 24.5 mmol/L (21.0-32.0); Chloride 107 mmol/L (98-108); Globulin 2.3 g/dL (2.2-4.2); Glucose 93 mg/dL (70-99); Potassium 4.1 mmol/L (3.3-5.1)
== END | disposition home or self-care (01) ==
LOC: MTLAB 10:29
PROVIDERS: PCP Family Medicine Geriatric Medicine; Referring Provider Internal Medicine Rheumatology; Visit Provider Internal Medicine Rheumatology
DX: M06.4 Inflammatory polyarthropathy (principal); Z79.899 Other long term (current) drug therapy; M19.041 Primary osteoarthritis, right hand; M17.11 Unilateral primary osteoarthritis, right knee
CPT/HCPCS: 36415; 80053; 85025

== ENCOUNTER → 2025-06-11 | Outpatient (CLI) | payer MEDICARE, SELFPAY ==
[2025-06-11 10:45] LABS: Hematocrit 39.3 % (37-47); Hemoglobin 13.0 g/dL (12.0-15.0); Immature Granulocytes Count 0.040 X10^3/uL (0.0-0.0); Mean Corp Hgb Conc 33.1 g/dL (32-36); Mean Corpuscular Volume 104.0 fL (81-99); Mean Platelet Vol. 9.8 fl (6.2-12.0); NRBC Flagged by Analyzer 0 % (0-5); Platelet Count 148 K/mm3 (150-450); RBC Distribution Width CV 13.1 % (11.6-14.6); RBC Distribution Width SD 49.3 fl (35.1-43.9); Red Blood Count 3.78 M/mm3 (4.2-5.4); White Blood Count 6.4 K/mm3 (4.4-11.0)
[2025-06-11 11:44] LABS: AST(SGOT) 31 U/L (<=31); Alanine Aminotransfer ALT/SGPT 36 U/L (<=34); Albumin, Serum 4.3 g/dL (3.4-4.8); Alkaline Phosphatase 69 U/L (35-104); Anion Gap 10 (5-15); BUN 16 mg/dL (4-19); BUN/Creat Ratio 15.2 RATIO (10-20); Calcium,Total 10.4 mg/dL (7.6-11.0); Carbon Dioxide 25.8 mmol/L (21.0-32.0); Chloride 106 mmol/L (98-108); Globulin 2.2 g/dL (2.2-4.2); Glucose 102 mg/dL (70-99); Potassium 3.6 mmol/L (3.3-5.1); Vitamin D,25 Hydroxy 30.6 ng/mL (30-100)
[2025-06-11 18:33] LABS: Xtra Tube Kwok EXTRA TUBE
== END | disposition home or self-care (01) ==
LOC: POLAB3 10:33
PROVIDERS: PCP Family Medicine Geriatric Medicine; Visit Provider Family Medicine Geriatric Medicine
DX: E55.9 Vitamin D deficiency, unspecified (principal); I10 Essential (primary) hypertension
CPT/HCPCS: 36415; 80053; 82306; 84443; 85025